=== PATIENT | female | born 1955 | race Caucasian/White ===

== ENCOUNTER 2017-11-28 17:20 | Inpatient (IN) | payer OTHER ==
[2017-11-28] MEDS: morphine 4 MG/ML VIAL IV (18:00)
[2017-11-28] MEDS: ONDANSETRON 4 MG INJ IV (18:01)
[2017-11-28 18:15] LABS: ADD MAN DIFF? NO
[2017-11-28 18:18] LABS: BASOPHILS % 0.3 % (0.0-2.0); EOSINOPHILS % 0.2 % (0.0-7.0); HEMATOCRIT 42.1 % (37.0-47.0); HEMOGLOBIN 13.5 g/dl (12.0-16.0); LYMPHOCYTES # 1.8 10^3/ul (0.8-2.9); LYMPHOCYTES % 14.5 % (15.0-51.0); MEAN CORPUSCULAR HEMOGLOBIN 30.2 pg (29.0-33.0); MEAN CORPUSCULAR HGB CONC 32.1 g/dl (32.0-37.0); MEAN CORPUSCULAR VOLUME 94.2 fl (82.0-101.0); MEAN PLATELET VOLUME 8.3 fl (7.4-10.4); MONOCYTE # 0.3 10^3/ul (0.3-0.9); MONOCYTES % 2.5 % (0.0-11.0); NEUTROPHIL # 10.3 10^3/ul (1.6-7.5); NEUTROPHILS % 82.2 % (39.0-77.0); PLATELET COUNT 644 10^3/UL (140-415); RED BLOOD COUNT 4.47 10^6/ul (4.20-5.40); RED CELL DISTRIBUTION WIDTH 15.9 % (11.5-14.5)
[2017-11-28 18:18] LABS: WHITE BLOOD COUNT 12.5 10^3/ul (4.8-10.8)
[2017-11-28 18:47] LABS: ALANINE AMINOTRANSFERASE 66 IU/L (13-69); ALBUMIN 3.4 g/dl (3.3-4.9); ALBUMIN/GLOBULIN RATIO 0.97; ALKALINE PHOSPHATASE 79 IU/L (42-121); ANION GAP 14 (8-16); ASPARTATE AMINO TRANSFERASE 53 IU/L (15-46); BILIRUBIN,INDIRECT 0.6 mg/dl (0-1.1); BILIRUBIN,TOTAL 0.6 mg/dl (0.2-1.3); BLOOD UREA NITROGEN 11 mg/dl (7-20); CALCIUM 9.1 mg/dl (8.4-10.2); CARBON DIOXIDE 23 mmol/L (21-31); CHLORIDE 105 mmol/L (97-110); CREATININE 0.56 mg/dl (0.44-1.00); GLUCOSE 171 mg/dl (70-220); LIPASE 218 U/L (23-300); POTASSIUM 3.9 mmol/L (3.5-5.1); SODIUM 138 mmol/L (135-144); TOTAL PROTEIN 6.9 g/dl (6.1-8.1)
[2017-11-28] MEDS: LACTATED RINGER'S 1,000 ML IV (19:35)
[2017-11-28] MEDS: HYDROmorphONE 0.5 MG/0.5 ML SYG IV ×2 (19:35→22:01)
[2017-11-28 20:26] LABS: LACTIC ACID 3.5 mmol/L (0.5-2.0)
[2017-11-28 21:35] LABS: ADD UMIC NO; UR ASCORBIC ACID NEGATIVE (NEGATIVE); UR BILIRUBIN (Dip) NEGATIVE (NEGATIVE); UR BLOOD (Dip) NEGATIVE (NEGATIVE); UR CLARITY CLEAR (CLEAR); UR COLOR YELLOW (YELLOW); UR GLUCOSE (Dip) NEGATIVE (NEGATIVE); UR KETONES (Dip) NEGATIVE (NEGATIVE); UR LEUKOCYTE ESTERASE (Dip) NEGATIVE Leu/ul (NEGATIVE); UR NITRITE (Dip) NEGATIVE (NEGATIVE); UR TOTAL PROTEIN (Dip) NEGATIVE (NEGATIVE); UR UROBILINOGEN (Dip) NEGATIVE (NEGATIVE)
[2017-11-28] MEDS: METOCLOPRAMIDE 10 MG INJ IV ×2 (22:01→22:02)
[2017-11-28] MEDS ORDERED: NACL 0.9% 3 ML SYG IV (22:30)
[2017-11-28 23:44] LABS: LACTIC ACID 1.3 mmol/L (0.5-2.0)
[2017-11-29] MEDS: METOPROLOL 5 MG INJ IV
[2017-11-29] MEDS: METHYLPREDNISOLONE 40 MG INJ IV ×2 (00:23→09:33)
[2017-11-29] MEDS: SOD CHLORIDE 0.9% 1,000 ML IV ×4 (01:26→22:46)
[2017-11-29] MEDS: morphine 2 MG INJ IV ×5 (02:50→22:46)
[2017-11-29] MEDS: METOCLOPRAMIDE 10 MG INJ IV ×5 (04:31→23:17)
[2017-11-29 06:14] LABS: WHITE BLOOD COUNT 13.2 10^3/ul (4.8-10.8)
[2017-11-29 06:14] LABS: HEMOGLOBIN 11.3 g/dl (12.0-16.0); MEAN CORPUSCULAR HEMOGLOBIN 29.2 pg (29.0-33.0); MEAN CORPUSCULAR HGB CONC 31.4 g/dl (32.0-37.0); MEAN PLATELET VOLUME 8.7 fl (7.4-10.4); PLATELET COUNT 458 10^3/UL (140-415); RED BLOOD COUNT 3.87 10^6/ul (4.20-5.40); RED CELL DISTRIBUTION WIDTH 16.1 % (11.5-14.5)
[2017-11-29] MEDS: LEVOTHYROXINE 100 MCG VIAL IV (06:15)
[2017-11-29] MEDS: PANTOPRAZOLE 40 MG INJ IV (06:15)
[2017-11-29 06:21] LABS: ADD MAN DIFF? YES; POSITIVE DIFF @See below
[2017-11-29 06:25] LABS: HEMOGLOBIN A1C 5.4 % (0-5.9)
[2017-11-29 07:12] LABS: ALANINE AMINOTRANSFERASE 49 IU/L (13-69); ALBUMIN 2.7 g/dl (3.3-4.9); ALBUMIN/GLOBULIN RATIO 0.87; ALKALINE PHOSPHATASE 61 IU/L (42-121); ANION GAP 14 (8-16); ASPARTATE AMINO TRANSFERASE 27 IU/L (15-46); BILIRUBIN,INDIRECT 0.6 mg/dl (0-1.1); BILIRUBIN,TOTAL 0.6 mg/dl (0.2-1.3); BLOOD UREA NITROGEN 12 mg/dl (7-20); CALCIUM 8.8 mg/dl (8.4-10.2); CARBON DIOXIDE 28 mmol/L (21-31); CHLORIDE 103 mmol/L (97-110); CHOL/HDL RATIO 2.5 RATIO; CHOLESTEROL 87 mg/dl (100-200); CREATININE 0.56 mg/dl (0.44-1.00); GLUCOSE 176 mg/dl (70-220); HDL CHOLESTEROL 34 mg/dl (35-98); LDL CHOLESTEROL,CALCULATED 37 mg/dl; MAGNESIUM 1.9 mg/dl (1.7-2.5); POTASSIUM 4.7 mmol/L (3.5-5.1); SODIUM 140 mmol/L (135-144); TOTAL PROTEIN 5.8 g/dl (6.1-8.1); TRIGLYCERIDES 82 mg/dl (0-149)
[2017-11-29 09:25] LABS: BAND NEUTROPHILS #M 2.7 10^3/ul (0.0-0.6); BAND NEUTROPHILS % (M) 21 % (0-4); LYMPHOCYTES #M 0.5 10^3/ul (0.8-2.9); LYMPHOCYTES % (M) 4 % (15-51); MONOCYTE #M 0.2 10^3/ul (0.3-0.9); MONOCYTES % (M) 2 % (0-11); PLATELET ESTIMATE INCREASED; SEGMENTED NEUTROPHILS (M) % 73 % (39-77); SMUDGE%M 3 % (0-0); TOXIC GRANULATION 1+ (0-0)
[2017-11-29] MEDS ORDERED: hydrALAzine 20 MG INJ IV (16:00)
[2017-11-30] MEDS: SOD CHLORIDE 0.9% 1,000 ML IV ×3 (02:42→15:23)
[2017-11-30] MEDS: LEVOTHYROXINE 100 MCG VIAL IV (05:34)
[2017-11-30] MEDS: PANTOPRAZOLE 40 MG INJ IV (05:34)
[2017-11-30] MEDS: METOCLOPRAMIDE 10 MG INJ IV ×4 (05:34→23:59)
[2017-11-30 06:48] LABS: ADD MAN DIFF? NO
[2017-11-30 07:05] LABS: BASOPHILS % 0.1 % (0.0-2.0); EOSINOPHILS % 0.4 % (0.0-7.0); HEMATOCRIT 31.1 % (37.0-47.0); HEMOGLOBIN 9.7 g/dl (12.0-16.0); LYMPHOCYTES # 1.1 10^3/ul (0.8-2.9); LYMPHOCYTES % 9.5 % (15.0-51.0); MEAN CORPUSCULAR HEMOGLOBIN 29.2 pg (29.0-33.0); MEAN CORPUSCULAR HGB CONC 31.2 g/dl (32.0-37.0); MEAN CORPUSCULAR VOLUME 93.7 fl (82.0-101.0); MEAN PLATELET VOLUME 8.8 fl (7.4-10.4); MONOCYTE # 0.4 10^3/ul (0.3-0.9); MONOCYTES % 3.9 % (0.0-11.0); NEUTROPHIL # 9.5 10^3/ul (1.6-7.5); NEUTROPHILS % 85.5 % (39.0-77.0); PLATELET COUNT 375 10^3/UL (140-415); RED BLOOD COUNT 3.32 10^6/ul (4.20-5.40)
[2017-11-30 07:05] LABS: WHITE BLOOD COUNT 11.1 10^3/ul (4.8-10.8)
[2017-11-30 07:23] LABS: PHOSPHORUS 2.7 mg/dl (2.5-4.9)
[2017-11-30 07:23] LABS: ANION GAP 9 (8-16); BLOOD UREA NITROGEN 9 mg/dl (7-20); CALCIUM 8.5 mg/dl (8.4-10.2); CARBON DIOXIDE 28 mmol/L (21-31); CHLORIDE 103 mmol/L (97-110); CREATININE 0.52 mg/dl (0.44-1.00); GLUCOSE 92 mg/dl (70-220); SODIUM 136 mmol/L (135-144)
[2017-11-30 07:32] LABS: FREE T4 (FREE THYROXINE) 1.65 ng/dl (0.78-2.44)
[2017-11-30] MEDS: METHYLPREDNISOLONE 40 MG INJ IV (08:44)
[2017-11-30] MEDS: POLYETHYLENE GLYCOL 17 GM PACKET PO ×2 (11:32→21:40)
[2017-11-30] MEDS: BISACODYL (EC) 5 MG TAB PO (11:32)
[2017-11-30] MEDS: morphine 2 MG INJ IV ×2 (13:46→18:50)
[2017-11-30] MEDS ORDERED: morphine LIQ (10 MG/5 ML) CUP PO (16:30)
[2017-11-30] MEDS: NA PHOSPHATE/BIPHOS 133 ML ENEMA PR (17:18)
[2017-11-30] MEDS: HYDROmorphONE 1 MG/ML SYG IV (19:45)
[2017-11-30] MEDS: DOCUSATE SODIUM 100 MG CAP PO (21:40)
[2017-12-01] MEDS: SOD CHLORIDE 0.9% 1,000 ML IV ×2 (03:46→17:40)
[2017-12-01] MEDS: HYDROmorphONE 1 MG/ML SYG IV ×5 (04:25→20:25)
[2017-12-01] MEDS: METOCLOPRAMIDE 10 MG INJ IV ×4 (06:37→23:32)
[2017-12-01] MEDS: LEVOTHYROXINE 150 MCG TAB PO (06:37)
[2017-12-01] MEDS: PANTOPRAZOLE 40 MG INJ IV (06:37)
[2017-12-01 07:42] LABS: HEMATOCRIT 37.2 % (37.0-47.0); HEMOGLOBIN 11.4 g/dl (12.0-16.0); MEAN CORPUSCULAR HEMOGLOBIN 29.2 pg (29.0-33.0); MEAN CORPUSCULAR HGB CONC 30.6 g/dl (32.0-37.0); MEAN CORPUSCULAR VOLUME 95.1 fl (82.0-101.0); MEAN PLATELET VOLUME 8.7 fl (7.4-10.4); PLATELET COUNT 452 10^3/UL (140-415); RED BLOOD COUNT 3.91 10^6/ul (4.20-5.40); RED CELL DISTRIBUTION WIDTH 15.8 % (11.5-14.5)
[2017-12-01 07:42] LABS: WHITE BLOOD COUNT 5.6 10^3/ul (4.8-10.8)
[2017-12-01 07:57] LABS: ADD MAN DIFF? YES; POSITIVE DIFF @See below
[2017-12-01 08:08] LABS: ANION GAP 13 (8-16); BLOOD UREA NITROGEN 10 mg/dl (7-20); CARBON DIOXIDE 28 mmol/L (21-31); CHLORIDE 105 mmol/L (97-110); CREATININE 0.55 mg/dl (0.44-1.00); GLUCOSE 139 mg/dl (70-220); POTASSIUM 4.8 mmol/L (3.5-5.1); SODIUM 141 mmol/L (135-144)
[2017-12-01 08:11] LABS: MAGNESIUM 2.1 mg/dl (1.7-2.5)
[2017-12-01 08:11] LABS: PHOSPHORUS 3.7 mg/dl (2.5-4.9)
[2017-12-01] MEDS: DOCUSATE SODIUM 100 MG CAP PO ×2 (09:20→20:26)
[2017-12-01] MEDS: predniSONE 2.5 MG TAB PO (09:20)
[2017-12-01] MEDS: POLYETHYLENE GLYCOL 17 GM PACKET PO ×2 (09:21→20:26)
[2017-12-01 09:26] LABS: ANISOCYTOSIS 1+ (0-0); BAND NEUTROPHILS #M 1.3 10^3/ul (0.0-0.6); BAND NEUTROPHILS % (M) 24 % (0-4); BASOPHILS % (M) 1 % (0-2); BURR CELLS 1+ (0-0); HYPOCHROMASIA 1+ (0-0); LYMPHOCYTES #M 0.7 10^3/ul (0.8-2.9); LYMPHOCYTES % (M) 13 % (15-51); MONOCYTES % (M) 1 % (0-11); PLATELET ESTIMATE NORMAL; POLYCHROMASIA 1+ (0-0); SEG NEUT #M 3.5 10^3/ul (1.6-7.5); SEGMENTED NEUTROPHILS (M) % 61 % (39-77); SMUDGE%M 2 % (0-0)
[2017-12-02] MEDS: HYDROmorphONE 1 MG/ML SYG IV ×4 (00:37→20:42)
[2017-12-02] MEDS: METOCLOPRAMIDE 10 MG INJ IV ×4 (05:22→23:50)
[2017-12-02] MEDS: PANTOPRAZOLE 40 MG INJ IV (05:22)
[2017-12-02] MEDS: LEVOTHYROXINE 150 MCG TAB PO (06:13)
[2017-12-02 06:20] LABS: WHITE BLOOD COUNT 8.7 10^3/ul (4.8-10.8)
[2017-12-02 06:20] LABS: HEMATOCRIT 32.3 % (37.0-47.0); HEMOGLOBIN 10.1 g/dl (12.0-16.0); MEAN CORPUSCULAR HEMOGLOBIN 28.8 pg (29.0-33.0); MEAN CORPUSCULAR HGB CONC 31.3 g/dl (32.0-37.0); MEAN PLATELET VOLUME 8.7 fl (7.4-10.4); PLATELET COUNT 329 10^3/UL (140-415); RED BLOOD COUNT 3.51 10^6/ul (4.20-5.40); RED CELL DISTRIBUTION WIDTH 15.7 % (11.5-14.5)
[2017-12-02 06:44] LABS: MAGNESIUM 2.1 mg/dl (1.7-2.5)
[2017-12-02 06:44] LABS: PHOSPHORUS 2.7 mg/dl (2.5-4.9)
[2017-12-02 07:10] LABS: ADD MAN DIFF? YES; POSITIVE DIFF @See below
[2017-12-02 07:19] LABS: ANION GAP 11 (8-16); BLOOD UREA NITROGEN 13 mg/dl (7-20); CALCIUM 8.6 mg/dl (8.4-10.2); CARBON DIOXIDE 24 mmol/L (21-31); CHLORIDE 108 mmol/L (97-110); CREATININE 0.46 mg/dl (0.44-1.00); GLUCOSE 109 mg/dl (70-220); POTASSIUM 3.6 mmol/L (3.5-5.1); SODIUM 139 mmol/L (135-144)
[2017-12-02] MEDS: SOD CHLORIDE 0.9% 1,000 ML IV (07:51)
[2017-12-02 08:39] LABS: LYMPHOCYTES #M 0.4 10^3/ul (0.8-2.9); LYMPHOCYTES % (M) 5 % (15-51); MONOCYTE #M 0.6 10^3/ul (0.3-0.9); MONOCYTES % (M) 8 % (0-11); PLATELET ESTIMATE NORMAL; POLYCHROMASIA 2+ (0-0); SEGMENTED NEUTROPHILS (M) % 87 % (39-77); SMUDGE%M 2 % (0-0)
[2017-12-02] MEDS: COLLAGENASE 5 GM (UD JAR) TOP (09:00)
[2017-12-02] MEDS: POLYETHYLENE GLYCOL 17 GM PACKET PO (09:00)
[2017-12-02] MEDS: DOCUSATE SODIUM 100 MG CAP PO ×2 (09:00→20:41)
[2017-12-02] MEDS: predniSONE 2.5 MG TAB PO ×2 (09:00→11:49)
[2017-12-02] MEDS: DIATR MEGLU/DIATRIZOATE SODIUM 120 ML BTL (09:20)
[2017-12-02] MEDS: LOPERAMIDE 2 MG CAP PO (16:34)
[2017-12-02] MEDS: ENOXAPARIN 80 MG/0.8 ML SYG SC (21:20)
[2017-12-03] MEDS: HYDROmorphONE 1 MG/ML SYG IV ×5 (01:33→20:35)
[2017-12-03] MEDS: SOD CHLORIDE 0.9% 1,000 ML IV ×2 (01:33→15:20)
[2017-12-03 06:16] LABS: ADD MAN DIFF? NO; BASOPHILS % 0.1 % (0.0-2.0); EOSINOPHILS % 0.2 % (0.0-7.0); HEMATOCRIT 30.8 % (37.0-47.0); HEMOGLOBIN 9.7 g/dl (12.0-16.0); LYMPHOCYTES # 0.8 10^3/ul (0.8-2.9); LYMPHOCYTES % 7.6 % (15.0-51.0); MEAN CORPUSCULAR HEMOGLOBIN 29.2 pg (29.0-33.0); MEAN CORPUSCULAR HGB CONC 31.5 g/dl (32.0-37.0); MEAN CORPUSCULAR VOLUME 92.8 fl (82.0-101.0); MEAN PLATELET VOLUME 8.9 fl (7.4-10.4); MONOCYTE # 0.6 10^3/ul (0.3-0.9); MONOCYTES % 6.1 % (0.0-11.0); NEUTROPHIL # 8.6 10^3/ul (1.6-7.5); NEUTROPHILS % 85.5 % (39.0-77.0); NUCLEATED RED BLOOD CELLS% 0.2 /100WBC (0.0-0.0); PLATELET COUNT 334 10^3/UL (140-415); RED BLOOD COUNT 3.32 10^6/ul (4.20-5.40); RED CELL DISTRIBUTION WIDTH 15.4 % (11.5-14.5)
[2017-12-03] MEDS: LEVOTHYROXINE 100 MCG TAB PO (06:17)
[2017-12-03] MEDS: METOCLOPRAMIDE 10 MG INJ IV ×3 (06:17→18:33)
[2017-12-03] MEDS: PANTOPRAZOLE 40 MG INJ IV (06:17)
[2017-12-03 06:53] LABS: ALANINE AMINOTRANSFERASE 29 IU/L (13-69); ALBUMIN 2.5 g/dl (3.3-4.9); ALBUMIN/GLOBULIN RATIO 0.83; ALKALINE PHOSPHATASE 76 IU/L (42-121); ANION GAP 10 (8-16); ASPARTATE AMINO TRANSFERASE 25 IU/L (15-46); BILIRUBIN,INDIRECT 0.8 mg/dl (0-1.1); BILIRUBIN,TOTAL 0.8 mg/dl (0.2-1.3); BLOOD UREA NITROGEN 17 mg/dl (7-20); CALCIUM 8.7 mg/dl (8.4-10.2); CARBON DIOXIDE 26 mmol/L (21-31); CHLORIDE 107 mmol/L (97-110); CREATININE 0.44 mg/dl (0.44-1.00); GLUCOSE 97 mg/dl (70-220); POTASSIUM 3.7 mmol/L (3.5-5.1); SODIUM 139 mmol/L (135-144); TOTAL PROTEIN 5.5 g/dl (6.1-8.1)
[2017-12-03 06:56] LABS: MAGNESIUM 2.1 mg/dl (1.7-2.5)
[2017-12-03 06:56] LABS: PHOSPHORUS 2.8 mg/dl (2.5-4.9)
[2017-12-03] MEDS: DOCUSATE SODIUM 100 MG CAP PO ×2 (09:34→20:50)
[2017-12-03] MEDS: COLLAGENASE 5 GM (UD JAR) TOP (09:34)
[2017-12-03] MEDS: predniSONE 2.5 MG TAB PO (09:35)
[2017-12-03] MEDS: ENOXAPARIN 80 MG/0.8 ML SYG SC ×2 (09:40→20:39)
[2017-12-03 15:01] LABS: C-REACTIVE PROTEIN 18.4 mg/dl (0.0-0.9)
[2017-12-03 15:36] LABS: RHEUMATOID FACTOR NEGATIVE (NEGATIVE)
[2017-12-03 15:47] LABS: ERYTHROCYTE SEDIMENTATION RATE 60 mm/Hr (0-30)
[2017-12-03] MEDS: CALCIUM CARBONATE 500 MG CHEW TAB PO (21:00)
[2017-12-03] MEDS: METOCLOPRAMIDE 10 MG TAB PO (23:23)
[2017-12-04] MEDS: SOD CHLORIDE 0.9% 1,000 ML IV ×3 (01:15→13:03)
[2017-12-04] MEDS: HYDROmorphONE 1 MG/ML SYG IV ×4 (02:53→20:09)
[2017-12-04 06:04] LABS: ADD MAN DIFF? NO
[2017-12-04 06:07] LABS: WHITE BLOOD COUNT 9.4 10^3/ul (4.8-10.8)
[2017-12-04 06:07] LABS: BASOPHILS % 0.1 % (0.0-2.0); EOSINOPHILS % 0.2 % (0.0-7.0); HEMATOCRIT 29.8 % (37.0-47.0); HEMOGLOBIN 9.3 g/dl (12.0-16.0); LYMPHOCYTES # 0.6 10^3/ul (0.8-2.9); LYMPHOCYTES % 6.8 % (15.0-51.0); MEAN CORPUSCULAR HEMOGLOBIN 29.5 pg (29.0-33.0); MEAN CORPUSCULAR HGB CONC 31.2 g/dl (32.0-37.0); MEAN CORPUSCULAR VOLUME 94.6 fl (82.0-101.0); MEAN PLATELET VOLUME 8.5 fl (7.4-10.4); MONOCYTE # 0.6 10^3/ul (0.3-0.9); MONOCYTES % 5.9 % (0.0-11.0); NEUTROPHIL # 8.1 10^3/ul (1.6-7.5); NEUTROPHILS % 86.1 % (39.0-77.0); PLATELET COUNT 282 10^3/UL (140-415); RED BLOOD COUNT 3.15 10^6/ul (4.20-5.40); RED CELL DISTRIBUTION WIDTH 15.9 % (11.5-14.5)
[2017-12-04] MEDS: METOCLOPRAMIDE 10 MG TAB PO ×3 (06:12→19:11)
[2017-12-04] MEDS: LEVOTHYROXINE 100 MCG TAB PO (06:12)
[2017-12-04] MEDS: PANTOPRAZOLE 40 MG INJ IV (06:13)
[2017-12-04 06:52] LABS: MAGNESIUM 1.9 mg/dl (1.7-2.5)
[2017-12-04 06:52] LABS: PHOSPHORUS 2.5 mg/dl (2.5-4.9)
[2017-12-04 06:54] LABS: ANION GAP 11 (8-16); BLOOD UREA NITROGEN 10 mg/dl (7-20); CALCIUM 8.4 mg/dl (8.4-10.2); CARBON DIOXIDE 25 mmol/L (21-31); CHLORIDE 109 mmol/L (97-110); CREATININE 0.45 mg/dl (0.44-1.00); GLUCOSE 77 mg/dl (70-220); POTASSIUM 3.7 mmol/L (3.5-5.1); SODIUM 141 mmol/L (135-144)
[2017-12-04] MEDS: DOCUSATE SODIUM 100 MG CAP PO ×2 (09:00→20:08)
[2017-12-04] MEDS: POLYETHYLENE GLYCOL 17 GM PACKET PO (09:00)
[2017-12-04] MEDS: predniSONE 2.5 MG TAB PO (09:41)
[2017-12-04] MEDS: ENOXAPARIN 80 MG/0.8 ML SYG SC ×2 (09:45→20:12)
[2017-12-04] MEDS: COLLAGENASE 5 GM (UD JAR) TOP (09:48)
[2017-12-04] MEDS: CALCIUM CARBONATE 500 MG CHEW TAB PO (13:08)
[2017-12-04] MEDS: CEPASTAT LOZENGE MT (15:02)
[2017-12-04] MEDS: ONDANSETRON 4 MG INJ IV (20:10)
[2017-12-05] MEDS: HYDROmorphONE 1 MG/ML SYG IV ×5 (00:11→19:35)
[2017-12-05] MEDS: METOCLOPRAMIDE 10 MG TAB PO ×4 (00:11→18:27)
[2017-12-05] MEDS: CALCIUM CARBONATE 500 MG CHEW TAB PO ×2 (00:15→06:35)
[2017-12-05] MEDS: SOD CHLORIDE 0.9% 1,000 ML IV ×2 (00:16→13:21)
[2017-12-05] MEDS: PANTOPRAZOLE 40 MG INJ IV (05:32)
[2017-12-05] MEDS: ONDANSETRON 4 MG INJ IV ×2 (05:32→13:21)
[2017-12-05] MEDS: LEVOTHYROXINE 100 MCG TAB PO (06:35)
[2017-12-05 08:02] LABS: INR 0.91; PROTIME 12.3 Sec (11.9-14.9)
[2017-12-05 08:03] LABS: PARTIAL THROMBOPLASTIN TIME 34.5 Sec (25.0-35.0)
[2017-12-05 08:13] LABS: IRON 30 ug/dl (35-150)
[2017-12-05 08:22] LABS: % IRON SATURATION 12 % SAT (22-52); TOTAL IRON BINDING CAPACITY 256 ug/dl (241-421)
[2017-12-05] MEDS: COLLAGENASE 5 GM (UD JAR) TOP (09:00)
[2017-12-05] MEDS: DOCUSATE SODIUM 100 MG CAP PO ×2 (09:02→20:25)
[2017-12-05] MEDS: predniSONE 2.5 MG TAB PO (09:02)
[2017-12-05] MEDS: ENOXAPARIN 80 MG/0.8 ML SYG SC ×2 (09:04→20:27)
[2017-12-05] MEDS: CEPASTAT LOZENGE MT (09:04)
[2017-12-05] MEDS: FERROUS SULFATE (EC) 325 MG TAB PO ×2 (10:02→20:25)
[2017-12-05 11:09] LABS: FOLATE > 20.0 ng/ml (2.8-20.0)
[2017-12-05 18:31] LABS: ANA SCREEN POSITIVE (NEGATIVE); HOMOCYSTEINE - CARDIOVASCULAR 4.8 umol/L (<10.4)
[2017-12-05 21:34] LABS: ANA PATTERN NUCLEOLAR
[2017-12-06] MEDS: HYDROmorphONE 1 MG/ML SYG IV ×4 (00:17→14:53)
[2017-12-06] MEDS: METOCLOPRAMIDE 10 MG TAB PO ×4 (00:18→17:48)
[2017-12-06] MEDS: LEVOTHYROXINE 100 MCG TAB PO (05:17)
[2017-12-06] MEDS: SOD CHLORIDE 0.9% 1,000 ML IV ×2 (05:17→17:51)
[2017-12-06] MEDS: PANTOPRAZOLE 40 MG INJ IV (05:18)
[2017-12-06 07:04] LABS: ADD MAN DIFF? NO
[2017-12-06 07:17] LABS: BASOPHILS % 0.1 % (0.0-2.0); EOSINOPHILS % 0.1 % (0.0-7.0); HEMATOCRIT 31.8 % (37.0-47.0); HEMOGLOBIN 9.8 g/dl (12.0-16.0); LYMPHOCYTES # 1.1 10^3/ul (0.8-2.9); LYMPHOCYTES % 12.1 % (15.0-51.0); MEAN CORPUSCULAR HEMOGLOBIN 28.7 pg (29.0-33.0); MEAN CORPUSCULAR HGB CONC 30.8 g/dl (32.0-37.0); MEAN CORPUSCULAR VOLUME 93.3 fl (82.0-101.0); MEAN PLATELET VOLUME 9.1 fl (7.4-10.4); MONOCYTE # 0.8 10^3/ul (0.3-0.9); MONOCYTES % 8.8 % (0.0-11.0); NEUTROPHIL # 6.9 10^3/ul (1.6-7.5); NUCLEATED RED BLOOD CELLS% 0.5 /100WBC (0.0-0.0); PLATELET COUNT 409 10^3/UL (140-415); RED BLOOD COUNT 3.41 10^6/ul (4.20-5.40); RED CELL DISTRIBUTION WIDTH 15.9 % (11.5-14.5)
[2017-12-06 07:17] LABS: WHITE BLOOD COUNT 8.8 10^3/ul (4.8-10.8)
[2017-12-06 07:38] LABS: ANION GAP 10 (8-16); BLOOD UREA NITROGEN 18 mg/dl (7-20); CARBON DIOXIDE 26 mmol/L (21-31); CHLORIDE 107 mmol/L (97-110); CREATININE 0.51 mg/dl (0.44-1.00); GLUCOSE 169 mg/dl (70-220); POTASSIUM 4.3 mmol/L (3.5-5.1); SODIUM 139 mmol/L (135-144)
[2017-12-06 08:39] LABS: IMMUNOGLOBULIN A 397 mg/dl (70-400); IMMUNOGLOBULIN G 1041 mg/dl (700-1600); IMMUNOGLOBULIN M 162 mg/dl (40-230)
[2017-12-06] MEDS: COLLAGENASE 5 GM (UD JAR) TOP (09:00)
[2017-12-06] MEDS: predniSONE 2.5 MG TAB PO (09:15)
[2017-12-06] MEDS: DOCUSATE SODIUM 100 MG CAP PO ×2 (09:15→20:51)
[2017-12-06] MEDS: FERROUS SULFATE (EC) 325 MG TAB PO ×2 (09:15→20:51)
[2017-12-06] MEDS: ENOXAPARIN 80 MG/0.8 ML SYG SC ×2 (09:20→20:57)
[2017-12-06] MEDS: morphine LIQ (20 MG/ML PO SYG) PO (20:52)
[2017-12-07] MEDS: METOCLOPRAMIDE 10 MG TAB PO ×5 (00:47→23:48)
[2017-12-07 03:37] LABS: PROTEIN, TOTAL 5.4 g/dL (6.1-8.1)
[2017-12-07] MEDS: morphine LIQ (20 MG/ML PO SYG) PO ×4 (03:49→21:49)
[2017-12-07] MEDS: PANTOPRAZOLE 40 MG INJ IV (06:22)
[2017-12-07] MEDS: LEVOTHYROXINE 100 MCG TAB PO (06:22)
[2017-12-07] MEDS: SOD CHLORIDE 0.9% 1,000 ML IV ×2 (06:26→18:49)
[2017-12-07] MEDS: predniSONE 2.5 MG TAB PO (09:56)
[2017-12-07] MEDS: COLLAGENASE 5 GM (UD JAR) TOP (09:56)
[2017-12-07] MEDS: FERROUS SULFATE (EC) 325 MG TAB PO ×2 (09:56→21:43)
[2017-12-07] MEDS: DOCUSATE SODIUM 100 MG CAP PO ×2 (09:56→21:43)
[2017-12-07] MEDS: ENOXAPARIN 80 MG/0.8 ML SYG SC ×2 (10:05→21:48)
[2017-12-07] MEDS: CEPASTAT LOZENGE MT (14:48)
[2017-12-07] MEDS: ONDANSETRON 4 MG INJ IV (20:14)
[2017-12-07] MEDS: SUCRALFATE (100 MG/ML) 10ML CUP PO (21:43)
[2017-12-07 22:26] LABS: ALBUMIN 2.2 g/dL (3.8-4.8); ALPHA-1-GLOBULINS 0.5 g/dL (0.2-0.3); ALPHA-2-GLOBULINS 0.8 g/dL (0.5-0.9); BETA 2 GLOBULINS 0.4 g/dL (0.2-0.5); BETA GLOBULINS 0.4 g/dL (0.4-0.6); GAMMA GLOBULINS 1.1 g/dL (0.8-1.7)
[2017-12-08] MEDS: PANTOPRAZOLE 40 MG INJ IV ×2 (05:38→18:05)
[2017-12-08] MEDS: SOD CHLORIDE 0.9% 1,000 ML IV ×2 (05:38→18:05)
[2017-12-08] MEDS: morphine LIQ (20 MG/ML PO SYG) PO ×4 (05:39→21:04)
[2017-12-08] MEDS: METOCLOPRAMIDE 10 MG TAB PO ×3 (05:39→18:05)
[2017-12-08] MEDS: LEVOTHYROXINE 100 MCG TAB PO (05:39)
[2017-12-08] MEDS: FERROUS SULFATE (EC) 325 MG TAB PO ×2 (08:57→20:57)
[2017-12-08] MEDS: SUCRALFATE (100 MG/ML) 10ML CUP PO ×4 (08:57→20:58)
[2017-12-08] MEDS: DOCUSATE SODIUM 100 MG CAP PO ×2 (08:57→20:57)
[2017-12-08] MEDS: COLLAGENASE 5 GM (UD JAR) TOP (08:58)
[2017-12-08] MEDS: predniSONE 2.5 MG TAB PO (08:58)
[2017-12-08] MEDS: ENOXAPARIN 80 MG/0.8 ML SYG SC ×2 (09:03→22:12)
[2017-12-08] MEDS: ONDANSETRON 4 MG INJ IV ×2 (12:37→18:05)
[2017-12-08] MEDS: LIDOCAINE/MYLANTA 40 ML BTL PO (15:48)
[2017-12-09] MEDS: METOCLOPRAMIDE 10 MG TAB PO ×4 (00:11→17:52)
[2017-12-09] MEDS: morphine LIQ (20 MG/ML PO SYG) PO (01:41)
[2017-12-09] MEDS: ONDANSETRON 4 MG INJ IV ×2 (02:22→13:21)
[2017-12-09] MEDS: HYDROmorphONE 1 MG/ML SYG IV ×3 (03:03→16:01)
[2017-12-09] MEDS: PANTOPRAZOLE 40 MG INJ IV ×3 (06:02→17:53)
[2017-12-09] MEDS: SOD CHLORIDE 0.9% 1,000 ML IV ×2 (06:03→20:49)
[2017-12-09] MEDS: LEVOTHYROXINE 100 MCG TAB PO (06:03)
[2017-12-09 06:32] LABS: LIPASE 17 U/L (23-300)
[2017-12-09] MEDS: SUCRALFATE (100 MG/ML) 10ML CUP PO ×4 (09:00→20:52)
[2017-12-09] MEDS: predniSONE 2.5 MG TAB PO (10:03)
[2017-12-09] MEDS: FERROUS SULFATE (EC) 325 MG TAB PO ×2 (10:04→20:51)
[2017-12-09] MEDS: COLLAGENASE 5 GM (UD JAR) TOP (10:04)
[2017-12-09] MEDS: DOCUSATE SODIUM 100 MG CAP PO ×2 (10:04→20:52)
[2017-12-09] MEDS: ENOXAPARIN 80 MG/0.8 ML SYG SC ×2 (10:07→20:56)
[2017-12-09] MEDS: BISACODYL (EC) 5 MG TAB PO (10:11)
[2017-12-09] MEDS: LUBIPROSTONE 8 MCG CAPSULE PO (20:51)
[2017-12-10] MEDS: METOCLOPRAMIDE 10 MG TAB PO ×4 (00:17→18:10)
[2017-12-10] MEDS: HYDROmorphONE 1 MG/ML SYG IV ×5 (00:18→20:53)
[2017-12-10] MEDS: LEVOTHYROXINE 100 MCG TAB PO (06:34)
[2017-12-10] MEDS: predniSONE 2.5 MG TAB PO (08:34)
[2017-12-10] MEDS: FERROUS SULFATE (EC) 325 MG TAB PO ×2 (08:35→20:45)
[2017-12-10] MEDS: LUBIPROSTONE 8 MCG CAPSULE PO ×2 (08:35→20:45)
[2017-12-10] MEDS: DOCUSATE SODIUM 100 MG CAP PO ×2 (08:35→20:45)
[2017-12-10] MEDS: ENOXAPARIN 80 MG/0.8 ML SYG SC ×2 (08:43→20:49)
[2017-12-10] MEDS: COLLAGENASE 5 GM (UD JAR) TOP (08:44)
[2017-12-10] MEDS: PANTOPRAZOLE 40 MG INJ IV ×2 (08:46→18:09)
[2017-12-10] MEDS: ONDANSETRON 4 MG INJ IV (08:49)
[2017-12-10] MEDS: SUCRALFATE (100 MG/ML) 10ML CUP PO ×4 (09:00→20:45)
[2017-12-10] MEDS: SOD CHLORIDE 0.9% 1,000 ML IV ×2 (09:05→20:45)
[2017-12-11] MEDS: METOCLOPRAMIDE 10 MG TAB PO ×4 (00:57→18:05)
[2017-12-11] MEDS: HYDROmorphONE 1 MG/ML SYG IV ×5 (00:58→20:09)
[2017-12-11] MEDS: LEVOTHYROXINE 100 MCG TAB PO ×2 (06:12→07:58)
[2017-12-11] MEDS: PANTOPRAZOLE 40 MG INJ IV ×2 (06:12→17:30)
[2017-12-11] MEDS ORDERED: PROPOFOL 200 MG INJ (07:00)
[2017-12-11] MEDS ORDERED: LIDOCAINE 2% (SDV) 5 ML INJ (07:00)
[2017-12-11] MEDS: FERROUS SULFATE (EC) 325 MG TAB PO ×2 (07:57→20:10)
[2017-12-11] MEDS: predniSONE 2.5 MG TAB PO (07:57)
[2017-12-11] MEDS: DOCUSATE SODIUM 100 MG CAP PO ×2 (07:58→20:10)
[2017-12-11] MEDS: SUCRALFATE (100 MG/ML) 10ML CUP PO ×4 (07:58→20:09)
[2017-12-11] MEDS: COLLAGENASE 5 GM (UD JAR) TOP (07:59)
[2017-12-11] MEDS: LUBIPROSTONE 8 MCG CAPSULE PO ×2 (09:00→20:10)
[2017-12-11] MEDS: SOD CHLORIDE 0.9% 1,000 ML IV (09:43)
[2017-12-11] MEDS: CEPASTAT LOZENGE MT ×2 (20:10→22:26)
[2017-12-11] MEDS: morphine LIQ (20 MG/ML PO SYG) PO (22:26)
[2017-12-12] MEDS: ONDANSETRON 4 MG INJ IV ×2 (00:03→12:18)
[2017-12-12] MEDS: HYDROmorphONE 1 MG/ML SYG IV ×5 (00:03→20:33)
[2017-12-12] MEDS: METOCLOPRAMIDE 10 MG TAB PO ×5 (00:03→23:40)
[2017-12-12] MEDS: ENOXAPARIN 80 MG/0.8 ML SYG SC ×3 (00:03→20:35)
[2017-12-12] MEDS: SOD CHLORIDE 0.9% 1,000 ML IV ×3 (00:04→23:42)
[2017-12-12] MEDS: morphine LIQ (20 MG/ML PO SYG) PO ×3 (06:27→23:40)
[2017-12-12] MEDS: PANTOPRAZOLE 40 MG INJ IV ×2 (06:27→18:17)
[2017-12-12] MEDS: LEVOTHYROXINE 100 MCG TAB PO (06:27)
[2017-12-12 08:20] LABS: ADD MAN DIFF? NO
[2017-12-12 08:33] LABS: BASOPHILS % 0.1 % (0.0-2.0); EOSINOPHILS % 0.1 % (0.0-7.0); HEMATOCRIT 34.9 % (37.0-47.0); HEMOGLOBIN 10.6 g/dl (12.0-16.0); LYMPHOCYTES # 1.1 10^3/ul (0.8-2.9); LYMPHOCYTES % 13.9 % (15.0-51.0); MEAN CORPUSCULAR HEMOGLOBIN 28.3 pg (29.0-33.0); MEAN CORPUSCULAR HGB CONC 30.4 g/dl (32.0-37.0); MEAN CORPUSCULAR VOLUME 93.3 fl (82.0-101.0); MEAN PLATELET VOLUME 9.2 fl (7.4-10.4); MONOCYTE # 0.5 10^3/ul (0.3-0.9); MONOCYTES % 6.6 % (0.0-11.0); NEUTROPHIL # 6.2 10^3/ul (1.6-7.5); NEUTROPHILS % 78.7 % (39.0-77.0); PLATELET COUNT 549 10^3/UL (140-415); RED BLOOD COUNT 3.74 10^6/ul (4.20-5.40); RED CELL DISTRIBUTION WIDTH 16.6 % (11.5-14.5)
[2017-12-12 08:33] LABS: WHITE BLOOD COUNT 7.9 10^3/ul (4.8-10.8)
[2017-12-12 08:55] LABS: MAGNESIUM 1.7 mg/dl (1.7-2.5)
[2017-12-12 08:55] LABS: PHOSPHORUS 2.3 mg/dl (2.5-4.9)
[2017-12-12] MEDS: LUBIPROSTONE 8 MCG CAPSULE PO ×2 (09:00→20:32)
[2017-12-12] MEDS: DOCUSATE SODIUM 100 MG CAP PO ×2 (09:00→20:32)
[2017-12-12 09:06] LABS: ALANINE AMINOTRANSFERASE 38 IU/L (13-69); ALBUMIN 2.2 g/dl (3.3-4.9); ALKALINE PHOSPHATASE 72 IU/L (42-121); ANION GAP 10 (8-16); ASPARTATE AMINO TRANSFERASE 28 IU/L (15-46); BILIRUBIN,INDIRECT 0.4 mg/dl (0-1.1); BILIRUBIN,TOTAL 0.4 mg/dl (0.2-1.3); BLOOD UREA NITROGEN 6 mg/dl (7-20); CALCIUM 7.8 mg/dl (8.4-10.2); CARBON DIOXIDE 24 mmol/L (21-31); CHLORIDE 104 mmol/L (97-110); CREATININE 0.29 mg/dl (0.44-1.00); GLUCOSE 67 mg/dl (70-220); SODIUM 135 mmol/L (135-144); TOTAL PROTEIN 5.3 g/dl (6.1-8.1)
[2017-12-12] MEDS: SUCRALFATE (100 MG/ML) 10ML CUP PO ×4 (09:07→20:32)
[2017-12-12] MEDS: FERROUS SULFATE (EC) 325 MG TAB PO ×2 (09:07→20:32)
[2017-12-12] MEDS: predniSONE 2.5 MG TAB PO (09:07)
[2017-12-12] MEDS: COLLAGENASE 5 GM (UD JAR) TOP (09:08)
[2017-12-12] MEDS: MULTIVITAMINS 10 ML, THIAMINE 100 MG, FOLIC ACID 1 MG in SOD CHLORIDE 0.9% 1,000 ML IVPB (13:52)
[2017-12-12] MEDS: POTASSIUM PHOSPHATE 30 MM in SOD CHLORIDE 0.9% 250 ML IVPB (13:52)
[2017-12-13] MEDS: HYDROmorphONE 1 MG/ML SYG IV ×5 (01:35→23:45)
[2017-12-13] MEDS: PANTOPRAZOLE 40 MG INJ IV ×2 (05:56→17:38)
[2017-12-13] MEDS: LEVOTHYROXINE 100 MCG TAB PO (05:57)
[2017-12-13] MEDS: LIDOCAINE 2% VISC 15 ML CUP PO (05:57)
[2017-12-13] MEDS: METOCLOPRAMIDE 10 MG TAB PO ×3 (05:57→17:37)
[2017-12-13 07:05] LABS: ADD MAN DIFF? NO
[2017-12-13 07:13] LABS: EOSINOPHILS % 0.2 % (0.0-7.0); LYMPHOCYTES # 1.7 10^3/ul (0.8-2.9); LYMPHOCYTES % 18.7 % (15.0-51.0); MEAN CORPUSCULAR HEMOGLOBIN 27.9 pg (29.0-33.0); MEAN CORPUSCULAR HGB CONC 30.6 g/dl (32.0-37.0); MEAN CORPUSCULAR VOLUME 91.4 fl (82.0-101.0); MEAN PLATELET VOLUME 8.9 fl (7.4-10.4); MONOCYTE # 0.7 10^3/ul (0.3-0.9); NEUTROPHIL # 6.5 10^3/ul (1.6-7.5); NEUTROPHILS % 72.9 % (39.0-77.0); PLATELET COUNT 667 10^3/UL (140-415); RED BLOOD COUNT 3.94 10^6/ul (4.20-5.40); RED CELL DISTRIBUTION WIDTH 16.7 % (11.5-14.5)
[2017-12-13 07:13] LABS: WHITE BLOOD COUNT 8.9 10^3/ul (4.8-10.8)
[2017-12-13 07:53] LABS: ALANINE AMINOTRANSFERASE 27 IU/L (13-69); ALBUMIN 2.2 g/dl (3.3-4.9); ALKALINE PHOSPHATASE 66 IU/L (42-121); ASPARTATE AMINO TRANSFERASE 24 IU/L (15-46); BILIRUBIN,INDIRECT 0.3 mg/dl (0-1.1); BILIRUBIN,TOTAL 0.3 mg/dl (0.2-1.3); BLOOD UREA NITROGEN 7 mg/dl (7-20); CALCIUM 7.8 mg/dl (8.4-10.2); CARBON DIOXIDE 28 mmol/L (21-31); CHLORIDE 104 mmol/L (97-110); CREATININE 0.31 mg/dl (0.44-1.00); GLUCOSE 68 mg/dl (70-220); POTASSIUM 4.2 mmol/L (3.5-5.1)
[2017-12-13 07:55] LABS: ALBUMIN/GLOBULIN RATIO 0.84; TOTAL PROTEIN 4.8 g/dl (6.1-8.1)
[2017-12-13 07:57] LABS: ANION GAP 7 (8-16); MAGNESIUM 1.7 mg/dl (1.7-2.5); SODIUM 135 mmol/L (135-144)
[2017-12-13 07:57] LABS: PHOSPHORUS 2.8 mg/dl (2.5-4.9)
[2017-12-13] MEDS: SUCRALFATE (100 MG/ML) 10ML CUP PO ×4 (08:40→21:58)
[2017-12-13] MEDS: predniSONE 2.5 MG TAB PO (08:41)
[2017-12-13] MEDS: DOCUSATE SODIUM 100 MG CAP PO ×2 (08:41→21:58)
[2017-12-13] MEDS: LUBIPROSTONE 8 MCG CAPSULE PO ×2 (08:41→21:00)
[2017-12-13] MEDS: FERROUS SULFATE (EC) 325 MG TAB PO ×2 (08:41→21:58)
[2017-12-13] MEDS: morphine LIQ (20 MG/ML PO SYG) PO ×2 (08:41→16:12)
[2017-12-13] MEDS: ENOXAPARIN 80 MG/0.8 ML SYG SC ×2 (08:43→23:47)
[2017-12-13] MEDS: COLLAGENASE 5 GM (UD JAR) TOP (08:48)
[2017-12-13] MEDS: MULTIVITAMINS 10 ML, THIAMINE 100 MG, FOLIC ACID 1 MG in SOD CHLORIDE 0.9% 1,000 ML IVPB (09:23)
[2017-12-13] MEDS: SOD CHLORIDE 0.9% 1,000 ML IV ×2 (12:28→18:06)
[2017-12-13] MEDS: ONDANSETRON 4 MG INJ IV ×2 (16:08→22:13)
[2017-12-14] MEDS: METOCLOPRAMIDE 10 MG TAB PO ×5 (06:00→23:42)
[2017-12-14] MEDS: PANTOPRAZOLE 40 MG INJ IV ×2 (06:02→18:17)
[2017-12-14] MEDS: HYDROmorphONE 1 MG/ML SYG IV ×5 (06:03→23:42)
[2017-12-14] MEDS: SOD CHLORIDE 0.9% 1,000 ML IV ×2 (06:33→13:09)
[2017-12-14 07:13] LABS: ADD MAN DIFF? NO
[2017-12-14 07:17] LABS: EOSINOPHILS % 0.1 % (0.0-7.0); HEMATOCRIT 33.9 % (37.0-47.0); HEMOGLOBIN 10.4 g/dl (12.0-16.0); LYMPHOCYTES % 11.7 % (15.0-51.0); MEAN CORPUSCULAR HEMOGLOBIN 28.3 pg (29.0-33.0); MEAN CORPUSCULAR HGB CONC 30.7 g/dl (32.0-37.0); MEAN CORPUSCULAR VOLUME 92.1 fl (82.0-101.0); MEAN PLATELET VOLUME 8.7 fl (7.4-10.4); MONOCYTE # 0.7 10^3/ul (0.3-0.9); MONOCYTES % 8.7 % (0.0-11.0); NEUTROPHIL # 6.5 10^3/ul (1.6-7.5); PLATELET COUNT 547 10^3/UL (140-415); RED BLOOD COUNT 3.68 10^6/ul (4.20-5.40); RED CELL DISTRIBUTION WIDTH 16.6 % (11.5-14.5)
[2017-12-14 07:17] LABS: WHITE BLOOD COUNT 8.3 10^3/ul (4.8-10.8)
[2017-12-14 07:42] LABS: MAGNESIUM 1.6 mg/dl (1.7-2.5)
[2017-12-14 07:42] LABS: PHOSPHORUS 2.9 mg/dl (2.5-4.9)
[2017-12-14 08:11] LABS: ANION GAP 11 (8-16); BLOOD UREA NITROGEN 8 mg/dl (7-20); CALCIUM 7.7 mg/dl (8.4-10.2); CARBON DIOXIDE 22 mmol/L (21-31); CHLORIDE 105 mmol/L (97-110); CREATININE 0.28 mg/dl (0.44-1.00); GLUCOSE 81 mg/dl (70-220); POTASSIUM 4.3 mmol/L (3.5-5.1); SODIUM 134 mmol/L (135-144)
[2017-12-14] MEDS: SUCRALFATE (100 MG/ML) 10ML CUP PO ×4 (09:38→21:54)
[2017-12-14] MEDS: LEVOTHYROXINE 100 MCG TAB PO (09:39)
[2017-12-14] MEDS: predniSONE 2.5 MG TAB PO (09:39)
[2017-12-14] MEDS: FERROUS SULFATE (EC) 325 MG TAB PO ×2 (09:39→21:00)
[2017-12-14] MEDS: LUBIPROSTONE 8 MCG CAPSULE PO ×2 (09:39→21:00)
[2017-12-14] MEDS: DOCUSATE SODIUM 100 MG CAP PO ×2 (09:39→21:00)
[2017-12-14] MEDS: COLLAGENASE 5 GM (UD JAR) TOP (09:47)
[2017-12-14] MEDS: ENOXAPARIN 80 MG/0.8 ML SYG SC ×2 (09:47→23:47)
[2017-12-14] MEDS: MULTIVITAMINS 10 ML, THIAMINE 100 MG, FOLIC ACID 1 MG in SOD CHLORIDE 0.9% 1,000 ML IVPB (10:29)
[2017-12-14] MEDS: MAGNESIUM SULFATE 2 GM/50 ML 50 ML IVPB (12:47)
[2017-12-14] MEDS: morphine LIQ (20 MG/ML PO SYG) PO ×2 (18:19→21:54)
[2017-12-14] MEDS: ONDANSETRON 4 MG INJ IV (23:42)
[2017-12-15] MEDS: SOD CHLORIDE 0.9% 1,000 ML IV ×4 (01:58→20:19)
[2017-12-15] MEDS: METOCLOPRAMIDE 10 MG TAB PO ×2 (06:00→11:40)
[2017-12-15] MEDS: HYDROmorphONE 1 MG/ML SYG IV ×5 (06:12→23:39)
[2017-12-15] MEDS: ONDANSETRON 4 MG INJ IV (06:12)
[2017-12-15] MEDS: PANTOPRAZOLE 40 MG INJ IV ×2 (06:12→17:42)
[2017-12-15] MEDS: LEVOTHYROXINE 100 MCG TAB PO (07:00)
[2017-12-15 07:34] LABS: ADD MAN DIFF? NO
[2017-12-15 07:35] LABS: WHITE BLOOD COUNT 5.7 10^3/ul (4.8-10.8)
[2017-12-15 07:35] LABS: EOSINOPHILS % 0.5 % (0.0-7.0); HEMATOCRIT 33.9 % (37.0-47.0); HEMOGLOBIN 10.5 g/dl (12.0-16.0); LYMPHOCYTES % 17.5 % (15.0-51.0); MEAN CORPUSCULAR HEMOGLOBIN 28.8 pg (29.0-33.0); MEAN CORPUSCULAR VOLUME 92.9 fl (82.0-101.0); MEAN PLATELET VOLUME 8.3 fl (7.4-10.4); MONOCYTE # 0.6 10^3/ul (0.3-0.9); MONOCYTES % 10.4 % (0.0-11.0); NEUTROPHILS % 71.2 % (39.0-77.0); PLATELET COUNT 502 10^3/UL (140-415); RED BLOOD COUNT 3.65 10^6/ul (4.20-5.40); RED CELL DISTRIBUTION WIDTH 16.8 % (11.5-14.5)
[2017-12-15 08:06] LABS: PHOSPHORUS 2.7 mg/dl (2.5-4.9)
[2017-12-15 08:06] LABS: MAGNESIUM 1.9 mg/dl (1.7-2.5)
[2017-12-15 08:10] LABS: ANION GAP 9 (8-16); BLOOD UREA NITROGEN 8 mg/dl (7-20); CALCIUM 7.7 mg/dl (8.4-10.2); CARBON DIOXIDE 24 mmol/L (21-31); CHLORIDE 106 mmol/L (97-110); CREATININE 0.32 mg/dl (0.44-1.00); GLUCOSE 71 mg/dl (70-220); POTASSIUM 3.8 mmol/L (3.5-5.1); SODIUM 135 mmol/L (135-144)
[2017-12-15] MEDS: LIDOCAINE 2% VISC 15 ML CUP PO (08:29)
[2017-12-15] MEDS: ENOXAPARIN 80 MG/0.8 ML SYG SC ×2 (08:32→20:18)
[2017-12-15] MEDS: COLLAGENASE 5 GM (UD JAR) TOP (08:33)
[2017-12-15] MEDS: SUCRALFATE (100 MG/ML) 10ML CUP PO ×4 (08:39→20:29)
[2017-12-15] MEDS: DOCUSATE SODIUM 100 MG CAP PO ×2 (08:39→20:20)
[2017-12-15] MEDS: LUBIPROSTONE 8 MCG CAPSULE PO ×2 (08:39→20:20)
[2017-12-15] MEDS: FERROUS SULFATE (EC) 325 MG TAB PO ×2 (08:39→20:20)
[2017-12-15] MEDS: MULTIVITAMINS 10 ML, THIAMINE 100 MG, FOLIC ACID 1 MG in SOD CHLORIDE 0.9% 1,000 ML IVPB (11:39)
[2017-12-15] MEDS: DEXAMETHASONE 4 MG/ML 1 ML INJ IV (11:39)
[2017-12-15] MEDS: METOCLOPRAMIDE 10 MG INJ IV ×2 (17:42→23:42)
[2017-12-15] MEDS: IOHEXOL 300MG/ML 150 ML BTL (21:56)
[2017-12-15] MEDS: SOD CHLORIDE 0.9% 100 ML (21:56)
[2017-12-16] MEDS: HYDROmorphONE 1 MG/ML SYG IV ×5 (04:21→22:42)
[2017-12-16] MEDS: PANTOPRAZOLE 40 MG INJ IV ×2 (05:50→17:06)
[2017-12-16] MEDS: METOCLOPRAMIDE 10 MG INJ IV ×4 (05:50→22:56)
[2017-12-16] MEDS: SOD CHLORIDE 0.9% 1,000 ML IV ×2 (05:56→22:35)
[2017-12-16 06:03] LABS: ADD MAN DIFF? NO
[2017-12-16 06:09] LABS: WHITE BLOOD COUNT 5.4 10^3/ul (4.8-10.8)
[2017-12-16 06:09] LABS: EOSINOPHILS % 0.4 % (0.0-7.0); HEMATOCRIT 34.2 % (37.0-47.0); HEMOGLOBIN 10.5 g/dl (12.0-16.0); LYMPHOCYTES # 1.1 10^3/ul (0.8-2.9); LYMPHOCYTES % 20.7 % (15.0-51.0); MEAN CORPUSCULAR HEMOGLOBIN 28.5 pg (29.0-33.0); MEAN CORPUSCULAR HGB CONC 30.7 g/dl (32.0-37.0); MEAN CORPUSCULAR VOLUME 92.7 fl (82.0-101.0); MEAN PLATELET VOLUME 8.6 fl (7.4-10.4); MONOCYTE # 0.7 10^3/ul (0.3-0.9); NEUTROPHIL # 3.6 10^3/ul (1.6-7.5); NEUTROPHILS % 66.5 % (39.0-77.0); PLATELET COUNT 508 10^3/UL (140-415); RED BLOOD COUNT 3.69 10^6/ul (4.20-5.40); RED CELL DISTRIBUTION WIDTH 16.9 % (11.5-14.5)
[2017-12-16 06:38] LABS: PHOSPHORUS 2.8 mg/dl (2.5-4.9)
[2017-12-16 06:38] LABS: MAGNESIUM 1.7 mg/dl (1.7-2.5)
[2017-12-16] MEDS: morphine LIQ (20 MG/ML PO SYG) PO ×3 (06:43→10:06)
[2017-12-16] MEDS: LEVOTHYROXINE 100 MCG TAB PO (06:44)
[2017-12-16 06:45] LABS: ANION GAP 8 (8-16); BLOOD UREA NITROGEN 7 mg/dl (7-20); CALCIUM 7.6 mg/dl (8.4-10.2); CARBON DIOXIDE 27 mmol/L (21-31); CHLORIDE 104 mmol/L (97-110); CREATININE 0.32 mg/dl (0.44-1.00); GLUCOSE 60 mg/dl (70-220); POTASSIUM 3.5 mmol/L (3.5-5.1); SODIUM 135 mmol/L (135-144)
[2017-12-16] MEDS: ADENOSINE 6 MG INJ IV (08:53)
[2017-12-16] MEDS: DEXTROSE 50% 50 ML SYRINGE IV (08:56)
[2017-12-16] MEDS: LUBIPROSTONE 8 MCG CAPSULE PO ×2 (09:00→21:00)
[2017-12-16] MEDS: SUCRALFATE (100 MG/ML) 10ML CUP PO ×4 (09:00→22:37)
[2017-12-16] MEDS: COLLAGENASE 5 GM (UD JAR) TOP (09:00)
[2017-12-16] MEDS: FERROUS SULFATE (EC) 325 MG TAB PO ×2 (09:00→21:00)
[2017-12-16] MEDS: DOCUSATE SODIUM 100 MG CAP PO ×2 (09:00→21:00)
[2017-12-16] MEDS: ENOXAPARIN 80 MG/0.8 ML SYG SC ×2 (09:51→23:03)
[2017-12-16] MEDS: DEXAMETHASONE 4 MG/ML 1 ML INJ IV (09:52)
[2017-12-16] MEDS: METOPROLOL 25 MG TAB PO ×2 (10:00→21:00)
[2017-12-16 10:36] LABS: ALANINE AMINOTRANSFERASE 31 IU/L (13-69); ALBUMIN 1.8 g/dl (3.3-4.9); ALBUMIN/GLOBULIN RATIO 0.69; ALKALINE PHOSPHATASE 57 IU/L (42-121); ANION GAP 9 (8-16); ASPARTATE AMINO TRANSFERASE 23 IU/L (15-46); BILIRUBIN,INDIRECT 0.4 mg/dl (0-1.1); BILIRUBIN,TOTAL 0.4 mg/dl (0.2-1.3); BLOOD UREA NITROGEN 7 mg/dl (7-20); CALCIUM 7.5 mg/dl (8.4-10.2); CARBON DIOXIDE 27 mmol/L (21-31); CHLORIDE 102 mmol/L (97-110); CREATININE 0.35 mg/dl (0.44-1.00); GLUCOSE 135 mg/dl (70-220); MAGNESIUM 1.5 mg/dl (1.7-2.5); POTASSIUM 3.9 mmol/L (3.5-5.1); SODIUM 134 mmol/L (135-144); TOTAL PROTEIN 4.4 g/dl (6.1-8.1)
[2017-12-16 10:51] LABS: TROPONIN-I < 0.012 ng/ml (0.000-0.120)
[2017-12-16] MEDS: MULTIVITAMINS 10 ML, THIAMINE 100 MG, FOLIC ACID 1 MG in SOD CHLORIDE 0.9% 1,000 ML IVPB (11:40)
[2017-12-16] MEDS: MAGNESIUM SULFATE 3 GM in DEXTROSE 5% 100 ML IVPB (12:10)
[2017-12-16] MEDS: ONDANSETRON 4 MG INJ IV (22:49)
[2017-12-17] MEDS: HYDROmorphONE 1 MG/ML SYG IV ×4 (03:30→19:01)
[2017-12-17 05:35] LABS: ADD MAN DIFF? NO
[2017-12-17 05:36] LABS: WHITE BLOOD COUNT 6.5 10^3/ul (4.8-10.8)
[2017-12-17 05:36] LABS: BASOPHILS % 0.2 % (0.0-2.0); EOSINOPHILS % 0.3 % (0.0-7.0); HEMATOCRIT 34.5 % (37.0-47.0); HEMOGLOBIN 10.5 g/dl (12.0-16.0); LYMPHOCYTES # 1.2 10^3/ul (0.8-2.9); LYMPHOCYTES % 18.3 % (15.0-51.0); MEAN CORPUSCULAR HEMOGLOBIN 27.9 pg (29.0-33.0); MEAN CORPUSCULAR HGB CONC 30.4 g/dl (32.0-37.0); MEAN CORPUSCULAR VOLUME 91.5 fl (82.0-101.0); MEAN PLATELET VOLUME 8.5 fl (7.4-10.4); MONOCYTE # 0.6 10^3/ul (0.3-0.9); MONOCYTES % 9.7 % (0.0-11.0); NEUTROPHIL # 4.6 10^3/ul (1.6-7.5); PLATELET COUNT 475 10^3/UL (140-415); RED BLOOD COUNT 3.77 10^6/ul (4.20-5.40); RED CELL DISTRIBUTION WIDTH 16.7 % (11.5-14.5)
[2017-12-17] MEDS: METOCLOPRAMIDE 10 MG INJ IV ×3 (05:52→17:40)
[2017-12-17] MEDS: LEVOTHYROXINE 100 MCG TAB PO (05:52)
[2017-12-17] MEDS: PANTOPRAZOLE 40 MG INJ IV ×2 (05:52→17:40)
[2017-12-17 06:00] LABS: ANION GAP 6 (8-16); BLOOD UREA NITROGEN 7 mg/dl (7-20); CALCIUM 7.6 mg/dl (8.4-10.2); CARBON DIOXIDE 29 mmol/L (21-31); CHLORIDE 103 mmol/L (97-110); GLUCOSE 74 mg/dl (70-220); SODIUM 134 mmol/L (135-144)
[2017-12-17 06:35] LABS: MAGNESIUM 1.9 mg/dl (1.7-2.5)
[2017-12-17 06:35] LABS: PHOSPHORUS 3.1 mg/dl (2.5-4.9)
[2017-12-17] MEDS ORDERED: CA CHLORIDE 10% 10 ML SYRINGE (07:00)
[2017-12-17] MEDS ORDERED: DEXTROSE 50% 50 ML SYRINGE (07:00)
[2017-12-17] MEDS: DOCUSATE SODIUM 100 MG CAP PO ×2 (08:06→21:00)
[2017-12-17] MEDS: FERROUS SULFATE (EC) 325 MG TAB PO ×2 (08:06→21:02)
[2017-12-17] MEDS: LUBIPROSTONE 8 MCG CAPSULE PO ×2 (08:06→21:00)
[2017-12-17] MEDS: METOPROLOL 25 MG TAB PO ×3 (08:08→20:57)
[2017-12-17] MEDS: COLLAGENASE 5 GM (UD JAR) TOP (08:16)
[2017-12-17] MEDS: HYDROmorphONE 1 MG/ML SYG IM (08:34)
[2017-12-17] MEDS: MULTIVITAMINS 10 ML, THIAMINE 100 MG, FOLIC ACID 1 MG in SOD CHLORIDE 0.9% 1,000 ML IVPB (10:53)
[2017-12-17] MEDS: SUCRALFATE (100 MG/ML) 10ML CUP PO ×4 (10:55→20:56)
[2017-12-17] MEDS: DEXAMETHASONE 4 MG/ML 1 ML INJ IV (10:56)
[2017-12-17] MEDS: ENOXAPARIN 80 MG/0.8 ML SYG SC ×2 (11:05→21:09)
[2017-12-17] MEDS: LIDOCAINE 1% (MPF) 5 ML VIAL SC (11:30)
[2017-12-17] MEDS: SOD CHLORIDE 0.9% 1,000 ML IV (14:53)
[2017-12-18] MEDS: HYDROmorphONE 1 MG/ML SYG IV (00:22)
[2017-12-18] MEDS: METOCLOPRAMIDE 10 MG INJ IV ×4 (00:22→17:29)
[2017-12-18] MEDS: RACEPINEPHRINE 2.25%(NEB) 0.5 ML AMP HHN (02:36)
[2017-12-18] MEDS: DEXAMETHASONE 10 MG/ML 1 ML INJ IV (02:47)
[2017-12-18 05:57] LABS: WHITE BLOOD COUNT 6.6 10^3/ul (4.8-10.8)
[2017-12-18 05:57] LABS: ABNORMAL IP MESSAGE 1; HEMATOCRIT 33.8 % (37.0-47.0); HEMOGLOBIN 10.9 g/dl (12.0-16.0); MEAN CORPUSCULAR HGB CONC 32.2 g/dl (32.0-37.0); MEAN CORPUSCULAR VOLUME 89.9 fl (82.0-101.0); MEAN PLATELET VOLUME 8.3 fl (7.4-10.4); PLATELET COUNT 438 10^3/UL (140-415); RED BLOOD COUNT 3.76 10^6/ul (4.20-5.40); RED CELL DISTRIBUTION WIDTH 16.6 % (11.5-14.5)
[2017-12-18 06:06] LABS: POSITIVE DIFF @See below
[2017-12-18 06:07] LABS: ADD MAN DIFF? YES
[2017-12-18] MEDS: SOD CHLORIDE 0.9% 1,000 ML IV ×2 (06:11→17:13)
[2017-12-18] MEDS: LEVOTHYROXINE 100 MCG TAB PO (06:19)
[2017-12-18] MEDS: PANTOPRAZOLE 40 MG INJ IV ×2 (06:19→17:29)
[2017-12-18 06:33] LABS: ANION GAP 8 (8-16); BLOOD UREA NITROGEN 7 mg/dl (7-20); CALCIUM 7.6 mg/dl (8.4-10.2); CARBON DIOXIDE 26 mmol/L (21-31); CHLORIDE 102 mmol/L (97-110); CREATININE 0.22 mg/dl (0.44-1.00); GLUCOSE 96 mg/dl (70-220); POTASSIUM 3.4 mmol/L (3.5-5.1); SODIUM 133 mmol/L (135-144)
[2017-12-18 06:49] LABS: MAGNESIUM 1.8 mg/dl (1.7-2.5)
[2017-12-18 06:49] LABS: PHOSPHORUS 3.3 mg/dl (2.5-4.9)
[2017-12-18] MEDS: DEXAMETHASONE 4 MG/ML 1 ML INJ IV (07:28)
[2017-12-18 08:45] LABS: ANISOCYTOSIS 1+ (0-0); BAND NEUTROPHILS #M 1.1 10^3/ul (0.0-0.6); BAND NEUTROPHILS % (M) 18 % (0-4); EOSINOPHILS % (M) 1 % (0-7); LYMPHOCYTES #M 0.1 10^3/ul (0.8-2.9); LYMPHOCYTES % (M) 3 % (15-51); MONOCYTE #M 0.1 10^3/ul (0.3-0.9); MONOCYTES % (M) 2 % (0-11); PLATELET ESTIMATE NORMAL; POLYCHROMASIA 1+ (0-0); SEG NEUT #M 5.1 10^3/ul (1.6-7.5); SEGMENTED NEUTROPHILS (M) % 76 % (39-77); SMUDGE%M 4 % (0-0)
[2017-12-18] MEDS: LUBIPROSTONE 8 MCG CAPSULE PO ×2 (09:00→20:35)
[2017-12-18] MEDS: DOCUSATE SODIUM 100 MG CAP PO ×2 (09:00→20:36)
[2017-12-18] MEDS: FERROUS SULFATE (EC) 325 MG TAB PO ×2 (09:00→20:36)
[2017-12-18] MEDS: SUCRALFATE (100 MG/ML) 10ML CUP PO ×4 (09:18→20:36)
[2017-12-18] MEDS: METOPROLOL 25 MG TAB PO ×2 (09:21→21:10)
[2017-12-18] MEDS: MULTIVITAMINS 10 ML, THIAMINE 100 MG, FOLIC ACID 1 MG in SOD CHLORIDE 0.9% 1,000 ML IVPB (09:23)
[2017-12-18] MEDS: ENOXAPARIN 80 MG/0.8 ML SYG SC ×2 (09:23→21:05)
[2017-12-18] MEDS: COLLAGENASE 5 GM (UD JAR) TOP (09:43)
[2017-12-18] MEDS: morphine 2 MG INJ IV ×2 (11:12→20:03)
[2017-12-19] MEDS: METOCLOPRAMIDE 10 MG INJ IV ×4 (00:13→17:02)
[2017-12-19] MEDS ORDERED: AMIODARONE 150MG/D5W BOLUS 100 ML IV (01:00)
[2017-12-19] MEDS ORDERED: AMIODARONE 900 MG in DEXTROSE 5% 482 ML IV (01:00)
[2017-12-19] MEDS: SOD CHLORIDE 0.9% 1,000 ML IV ×2 (05:39→17:03)
[2017-12-19] MEDS: LEVOTHYROXINE 100 MCG TAB PO (06:04)
[2017-12-19] MEDS: PANTOPRAZOLE 40 MG INJ IV ×2 (06:08→17:03)
[2017-12-19] MEDS: SUCRALFATE (100 MG/ML) 10ML CUP PO ×4 (08:22→20:40)
[2017-12-19] MEDS: METOPROLOL 25 MG TAB PO ×2 (08:22→20:39)
[2017-12-19] MEDS: ENOXAPARIN 80 MG/0.8 ML SYG SC ×2 (08:22→21:02)
[2017-12-19] MEDS: DEXAMETHASONE 4 MG/ML 1 ML INJ IV (08:22)
[2017-12-19] MEDS: MULTIVITAMINS 10 ML, THIAMINE 100 MG, FOLIC ACID 1 MG in SOD CHLORIDE 0.9% 1,000 ML IVPB (08:23)
[2017-12-19] MEDS: FERROUS SULFATE (EC) 325 MG TAB PO ×2 (08:26→20:55)
[2017-12-19] MEDS: DOCUSATE SODIUM 100 MG CAP PO ×2 (08:26→20:54)
[2017-12-19] MEDS: LUBIPROSTONE 8 MCG CAPSULE PO (08:26)
[2017-12-19] MEDS: COLLAGENASE 5 GM (UD JAR) TOP (08:27)
[2017-12-19] MEDS: FLECAINIDE 50 MG TAB PO ×2 (10:32→20:39)
[2017-12-19] MEDS: ONDANSETRON 4 MG INJ IV (22:33)
[2017-12-19] MEDS: HYDROmorphONE 1 MG/ML SYG IV (23:03)
[2017-12-20] MEDS: METOCLOPRAMIDE 10 MG INJ IV ×4 (00:50→17:23)
[2017-12-20] MEDS: LEVOTHYROXINE 100 MCG TAB PO (06:17)
[2017-12-20] MEDS: PANTOPRAZOLE 40 MG INJ IV ×2 (06:17→17:22)
[2017-12-20 06:18] LABS: ADD MAN DIFF? NO
[2017-12-20 06:23] LABS: EOSINOPHILS % 0.2 % (0.0-7.0); HEMATOCRIT 32.3 % (37.0-47.0); HEMOGLOBIN 10.2 g/dl (12.0-16.0); LYMPHOCYTES % 15.7 % (15.0-51.0); MEAN CORPUSCULAR HEMOGLOBIN 27.9 pg (29.0-33.0); MEAN CORPUSCULAR HGB CONC 31.6 g/dl (32.0-37.0); MEAN CORPUSCULAR VOLUME 88.5 fl (82.0-101.0); MEAN PLATELET VOLUME 8.4 fl (7.4-10.4); MONOCYTE # 0.4 10^3/ul (0.3-0.9); NEUTROPHIL # 5.1 10^3/ul (1.6-7.5); NEUTROPHILS % 77.6 % (39.0-77.0); PLATELET COUNT 371 10^3/UL (140-415); RED BLOOD COUNT 3.65 10^6/ul (4.20-5.40); RED CELL DISTRIBUTION WIDTH 16.6 % (11.5-14.5)
[2017-12-20 06:23] LABS: WHITE BLOOD COUNT 6.5 10^3/ul (4.8-10.8)
[2017-12-20] MEDS: SOD CHLORIDE 0.9% 1,000 ML IV ×2 (06:58→18:29)
[2017-12-20] MEDS: DOCUSATE SODIUM 100 MG CAP PO (08:08)
[2017-12-20] MEDS: SUCRALFATE (100 MG/ML) 10ML CUP PO ×4 (08:08→20:40)
[2017-12-20] MEDS: METOPROLOL 25 MG TAB PO ×2 (08:08→20:41)
[2017-12-20] MEDS: COLLAGENASE 5 GM (UD JAR) TOP (08:08)
[2017-12-20] MEDS: FERROUS SULFATE (EC) 325 MG TAB PO ×2 (08:08→20:56)
[2017-12-20] MEDS: FLECAINIDE 50 MG TAB PO ×2 (08:09→20:41)
[2017-12-20] MEDS: MULTIVITAMINS 10 ML, THIAMINE 100 MG, FOLIC ACID 1 MG in SOD CHLORIDE 0.9% 1,000 ML IVPB (08:12)
[2017-12-20] MEDS: DEXAMETHASONE 4 MG/ML 1 ML INJ IV (08:12)
[2017-12-20] MEDS: ENOXAPARIN 80 MG/0.8 ML SYG SC ×2 (08:40→21:07)
[2017-12-20 09:04] LABS: ANION GAP 9 (8-16); BLOOD UREA NITROGEN 6 mg/dl (7-20); CALCIUM 7.2 mg/dl (8.4-10.2); CARBON DIOXIDE 28 mmol/L (21-31); CHLORIDE 103 mmol/L (97-110); CREATININE 0.22 mg/dl (0.44-1.00); GLUCOSE 67 mg/dl (70-220); SODIUM 137 mmol/L (135-144)
[2017-12-20 09:07] LABS: POTASSIUM 2.5 mmol/L (3.5-5.1)
[2017-12-20] MEDS: POTASSIUM CHLORIDE 100 ML IVPB ×3 (10:19→17:24)
[2017-12-20] MEDS ORDERED: DOCUSATE SODIUM 100 MG CAP PO (10:30)
[2017-12-20] MEDS: HYDROmorphONE 1 MG/ML SYG IV ×3 (10:45→22:03)
[2017-12-20] MEDS: ONDANSETRON 4 MG INJ IV (10:45)
[2017-12-20] MEDS: ALBUTEROL/IPRATROPIUM (NEB) 3 ML AMP HHN (16:49)
[2017-12-21] MEDS: METOCLOPRAMIDE 10 MG INJ IV ×5 (00:17→23:47)
[2017-12-21] MEDS: HYDROmorphONE 1 MG/ML SYG IV ×5 (03:44→22:29)
[2017-12-21 05:43] LABS: ADD MAN DIFF? NO
[2017-12-21 05:52] LABS: WHITE BLOOD COUNT 6.7 10^3/ul (4.8-10.8)
[2017-12-21 05:52] LABS: BASOPHILS % 0.2 % (0.0-2.0); EOSINOPHILS % 0.3 % (0.0-7.0); HEMATOCRIT 35.7 % (37.0-47.0); HEMOGLOBIN 10.9 g/dl (12.0-16.0); LYMPHOCYTES # 1.1 10^3/ul (0.8-2.9); LYMPHOCYTES % 17.1 % (15.0-51.0); MEAN CORPUSCULAR HGB CONC 30.5 g/dl (32.0-37.0); MEAN CORPUSCULAR VOLUME 91.8 fl (82.0-101.0); MEAN PLATELET VOLUME 8.3 fl (7.4-10.4); MONOCYTE # 0.4 10^3/ul (0.3-0.9); MONOCYTES % 6.3 % (0.0-11.0); NEUTROPHILS % 75.6 % (39.0-77.0); PLATELET COUNT 323 10^3/UL (140-415); RED BLOOD COUNT 3.89 10^6/ul (4.20-5.40); RED CELL DISTRIBUTION WIDTH 16.5 % (11.5-14.5)
[2017-12-21] MEDS: PANTOPRAZOLE 40 MG INJ IV ×2 (06:09→17:17)
[2017-12-21] MEDS: LEVOTHYROXINE 100 MCG TAB PO (06:10)
[2017-12-21 06:11] LABS: ANION GAP 6 (8-16); BLOOD UREA NITROGEN 7 mg/dl (7-20); CALCIUM 7.6 mg/dl (8.4-10.2); CARBON DIOXIDE 32 mmol/L (21-31); CHLORIDE 103 mmol/L (97-110); CREATININE 0.33 mg/dl (0.44-1.00); GLUCOSE 107 mg/dl (70-220); POTASSIUM 3.5 mmol/L (3.5-5.1); SODIUM 137 mmol/L (135-144)
[2017-12-21] MEDS: FLECAINIDE 50 MG TAB PO (08:05)
[2017-12-21] MEDS: FERROUS SULFATE (EC) 325 MG TAB PO ×2 (08:05→21:50)
[2017-12-21] MEDS: COLLAGENASE 5 GM (UD JAR) TOP (08:05)
[2017-12-21] MEDS: MULTIVITAMINS 10 ML, THIAMINE 100 MG, FOLIC ACID 1 MG in SOD CHLORIDE 0.9% 1,000 ML IVPB (08:07)
[2017-12-21] MEDS: DEXAMETHASONE 4 MG/ML 1 ML INJ IV (08:07)
[2017-12-21] MEDS: SUCRALFATE (100 MG/ML) 10ML CUP PO ×4 (08:07→21:50)
[2017-12-21] MEDS: SOD CHLORIDE 0.9% 1,000 ML IV (08:07)
[2017-12-21] MEDS: METOPROLOL 25 MG TAB PO ×2 (08:08→21:30)
[2017-12-21] MEDS: ALBUTEROL/IPRATROPIUM (NEB) 3 ML AMP HHN ×2 (08:48→21:19)
[2017-12-21] MEDS: ENOXAPARIN 80 MG/0.8 ML SYG SC ×2 (10:26→22:45)
[2017-12-21] MEDS: FUROSEMIDE 40 MG INJ IV (11:44)
[2017-12-21] MEDS: POTASSIUM CHLORIDE 50 ML IVPB (12:14)
[2017-12-21] MEDS: ADENOSINE 6 MG INJ IV (13:54)
[2017-12-21] MEDS: AMIODARONE 150MG/D5W BOLUS 100 ML IV (14:51)
[2017-12-21] MEDS: AMIODARONE 900 MG in DEXTROSE 5% 482 ML IV (15:08)
[2017-12-21 15:43] LABS: MAGNESIUM 1.4 mg/dl (1.7-2.5)
[2017-12-21] MEDS: ONDANSETRON 4 MG INJ IV (21:30)
[2017-12-21] MEDS: MAGNESIUM SULFATE 3 GM in DEXTROSE 5% 100 ML IVPB (22:32)
[2017-12-21] MEDS: RACEPINEPHRINE 2.25%(NEB) 0.5 ML AMP HHN (23:28)
[2017-12-22] MEDS: AMIODARONE 900 MG in DEXTROSE 5% 482 ML IV (00:37)
[2017-12-22] MEDS: HYDROmorphONE 1 MG/ML SYG IV ×4 (03:30→15:34)
[2017-12-22 05:42] LABS: ADD MAN DIFF? NO
[2017-12-22] MEDS: METOCLOPRAMIDE 10 MG INJ IV ×3 (05:43→17:04)
[2017-12-22 05:48] LABS: WHITE BLOOD COUNT 9.6 10^3/ul (4.8-10.8)
[2017-12-22 05:48] LABS: BASOPHILS % 0.1 % (0.0-2.0); EOSINOPHILS % 0.1 % (0.0-7.0); HEMATOCRIT 38.5 % (37.0-47.0); HEMOGLOBIN 11.6 g/dl (12.0-16.0); LYMPHOCYTES # 1.1 10^3/ul (0.8-2.9); MEAN CORPUSCULAR HEMOGLOBIN 27.8 pg (29.0-33.0); MEAN CORPUSCULAR HGB CONC 30.1 g/dl (32.0-37.0); MEAN CORPUSCULAR VOLUME 92.3 fl (82.0-101.0); MEAN PLATELET VOLUME 8.4 fl (7.4-10.4); MONOCYTE # 0.6 10^3/ul (0.3-0.9); MONOCYTES % 6.2 % (0.0-11.0); NEUTROPHIL # 7.9 10^3/ul (1.6-7.5); NEUTROPHILS % 82.2 % (39.0-77.0); PLATELET COUNT 362 10^3/UL (140-415); RED BLOOD COUNT 4.17 10^6/ul (4.20-5.40); RED CELL DISTRIBUTION WIDTH 16.3 % (11.5-14.5)
[2017-12-22 06:20] LABS: ANION GAP 8 (8-16); BLOOD UREA NITROGEN 6 mg/dl (7-20); CALCIUM 7.8 mg/dl (8.4-10.2); CARBON DIOXIDE 33 mmol/L (21-31); CHLORIDE 98 mmol/L (97-110); CREATININE 0.25 mg/dl (0.44-1.00); GLUCOSE 152 mg/dl (70-220); POTASSIUM 3.8 mmol/L (3.5-5.1); SODIUM 135 mmol/L (135-144)
[2017-12-22] MEDS: LEVOTHYROXINE 100 MCG TAB PO (07:00)
[2017-12-22] MEDS: PANTOPRAZOLE 40 MG INJ IV ×2 (07:33→17:04)
[2017-12-22] MEDS: SOD CHLORIDE 0.9% 1,000 ML IV ×3 (07:34→21:30)
[2017-12-22] MEDS: METOPROLOL 25 MG TAB PO ×2 (08:01→20:53)
[2017-12-22] MEDS: SUCRALFATE (100 MG/ML) 10ML CUP PO ×4 (08:01→20:53)
[2017-12-22] MEDS: FERROUS SULFATE (EC) 325 MG TAB PO ×2 (08:01→20:53)
[2017-12-22] MEDS: DEXAMETHASONE 4 MG/ML 1 ML INJ IV (08:54)
[2017-12-22] MEDS: COLLAGENASE 5 GM (UD JAR) TOP (08:54)
[2017-12-22] MEDS: MULTIVITAMINS 10 ML, THIAMINE 100 MG, FOLIC ACID 1 MG in SOD CHLORIDE 0.9% 1,000 ML IVPB (08:54)
[2017-12-22] MEDS: FUROSEMIDE 40 MG INJ IV (08:54)
[2017-12-22] MEDS: ENOXAPARIN 80 MG/0.8 ML SYG SC ×2 (09:00→21:30)
[2017-12-22] MEDS: RACEPINEPHRINE 2.25%(NEB) 0.5 ML AMP HHN ×3 (14:17→20:27)
[2017-12-22] MEDS: LORAZEPAM 2 MG INJ IV (22:13)
[2017-12-22] MEDS: METHYLPREDNISOLONE 125 MG INJ IV (22:13)
[2017-12-23] MEDS: SOD CHLORIDE 0.9% 500 ML IV ×2 (01:00→05:12)
[2017-12-23] MEDS: MIDAZOLAM (DRIP) 50 mg/50 mL 50 ML IV ×3 (01:00→21:36)
[2017-12-23] MEDS: DEXTROSE 5%-0.45% NACL 1,000 ML IV ×3 (01:35→21:20)
[2017-12-23] MEDS: METOCLOPRAMIDE 10 MG INJ IV ×4 (01:57→17:11)
[2017-12-23 01:58] LABS: Allen Test ACCEPTAB; Arterial Base Excess 7.5 mmol/L (-3.0-3); Arterial Blood Gas Oxygen Sat 98.2 mmHG (95.0-98.0); Arterial COHb 0.6 % (0.0-3.0); Arterial Fraction of Oxyhgb 97.5 % (93.0-99.0); Arterial HCO3 29.3 mmol/L (22.0-26.0); Arterial MetHb 0.1 % (0.0-1.5); Arterial Total Hemglobin 10.4 g/dl (12.0-18.0); Arterial pCO2 31.4 mmhg (35-45); Blood Gas Low PEEP Setting 0 cmH2O; MODE VENT - AC; Site Left Radial
[2017-12-23 04:54] LABS: AADO2 Arterial 123.1 mmHg (7.0-24.0); Allen Test ACCEPTAB; Arterial Blood Gas Oxygen Sat 96.3 mmHG (95.0-98.0); Arterial COHb 1.2 % (0.0-3.0); Arterial HCO3 33.6 mmol/L (22.0-26.0); Arterial MetHb 0.1 % (0.0-1.5); Arterial Total Hemglobin 11.3 g/dl (12.0-18.0); MODE MASK - SIMPLE; Site Left Radial
[2017-12-23 05:20] LABS: WHITE BLOOD COUNT 11.8 10^3/ul (4.8-10.8)
[2017-12-23 05:20] LABS: HEMATOCRIT 35.9 % (37.0-47.0); MEAN CORPUSCULAR HEMOGLOBIN 27.7 pg (29.0-33.0); MEAN CORPUSCULAR HGB CONC 30.6 g/dl (32.0-37.0); MEAN CORPUSCULAR VOLUME 90.4 fl (82.0-101.0); MEAN PLATELET VOLUME 9.1 fl (7.4-10.4); PLATELET COUNT 363 10^3/UL (140-415); RED BLOOD COUNT 3.97 10^6/ul (4.20-5.40)
[2017-12-23 05:49] LABS: ANION GAP 10 (8-16); BLOOD UREA NITROGEN 8 mg/dl (7-20); CALCIUM 7.3 mg/dl (8.4-10.2); CARBON DIOXIDE 33 mmol/L (21-31); CHLORIDE 96 mmol/L (97-110); CREATININE 0.31 mg/dl (0.44-1.00); GLUCOSE 171 mg/dl (70-220); POTASSIUM 4.2 mmol/L (3.5-5.1); SODIUM 135 mmol/L (135-144)
[2017-12-23 05:52] LABS: POSITIVE DIFF @See below
[2017-12-23 05:53] LABS: ADD MAN DIFF? YES
[2017-12-23] MEDS: LEVOTHYROXINE 100 MCG TAB PO (06:38)
[2017-12-23] MEDS: PANTOPRAZOLE 40 MG INJ IV ×2 (06:45→17:11)
[2017-12-23] MEDS ORDERED: ROCURONIUM 50 MG INJ (07:00)
[2017-12-23] MEDS ORDERED: SUCCINYLCHOLINE CHLORIDE 100 MG/5 ML SYG IV (07:00)
[2017-12-23] MEDS ORDERED: ETOMIDATE 20 MG INJ (07:00)
[2017-12-23 07:12] LABS: ANISOCYTOSIS 1+ (0-0); BAND NEUTROPHILS #M 0.4 10^3/ul (0.0-0.6); BAND NEUTROPHILS % (M) 4 % (0-4); BURR CELLS 2+ (0-0); LYMPHOCYTES #M 0.1 10^3/ul (0.8-2.9); LYMPHOCYTES % (M) 1 % (15-51); MONOCYTE #M 0.2 10^3/ul (0.3-0.9); MONOCYTES % (M) 2 % (0-11); PLATELET ESTIMATE NORMAL; POIKILOCYTOSIS 2+ (0-0); SEGMENTED NEUTROPHILS (M) % 93 % (39-77); SMUDGE%M 7 % (0-0)
[2017-12-23] MEDS: COLLAGENASE 5 GM (UD JAR) TOP (08:23)
[2017-12-23] MEDS: DEXAMETHASONE 4 MG/ML 1 ML INJ IV (08:23)
[2017-12-23] MEDS: SUCRALFATE (100 MG/ML) 10ML CUP PO ×4 (08:24→21:00)
[2017-12-23] MEDS: FERROUS SULFATE (EC) 325 MG TAB PO ×2 (08:24→21:00)
[2017-12-23] MEDS: METOPROLOL 25 MG TAB PO ×2 (08:24→21:00)
[2017-12-23] MEDS: MULTIVITAMINS 10 ML, THIAMINE 100 MG, FOLIC ACID 1 MG in SOD CHLORIDE 0.9% 1,000 ML IVPB (08:24)
[2017-12-23] MEDS: ENOXAPARIN 80 MG/0.8 ML SYG SC ×2 (08:29→21:20)
[2017-12-23] MEDS: FUROSEMIDE 40 MG INJ IV (08:29)
[2017-12-23 08:56] LABS: Allen Test ACCEPTAB; Arterial Blood Gas Oxygen Sat 97.1 mmHG (95.0-98.0); Arterial COHb 1.1 % (0.0-3.0); Arterial Fraction of Oxyhgb 95.9 % (93.0-99.0); Arterial MetHb 0.1 % (0.0-1.5); Arterial Total Hemglobin 11.4 g/dl (12.0-18.0); Arterial pCO2 37.1 mmhg (35-45); MODE VENT - AC; Site Right Radial
[2017-12-23] MEDS: SOD CHLORIDE 0.9% 1,000 ML IV ×2 (09:58→22:28)
[2017-12-23] MEDS: LACTATED RINGER'S 1,000 ML IV ×2 (11:17→11:48)
[2017-12-23] MEDS ORDERED: LACTATED RINGER'S 1,000 ML IV (11:30)
[2017-12-23 12:46] LABS: LACTIC ACID 1.4 mmol/L (0.5-2.0)
[2017-12-23 13:18] LABS: MAGNESIUM 1.5 mg/dl (1.7-2.5)
[2017-12-23] MEDS: PIPER-TAZO 3.375 GM IV (PMX) 100 ML IVPB ×2 (13:25→21:16)
[2017-12-23] MEDS: FENTAnyl (DRIP) 1000 mcg/100mL 100 ML IV (14:20)
[2017-12-23] MEDS: LORAZEPAM 2 MG INJ IV (21:23)
[2017-12-23] MEDS: LIDOCAINE 1% (MPF) 5 ML VIAL SC (21:23)
[2017-12-23 21:43] LABS: MAGNESIUM 1.5 mg/dl (1.7-2.5)
[2017-12-23 21:56] LABS: POTASSIUM 2.9 mmol/L (3.5-5.1)
[2017-12-23] MEDS ORDERED: POTASSIUM CHLORIDE 50 ML (22:05)
[2017-12-23] MEDS: POTASSIUM CHLORIDE 50 ML IVPB (22:15)
[2017-12-23] MEDS: MAGNESIUM SULFATE 2 GM/50 ML 50 ML IVPB (22:22)
[2017-12-24] MEDS: D5W-0.45 NACL + KCL 20 MEQ 1,000 ML IV ×3 (00:34→14:17)
[2017-12-24] MEDS: METOCLOPRAMIDE 10 MG INJ IV ×4 (00:35→18:57)
[2017-12-24] MEDS: POTASSIUM CHLORIDE 50 ML IVPB (00:35)
[2017-12-24] MEDS: FENTAnyl (DRIP) 1000 mcg/100mL 100 ML IV ×2 (02:51→13:42)
[2017-12-24 04:40] LABS: ADD MAN DIFF? NO
[2017-12-24 04:42] LABS: WHITE BLOOD COUNT 11.7 10^3/ul (4.8-10.8)
[2017-12-24 04:42] LABS: BASOPHILS % 0.1 % (0.0-2.0); HEMATOCRIT 33.2 % (37.0-47.0); HEMOGLOBIN 10.4 g/dl (12.0-16.0); LYMPHOCYTES # 1.5 10^3/ul (0.8-2.9); LYMPHOCYTES % 12.6 % (15.0-51.0); MEAN CORPUSCULAR HEMOGLOBIN 27.3 pg (29.0-33.0); MEAN CORPUSCULAR HGB CONC 31.3 g/dl (32.0-37.0); MEAN CORPUSCULAR VOLUME 87.1 fl (82.0-101.0); MONOCYTE # 0.5 10^3/ul (0.3-0.9); MONOCYTES % 4.6 % (0.0-11.0); NEUTROPHIL # 9.7 10^3/ul (1.6-7.5); NEUTROPHILS % 82.4 % (39.0-77.0); PLATELET COUNT 323 10^3/UL (140-415); RED BLOOD COUNT 3.81 10^6/ul (4.20-5.40); RED CELL DISTRIBUTION WIDTH 16.2 % (11.5-14.5)
[2017-12-24 05:01] LABS: LACTIC ACID 1.6 mmol/L (0.5-2.0)
[2017-12-24 05:07] LABS: ANION GAP 8 (8-16); BLOOD UREA NITROGEN 7 mg/dl (7-20); CARBON DIOXIDE 32 mmol/L (21-31); CHLORIDE 96 mmol/L (97-110); CREATININE 0.23 mg/dl (0.44-1.00); GLUCOSE 239 mg/dl (70-220); SODIUM 132 mmol/L (135-144)
[2017-12-24 05:10] LABS: Allen Test ACCEPTAB; Arterial Base Excess 9.2 mmol/L (-3.0-3); Arterial Blood Gas Oxygen Sat 97.1 mmHG (95.0-98.0); Arterial COHb 1.2 % (0.0-3.0); Arterial Fraction of Oxyhgb 95.8 % (93.0-99.0); Arterial HCO3 32.3 mmol/L (22.0-26.0); Arterial MetHb 0.1 % (0.0-1.5); Arterial Total Hemglobin 10.9 g/dl (12.0-18.0); Arterial pCO2 38.5 mmhg (35-45); MODE VENT - AC; Site Right Radial
[2017-12-24] MEDS: PIPER-TAZO 3.375 GM IV (PMX) 100 ML IVPB ×3 (05:30→21:33)
[2017-12-24] MEDS: LEVOTHYROXINE 100 MCG TAB PO (06:24)
[2017-12-24] MEDS: PANTOPRAZOLE 40 MG INJ IV ×2 (06:27→17:05)
[2017-12-24] MEDS: METOPROLOL 25 MG TAB PO ×2 (09:00→21:00)
[2017-12-24] MEDS: SUCRALFATE (100 MG/ML) 10ML CUP PO ×4 (09:00→21:00)
[2017-12-24] MEDS: MULTIVITAMINS 10 ML, THIAMINE 100 MG, FOLIC ACID 1 MG in SOD CHLORIDE 0.9% 1,000 ML IVPB (09:00)
[2017-12-24] MEDS: FERROUS SULFATE (EC) 325 MG TAB PO ×2 (09:00→21:00)
[2017-12-24] MEDS ORDERED: TPN 1,000 ML IV (10:07)
[2017-12-24] MEDS: COLLAGENASE 5 GM (UD JAR) TOP (10:08)
[2017-12-24] MEDS: FUROSEMIDE 40 MG INJ IV (10:08)
[2017-12-24] MEDS: DEXAMETHASONE 4 MG/ML 1 ML INJ IV (10:13)
[2017-12-24] MEDS: ENOXAPARIN 80 MG/0.8 ML SYG SC ×2 (10:13→21:44)
[2017-12-24] MEDS: SOD CHLORIDE 0.9% 1,000 ML IV (10:58)
[2017-12-24 11:22] LABS: ALANINE AMINOTRANSFERASE 271 IU/L (13-69); ALBUMIN 1.9 g/dl (3.3-4.9); ALBUMIN/GLOBULIN RATIO 0.63; ALKALINE PHOSPHATASE 147 IU/L (42-121); ANION GAP 9 (8-16); ASPARTATE AMINO TRANSFERASE 147 IU/L (15-46); BILIRUBIN,INDIRECT 0.8 mg/dl (0-1.1); BILIRUBIN,TOTAL 0.8 mg/dl (0.2-1.3); BLOOD UREA NITROGEN 6 mg/dl (7-20); CALCIUM 7.3 mg/dl (8.4-10.2); CARBON DIOXIDE 34 mmol/L (21-31); CHLORIDE 93 mmol/L (97-110); CREATININE 0.27 mg/dl (0.44-1.00); GLUCOSE 287 mg/dl (70-220); MAGNESIUM 1.6 mg/dl (1.7-2.5); PHOSPHORUS 1.2 mg/dl (2.5-4.9); POTASSIUM 3.5 mmol/L (3.5-5.1); SODIUM 132 mmol/L (135-144); TOTAL PROTEIN 4.9 g/dl (6.1-8.1); TRIGLYCERIDES 89 mg/dl (0-149)
[2017-12-24 11:32] LABS: PREALBUMIN < 3.0 mg/dl (17.6-36.0)
[2017-12-24] MEDS ORDERED: VANCOMYCIN IV PER PHARMACY XX (13:00)
[2017-12-24] MEDS: SOD CHLORIDE 0.9% 500 ML IV (13:38)
[2017-12-24] MEDS: ACCU-CHEK XX ×3 (14:00→21:29)
[2017-12-24] MEDS: VANCOMYCIN 1.25 GM in SOD CHLORIDE 0.9% 250 ML IVPB (14:39)
[2017-12-24] MEDS: TPN 1,000 ML IV (19:53)
[2017-12-24] MEDS: VANCOMYCIN 500MG/NS (PMX) 100 ML IVPB (21:33)
[2017-12-24] MEDS: MIDAZOLAM (DRIP) 50 mg/50 mL 50 ML IV (22:28)
[2017-12-25] MEDS: METOCLOPRAMIDE 10 MG INJ IV ×4 (00:45→18:53)
[2017-12-25] MEDS: ACCU-CHEK XX ×17 (01:31→23:21)
[2017-12-25] MEDS: FENTAnyl (DRIP) 1000 mcg/100mL 100 ML IV ×2 (02:00→18:52)
[2017-12-25 04:47] LABS: AADO2 Arterial 67.1 mmHg (7.0-24.0); Allen Test ACCEPTAB; Arterial Base Excess 10.7 mmol/L (-3.0-3); Arterial Blood Gas Oxygen Sat 97.1 mmHG (95.0-98.0); Arterial COHb 1.1 % (0.0-3.0); Arterial Fraction of Oxyhgb 95.9 % (93.0-99.0); Arterial HCO3 35.1 mmol/L (22.0-26.0); Arterial MetHb 0.1 % (0.0-1.5); Arterial Total Hemglobin 10.5 g/dl (12.0-18.0); Arterial pCO2 46.1 mmhg (35-45); MODE VENT - AC; Site Right Radial
[2017-12-25 05:16] LABS: ADD MAN DIFF? NO
[2017-12-25 05:24] LABS: WHITE BLOOD COUNT 10.4 10^3/ul (4.8-10.8)
[2017-12-25 05:24] LABS: BASOPHILS % 0.1 % (0.0-2.0); EOSINOPHILS % 0.1 % (0.0-7.0); HEMATOCRIT 30.8 % (37.0-47.0); HEMOGLOBIN 9.7 g/dl (12.0-16.0); LYMPHOCYTES # 1.3 10^3/ul (0.8-2.9); LYMPHOCYTES % 12.9 % (15.0-51.0); MEAN CORPUSCULAR HEMOGLOBIN 27.5 pg (29.0-33.0); MEAN CORPUSCULAR HGB CONC 31.5 g/dl (32.0-37.0); MEAN CORPUSCULAR VOLUME 87.3 fl (82.0-101.0); MONOCYTE # 0.4 10^3/ul (0.3-0.9); MONOCYTES % 3.5 % (0.0-11.0); NEUTROPHIL # 8.6 10^3/ul (1.6-7.5); NEUTROPHILS % 82.8 % (39.0-77.0); PLATELET COUNT 276 10^3/UL (140-415); RED BLOOD COUNT 3.53 10^6/ul (4.20-5.40); RED CELL DISTRIBUTION WIDTH 16.6 % (11.5-14.5)
[2017-12-25 05:49] LABS: LACTIC ACID 1.7 mmol/L (0.5-2.0)
[2017-12-25 05:54] LABS: MAGNESIUM 1.5 mg/dl (1.7-2.5)
[2017-12-25 05:58] LABS: ANION GAP 5 (8-16); BLOOD UREA NITROGEN 5 mg/dl (7-20); CALCIUM 7.1 mg/dl (8.4-10.2); CARBON DIOXIDE 37 mmol/L (21-31); CHLORIDE 92 mmol/L (97-110); CREATININE 0.28 mg/dl (0.44-1.00); GLUCOSE 322 mg/dl (70-220); POTASSIUM 3.4 mmol/L (3.5-5.1); SODIUM 131 mmol/L (135-144)
[2017-12-25] MEDS: PIPER-TAZO 3.375 GM IV (PMX) 100 ML IVPB ×3 (06:06→21:50)
[2017-12-25] MEDS: VANCOMYCIN 500MG/NS (PMX) 100 ML IVPB ×3 (06:06→22:33)
[2017-12-25] MEDS: PANTOPRAZOLE 40 MG INJ IV ×2 (06:12→18:58)
[2017-12-25] MEDS: TPN 1,000 ML IV ×2 (06:30→19:00)
[2017-12-25 06:34] LABS: PHOSPHORUS 1.4 mg/dl (2.5-4.9)
[2017-12-25] MEDS: LEVOTHYROXINE 100 MCG TAB PO (07:00)
[2017-12-25] MEDS: SUCRALFATE (100 MG/ML) 10ML CUP PO ×4 (09:00→20:12)
[2017-12-25] MEDS: METOPROLOL 25 MG TAB PO ×2 (09:00→20:12)
[2017-12-25] MEDS: FERROUS SULFATE (EC) 325 MG TAB PO ×2 (09:00→20:12)
[2017-12-25] MEDS: DEXAMETHASONE 4 MG/ML 1 ML INJ IV (09:15)
[2017-12-25] MEDS: COLLAGENASE 5 GM (UD JAR) TOP (09:15)
[2017-12-25] MEDS: HYDROmorphONE 1 MG/ML SYG IV ×2 (09:16→19:47)
[2017-12-25] MEDS: FUROSEMIDE 40 MG INJ IV (09:16)
[2017-12-25] MEDS: ENOXAPARIN 80 MG/0.8 ML SYG SC ×2 (09:19→20:12)
[2017-12-25] MEDS ORDERED: DEXTROSE 50% 50 ML SYRINGE IV ×2 (13:00)
[2017-12-25] MEDS ORDERED: SODIUM PHOSPHATE 30 MMOL in SOD CHLORIDE 0.9% 250 ML IV (13:00)
[2017-12-25] MEDS: SODIUM PHOSPHATE 30 MMOL in SOD CHLORIDE 0.9% 250 ML IV (13:56)
[2017-12-25] MEDS: INSULIN HUMAN REGULAR 100 UNIT in SOD CHLORIDE 0.9% 99 ML IV (13:59)
[2017-12-25 14:28] LABS: VANCOMYCIN,TROUGH 10.7 ug/ml (10.0-20.0)
[2017-12-25] MEDS: MAGNESIUM SULFATE 1 GM/D5W 100 ML IVPB (14:28)
[2017-12-25] MEDS: POTASSIUM CHLORIDE 100 ML IVPB (14:30)
[2017-12-25] MEDS: INSULIN GLARGINE [LANTus] (100 UNITS/ML) SYG SC (20:15)
[2017-12-26] MEDS: ACCU-CHEK XX ×16 (00:01→17:00)
[2017-12-26] MEDS: METOCLOPRAMIDE 10 MG INJ IV ×5 (00:01→23:56)
[2017-12-26] MEDS: MIDAZOLAM (DRIP) 50 mg/50 mL 50 ML IV ×2 (01:07→22:05)
[2017-12-26] MEDS: TPN 1,000 ML IV ×2 (01:13→14:35)
[2017-12-26 04:52] LABS: ADD MAN DIFF? NO
[2017-12-26 04:57] LABS: BASOPHILS % 0.1 % (0.0-2.0); EOSINOPHILS % 0.3 % (0.0-7.0); HEMATOCRIT 32.8 % (37.0-47.0); HEMOGLOBIN 10.3 g/dl (12.0-16.0); LYMPHOCYTES # 1.4 10^3/ul (0.8-2.9); MEAN CORPUSCULAR HEMOGLOBIN 27.4 pg (29.0-33.0); MEAN CORPUSCULAR HGB CONC 31.4 g/dl (32.0-37.0); MEAN CORPUSCULAR VOLUME 87.2 fl (82.0-101.0); MEAN PLATELET VOLUME 9.2 fl (7.4-10.4); MONOCYTE # 0.4 10^3/ul (0.3-0.9); MONOCYTES % 4.3 % (0.0-11.0); NEUTROPHIL # 7.8 10^3/ul (1.6-7.5); NEUTROPHILS % 80.9 % (39.0-77.0); PLATELET COUNT 238 10^3/UL (140-415); RED BLOOD COUNT 3.76 10^6/ul (4.20-5.40); RED CELL DISTRIBUTION WIDTH 16.5 % (11.5-14.5)
[2017-12-26 04:57] LABS: WHITE BLOOD COUNT 9.7 10^3/ul (4.8-10.8)
[2017-12-26] MEDS: LEVOTHYROXINE 100 MCG TAB PO (05:06)
[2017-12-26] MEDS: PIPER-TAZO 3.375 GM IV (PMX) 100 ML IVPB ×3 (05:11→22:04)
[2017-12-26] MEDS: PANTOPRAZOLE 40 MG INJ IV ×2 (05:12→17:30)
[2017-12-26 05:26] LABS: ANION GAP 6 (8-16); BLOOD UREA NITROGEN 7 mg/dl (7-20); CALCIUM 7.3 mg/dl (8.4-10.2); CARBON DIOXIDE 40 mmol/L (21-31); CHLORIDE 90 mmol/L (97-110); CREATININE 0.28 mg/dl (0.44-1.00); GLUCOSE 60 mg/dl (70-220); MAGNESIUM 1.6 mg/dl (1.7-2.5); PHOSPHORUS 1.8 mg/dl (2.5-4.9); POTASSIUM 3.2 mmol/L (3.5-5.1); SODIUM 133 mmol/L (135-144)
[2017-12-26] MEDS: VANCOMYCIN 500MG/NS (PMX) 100 ML IVPB ×3 (05:50→22:04)
[2017-12-26] MEDS: FENTAnyl (DRIP) 1000 mcg/100mL 100 ML IV (06:33)
[2017-12-26] MEDS: MAGNESIUM SULFATE 2 GM/50 ML 50 ML IVPB (06:59)
[2017-12-26] MEDS: ENOXAPARIN 80 MG/0.8 ML SYG SC ×2 (07:18→17:00)
[2017-12-26] MEDS: METOPROLOL 25 MG TAB PO ×2 (07:18→20:36)
[2017-12-26] MEDS: DEXAMETHASONE 4 MG/ML 1 ML INJ IV (08:32)
[2017-12-26] MEDS: FERROUS SULFATE (EC) 325 MG TAB PO ×2 (08:32→09:00)
[2017-12-26] MEDS: SUCRALFATE (100 MG/ML) 10ML CUP PO ×4 (08:32→20:36)
[2017-12-26] MEDS: COLLAGENASE 5 GM (UD JAR) TOP (08:32)
[2017-12-26] MEDS: FUROSEMIDE 40 MG INJ IV (08:33)
[2017-12-26] MEDS: INSULIN HUMAN REGULAR 100 UNIT in SOD CHLORIDE 0.9% 99 ML IV (08:50)
[2017-12-26] MEDS: POTASSIUM CHLORIDE 50 ML IVPB ×3 (09:28→12:50)
[2017-12-26] MEDS: SODIUM PHOSPHATE 30 MMOL in SOD CHLORIDE 0.9% 250 ML IV (12:37)
[2017-12-26 15:05] LABS: INR 1.06; PROTIME 13.9 Sec (11.9-14.9); PT RATIO 1.1
[2017-12-26] MEDS ORDERED: EPHEDrine SULFATE 50 MG/5 ML SYG (16:15)
[2017-12-26] MEDS ORDERED: ROCURONIUM 50 MG INJ (16:15)
[2017-12-26] MEDS ORDERED: ETOMIDATE 20 MG INJ (16:15)
[2017-12-26 18:15] LABS: ANION GAP 6 (8-16); BLOOD UREA NITROGEN 9 mg/dl (7-20); CALCIUM 7.4 mg/dl (8.4-10.2); CARBON DIOXIDE 38 mmol/L (21-31); CHLORIDE 92 mmol/L (97-110); GLUCOSE 216 mg/dl (70-220); SODIUM 131 mmol/L (135-144)
[2017-12-26] MEDS ORDERED: Insulin NOVOLOG SS MILD Algorithm (NPO/TPN/ENTERAL FEEDS) SC (19:00)
[2017-12-26] MEDS ORDERED: INSULIN ASPART [NOVOLOG] 3 ML PEN SC (19:00)
[2017-12-26] MEDS ORDERED: GLUCOSE GEL 15 GRAM TUBE PO ×2 (19:30)
[2017-12-26] MEDS ORDERED: GLUCAGON 1 MG INJ IM (19:30)
[2017-12-26] MEDS ORDERED: GLUCOSE GEL 15 GRAM TUBE BUCCAL (19:30)
[2017-12-26] MEDS: INSULIN ASPART [NOVOLOG] 3 ML PEN SC (20:25)
[2017-12-26] MEDS: INSULIN GLARGINE [LANTus] (100 UNITS/ML) SYG SC (20:25)
[2017-12-27] MEDS: INSULIN ASPART [NOVOLOG] 3 ML PEN SC ×7 (01:39→22:23)
[2017-12-27] MEDS: FENTAnyl (DRIP) 1000 mcg/100mL 100 ML IV ×2 (01:39→20:13)
[2017-12-27] MEDS: TPN 1,000 ML IV ×2 (03:22→15:36)
[2017-12-27 05:01] LABS: ADD MAN DIFF? NO
[2017-12-27 05:09] LABS: WHITE BLOOD COUNT 11.3 10^3/ul (4.8-10.8)
[2017-12-27 05:09] LABS: BASOPHILS % 0.2 % (0.0-2.0); EOSINOPHILS % 0.1 % (0.0-7.0); HEMATOCRIT 32.1 % (37.0-47.0); HEMOGLOBIN 10.1 g/dl (12.0-16.0); LYMPHOCYTES # 1.3 10^3/ul (0.8-2.9); LYMPHOCYTES % 11.7 % (15.0-51.0); MEAN CORPUSCULAR HEMOGLOBIN 27.7 pg (29.0-33.0); MEAN CORPUSCULAR HGB CONC 31.5 g/dl (32.0-37.0); MEAN CORPUSCULAR VOLUME 88.2 fl (82.0-101.0); MEAN PLATELET VOLUME 9.7 fl (7.4-10.4); MONOCYTE # 0.6 10^3/ul (0.3-0.9); MONOCYTES % 4.9 % (0.0-11.0); NEUTROPHIL # 9.4 10^3/ul (1.6-7.5); NEUTROPHILS % 82.6 % (39.0-77.0); PLATELET COUNT 244 10^3/UL (140-415); RED BLOOD COUNT 3.64 10^6/ul (4.20-5.40); RED CELL DISTRIBUTION WIDTH 16.6 % (11.5-14.5)
[2017-12-27 05:29] LABS: MAGNESIUM 1.9 mg/dl (1.7-2.5)
[2017-12-27 05:29] LABS: PHOSPHORUS 2.5 mg/dl (2.5-4.9)
[2017-12-27 05:30] LABS: ANION GAP 5 (8-16); BLOOD UREA NITROGEN 11 mg/dl (7-20); CALCIUM 7.5 mg/dl (8.4-10.2); CARBON DIOXIDE 36 mmol/L (21-31); CHLORIDE 95 mmol/L (97-110); CREATININE 0.26 mg/dl (0.44-1.00); GLUCOSE 255 mg/dl (70-220); POTASSIUM 4.9 mmol/L (3.5-5.1); SODIUM 131 mmol/L (135-144)
[2017-12-27] MEDS: VANCOMYCIN 500MG/NS (PMX) 100 ML IVPB ×2 (06:11→13:13)
[2017-12-27] MEDS: PANTOPRAZOLE 40 MG INJ IV ×2 (06:11→17:11)
[2017-12-27] MEDS: PIPER-TAZO 3.375 GM IV (PMX) 100 ML IVPB ×3 (06:11→22:21)
[2017-12-27] MEDS: METOCLOPRAMIDE 10 MG INJ IV ×4 (06:11→23:34)
[2017-12-27] MEDS: LEVOTHYROXINE 100 MCG TAB PO (07:00)
[2017-12-27] MEDS: DEXAMETHASONE 4 MG/ML 1 ML INJ IV (08:44)
[2017-12-27] MEDS: METOPROLOL 25 MG TAB PO ×2 (08:45→20:52)
[2017-12-27] MEDS: FERROUS SULFATE (EC) 325 MG TAB PO ×2 (08:45→20:50)
[2017-12-27] MEDS: FUROSEMIDE 40 MG INJ IV (08:45)
[2017-12-27] MEDS: SUCRALFATE (100 MG/ML) 10ML CUP PO ×4 (08:45→20:50)
[2017-12-27] MEDS: COLLAGENASE 5 GM (UD JAR) TOP (08:46)
[2017-12-27] MEDS: ENOXAPARIN 80 MG/0.8 ML SYG SC ×2 (08:49→20:51)
[2017-12-27] MEDS: HYDROmorphONE 1 MG/ML SYG IV ×2 (12:38→23:59)
[2017-12-27 12:59] LABS: Allen Test ACCEPTAB; Arterial Base Excess 11.3 mmol/L (-3.0-3); Arterial Blood Gas Oxygen Sat 98.3 mmHG (95.0-98.0); Arterial COHb 1.1 % (0.0-3.0); Arterial Fraction of Oxyhgb 97.1 % (93.0-99.0); Arterial MetHb 0.1 % (0.0-1.5); Arterial pCO2 42.6 mmhg (35-45); Blood Gas PS 10; MODE VENT - CPAP; Site Right Radial
[2017-12-27] MEDS: MAGNESIUM SULFATE 2 GM/50 ML 50 ML IVPB (15:21)
[2017-12-27] MEDS: INSULIN GLARGINE [LANTus] (100 UNITS/ML) SYG SC (20:50)
[2017-12-28] MEDS: MIDAZOLAM (DRIP) 50 mg/50 mL 50 ML IV ×2 (00:32→16:00)
[2017-12-28] MEDS: INSULIN ASPART [NOVOLOG] 3 ML PEN SC ×6 (02:28→22:00)
[2017-12-28] MEDS: TPN 1,000 ML IV ×2 (04:21→16:49)
[2017-12-28 05:09] LABS: ADD MAN DIFF? NO
[2017-12-28 05:12] LABS: WHITE BLOOD COUNT 9.8 10^3/ul (4.8-10.8)
[2017-12-28 05:12] LABS: BASOPHILS % 0.1 % (0.0-2.0); EOSINOPHILS % 0.3 % (0.0-7.0); HEMATOCRIT 33.7 % (37.0-47.0); HEMOGLOBIN 10.4 g/dl (12.0-16.0); LYMPHOCYTES % 20.1 % (15.0-51.0); MEAN CORPUSCULAR HEMOGLOBIN 27.5 pg (29.0-33.0); MEAN CORPUSCULAR HGB CONC 30.9 g/dl (32.0-37.0); MEAN CORPUSCULAR VOLUME 89.2 fl (82.0-101.0); MEAN PLATELET VOLUME 9.5 fl (7.4-10.4); MONOCYTE # 0.7 10^3/ul (0.3-0.9); MONOCYTES % 7.4 % (0.0-11.0); NEUTROPHILS % 71.2 % (39.0-77.0); NUCLEATED RED BLOOD CELLS% 0.2 /100WBC (0.0-0.0); PLATELET COUNT 277 10^3/UL (140-415); RED BLOOD COUNT 3.78 10^6/ul (4.20-5.40); RED CELL DISTRIBUTION WIDTH 16.6 % (11.5-14.5)
[2017-12-28 05:37] LABS: ANION GAP 8 (8-16); BLOOD UREA NITROGEN 16 mg/dl (7-20); CALCIUM 7.8 mg/dl (8.4-10.2); CARBON DIOXIDE 36 mmol/L (21-31); CHLORIDE 94 mmol/L (97-110); CREATININE 0.28 mg/dl (0.44-1.00); GLUCOSE 99 mg/dl (70-220); POTASSIUM 5.1 mmol/L (3.5-5.1); SODIUM 133 mmol/L (135-144)
[2017-12-28] MEDS: METOCLOPRAMIDE 10 MG INJ IV ×3 (05:44→17:23)
[2017-12-28] MEDS: PIPER-TAZO 3.375 GM IV (PMX) 100 ML IVPB ×3 (05:45→22:27)
[2017-12-28 05:49] LABS: PHOSPHORUS 2.5 mg/dl (2.5-4.9)
[2017-12-28 05:49] LABS: MAGNESIUM 2.1 mg/dl (1.7-2.5)
[2017-12-28] MEDS: PANTOPRAZOLE 40 MG INJ IV ×2 (06:34→17:23)
[2017-12-28] MEDS: LEVOTHYROXINE 100 MCG TAB PO (06:35)
[2017-12-28] MEDS: COLLAGENASE 5 GM (UD JAR) TOP (08:31)
[2017-12-28] MEDS: FERROUS SULFATE (EC) 325 MG TAB PO ×2 (08:31→20:33)
[2017-12-28] MEDS: METOPROLOL 25 MG TAB PO (08:31)
[2017-12-28] MEDS: DEXAMETHASONE 4 MG/ML 1 ML INJ IV (08:31)
[2017-12-28] MEDS: SUCRALFATE (100 MG/ML) 10ML CUP PO ×4 (08:31→20:31)
[2017-12-28] MEDS: FUROSEMIDE 40 MG INJ IV (08:31)
[2017-12-28] MEDS: ENOXAPARIN 80 MG/0.8 ML SYG SC ×2 (08:32→20:32)
[2017-12-28 08:42] LABS: AADO2 Arterial 45.8 mmHg (7.0-24.0); Allen Test ACCEPTAB; Arterial Base Excess 7.4 mmol/L (-3.0-3); Arterial Blood Gas Oxygen Sat 97.3 mmHG (95.0-98.0); Arterial COHb 1.5 % (0.0-3.0); Arterial Fraction of Oxyhgb 95.7 % (93.0-99.0); Arterial MetHb 0.1 % (0.0-1.5); Arterial Total Hemglobin 11.6 g/dl (12.0-18.0); Arterial pCO2 45.4 mmhg (35-45); MODE VENT - AC; Site Right Radial
[2017-12-28] MEDS: HYDROmorphONE 1 MG/ML SYG IV ×2 (09:36→17:38)
[2017-12-28] MEDS: FENTAnyl (DRIP) 1000 mcg/100mL 100 ML IV (11:41)
[2017-12-28] MEDS: IVERMECTIN 3 MG TAB PO (14:41)
[2017-12-28] MEDS: POLYETHYLENE GLYCOL 17 GM PACKET PO (17:38)
[2017-12-28] MEDS: INSULIN GLARGINE [LANTus] (100 UNITS/ML) SYG SC (20:34)
[2017-12-29] MEDS: METOCLOPRAMIDE 10 MG INJ IV ×4 (00:08→17:42)
[2017-12-29] MEDS: FENTAnyl (DRIP) 1000 mcg/100mL 100 ML IV ×3 (01:30→21:07)
[2017-12-29] MEDS: INSULIN ASPART [NOVOLOG] 3 ML PEN SC ×6 (01:42→21:03)
[2017-12-29] MEDS: HYDROmorphONE 1 MG/ML SYG IV (02:05)
[2017-12-29 05:03] LABS: ADD MAN DIFF? NO
[2017-12-29 05:05] LABS: WHITE BLOOD COUNT 8.9 10^3/ul (4.8-10.8)
[2017-12-29 05:05] LABS: BASOPHILS % 0.1 % (0.0-2.0); EOSINOPHILS % 0.2 % (0.0-7.0); HEMATOCRIT 31.8 % (37.0-47.0); LYMPHOCYTES # 2.2 10^3/ul (0.8-2.9); LYMPHOCYTES % 24.6 % (15.0-51.0); MEAN CORPUSCULAR HEMOGLOBIN 27.9 pg (29.0-33.0); MEAN CORPUSCULAR HGB CONC 31.4 g/dl (32.0-37.0); MEAN CORPUSCULAR VOLUME 88.6 fl (82.0-101.0); MEAN PLATELET VOLUME 9.6 fl (7.4-10.4); MONOCYTE # 0.8 10^3/ul (0.3-0.9); MONOCYTES % 8.8 % (0.0-11.0); NEUTROPHIL # 5.7 10^3/ul (1.6-7.5); NEUTROPHILS % 64.8 % (39.0-77.0); NUCLEATED RED BLOOD CELLS% 0.5 /100WBC (0.0-0.0); PLATELET COUNT 301 10^3/UL (140-415); RED BLOOD COUNT 3.59 10^6/ul (4.20-5.40)
[2017-12-29] MEDS: TPN 1,000 ML IV ×2 (05:10→17:46)
[2017-12-29] MEDS: PIPER-TAZO 3.375 GM IV (PMX) 100 ML IVPB ×3 (05:21→21:03)
[2017-12-29 05:49] LABS: ALANINE AMINOTRANSFERASE 288 IU/L (13-69); ALBUMIN 1.8 g/dl (3.3-4.9); ALBUMIN/GLOBULIN RATIO 0.62; ALKALINE PHOSPHATASE 136 IU/L (42-121); ANION GAP 9 (8-16); ASPARTATE AMINO TRANSFERASE 288 IU/L (15-46); BILIRUBIN,INDIRECT 0.6 mg/dl (0-1.1); BILIRUBIN,TOTAL 0.6 mg/dl (0.2-1.3); BLOOD UREA NITROGEN 18 mg/dl (7-20); CALCIUM 7.8 mg/dl (8.4-10.2); CARBON DIOXIDE 35 mmol/L (21-31); CHLORIDE 94 mmol/L (97-110); CREATININE 0.37 mg/dl (0.44-1.00); GLUCOSE 142 mg/dl (70-220); MAGNESIUM 1.7 mg/dl (1.7-2.5); POTASSIUM 4.4 mmol/L (3.5-5.1); SODIUM 134 mmol/L (135-144); TOTAL PROTEIN 4.7 g/dl (6.1-8.1)
[2017-12-29 05:49] LABS: PHOSPHORUS 2.8 mg/dl (2.5-4.9)
[2017-12-29] MEDS ORDERED: ETOMIDATE 20 MG INJ (07:00)
[2017-12-29] MEDS ORDERED: SUCCINYLCHOLINE CHLORIDE 100 MG/5 ML SYG IV (07:00)
[2017-12-29] MEDS: SUCRALFATE (100 MG/ML) 10ML CUP PO ×4 (08:32→20:29)
[2017-12-29] MEDS: LEVOTHYROXINE 100 MCG TAB PO (08:32)
[2017-12-29] MEDS: DEXAMETHASONE 4 MG/ML 1 ML INJ IV (08:32)
[2017-12-29] MEDS: COLLAGENASE 5 GM (UD JAR) TOP (08:32)
[2017-12-29] MEDS: FERROUS SULFATE (EC) 325 MG TAB PO ×2 (08:32→20:29)
[2017-12-29] MEDS: FUROSEMIDE 40 MG INJ IV (08:32)
[2017-12-29] MEDS: PANTOPRAZOLE 40 MG INJ IV ×2 (08:32→17:42)
[2017-12-29] MEDS: ENOXAPARIN 80 MG/0.8 ML SYG SC ×2 (08:33→20:32)
[2017-12-29] MEDS ORDERED: SODIUM PHOSPHATE 20 MEQ in SOD CHLORIDE 0.9% 250 ML IVPB (09:30)
[2017-12-29] MEDS: MAGNESIUM SULFATE 2 GM/50 ML 50 ML IVPB (10:02)
[2017-12-29 11:41] LABS: AADO2 Arterial 71.5 mmHg (7.0-24.0); Allen Test ACCEPTAB; Arterial Base Excess 8.1 mmol/L (-3.0-3); Arterial Blood Gas Oxygen Sat 97.3 mmHG (95.0-98.0); Arterial COHb 1.5 % (0.0-3.0); Arterial Fraction of Oxyhgb 95.7 % (93.0-99.0); Arterial HCO3 30.3 mmol/L (22.0-26.0); Arterial MetHb 0.1 % (0.0-1.5); Arterial Total Hemglobin 11.7 g/dl (12.0-18.0); Arterial pCO2 33.8 mmhg (35-45); Blood Gas PS 10; MODE VENT - CPAP; Site Right Radial
[2017-12-29] MEDS: RACEPINEPHRINE 2.25%(NEB) 0.5 ML AMP HHN (12:15)
[2017-12-29] MEDS: LORAZEPAM 2 MG INJ IV (12:25)
[2017-12-29] MEDS: MIDAZOLAM (DRIP) 50 mg/50 mL 50 ML IV ×2 (13:17→20:29)
[2017-12-29] MEDS: INSULIN GLARGINE [LANTus] (100 UNITS/ML) SYG SC (20:31)
[2017-12-29 20:51] LABS: AADO2 Arterial 93.1 mmHg (7.0-24.0); Allen Test ACCEPTAB; Arterial Base Excess 5.3 mmol/L (-3.0-3); Arterial Blood Gas Oxygen Sat 97.7 mmHG (95.0-98.0); Arterial COHb 1.2 % (0.0-3.0); Arterial Fraction of Oxyhgb 96.4 % (93.0-99.0); Arterial HCO3 30.5 mmol/L (22.0-26.0); Arterial MetHb 0.1 % (0.0-1.5); Arterial Total Hemglobin 11.3 g/dl (12.0-18.0); Arterial pCO2 47.7 mmhg (35-45); MODE VENT - AC; Site Right Radial
[2017-12-30] MEDS: METOCLOPRAMIDE 10 MG INJ IV ×4 (00:12→17:43)
[2017-12-30] MEDS: INSULIN ASPART [NOVOLOG] 3 ML PEN SC ×6 (02:00→22:00)
[2017-12-30] MEDS: MIDAZOLAM (DRIP) 50 mg/50 mL 50 ML IV (02:29)
[2017-12-30] MEDS: PIPER-TAZO 3.375 GM IV (PMX) 100 ML IVPB ×2 (05:18→13:41)
[2017-12-30 05:29] LABS: ADD MAN DIFF? NO
[2017-12-30] MEDS ORDERED: NA BICARBONATE 8.4% 50 ML SYG (05:30)
[2017-12-30 05:33] LABS: BASOPHILS % 0.2 % (0.0-2.0); HEMATOCRIT 32.6 % (37.0-47.0); HEMOGLOBIN 10.2 g/dl (12.0-16.0); MEAN CORPUSCULAR HEMOGLOBIN 27.9 pg (29.0-33.0); MEAN CORPUSCULAR HGB CONC 31.3 g/dl (32.0-37.0); MEAN CORPUSCULAR VOLUME 89.1 fl (82.0-101.0); MEAN PLATELET VOLUME 9.4 fl (7.4-10.4); MONOCYTES % 11.3 % (0.0-11.0); NEUTROPHIL # 5.7 10^3/ul (1.6-7.5); NEUTROPHILS % 64.4 % (39.0-77.0); NUCLEATED RED BLOOD CELLS # 0.1 10^3/ul (0.0-0.0); NUCLEATED RED BLOOD CELLS% 0.9 /100WBC (0.0-0.0); PLATELET COUNT 338 10^3/UL (140-415); RED BLOOD COUNT 3.66 10^6/ul (4.20-5.40)
[2017-12-30 05:33] LABS: WHITE BLOOD COUNT 8.8 10^3/ul (4.8-10.8)
[2017-12-30 05:50] LABS: ALANINE AMINOTRANSFERASE 251 IU/L (13-69); ALBUMIN 2.3 g/dl (3.3-4.9); ALBUMIN/GLOBULIN RATIO 0.71; ALKALINE PHOSPHATASE 125 IU/L (42-121); AMYLASE 116 U/L (11-123); ANION GAP 7 (8-16); ASPARTATE AMINO TRANSFERASE 250 IU/L (15-46); BILIRUBIN,INDIRECT 0.5 mg/dl (0-1.1); BILIRUBIN,TOTAL 0.5 mg/dl (0.2-1.3); BLOOD UREA NITROGEN 20 mg/dl (7-20); CALCIUM 7.5 mg/dl (8.4-10.2); CARBON DIOXIDE 35 mmol/L (21-31); CHLORIDE 99 mmol/L (97-110); GLUCOSE 198 mg/dl (70-220); LIPASE 201 U/L (23-300); POTASSIUM 3.7 mmol/L (3.5-5.1); SODIUM 137 mmol/L (135-144); TOTAL PROTEIN 5.5 g/dl (6.1-8.1)
[2017-12-30 05:51] LABS: MAGNESIUM 1.9 mg/dl (1.7-2.5)
[2017-12-30] MEDS: PANTOPRAZOLE 40 MG INJ IV ×2 (06:03→17:43)
[2017-12-30] MEDS: LEVOTHYROXINE 100 MCG TAB PO (06:03)
[2017-12-30] MEDS: FENTAnyl (DRIP) 1000 mcg/100mL 100 ML IV ×2 (06:04→15:45)
[2017-12-30] MEDS: TPN 1,000 ML IV ×2 (06:16→23:04)
[2017-12-30] MEDS: FERROUS SULFATE (EC) 325 MG TAB PO ×2 (08:43→20:43)
[2017-12-30] MEDS: SUCRALFATE (100 MG/ML) 10ML CUP PO ×4 (08:43→20:42)
[2017-12-30] MEDS: DEXAMETHASONE 4 MG/ML 1 ML INJ IV (08:43)
[2017-12-30] MEDS: COLLAGENASE 5 GM (UD JAR) TOP (08:44)
[2017-12-30] MEDS: FUROSEMIDE 40 MG INJ IV (08:44)
[2017-12-30] MEDS: ENOXAPARIN 80 MG/0.8 ML SYG SC ×2 (09:12→20:45)
[2017-12-30] MEDS: ACETAMINOPHEN 650MG/20.3ML CUP NGT (13:41)
[2017-12-30] MEDS ORDERED: VANCOMYCIN IV PER PHARMACY XX (14:30)
[2017-12-30] MEDS: MEROPENEM 1 GM/50ML(PMX) 50 ML IVPB (15:50)
[2017-12-30] MEDS: CASPOFUNGIN 70 MG in SOD CHLORIDE 0.9% 250 ML IVPB (15:50)
[2017-12-30] MEDS: VANCOMYCIN 1.25 GM in SOD CHLORIDE 0.9% 250 ML IVPB (17:35)
[2017-12-30] MEDS: INSULIN GLARGINE [LANTus] (100 UNITS/ML) SYG SC (20:43)
[2017-12-31] MEDS: METOCLOPRAMIDE 10 MG INJ IV ×4 (00:01→16:26)
[2017-12-31] MEDS: MEROPENEM 1 GM/50ML(PMX) 50 ML IVPB ×3 (00:01→20:49)
[2017-12-31] MEDS: VANCOMYCIN 500MG/NS (PMX) 100 ML IVPB ×3 (00:38→16:19)
[2017-12-31] MEDS: INSULIN ASPART [NOVOLOG] 3 ML PEN SC ×6 (01:09→20:48)
[2017-12-31] MEDS: MIDAZOLAM (DRIP) 50 mg/50 mL 50 ML IV ×4 (02:09→23:53)
[2017-12-31 04:50] LABS: HEMOGLOBIN 9.4 g/dl (12.0-16.0); MEAN CORPUSCULAR HEMOGLOBIN 28.4 pg (29.0-33.0); MEAN CORPUSCULAR HGB CONC 31.3 g/dl (32.0-37.0); MEAN CORPUSCULAR VOLUME 90.6 fl (82.0-101.0); MEAN PLATELET VOLUME 9.2 fl (7.4-10.4); NUCLEATED RED BLOOD CELLS% 0.6 /100WBC (0.0-0.0); PLATELET COUNT 305 10^3/UL (140-415); RED BLOOD COUNT 3.31 10^6/ul (4.20-5.40); RED CELL DISTRIBUTION WIDTH 18.3 % (11.5-14.5)
[2017-12-31 04:50] LABS: WHITE BLOOD COUNT 9.1 10^3/ul (4.8-10.8)
[2017-12-31 05:09] LABS: MAGNESIUM 1.9 mg/dl (1.7-2.5)
[2017-12-31 05:09] LABS: PHOSPHORUS 2.3 mg/dl (2.5-4.9)
[2017-12-31 05:11] LABS: ADD MAN DIFF? YES; POSITIVE DIFF @See below
[2017-12-31] MEDS: FENTAnyl (DRIP) 1000 mcg/100mL 100 ML IV (05:12)
[2017-12-31 05:15] LABS: PREALBUMIN 6.7 mg/dl (17.6-36.0)
[2017-12-31 05:43] LABS: ALANINE AMINOTRANSFERASE 198 IU/L (13-69); ALBUMIN 1.8 g/dl (3.3-4.9); ALKALINE PHOSPHATASE 101 IU/L (42-121); ANION GAP 8 (8-16); ASPARTATE AMINO TRANSFERASE 137 IU/L (15-46); BILIRUBIN,INDIRECT 0.5 mg/dl (0-1.1); BILIRUBIN,TOTAL 0.5 mg/dl (0.2-1.3); BLOOD UREA NITROGEN 19 mg/dl (7-20); CALCIUM 7.8 mg/dl (8.4-10.2); CARBON DIOXIDE 34 mmol/L (21-31); CHLORIDE 100 mmol/L (97-110); CREATININE 0.33 mg/dl (0.44-1.00); GLUCOSE 224 mg/dl (70-220); POTASSIUM 3.2 mmol/L (3.5-5.1); SODIUM 139 mmol/L (135-144); TOTAL PROTEIN 4.8 g/dl (6.1-8.1)
[2017-12-31] MEDS: LEVOTHYROXINE 100 MCG TAB PO (06:10)
[2017-12-31] MEDS: PANTOPRAZOLE 40 MG INJ IV ×2 (06:10→16:26)
[2017-12-31] MEDS: FUROSEMIDE 40 MG INJ IV (07:45)
[2017-12-31 07:53] LABS: ANISOCYTOSIS 1+ (0-0); ERYTHROBLAST% (NRBC) (M) 5 % (0-0); LYMPHOCYTES #M 0.8 10^3/ul (0.8-2.9); LYMPHOCYTES % (M) 9 % (15-51); MONOCYTES % (M) 1 % (0-11); PLATELET ESTIMATE NORMAL; POLYCHROMASIA 1+ (0-0); SEGMENTED NEUTROPHILS (M) % 90 % (39-77); SMUDGE%M 17 % (0-0)
[2017-12-31] MEDS: POTASSIUM PHOSPHATE 40 MEQ in SOD CHLORIDE 0.9% 250 ML IVPB (07:59)
[2017-12-31] MEDS: FERROUS SULFATE (EC) 325 MG TAB PO ×2 (08:15→20:49)
[2017-12-31] MEDS: SUCRALFATE (100 MG/ML) 10ML CUP PO ×4 (08:15→20:49)
[2017-12-31] MEDS: DEXAMETHASONE 4 MG/ML 1 ML INJ IV (08:15)
[2017-12-31] MEDS: ENOXAPARIN 80 MG/0.8 ML SYG SC ×2 (08:41→20:49)
[2017-12-31 08:45] LABS: AADO2 Arterial 52.1 mmHg (7.0-24.0); Allen Test ACCEPTAB; Arterial Base Excess 4.3 mmol/L (-3.0-3); Arterial Blood Gas Oxygen Sat 96.6 mmHG (95.0-98.0); Arterial COHb 1.6 % (0.0-3.0); Arterial Fraction of Oxyhgb 94.9 % (93.0-99.0); Arterial HCO3 29.9 mmol/L (22.0-26.0); Arterial MetHb 0.2 % (0.0-1.5); Arterial Total Hemglobin 9.7 g/dl (12.0-18.0); Arterial pCO2 50.6 mmhg (35-45); MODE VENT - AC; Site Right Radial
[2017-12-31] MEDS ORDERED: POTASSIUM PHOSPHATE 15 MM in SOD CHLORIDE 0.9% 250 ML IVPB (09:00)
[2017-12-31] MEDS: COLLAGENASE 5 GM (UD JAR) TOP (09:11)
[2017-12-31] MEDS: TPN 1,000 ML IV ×2 (11:31→23:19)
[2017-12-31] MEDS: ERYTHROMYCIN ETHYL SUCC (80 MG/ML PO SYG) NGT ×3 (14:29→22:23)
[2017-12-31] MEDS: CASPOFUNGIN 35 MG in SOD CHLORIDE 0.9% 250 ML IVPB (16:19)
[2017-12-31 17:25] LABS: VANCOMYCIN,TROUGH 8.8 ug/ml (10.0-20.0)
[2017-12-31] MEDS: INSULIN GLARGINE [LANTus] (100 UNITS/ML) SYG SC (20:47)
[2017-12-31 21:42] LABS: ANION GAP 4 (8-16); BLOOD UREA NITROGEN 19 mg/dl (7-20); CALCIUM 8.1 mg/dl (8.4-10.2); CARBON DIOXIDE 35 mmol/L (21-31); CHLORIDE 103 mmol/L (97-110); CREATININE 0.32 mg/dl (0.44-1.00); GLUCOSE 266 mg/dl (70-220); MAGNESIUM 1.9 mg/dl (1.7-2.5); PHOSPHORUS 2.6 mg/dl (2.5-4.9); POTASSIUM 3.3 mmol/L (3.5-5.1); SODIUM 139 mmol/L (135-144)
[2017-12-31] MEDS: MAGNESIUM SULFATE 1 GM/D5W 100 ML IVPB (23:53)
[2018-01-01] MEDS: METOCLOPRAMIDE 10 MG INJ IV ×5 (00:23→23:38)
[2018-01-01] MEDS: POTASSIUM CHLORIDE 50 ML IVPB ×3 (00:23→04:15)
[2018-01-01] MEDS: VANCOMYCIN 750 MG in SOD CHLORIDE 0.9% 150 ML IVPB ×4 (00:23→23:38)
[2018-01-01] MEDS: INSULIN ASPART [NOVOLOG] 3 ML PEN SC ×6 (01:26→20:26)
[2018-01-01 04:55] LABS: ADD MAN DIFF? NO
[2018-01-01 05:06] LABS: BASOPHILS % 0.1 % (0.0-2.0); HEMATOCRIT 28.2 % (37.0-47.0); HEMOGLOBIN 8.8 g/dl (12.0-16.0); LYMPHOCYTES # 1.3 10^3/ul (0.8-2.9); LYMPHOCYTES % 10.6 % (15.0-51.0); MEAN CORPUSCULAR HEMOGLOBIN 28.6 pg (29.0-33.0); MEAN CORPUSCULAR HGB CONC 31.2 g/dl (32.0-37.0); MEAN CORPUSCULAR VOLUME 91.6 fl (82.0-101.0); MEAN PLATELET VOLUME 9.5 fl (7.4-10.4); MONOCYTE # 1.2 10^3/ul (0.3-0.9); MONOCYTES % 9.5 % (0.0-11.0); NEUTROPHIL # 9.8 10^3/ul (1.6-7.5); NEUTROPHILS % 79.1 % (39.0-77.0); NUCLEATED RED BLOOD CELLS # 0.1 10^3/ul (0.0-0.0); PLATELET COUNT 396 10^3/UL (140-415); RED BLOOD COUNT 3.08 10^6/ul (4.20-5.40); RED CELL DISTRIBUTION WIDTH 18.6 % (11.5-14.5)
[2018-01-01 05:06] LABS: WHITE BLOOD COUNT 12.3 10^3/ul (4.8-10.8)
[2018-01-01 05:35] LABS: PHOSPHORUS 2.3 mg/dl (2.5-4.9)
[2018-01-01 05:35] LABS: MAGNESIUM 2.2 mg/dl (1.7-2.5)
[2018-01-01 05:40] LABS: ANION GAP 5 (8-16); BLOOD UREA NITROGEN 18 mg/dl (7-20); CALCIUM 8.1 mg/dl (8.4-10.2); CARBON DIOXIDE 35 mmol/L (21-31); CHLORIDE 105 mmol/L (97-110); CREATININE 0.34 mg/dl (0.44-1.00); GLUCOSE 167 mg/dl (70-220); POTASSIUM 3.9 mmol/L (3.5-5.1); SODIUM 141 mmol/L (135-144)
[2018-01-01] MEDS: MIDAZOLAM (DRIP) 50 mg/50 mL 50 ML IV ×2 (06:04→18:07)
[2018-01-01] MEDS: LEVOTHYROXINE 100 MCG TAB PO (06:04)
[2018-01-01] MEDS: ERYTHROMYCIN ETHYL SUCC (80 MG/ML PO SYG) NGT ×3 (06:04→21:51)
[2018-01-01] MEDS: PANTOPRAZOLE 40 MG INJ IV ×2 (06:07→17:29)
[2018-01-01] MEDS: FENTAnyl (DRIP) 1000 mcg/100mL 100 ML IV (06:42)
[2018-01-01] MEDS: MEROPENEM 1 GM/50ML(PMX) 50 ML IVPB ×2 (08:50→20:52)
[2018-01-01] MEDS: DEXAMETHASONE 4 MG/ML 1 ML INJ IV (08:51)
[2018-01-01] MEDS: FERROUS SULFATE (EC) 325 MG TAB PO ×2 (08:56→20:20)
[2018-01-01] MEDS: SUCRALFATE (100 MG/ML) 10ML CUP PO ×4 (08:56→20:20)
[2018-01-01] MEDS: FUROSEMIDE 40 MG INJ IV (09:00)
[2018-01-01] MEDS: ENOXAPARIN 80 MG/0.8 ML SYG SC ×2 (09:00→20:21)
[2018-01-01] MEDS: COLLAGENASE 5 GM (UD JAR) TOP (09:01)
[2018-01-01] MEDS: POTASSIUM PHOSPHATE 15 MM in SOD CHLORIDE 0.9% 250 ML IV (14:08)
[2018-01-01] MEDS: CASPOFUNGIN 35 MG in SOD CHLORIDE 0.9% 250 ML IVPB (16:05)
[2018-01-01] MEDS ORDERED: ADENOSINE 3 MG/ML SYRINGE IV (18:00)
[2018-01-01] MEDS: ADENOSINE 6 MG INJ IV (18:07)
[2018-01-01] MEDS: INSULIN GLARGINE [LANTus] (100 UNITS/ML) SYG SC (19:31)
[2018-01-01] MEDS: TPN 1,000 ML IV (23:23)
[2018-01-02] MEDS: INSULIN ASPART [NOVOLOG] 3 ML PEN SC ×6 (01:00→20:37)
[2018-01-02] MEDS: MIDAZOLAM (DRIP) 50 mg/50 mL 50 ML IV (04:06)
[2018-01-02] MEDS: FENTAnyl (DRIP) 1000 mcg/100mL 100 ML IV (04:08)
[2018-01-02 04:55] LABS: ADD MAN DIFF? NO
[2018-01-02 05:01] LABS: WHITE BLOOD COUNT 11.2 10^3/ul (4.8-10.8)
[2018-01-02 05:01] LABS: BASOPHILS % 0.2 % (0.0-2.0); EOSINOPHILS % 0.2 % (0.0-7.0); HEMOGLOBIN 8.9 g/dl (12.0-16.0); LYMPHOCYTES # 1.4 10^3/ul (0.8-2.9); LYMPHOCYTES % 12.5 % (15.0-51.0); MEAN CORPUSCULAR HEMOGLOBIN 28.1 pg (29.0-33.0); MEAN CORPUSCULAR HGB CONC 30.7 g/dl (32.0-37.0); MEAN CORPUSCULAR VOLUME 91.5 fl (82.0-101.0); MEAN PLATELET VOLUME 9.6 fl (7.4-10.4); MONOCYTE # 0.7 10^3/ul (0.3-0.9); MONOCYTES % 6.6 % (0.0-11.0); NEUTROPHIL # 8.9 10^3/ul (1.6-7.5); NEUTROPHILS % 79.9 % (39.0-77.0); NUCLEATED RED BLOOD CELLS # 0.1 10^3/ul (0.0-0.0); PLATELET COUNT 406 10^3/UL (140-415); RED BLOOD COUNT 3.17 10^6/ul (4.20-5.40)
[2018-01-02 05:23] LABS: ALANINE AMINOTRANSFERASE 149 IU/L (13-69); ALBUMIN 2.2 g/dl (3.3-4.9); ALBUMIN/GLOBULIN RATIO 0.75; ALKALINE PHOSPHATASE 89 IU/L (42-121); ANION GAP 4 (8-16); ASPARTATE AMINO TRANSFERASE 115 IU/L (15-46); BILIRUBIN,INDIRECT 0.5 mg/dl (0-1.1); BILIRUBIN,TOTAL 0.5 mg/dl (0.2-1.3); BLOOD UREA NITROGEN 18 mg/dl (7-20); CALCIUM 8.2 mg/dl (8.4-10.2); CARBON DIOXIDE 34 mmol/L (21-31); CHLORIDE 106 mmol/L (97-110); CREATININE 0.31 mg/dl (0.44-1.00); GLUCOSE 128 mg/dl (70-220); POTASSIUM 4.2 mmol/L (3.5-5.1); SODIUM 140 mmol/L (135-144); TOTAL PROTEIN 5.1 g/dl (6.1-8.1)
[2018-01-02 05:25] LABS: MAGNESIUM 1.9 mg/dl (1.7-2.5)
[2018-01-02 05:45] LABS: VANCOMYCIN,TROUGH 20.3 ug/ml (10.0-20.0)
[2018-01-02] MEDS: LEVOTHYROXINE 100 MCG TAB PO (06:17)
[2018-01-02] MEDS: PANTOPRAZOLE 40 MG INJ IV ×2 (06:17→17:24)
[2018-01-02] MEDS: METOCLOPRAMIDE 10 MG INJ IV ×4 (06:17→23:55)
[2018-01-02] MEDS: ERYTHROMYCIN ETHYL SUCC (80 MG/ML PO SYG) NGT ×3 (06:17→22:20)
[2018-01-02 07:35] LABS: VANCOMYCIN,TROUGH 17.4 ug/ml (10.0-20.0)
[2018-01-02] MEDS: DEXAMETHASONE 4 MG/ML 1 ML INJ IV (08:52)
[2018-01-02] MEDS: FUROSEMIDE 40 MG INJ IV (08:52)
[2018-01-02] MEDS: MEROPENEM 1 GM/50ML(PMX) 50 ML IVPB ×2 (08:52→20:38)
[2018-01-02] MEDS: FERROUS SULFATE (EC) 325 MG TAB PO ×2 (08:53→20:38)
[2018-01-02] MEDS: COLLAGENASE 5 GM (UD JAR) TOP (08:53)
[2018-01-02] MEDS: SUCRALFATE (100 MG/ML) 10ML CUP PO ×4 (08:53→20:38)
[2018-01-02] MEDS: ENOXAPARIN 80 MG/0.8 ML SYG SC ×2 (08:55→20:38)
[2018-01-02] MEDS: VANCOMYCIN 500MG/NS (PMX) 100 ML IVPB ×2 (09:57→17:30)
[2018-01-02] MEDS ORDERED: ADENOSINE 3 MG/ML SYRINGE IV (10:49)
[2018-01-02] MEDS ORDERED: MAGNESIUM SULFATE 2 GM/50 ML 50 ML (11:21)
[2018-01-02] MEDS: MAGNESIUM SULFATE 2 GM/50 ML 50 ML IVPB (11:36)
[2018-01-02] MEDS: ADENOSINE 6 MG INJ IV (11:37)
[2018-01-02] MEDS ORDERED: AMIODARONE 150MG/D5W BOLUS 100 ML (14:22)
[2018-01-02] MEDS: AMIODARONE 150MG/D5W BOLUS 100 ML IV (14:26)
[2018-01-02] MEDS: CASPOFUNGIN 35 MG in SOD CHLORIDE 0.9% 250 ML IVPB (16:16)
[2018-01-02] MEDS: AMIODARONE 900 MG in DEXTROSE 5% 482 ML IV ×2 (16:16→17:37)
[2018-01-02] MEDS ORDERED: AMIODARONE 900 MG in DEXTROSE 5% 482 ML IV (17:11)
[2018-01-02] MEDS: PROPOFOL 100 ML IV (17:30)
[2018-01-02] MEDS: INSULIN GLARGINE [LANTus] (100 UNITS/ML) SYG SC (20:37)
[2018-01-03] MEDS: INSULIN ASPART [NOVOLOG] 3 ML PEN SC ×6 (01:00→21:00)
[2018-01-03] MEDS: TPN 1,000 ML IV (01:13)
[2018-01-03] MEDS: VANCOMYCIN 500MG/NS (PMX) 100 ML IVPB ×3 (01:13→18:46)
[2018-01-03] MEDS: FENTAnyl (DRIP) 1000 mcg/100mL 100 ML IV ×2 (03:29→21:00)
[2018-01-03 04:53] LABS: ADD MAN DIFF? NO
[2018-01-03 05:17] LABS: WHITE BLOOD COUNT 8.7 10^3/ul (4.8-10.8)
[2018-01-03 05:17] LABS: BASOPHILS % 0.2 % (0.0-2.0); EOSINOPHILS # 0.1 10^3/ul (0.0-0.5); EOSINOPHILS % 0.6 % (0.0-7.0); HEMATOCRIT 28.3 % (37.0-47.0); HEMOGLOBIN 8.8 g/dl (12.0-16.0); LYMPHOCYTES # 1.5 10^3/ul (0.8-2.9); MEAN CORPUSCULAR HEMOGLOBIN 28.5 pg (29.0-33.0); MEAN CORPUSCULAR HGB CONC 31.1 g/dl (32.0-37.0); MEAN CORPUSCULAR VOLUME 91.6 fl (82.0-101.0); MEAN PLATELET VOLUME 9.6 fl (7.4-10.4); MONOCYTE # 0.4 10^3/ul (0.3-0.9); MONOCYTES % 4.6 % (0.0-11.0); NEUTROPHIL # 6.7 10^3/ul (1.6-7.5); NEUTROPHILS % 76.3 % (39.0-77.0); NUCLEATED RED BLOOD CELLS% 0.5 /100WBC (0.0-0.0); PLATELET COUNT 362 10^3/UL (140-415); RED BLOOD COUNT 3.09 10^6/ul (4.20-5.40); RED CELL DISTRIBUTION WIDTH 19.9 % (11.5-14.5)
[2018-01-03] MEDS: PROPOFOL 100 ML IV ×3 (05:30→20:38)
[2018-01-03] MEDS: ERYTHROMYCIN ETHYL SUCC (80 MG/ML PO SYG) NGT ×3 (05:38→21:41)
[2018-01-03] MEDS: METOCLOPRAMIDE 10 MG INJ IV ×3 (05:45→17:10)
[2018-01-03 05:51] LABS: ANION GAP 4 (8-16); BLOOD UREA NITROGEN 16 mg/dl (7-20); CALCIUM 7.8 mg/dl (8.4-10.2); CARBON DIOXIDE 33 mmol/L (21-31); CHLORIDE 103 mmol/L (97-110); CREATININE 0.25 mg/dl (0.44-1.00); GLUCOSE 140 mg/dl (70-220); MAGNESIUM 1.9 mg/dl (1.7-2.5); POTASSIUM 3.8 mmol/L (3.5-5.1); SODIUM 136 mmol/L (135-144)
[2018-01-03 05:55] LABS: FREE T4 (FREE THYROXINE) 0.87 ng/dl (0.78-2.44)
[2018-01-03] MEDS: LEVOTHYROXINE 100 MCG TAB PO (06:20)
[2018-01-03] MEDS: POTASSIUM CHLORIDE 50 ML IVPB (06:33)
[2018-01-03] MEDS: PANTOPRAZOLE 40 MG INJ IV ×2 (06:33→17:10)
[2018-01-03] MEDS: MAGNESIUM SULFATE 2 GM/50 ML 50 ML IVPB (07:59)
[2018-01-03] MEDS: FUROSEMIDE 40 MG INJ IV (08:37)
[2018-01-03] MEDS: SUCRALFATE (100 MG/ML) 10ML CUP PO ×4 (08:37→21:00)
[2018-01-03] MEDS: DEXAMETHASONE 4 MG/ML 1 ML INJ IV (08:38)
[2018-01-03] MEDS: FERROUS SULFATE (EC) 325 MG TAB PO ×2 (08:38→21:00)
[2018-01-03] MEDS: ENOXAPARIN 80 MG/0.8 ML SYG SC ×3 (08:40→21:25)
[2018-01-03] MEDS: COLLAGENASE 5 GM (UD JAR) TOP (08:43)
[2018-01-03] MEDS: MEROPENEM 1 GM/50ML(PMX) 50 ML IVPB ×2 (08:44→21:25)
[2018-01-03] MEDS: BALSAM PERU/CASTOR OIL 60 GM TUBE TOP ×2 (08:44→21:24)
[2018-01-03 09:42] LABS: CREATININE 0.27 mg/dl (0.44-1.00)
[2018-01-03 09:42] LABS: BLOOD UREA NITROGEN 15 mg/dl (7-20)
[2018-01-03 09:46] LABS: VANCOMYCIN,TROUGH 12.9 ug/ml (10.0-20.0)
[2018-01-03] MEDS ORDERED: METOCLOPRAMIDE 10 MG INJ IV (15:05)
[2018-01-03] MEDS: CASPOFUNGIN 35 MG in SOD CHLORIDE 0.9% 250 ML IVPB (17:24)
[2018-01-03] MEDS ORDERED: FENTAnyl 50 MCG/ML VIAL (17:34)
[2018-01-03] MEDS ORDERED: MIDAZOLAM 1 MG/ML 2 ML INJ (17:34)
[2018-01-03] MEDS ORDERED: ROCURONIUM 50 MG INJ (19:06)
[2018-01-03] MEDS ORDERED: DIPHENHYDRAMINE 50 MG INJ IV (20:00)
[2018-01-03] MEDS ORDERED: ALBUMIN HUMAN 5% 250 ML IV (20:00)
[2018-01-03] MEDS ORDERED: FENTAnyl 50 MCG/ML VIAL IV ×2 (20:00)
[2018-01-03] MEDS ORDERED: HYDROmorphONE 0.5 MG/0.5 ML SYG IV ×2 (20:00)
[2018-01-03] MEDS ORDERED: MEPERIDINE 25 MG INJ IV (20:00)
[2018-01-03] MEDS ORDERED: IPRATROPIUM (NEB) 0.5 MG/2.5 ML AMP HHN (20:00)
[2018-01-03] MEDS ORDERED: ONDANSETRON 4 MG INJ IV (20:00)
[2018-01-03] MEDS ORDERED: EPHEDrine SULFATE 50 MG/5 ML SYG IV (20:00)
[2018-01-03] MEDS ORDERED: LEVALBUTEROL (NEB) 1.25 MG/0.5 ML AMP HHN (20:00)
[2018-01-03] MEDS ORDERED: SUGAMMADEX SODIUM 200 MG/2 ML VIAL IV (20:09)
[2018-01-03] MEDS: LIDOCAINE 1% (MDV) 20 ML INJ (20:41)
[2018-01-03] MEDS: DOCUSATE SODIUM 10 MG/ML (10ML CUP) NGT (21:00)
[2018-01-03] MEDS: INSULIN GLARGINE [LANTus] (100 UNITS/ML) SYG SC (21:26)
[2018-01-04] MEDS: METOCLOPRAMIDE 10 MG INJ IV ×5 (00:31→23:10)
[2018-01-04] MEDS: INSULIN ASPART [NOVOLOG] 3 ML PEN SC ×6 (00:33→21:51)
[2018-01-04] MEDS: TPN 1,000 ML IV (01:28)
[2018-01-04] MEDS: VANCOMYCIN 500MG/NS (PMX) 100 ML IVPB ×3 (01:28→18:30)
[2018-01-04] MEDS: AMIODARONE 900 MG in DEXTROSE 5% 482 ML IV (01:29)
[2018-01-04 05:09] LABS: ADD MAN DIFF? NO
[2018-01-04 05:15] LABS: WHITE BLOOD COUNT 11.4 10^3/ul (4.8-10.8)
[2018-01-04 05:15] LABS: BASOPHILS % 0.1 % (0.0-2.0); EOSINOPHILS % 0.4 % (0.0-7.0); HEMATOCRIT 30.1 % (37.0-47.0); HEMOGLOBIN 9.4 g/dl (12.0-16.0); LYMPHOCYTES # 1.6 10^3/ul (0.8-2.9); LYMPHOCYTES % 14.2 % (15.0-51.0); MEAN CORPUSCULAR HEMOGLOBIN 28.7 pg (29.0-33.0); MEAN CORPUSCULAR HGB CONC 31.2 g/dl (32.0-37.0); MEAN CORPUSCULAR VOLUME 91.8 fl (82.0-101.0); MEAN PLATELET VOLUME 9.7 fl (7.4-10.4); MONOCYTE # 0.5 10^3/ul (0.3-0.9); MONOCYTES % 4.7 % (0.0-11.0); NUCLEATED RED BLOOD CELLS% 0.3 /100WBC (0.0-0.0); PLATELET COUNT 460 10^3/UL (140-415); RED BLOOD COUNT 3.28 10^6/ul (4.20-5.40); RED CELL DISTRIBUTION WIDTH 20.6 % (11.5-14.5)
[2018-01-04 05:40] LABS: ANION GAP 4 (8-16); BLOOD UREA NITROGEN 15 mg/dl (7-20); CALCIUM 7.9 mg/dl (8.4-10.2); CARBON DIOXIDE 33 mmol/L (21-31); CHLORIDE 103 mmol/L (97-110); CREATININE 0.25 mg/dl (0.44-1.00); GLUCOSE 144 mg/dl (70-220); MAGNESIUM 1.9 mg/dl (1.7-2.5); PHOSPHORUS 3.5 mg/dl (2.5-4.9); POTASSIUM 3.9 mmol/L (3.5-5.1); SODIUM 136 mmol/L (135-144)
[2018-01-04] MEDS: ERYTHROMYCIN ETHYL SUCC (80 MG/ML PO SYG) NGT ×3 (06:00→23:10)
[2018-01-04] MEDS: LEVOTHYROXINE 100 MCG TAB PO (06:30)
[2018-01-04] MEDS: PANTOPRAZOLE 40 MG INJ IV ×2 (06:32→18:28)
[2018-01-04] MEDS: FENTAnyl (DRIP) 1000 mcg/100mL 100 ML IV ×2 (06:45→18:16)
[2018-01-04 07:29] LABS: ALANINE AMINOTRANSFERASE 168 IU/L (13-69); ALKALINE PHOSPHATASE 93 IU/L (42-121); ASPARTATE AMINO TRANSFERASE 125 IU/L (15-46); BILIRUBIN,INDIRECT 0.4 mg/dl (0-1.1); BILIRUBIN,TOTAL 0.4 mg/dl (0.2-1.3); TOTAL PROTEIN 4.8 g/dl (6.1-8.1)
[2018-01-04] MEDS: ENOXAPARIN 80 MG/0.8 ML SYG SC ×2 (08:49→20:39)
[2018-01-04] MEDS: PROPOFOL 100 ML IV (08:50)
[2018-01-04] MEDS: SUCRALFATE (100 MG/ML) 10ML CUP PO ×4 (08:51→20:38)
[2018-01-04] MEDS: DEXAMETHASONE 4 MG/ML 1 ML INJ IV (08:51)
[2018-01-04] MEDS: COLLAGENASE 5 GM (UD JAR) TOP (08:51)
[2018-01-04] MEDS: DOCUSATE SODIUM 10 MG/ML (10ML CUP) NGT ×2 (08:51→20:38)
[2018-01-04] MEDS: BALSAM PERU/CASTOR OIL 60 GM TUBE TOP ×2 (08:51→21:44)
[2018-01-04] MEDS: MAGNESIUM SULFATE 1 GM/D5W 100 ML IVPB (08:52)
[2018-01-04] MEDS: FERROUS SULFATE (EC) 325 MG TAB PO ×2 (08:52→20:37)
[2018-01-04] MEDS: FUROSEMIDE 40 MG INJ IV (08:52)
[2018-01-04] MEDS: MEROPENEM 1 GM/50ML(PMX) 50 ML IVPB ×2 (08:52→20:40)
[2018-01-04] MEDS: CASPOFUNGIN 35 MG in SOD CHLORIDE 0.9% 250 ML IVPB (15:27)
[2018-01-04] MEDS: AMIODARONE 200 MG TAB NGT ×2 (15:27→20:37)
[2018-01-04] MEDS: INSULIN GLARGINE [LANTus] (100 UNITS/ML) SYG SC (20:39)
[2018-01-04] MEDS: LORAZEPAM 2 MG INJ IV (21:45)
[2018-01-05] MEDS: PROPOFOL 100 ML IV ×2 (01:14→19:44)
[2018-01-05] MEDS: TPN 1,000 ML IV (01:24)
[2018-01-05] MEDS: VANCOMYCIN 500MG/NS (PMX) 100 ML IVPB (01:28)
[2018-01-05] MEDS: INSULIN ASPART [NOVOLOG] 3 ML PEN SC ×6 (01:31→21:08)
[2018-01-05] MEDS: FENTAnyl (DRIP) 1000 mcg/100mL 100 ML IV (01:49)
[2018-01-05] MEDS: METOCLOPRAMIDE 10 MG INJ IV ×4 (05:01→23:02)
[2018-01-05] MEDS: ERYTHROMYCIN ETHYL SUCC (80 MG/ML PO SYG) NGT ×3 (05:01→21:10)
[2018-01-05 05:56] LABS: ANION GAP 5 (8-16); BLOOD UREA NITROGEN 12 mg/dl (7-20); CARBON DIOXIDE 32 mmol/L (21-31); CHLORIDE 101 mmol/L (97-110); CREATININE 0.23 mg/dl (0.44-1.00); GLUCOSE 143 mg/dl (70-220); MAGNESIUM 1.8 mg/dl (1.7-2.5); PHOSPHORUS 2.9 mg/dl (2.5-4.9); POTASSIUM 3.4 mmol/L (3.5-5.1); SODIUM 135 mmol/L (135-144)
[2018-01-05] MEDS: ENOXAPARIN 80 MG/0.8 ML SYG SC ×2 (08:45→21:09)
[2018-01-05] MEDS: COLLAGENASE 5 GM (UD JAR) TOP (08:51)
[2018-01-05] MEDS: LEVOTHYROXINE 100 MCG TAB PO (08:51)
[2018-01-05] MEDS: FUROSEMIDE 40 MG INJ IV (08:51)
[2018-01-05] MEDS: DEXAMETHASONE 4 MG/ML 1 ML INJ IV (08:51)
[2018-01-05] MEDS: BALSAM PERU/CASTOR OIL 60 GM TUBE TOP ×2 (08:51→21:11)
[2018-01-05] MEDS: SUCRALFATE (100 MG/ML) 10ML CUP PO ×4 (08:51→21:09)
[2018-01-05] MEDS: DOCUSATE SODIUM 10 MG/ML (10ML CUP) NGT ×2 (08:51→21:09)
[2018-01-05] MEDS: FERROUS SULFATE (EC) 325 MG TAB PO ×2 (08:52→21:10)
[2018-01-05] MEDS: AMIODARONE 200 MG TAB NGT ×2 (08:52→21:10)
[2018-01-05] MEDS: PANTOPRAZOLE 40 MG INJ IV ×2 (08:52→16:46)
[2018-01-05] MEDS: MEROPENEM 1 GM/50ML(PMX) 50 ML IVPB (09:06)
[2018-01-05] MEDS: POTASSIUM CHLORIDE 20 MEQ POWDER FOR ORAL SOLN NGT (09:40)
[2018-01-05] MEDS: SOD CHLORIDE 0.9% 1,000 ML IV (09:40)
[2018-01-05 10:15] LABS: VANCOMYCIN,TROUGH 12.6 ug/ml (10.0-20.0)
[2018-01-05] MEDS: CASPOFUNGIN 35 MG in SOD CHLORIDE 0.9% 250 ML IVPB (15:43)
[2018-01-05] MEDS: METHOCARBAMOL 750 MG TAB PO ×2 (15:43→21:10)
[2018-01-05] MEDS: HYDROmorphONE 0.5 MG/0.5 ML SYG IV ×2 (19:39→23:03)
[2018-01-05] MEDS: INSULIN GLARGINE [LANTus] (100 UNITS/ML) SYG SC (19:46)
[2018-01-06] MEDS: INSULIN ASPART [NOVOLOG] 3 ML PEN SC ×6 (00:32→21:50)
[2018-01-06] MEDS: LORAZEPAM 2 MG INJ IV ×2 (00:34→08:10)
[2018-01-06] MEDS: TPN 1,000 ML IV (01:34)
[2018-01-06] MEDS: HYDROmorphONE 0.5 MG/0.5 ML SYG IV ×5 (03:12→21:45)
[2018-01-06] MEDS: ERYTHROMYCIN ETHYL SUCC (80 MG/ML PO SYG) NGT ×3 (05:09→21:45)
[2018-01-06] MEDS: METHOCARBAMOL 750 MG TAB PO ×3 (05:09→21:44)
[2018-01-06] MEDS: METOCLOPRAMIDE 10 MG INJ IV ×3 (05:09→17:10)
[2018-01-06] MEDS: PROPOFOL 100 ML IV ×2 (05:30→17:07)
[2018-01-06 05:52] LABS: MAGNESIUM 1.7 mg/dl (1.7-2.5)
[2018-01-06 05:59] LABS: PHOSPHORUS 2.5 mg/dl (2.5-4.9)
[2018-01-06] MEDS: PANTOPRAZOLE 40 MG INJ IV ×2 (08:07→17:10)
[2018-01-06] MEDS: DOCUSATE SODIUM 10 MG/ML (10ML CUP) NGT ×2 (08:07→21:44)
[2018-01-06] MEDS: SUCRALFATE (100 MG/ML) 10ML CUP PO ×4 (08:07→21:44)
[2018-01-06] MEDS: AMIODARONE 200 MG TAB NGT ×2 (08:07→21:44)
[2018-01-06] MEDS: FERROUS SULFATE (EC) 325 MG TAB PO ×2 (08:07→21:44)
[2018-01-06] MEDS: LEVOTHYROXINE 100 MCG TAB PO (08:07)
[2018-01-06] MEDS: COLLAGENASE 5 GM (UD JAR) TOP (08:09)
[2018-01-06] MEDS: BALSAM PERU/CASTOR OIL 60 GM TUBE TOP ×2 (08:09→21:45)
[2018-01-06] MEDS: DEXAMETHASONE 4 MG/ML 1 ML INJ IV (08:09)
[2018-01-06] MEDS: ENOXAPARIN 80 MG/0.8 ML SYG SC ×2 (08:13→21:47)
[2018-01-06 11:31] LABS: ADD MAN DIFF? NO
[2018-01-06 11:35] LABS: WHITE BLOOD COUNT 11.3 10^3/ul (4.8-10.8)
[2018-01-06 11:35] LABS: BASOPHILS % 0.1 % (0.0-2.0); EOSINOPHILS % 0.2 % (0.0-7.0); HEMATOCRIT 30.6 % (37.0-47.0); HEMOGLOBIN 9.4 g/dl (12.0-16.0); LYMPHOCYTES # 1.1 10^3/ul (0.8-2.9); LYMPHOCYTES % 9.4 % (15.0-51.0); MEAN CORPUSCULAR HEMOGLOBIN 28.2 pg (29.0-33.0); MEAN CORPUSCULAR HGB CONC 30.7 g/dl (32.0-37.0); MEAN CORPUSCULAR VOLUME 91.9 fl (82.0-101.0); MEAN PLATELET VOLUME 9.1 fl (7.4-10.4); MONOCYTE # 0.4 10^3/ul (0.3-0.9); MONOCYTES % 3.3 % (0.0-11.0); NEUTROPHIL # 9.7 10^3/ul (1.6-7.5); NEUTROPHILS % 85.9 % (39.0-77.0); PLATELET COUNT 556 10^3/UL (140-415); RED BLOOD COUNT 3.33 10^6/ul (4.20-5.40); RED CELL DISTRIBUTION WIDTH 21.2 % (11.5-14.5)
[2018-01-06 12:05] LABS: ANION GAP 7 (8-16); BLOOD UREA NITROGEN 14 mg/dl (7-20); CARBON DIOXIDE 30 mmol/L (21-31); CHLORIDE 101 mmol/L (97-110); CREATININE 0.27 mg/dl (0.44-1.00); GLUCOSE 181 mg/dl (70-220); POTASSIUM 4.2 mmol/L (3.5-5.1); SODIUM 134 mmol/L (135-144)
[2018-01-06 12:06] LABS: ALANINE AMINOTRANSFERASE 123 IU/L (13-69); ALBUMIN 2.1 g/dl (3.3-4.9); ALKALINE PHOSPHATASE 97 IU/L (42-121); ASPARTATE AMINO TRANSFERASE 82 IU/L (15-46); BILIRUBIN,INDIRECT 0.5 mg/dl (0-1.1); BILIRUBIN,TOTAL 0.5 mg/dl (0.2-1.3); CALCIUM 8.6 mg/dl (8.4-10.2); TOTAL PROTEIN 5.1 g/dl (6.1-8.1)
[2018-01-06] MEDS: CASPOFUNGIN 35 MG in SOD CHLORIDE 0.9% 250 ML IVPB (16:28)
[2018-01-06] MEDS: INSULIN GLARGINE [LANTus] (100 UNITS/ML) SYG SC (20:11)
[2018-01-06] MEDS: LACTULOSE 30ML CUP NGT (21:00)
[2018-01-07] MEDS: METOCLOPRAMIDE 10 MG INJ IV ×4 (00:26→16:36)
[2018-01-07] MEDS: LACTULOSE 30ML CUP NGT ×2 (00:26→09:12)
[2018-01-07] MEDS: INSULIN ASPART [NOVOLOG] 3 ML PEN SC ×6 (00:28→21:49)
[2018-01-07] MEDS: HYDROmorphONE 0.5 MG/0.5 ML SYG IV ×2 (01:25→04:58)
[2018-01-07] MEDS: TPN 1,000 ML IV (02:53)
[2018-01-07] MEDS: PROPOFOL 100 ML IV ×2 (04:54→17:30)
[2018-01-07 05:19] LABS: WHITE BLOOD COUNT 9.5 10^3/ul (4.8-10.8)
[2018-01-07 05:19] LABS: HEMATOCRIT 29.5 % (37.0-47.0); HEMOGLOBIN 9.1 g/dl (12.0-16.0); MEAN CORPUSCULAR HEMOGLOBIN 28.5 pg (29.0-33.0); MEAN CORPUSCULAR HGB CONC 30.8 g/dl (32.0-37.0); MEAN CORPUSCULAR VOLUME 92.5 fl (82.0-101.0); MEAN PLATELET VOLUME 9.1 fl (7.4-10.4); PLATELET COUNT 572 10^3/UL (140-415); RED BLOOD COUNT 3.19 10^6/ul (4.20-5.40); RED CELL DISTRIBUTION WIDTH 21.2 % (11.5-14.5)
[2018-01-07 05:30] LABS: AADO2 Arterial 57.6 mmHg (7.0-24.0); Allen Test ACCEPTAB; Arterial Base Excess 3.3 mmol/L (-3.0-3); Arterial Blood Gas Oxygen Sat 97.7 mmHG (95.0-98.0); Arterial COHb 1.8 % (0.0-3.0); Arterial Fraction of Oxyhgb 95.6 % (93.0-99.0); Arterial HCO3 26.2 mmol/L (22.0-26.0); Arterial MetHb 0.3 % (0.0-1.5); MODE TRACH COLLAR; Site Left Radial
[2018-01-07 05:37] LABS: POSITIVE DIFF @See below
[2018-01-07 05:38] LABS: ADD MAN DIFF? YES
[2018-01-07] MEDS: METHOCARBAMOL 750 MG TAB PO ×3 (05:40→21:38)
[2018-01-07] MEDS: ERYTHROMYCIN ETHYL SUCC (80 MG/ML PO SYG) NGT ×3 (05:40→21:45)
[2018-01-07 06:00] LABS: ALANINE AMINOTRANSFERASE 104 IU/L (13-69); ALBUMIN/GLOBULIN RATIO 0.71; ALKALINE PHOSPHATASE 78 IU/L (42-121); ANION GAP 5 (8-16); ASPARTATE AMINO TRANSFERASE 81 IU/L (15-46); BILIRUBIN,INDIRECT 0.4 mg/dl (0-1.1); BILIRUBIN,TOTAL 0.4 mg/dl (0.2-1.3); BLOOD UREA NITROGEN 15 mg/dl (7-20); CALCIUM 8.4 mg/dl (8.4-10.2); CARBON DIOXIDE 30 mmol/L (21-31); CHLORIDE 104 mmol/L (97-110); CREATININE 0.24 mg/dl (0.44-1.00); GLUCOSE 149 mg/dl (70-220); POTASSIUM 3.8 mmol/L (3.5-5.1); SODIUM 135 mmol/L (135-144); TOTAL PROTEIN 4.8 g/dl (6.1-8.1)
[2018-01-07 06:02] LABS: LACTIC ACID 1.2 mmol/L (0.5-2.0)
[2018-01-07 06:04] LABS: PHOSPHORUS 2.6 mg/dl (2.5-4.9)
[2018-01-07 06:04] LABS: MAGNESIUM 1.6 mg/dl (1.7-2.5)
[2018-01-07] MEDS: PANTOPRAZOLE 40 MG INJ IV ×2 (06:25→16:31)
[2018-01-07] MEDS: LEVOTHYROXINE 100 MCG TAB PO (06:25)
[2018-01-07 08:47] LABS: ANISOCYTOSIS 1+ (0-0); BAND NEUTROPHILS #M 0.7 10^3/ul (0.0-0.6); BAND NEUTROPHILS % (M) 8 % (0-4); BURR CELLS 1+ (0-0); GIANT THROMBO% (M) 1 % (0-0); LYMPHOCYTES #M 1.6 10^3/ul (0.8-2.9); LYMPHOCYTES % (M) 17 % (15-51); MONOCYTE #M 0.3 10^3/ul (0.3-0.9); MONOCYTES % (M) 4 % (0-11); PLATELET ESTIMATE INCREASED; POLYCHROMASIA 1+ (0-0); REACTIVE LYMPHOCYTES% (M) 1 % (0-0); SEG NEUT #M 6.7 10^3/ul (1.6-7.5); SEGMENTED NEUTROPHILS (M) % 70 % (39-77); SMUDGE%M 6 % (0-0)
[2018-01-07] MEDS: DOCUSATE SODIUM 10 MG/ML (10ML CUP) NGT ×2 (09:00→21:00)
[2018-01-07] MEDS: POTASSIUM CHLORIDE 50 ML IVPB (09:05)
[2018-01-07] MEDS: DEXAMETHASONE 4 MG/ML 1 ML INJ IV (09:07)
[2018-01-07] MEDS: LORAZEPAM 2 MG INJ IV ×2 (09:11→21:59)
[2018-01-07] MEDS: SUCRALFATE (100 MG/ML) 10ML CUP PO ×4 (09:12→21:45)
[2018-01-07] MEDS: FERROUS SULFATE (EC) 325 MG TAB PO ×2 (09:13→21:45)
[2018-01-07] MEDS: AMIODARONE 200 MG TAB NGT ×2 (09:13→21:45)
[2018-01-07] MEDS: ENOXAPARIN 80 MG/0.8 ML SYG SC ×2 (09:22→21:48)
[2018-01-07] MEDS: COLLAGENASE 5 GM (UD JAR) TOP (09:30)
[2018-01-07] MEDS: BALSAM PERU/CASTOR OIL 60 GM TUBE TOP ×2 (09:30→21:45)
[2018-01-07] MEDS: MAGNESIUM SULFATE 1 GM/D5W 100 ML IVPB (10:17)
[2018-01-07] MEDS: CASPOFUNGIN 35 MG in SOD CHLORIDE 0.9% 250 ML IVPB (15:34)
[2018-01-07] MEDS: INSULIN GLARGINE [LANTus] (100 UNITS/ML) SYG SC (21:47)
[2018-01-08] MEDS: METOCLOPRAMIDE 10 MG INJ IV ×4 (01:05→17:29)
[2018-01-08] MEDS: INSULIN ASPART [NOVOLOG] 3 ML PEN SC ×6 (01:10→20:52)
[2018-01-08] MEDS: LORAZEPAM 2 MG INJ IV ×2 (02:08→21:11)
[2018-01-08] MEDS: TPN 1,000 ML IV (02:33)
[2018-01-08] MEDS: PROPOFOL 100 ML IV (05:30)
[2018-01-08] MEDS: METHOCARBAMOL 750 MG TAB PO ×3 (05:38→22:07)
[2018-01-08 05:52] LABS: HEMOGLOBIN 8.9 g/dl (12.0-16.0); MEAN CORPUSCULAR HGB CONC 31.8 g/dl (32.0-37.0); MEAN CORPUSCULAR VOLUME 91.2 fl (82.0-101.0); MEAN PLATELET VOLUME 9.1 fl (7.4-10.4); PLATELET COUNT 591 10^3/UL (140-415); RED BLOOD COUNT 3.07 10^6/ul (4.20-5.40); RED CELL DISTRIBUTION WIDTH 21.3 % (11.5-14.5)
[2018-01-08] MEDS: ERYTHROMYCIN ETHYL SUCC (80 MG/ML PO SYG) NGT ×3 (06:00→22:07)
[2018-01-08] MEDS: LEVOTHYROXINE 100 MCG TAB PO (06:04)
[2018-01-08] MEDS: PANTOPRAZOLE 40 MG INJ IV (06:04)
[2018-01-08 06:08] LABS: ADD MAN DIFF? YES; POSITIVE DIFF @See below
[2018-01-08 06:18] LABS: MAGNESIUM 1.6 mg/dl (1.7-2.5)
[2018-01-08 06:18] LABS: PHOSPHORUS 2.4 mg/dl (2.5-4.9)
[2018-01-08 06:31] LABS: PREALBUMIN 12.8 mg/dl (17.6-36.0)
[2018-01-08 06:59] LABS: ANION GAP 6 (8-16); BLOOD UREA NITROGEN 12 mg/dl (7-20); CALCIUM 8.8 mg/dl (8.4-10.2); CARBON DIOXIDE 29 mmol/L (21-31); CHLORIDE 105 mmol/L (97-110); CREATININE 0.27 mg/dl (0.44-1.00); GLUCOSE 172 mg/dl (70-220); POTASSIUM 3.9 mmol/L (3.5-5.1); SODIUM 136 mmol/L (135-144)
[2018-01-08 07:42] LABS: ANISOCYTOSIS 1+ (0-0); BAND NEUTROPHILS #M 0.8 10^3/ul (0.0-0.6); BAND NEUTROPHILS % (M) 11 % (0-4); BASOPHILS % (M) 1 % (0-2); GIANT THROMBO% (M) 2 % (0-0); HYPOCHROMASIA 1+ (0-0); LYMPHOCYTES #M 2.3 10^3/ul (0.8-2.9); LYMPHOCYTES % (M) 29 % (15-51); MICROCYTOSIS 1+ (0-0); MONOCYTE #M 0.6 10^3/ul (0.3-0.9); MONOCYTES % (M) 8 % (0-11); PLATELET ESTIMATE NORMAL; POLYCHROMASIA 2+ (0-0); SEG NEUT #M 4.1 10^3/ul (1.6-7.5); SEGMENTED NEUTROPHILS (M) % 51 % (39-77); SMUDGE%M 12 % (0-0); TARGET CELLS 1+ (0-0)
[2018-01-08] MEDS: SUCRALFATE (100 MG/ML) 10ML CUP PO ×3 (07:56→17:29)
[2018-01-08] MEDS: BALSAM PERU/CASTOR OIL 60 GM TUBE TOP ×2 (09:07→20:55)
[2018-01-08] MEDS: COLLAGENASE 5 GM (UD JAR) TOP (09:07)
[2018-01-08] MEDS: DOCUSATE SODIUM 10 MG/ML (10ML CUP) NGT ×2 (09:08→20:55)
[2018-01-08] MEDS: ENOXAPARIN 80 MG/0.8 ML SYG SC ×2 (09:08→20:53)
[2018-01-08] MEDS: AMIODARONE 200 MG TAB NGT ×2 (09:09→20:56)
[2018-01-08] MEDS: DEXAMETHASONE 4 MG/ML 1 ML INJ IV (09:09)
[2018-01-08] MEDS ORDERED: MAGNESIUM SULFATE 2 GM/50 ML 50 ML (09:22)
[2018-01-08] MEDS: FERROUS SULFATE 60 MG/ML 5ML CUP NGT ×2 (09:48→20:55)
[2018-01-08] MEDS: MAGNESIUM SULFATE 2 GM/50 ML 50 ML IVPB (10:50)
[2018-01-08] MEDS: HYDROCODONE/HOMATROPINE 5ML CUP NGT ×4 (11:05→22:55)
[2018-01-08] MEDS: DOCOSANOL 2 GM CREAM TOP ×3 (15:00→21:11)
[2018-01-08] MEDS: SOD CHLORIDE 0.9% 100 ML (15:08)
[2018-01-08] MEDS: IOHEXOL 300MG/ML 150 ML BTL (15:27)
[2018-01-08] MEDS: LANSOPRAZOLE 30 MG CAP NGT (17:29)
[2018-01-08] MEDS: ACETAMINOPHEN 650MG/20.3ML CUP NGT ×2 (19:05→22:55)
[2018-01-08] MEDS: INSULIN GLARGINE [LANTus] (100 UNITS/ML) SYG SC (20:54)
[2018-01-08] MEDS ORDERED: MIDODRINE 5 MG TAB GTB (22:00)
[2018-01-08] MEDS: MIDODRINE 2.5 MG TAB GTB (22:29)
[2018-01-09] MEDS: METOCLOPRAMIDE 10 MG INJ IV ×4 (00:07→17:29)
[2018-01-09] MEDS: INSULIN ASPART [NOVOLOG] 3 ML PEN SC ×6 (01:02→20:31)
[2018-01-09] MEDS: ACETAMINOPHEN 650MG/20.3ML CUP NGT ×3 (03:12→20:30)
[2018-01-09] MEDS: HYDROCODONE/HOMATROPINE 5ML CUP NGT ×5 (03:12→20:30)
[2018-01-09] MEDS: METHOCARBAMOL 750 MG TAB PO ×3 (05:10→21:29)
[2018-01-09] MEDS: ERYTHROMYCIN ETHYL SUCC (80 MG/ML PO SYG) NGT ×3 (05:10→21:29)
[2018-01-09] MEDS: MIDODRINE 2.5 MG TAB GTB ×3 (05:10→21:29)
[2018-01-09] MEDS: LANSOPRAZOLE 30 MG CAP NGT ×2 (05:10→17:29)
[2018-01-09 05:15] LABS: ADD MAN DIFF? NO
[2018-01-09] MEDS: LORAZEPAM 2 MG INJ IV ×3 (05:17→23:11)
[2018-01-09 05:19] LABS: WHITE BLOOD COUNT 7.2 10^3/ul (4.8-10.8)
[2018-01-09 05:19] LABS: BASOPHILS % 0.1 % (0.0-2.0); EOSINOPHILS % 0.3 % (0.0-7.0); HEMATOCRIT 28.3 % (37.0-47.0); HEMOGLOBIN 8.7 g/dl (12.0-16.0); LYMPHOCYTES # 1.8 10^3/ul (0.8-2.9); LYMPHOCYTES % 25.2 % (15.0-51.0); MEAN CORPUSCULAR HEMOGLOBIN 28.6 pg (29.0-33.0); MEAN CORPUSCULAR HGB CONC 30.7 g/dl (32.0-37.0); MEAN CORPUSCULAR VOLUME 93.1 fl (82.0-101.0); MEAN PLATELET VOLUME 9.2 fl (7.4-10.4); MONOCYTE # 0.6 10^3/ul (0.3-0.9); MONOCYTES % 8.9 % (0.0-11.0); NEUTROPHIL # 4.7 10^3/ul (1.6-7.5); NEUTROPHILS % 64.7 % (39.0-77.0); PLATELET COUNT 670 10^3/UL (140-415); RED BLOOD COUNT 3.04 10^6/ul (4.20-5.40); RED CELL DISTRIBUTION WIDTH 20.7 % (11.5-14.5)
[2018-01-09 05:59] LABS: ALANINE AMINOTRANSFERASE 102 IU/L (13-69); ALBUMIN/GLOBULIN RATIO 0.68; ALKALINE PHOSPHATASE 76 IU/L (42-121); ANION GAP 5 (8-16); ASPARTATE AMINO TRANSFERASE 61 IU/L (15-46); BILIRUBIN,INDIRECT 0.3 mg/dl (0-1.1); BILIRUBIN,TOTAL 0.3 mg/dl (0.2-1.3); BLOOD UREA NITROGEN 13 mg/dl (7-20); CALCIUM 8.9 mg/dl (8.4-10.2); CARBON DIOXIDE 28 mmol/L (21-31); CHLORIDE 103 mmol/L (97-110); GLUCOSE 182 mg/dl (70-220); POTASSIUM 3.9 mmol/L (3.5-5.1); SODIUM 132 mmol/L (135-144); TOTAL PROTEIN 4.9 g/dl (6.1-8.1)
[2018-01-09] MEDS: LEVOTHYROXINE 100 MCG TAB PO (06:03)
[2018-01-09 06:34] LABS: MAGNESIUM 1.6 mg/dl (1.7-2.5)
[2018-01-09 07:38] LABS: PHOSPHORUS 2.4 mg/dl (2.5-4.9)
[2018-01-09] MEDS: COLLAGENASE 5 GM (UD JAR) TOP (09:00)
[2018-01-09] MEDS: BALSAM PERU/CASTOR OIL 60 GM TUBE TOP ×2 (09:01→20:34)
[2018-01-09] MEDS: DOCOSANOL 2 GM CREAM TOP ×5 (09:08→20:34)
[2018-01-09] MEDS: ENOXAPARIN 80 MG/0.8 ML SYG SC ×2 (09:11→20:32)
[2018-01-09] MEDS: MAGNESIUM SULFATE 2 GM/50 ML 50 ML IVPB (09:12)
[2018-01-09] MEDS: FERROUS SULFATE 60 MG/ML 5ML CUP NGT ×2 (09:12→20:30)
[2018-01-09] MEDS: DEXAMETHASONE 4 MG/ML 1 ML INJ IV (09:12)
[2018-01-09] MEDS: DOCUSATE SODIUM 10 MG/ML (10ML CUP) NGT ×2 (09:12→20:30)
[2018-01-09] MEDS: AMIODARONE 200 MG TAB NGT (09:13)
[2018-01-09] MEDS ORDERED: MIDODRINE 5 MG TAB GTB (14:00)
[2018-01-09] MEDS: INSULIN GLARGINE [LANTus] (100 UNITS/ML) SYG SC (20:30)
[2018-01-10] MEDS: METOCLOPRAMIDE 10 MG INJ IV ×4 (00:33→17:16)
[2018-01-10] MEDS: DEXTROSE 50% 50 ML SYRINGE IV ×2 (00:38→04:38)
[2018-01-10] MEDS: INSULIN ASPART [NOVOLOG] 3 ML PEN SC ×6 (00:56→21:00)
[2018-01-10] MEDS: ACETAMINOPHEN 650MG/20.3ML CUP NGT ×2 (02:37→06:34)
[2018-01-10] MEDS: HYDROCODONE/HOMATROPINE 5ML CUP NGT ×3 (02:37→17:56)
[2018-01-10] MEDS: LORAZEPAM 2 MG INJ IV ×3 (03:07→21:37)
[2018-01-10 05:34] LABS: HEMATOCRIT 28.8 % (37.0-47.0); MEAN CORPUSCULAR HEMOGLOBIN 28.9 pg (29.0-33.0); MEAN CORPUSCULAR HGB CONC 31.3 g/dl (32.0-37.0); MEAN CORPUSCULAR VOLUME 92.6 fl (82.0-101.0); MEAN PLATELET VOLUME 9.1 fl (7.4-10.4); PLATELET COUNT 567 10^3/UL (140-415); RED BLOOD COUNT 3.11 10^6/ul (4.20-5.40); RED CELL DISTRIBUTION WIDTH 20.4 % (11.5-14.5)
[2018-01-10 05:34] LABS: WHITE BLOOD COUNT 7.4 10^3/ul (4.8-10.8)
[2018-01-10] MEDS: ERYTHROMYCIN ETHYL SUCC (80 MG/ML PO SYG) NGT ×2 (05:48→14:19)
[2018-01-10] MEDS: METHOCARBAMOL 750 MG TAB PO ×3 (05:48→21:29)
[2018-01-10] MEDS: DEXTROSE 5%-0.45% NACL 1,000 ML IV ×2 (05:48→21:28)
[2018-01-10] MEDS: LANSOPRAZOLE 30 MG CAP NGT ×2 (05:48→17:16)
[2018-01-10] MEDS: MIDODRINE 2.5 MG TAB GTB ×3 (05:48→21:29)
[2018-01-10 06:04] LABS: ADD MAN DIFF? YES; POSITIVE DIFF @See below
[2018-01-10 06:15] LABS: ALBUMIN 2.2 g/dl (3.3-4.9); ALBUMIN/GLOBULIN RATIO 0.84; ALKALINE PHOSPHATASE 72 IU/L (42-121); ANION GAP 6 (8-16); ASPARTATE AMINO TRANSFERASE 56 IU/L (15-46); BILIRUBIN,INDIRECT 0.3 mg/dl (0-1.1); BILIRUBIN,TOTAL 0.3 mg/dl (0.2-1.3); BLOOD UREA NITROGEN 14 mg/dl (7-20); CALCIUM 8.6 mg/dl (8.4-10.2); CARBON DIOXIDE 27 mmol/L (21-31); CHLORIDE 104 mmol/L (97-110); CREATININE 0.26 mg/dl (0.44-1.00); GLUCOSE 143 mg/dl (70-220); POTASSIUM 4.2 mmol/L (3.5-5.1); SODIUM 133 mmol/L (135-144); TOTAL PROTEIN 4.8 g/dl (6.1-8.1)
[2018-01-10] MEDS: LEVOTHYROXINE 100 MCG TAB PO (06:34)
[2018-01-10 06:52] LABS: PHOSPHORUS 2.9 mg/dl (2.5-4.9)
[2018-01-10 06:52] LABS: MAGNESIUM 1.5 mg/dl (1.7-2.5)
[2018-01-10 07:08] LABS: ALANINE AMINOTRANSFERASE 95 IU/L (13-69)
[2018-01-10 07:32] LABS: ANISOCYTOSIS 1+ (0-0); BAND NEUTROPHILS #M 1.5 10^3/ul (0.0-0.6); BAND NEUTROPHILS % (M) 21 % (0-4); BASOPHILS % (M) 1 % (0-2); GIANT THROMBO% (M) 1 % (0-0); HYPOCHROMASIA 1+ (0-0); LYMPHOCYTES #M 1.8 10^3/ul (0.8-2.9); LYMPHOCYTES % (M) 25 % (15-51); MONOCYTE #M 0.3 10^3/ul (0.3-0.9); MONOCYTES % (M) 5 % (0-11); PLATELET ESTIMATE INCREASED; POLYCHROMASIA 1+ (0-0); REACTIVE LYMPHOCYTES% (M) 1 % (0-0); SEG NEUT #M 3.6 10^3/ul (1.6-7.5); SEGMENTED NEUTROPHILS (M) % 47 % (39-77); SMUDGE%M 11 % (0-0)
[2018-01-10] MEDS: AMIODARONE 200 MG TAB NGT (08:58)
[2018-01-10] MEDS: COLLAGENASE 5 GM (UD JAR) TOP (08:58)
[2018-01-10] MEDS: FERROUS SULFATE 60 MG/ML 5ML CUP NGT ×2 (08:58→21:28)
[2018-01-10] MEDS: DEXAMETHASONE 4 MG/ML 1 ML INJ IV (08:58)
[2018-01-10] MEDS: DOCUSATE SODIUM 10 MG/ML (10ML CUP) NGT ×2 (08:58→21:28)
[2018-01-10] MEDS: DOCOSANOL 2 GM CREAM TOP ×5 (08:59→21:37)
[2018-01-10] MEDS: BALSAM PERU/CASTOR OIL 60 GM TUBE TOP ×3 (09:00→21:37)
[2018-01-10] MEDS: ENOXAPARIN 80 MG/0.8 ML SYG SC ×2 (09:01→21:24)
[2018-01-10] MEDS: MAGNESIUM SULFATE 3 GM in DEXTROSE 5% 100 ML IVPB (09:43)
[2018-01-10] MEDS: INSULIN GLARGINE [LANTus] (100 UNITS/ML) SYG SC (21:20)
[2018-01-11] MEDS: INSULIN ASPART [NOVOLOG] 3 ML PEN SC ×6 (01:00→20:57)
[2018-01-11] MEDS: LORAZEPAM 2 MG INJ IV ×3 (01:36→23:17)
[2018-01-11] MEDS: ERYTHROMYCIN ETHYL SUCC (80 MG/ML PO SYG) NGT ×4 (02:28→21:14)
[2018-01-11] MEDS: METOCLOPRAMIDE 10 MG INJ IV ×5 (02:29→23:16)
[2018-01-11] MEDS: MIDODRINE 2.5 MG TAB GTB ×3 (05:09→21:02)
[2018-01-11] MEDS: LANSOPRAZOLE 30 MG CAP NGT ×2 (05:09→17:49)
[2018-01-11] MEDS: METHOCARBAMOL 750 MG TAB PO ×3 (05:10→21:02)
[2018-01-11 05:25] LABS: WHITE BLOOD COUNT 8.7 10^3/ul (4.8-10.8)
[2018-01-11 05:25] LABS: HEMATOCRIT 25.7 % (37.0-47.0); MEAN CORPUSCULAR HEMOGLOBIN 28.6 pg (29.0-33.0); MEAN CORPUSCULAR HGB CONC 31.1 g/dl (32.0-37.0); MEAN CORPUSCULAR VOLUME 91.8 fl (82.0-101.0); MEAN PLATELET VOLUME 9.1 fl (7.4-10.4); PLATELET COUNT 574 10^3/UL (140-415); RED CELL DISTRIBUTION WIDTH 20.1 % (11.5-14.5)
[2018-01-11 05:44] LABS: MAGNESIUM 1.5 mg/dl (1.7-2.5)
[2018-01-11 05:44] LABS: PHOSPHORUS 3.4 mg/dl (2.5-4.9)
[2018-01-11 06:02] LABS: POSITIVE DIFF @See below
[2018-01-11 06:03] LABS: ADD MAN DIFF? YES
[2018-01-11] MEDS: LEVOTHYROXINE 100 MCG TAB PO (06:25)
[2018-01-11 06:56] LABS: ALANINE AMINOTRANSFERASE 86 IU/L (13-69); ALBUMIN 2.3 g/dl (3.3-4.9); ALBUMIN/GLOBULIN RATIO 0.82; ALKALINE PHOSPHATASE 70 IU/L (42-121); ASPARTATE AMINO TRANSFERASE 50 IU/L (15-46); BILIRUBIN,INDIRECT 0.3 mg/dl (0-1.1); BILIRUBIN,TOTAL 0.3 mg/dl (0.2-1.3); BLOOD UREA NITROGEN 11 mg/dl (7-20); CALCIUM 8.2 mg/dl (8.4-10.2); CARBON DIOXIDE 24 mmol/L (21-31); CHLORIDE 101 mmol/L (97-110); CREATININE 0.28 mg/dl (0.44-1.00); GLUCOSE 158 mg/dl (70-220); POTASSIUM 3.9 mmol/L (3.5-5.1); SODIUM 132 mmol/L (135-144); TOTAL PROTEIN 5.1 g/dl (6.1-8.1)
[2018-01-11 08:56] LABS: ANISOCYTOSIS 1+ (0-0); BAND NEUTROPHILS #M 0.6 10^3/ul (0.0-0.6); BAND NEUTROPHILS % (M) 8 % (0-4); GIANT THROMBO% (M) 2 % (0-0); LYMPHOCYTES #M 0.8 10^3/ul (0.8-2.9); LYMPHOCYTES % (M) 10 % (15-51); MONOCYTE #M 0.6 10^3/ul (0.3-0.9); MONOCYTES % (M) 8 % (0-11); PLATELET ESTIMATE INCREASED; POLYCHROMASIA 1+ (0-0); SEG NEUT #M 6.5 10^3/ul (1.6-7.5); SEGMENTED NEUTROPHILS (M) % 74 % (39-77); SMUDGE%M 6 % (0-0)
[2018-01-11] MEDS: DOCUSATE SODIUM 10 MG/ML (10ML CUP) NGT ×2 (09:00→21:00)
[2018-01-11] MEDS: BALSAM PERU/CASTOR OIL 60 GM TUBE TOP ×2 (09:00→21:03)
[2018-01-11 09:01] LABS: ANION GAP 7 (5-13)
[2018-01-11] MEDS: COLLAGENASE 5 GM (UD JAR) TOP (09:02)
[2018-01-11] MEDS: DEXAMETHASONE 4 MG/ML 1 ML INJ IV (09:03)
[2018-01-11] MEDS: FERROUS SULFATE 60 MG/ML 5ML CUP NGT ×2 (09:03→21:01)
[2018-01-11] MEDS: DOCOSANOL 2 GM CREAM TOP ×5 (09:03→21:03)
[2018-01-11] MEDS: ENOXAPARIN 80 MG/0.8 ML SYG SC ×2 (09:04→20:56)
[2018-01-11] MEDS: AMIODARONE 200 MG TAB NGT (09:07)
[2018-01-11] MEDS: MAGNESIUM SULFATE 3 GM in DEXTROSE 5% 100 ML IVPB (10:53)
[2018-01-11] MEDS: DEXTROSE 5%-0.45% NACL 1,000 ML IV (11:06)
[2018-01-11] MEDS: HYDROCODONE/HOMATROPINE 5ML CUP NGT (14:13)
[2018-01-11 14:36] LABS: IMMEDIATE SPIN CROSSMATCH 1 1
[2018-01-11] MEDS: INSULIN GLARGINE [LANTus] (100 UNITS/ML) SYG SC (20:57)
[2018-01-11] MEDS: BUSPIRONE 5 MG TAB NGT (21:01)
[2018-01-12] MEDS: DEXTROSE 5%-0.45% NACL 1,000 ML IV ×2 (01:43→14:36)
[2018-01-12] MEDS: INSULIN ASPART [NOVOLOG] 3 ML PEN SC ×6 (01:45→20:53)
[2018-01-12] MEDS: HYDROCODONE/HOMATROPINE 5ML CUP NGT ×3 (01:46→22:10)
[2018-01-12] MEDS: METOCLOPRAMIDE 10 MG INJ IV ×3 (05:32→17:24)
[2018-01-12 05:33] LABS: WHITE BLOOD COUNT 8.8 10^3/ul (4.8-10.8)
[2018-01-12 05:33] LABS: HEMATOCRIT 31.4 % (37.0-47.0); HEMOGLOBIN 10.2 g/dl (12.0-16.0); MEAN CORPUSCULAR HEMOGLOBIN 29.1 pg (29.0-33.0); MEAN CORPUSCULAR HGB CONC 32.5 g/dl (32.0-37.0); MEAN CORPUSCULAR VOLUME 89.5 fl (82.0-101.0); MEAN PLATELET VOLUME 9.2 fl (7.4-10.4); PLATELET COUNT 561 10^3/UL (140-415); RED BLOOD COUNT 3.51 10^6/ul (4.20-5.40); RED CELL DISTRIBUTION WIDTH 19.5 % (11.5-14.5)
[2018-01-12] MEDS: LEVOTHYROXINE 100 MCG TAB PO (05:33)
[2018-01-12] MEDS: MIDODRINE 2.5 MG TAB GTB ×3 (05:33→20:54)
[2018-01-12] MEDS: ACETAMINOPHEN 650MG/20.3ML CUP NGT (05:33)
[2018-01-12] MEDS: ERYTHROMYCIN ETHYL SUCC (80 MG/ML PO SYG) NGT ×3 (05:33→20:54)
[2018-01-12] MEDS: METHOCARBAMOL 750 MG TAB PO ×3 (05:33→20:54)
[2018-01-12] MEDS: LANSOPRAZOLE 30 MG CAP NGT ×2 (05:37→17:24)
[2018-01-12 05:56] LABS: ADD MAN DIFF? YES; POSITIVE DIFF @See below
[2018-01-12 06:06] LABS: PHOSPHORUS 3.4 mg/dl (2.5-4.9)
[2018-01-12 06:06] LABS: MAGNESIUM 1.6 mg/dl (1.7-2.5)
[2018-01-12 06:09] LABS: ALANINE AMINOTRANSFERASE 84 IU/L (13-69); ALBUMIN 2.1 g/dl (3.3-4.9); ALBUMIN/GLOBULIN RATIO 0.72; ALKALINE PHOSPHATASE 76 IU/L (42-121); ANION GAP 5 (5-13); ASPARTATE AMINO TRANSFERASE 52 IU/L (15-46); BILIRUBIN,INDIRECT 0.5 mg/dl (0-1.1); BILIRUBIN,TOTAL 0.5 mg/dl (0.2-1.3); BLOOD UREA NITROGEN 10 mg/dl (7-20); CALCIUM 8.5 mg/dl (8.4-10.2); CARBON DIOXIDE 27 mmol/L (21-31); CHLORIDE 103 mmol/L (97-110); GLUCOSE 141 mg/dl (70-220); POTASSIUM 3.8 mmol/L (3.5-5.1); SODIUM 135 mmol/L (135-144)
[2018-01-12 06:17] LABS: LACTIC ACID 1.5 mmol/L (0.5-2.0)
[2018-01-12 07:21] LABS: ANISOCYTOSIS 1+ (0-0); BAND NEUTROPHILS #M 1.8 10^3/ul (0.0-0.6); BAND NEUTROPHILS % (M) 21 % (0-4); LYMPHOCYTES #M 1.1 10^3/ul (0.8-2.9); LYMPHOCYTES % (M) 13 % (15-51); PLATELET ESTIMATE INCREASED; POLYCHROMASIA 1+ (0-0); REACTIVE LYMPHOCYTES #M 0.1 10^3/ul (0.0-0.0); REACTIVE LYMPHOCYTES% (M) 2 % (0-0); SEG NEUT #M 5.8 10^3/ul (1.6-7.5); SEGMENTED NEUTROPHILS (M) % 64 % (39-77); SMUDGE%M 9 % (0-0); SPHEROCYTES 1+ (0-0)
[2018-01-12] MEDS: COLLAGENASE 5 GM (UD JAR) TOP (08:31)
[2018-01-12] MEDS: FERROUS SULFATE 60 MG/ML 5ML CUP NGT ×2 (08:31→20:50)
[2018-01-12] MEDS: AMIODARONE 200 MG TAB NGT (08:31)
[2018-01-12] MEDS: DEXAMETHASONE 4 MG/ML 1 ML INJ IV (08:31)
[2018-01-12] MEDS: DOCUSATE SODIUM 10 MG/ML (10ML CUP) NGT ×2 (08:31→20:50)
[2018-01-12] MEDS: ENOXAPARIN 80 MG/0.8 ML SYG SC ×2 (08:33→20:53)
[2018-01-12] MEDS: DOCOSANOL 2 GM CREAM TOP ×5 (08:34→20:50)
[2018-01-12] MEDS: BALSAM PERU/CASTOR OIL 60 GM TUBE TOP ×2 (08:34→20:50)
[2018-01-12] MEDS: MAGNESIUM SULFATE 2 GM/50 ML 50 ML IVPB (08:53)
[2018-01-12] MEDS: BUSPIRONE 10 MG TAB NGT ×3 (08:53→20:50)
[2018-01-12] MEDS: INSULIN GLARGINE [LANTus] (100 UNITS/ML) SYG SC (20:52)
[2018-01-13] MEDS: LORAZEPAM 2 MG INJ IV ×3 (00:55→23:58)
[2018-01-13] MEDS: METOCLOPRAMIDE 10 MG INJ IV ×5 (00:55→23:58)
[2018-01-13] MEDS: INSULIN ASPART [NOVOLOG] 3 ML PEN SC ×6 (01:03→20:56)
[2018-01-13] MEDS: DEXTROSE 5%-0.45% NACL 1,000 ML IV ×2 (02:45→20:55)
[2018-01-13] MEDS: HYDROCODONE/HOMATROPINE 5ML CUP NGT ×3 (02:45→22:40)
[2018-01-13 04:45] LABS: ADD MAN DIFF? NO
[2018-01-13 04:47] LABS: BASOPHILS % 0.3 % (0.0-2.0); EOSINOPHILS % 0.1 % (0.0-7.0); HEMATOCRIT 31.8 % (37.0-47.0); HEMOGLOBIN 10.2 g/dl (12.0-16.0); LYMPHOCYTES # 0.9 10^3/ul (0.8-2.9); LYMPHOCYTES % 11.5 % (15.0-51.0); MEAN CORPUSCULAR HEMOGLOBIN 29.1 pg (29.0-33.0); MEAN CORPUSCULAR HGB CONC 32.1 g/dl (32.0-37.0); MEAN CORPUSCULAR VOLUME 90.6 fl (82.0-101.0); MONOCYTE # 0.4 10^3/ul (0.3-0.9); MONOCYTES % 4.8 % (0.0-11.0); NEUTROPHIL # 6.6 10^3/ul (1.6-7.5); NEUTROPHILS % 82.2 % (39.0-77.0); PLATELET COUNT 488 10^3/UL (140-415); RED BLOOD COUNT 3.51 10^6/ul (4.20-5.40); RED CELL DISTRIBUTION WIDTH 19.6 % (11.5-14.5)
[2018-01-13 05:06] LABS: PHOSPHORUS 3.2 mg/dl (2.5-4.9)
[2018-01-13 05:06] LABS: MAGNESIUM 1.6 mg/dl (1.7-2.5)
[2018-01-13 05:09] LABS: ALANINE AMINOTRANSFERASE 80 IU/L (13-69); ALBUMIN 2.4 g/dl (3.3-4.9); ALBUMIN/GLOBULIN RATIO 0.85; ALKALINE PHOSPHATASE 72 IU/L (42-121); ANION GAP 8 (5-13); ASPARTATE AMINO TRANSFERASE 42 IU/L (15-46); BILIRUBIN,INDIRECT 0.3 mg/dl (0-1.1); BILIRUBIN,TOTAL 0.3 mg/dl (0.2-1.3); BLOOD UREA NITROGEN 9 mg/dl (7-20); CALCIUM 8.4 mg/dl (8.4-10.2); CARBON DIOXIDE 25 mmol/L (21-31); CHLORIDE 104 mmol/L (97-110); CREATININE 0.26 mg/dl (0.44-1.00); GLUCOSE 125 mg/dl (70-220); POTASSIUM 3.7 mmol/L (3.5-5.1); SODIUM 137 mmol/L (135-144); TOTAL PROTEIN 5.2 g/dl (6.1-8.1)
[2018-01-13] MEDS: POTASSIUM CHLORIDE 50 ML IVPB (05:29)
[2018-01-13] MEDS: LANSOPRAZOLE 30 MG CAP NGT ×2 (05:29→17:38)
[2018-01-13] MEDS: ERYTHROMYCIN ETHYL SUCC (80 MG/ML PO SYG) NGT ×3 (05:29→22:40)
[2018-01-13] MEDS: MIDODRINE 2.5 MG TAB GTB ×3 (05:30→20:54)
[2018-01-13] MEDS: METHOCARBAMOL 750 MG TAB PO ×3 (05:30→20:54)
[2018-01-13] MEDS: LEVOTHYROXINE 100 MCG TAB PO (06:45)
[2018-01-13] MEDS: DOCUSATE SODIUM 10 MG/ML (10ML CUP) NGT ×2 (09:00→20:53)
[2018-01-13] MEDS: BUSPIRONE 10 MG TAB NGT ×3 (09:42→20:54)
[2018-01-13] MEDS: COLLAGENASE 5 GM (UD JAR) TOP (09:42)
[2018-01-13] MEDS: FERROUS SULFATE 60 MG/ML 5ML CUP NGT ×2 (09:42→20:53)
[2018-01-13] MEDS: DEXAMETHASONE 4 MG/ML 1 ML INJ IV (09:42)
[2018-01-13] MEDS: BALSAM PERU/CASTOR OIL 60 GM TUBE TOP ×2 (09:43→20:55)
[2018-01-13] MEDS: ENOXAPARIN 80 MG/0.8 ML SYG SC ×2 (09:46→20:57)
[2018-01-13] MEDS: DOCOSANOL 2 GM CREAM TOP ×5 (09:55→20:55)
[2018-01-13] MEDS: MAGNESIUM SULFATE 3 GM in DEXTROSE 5% 100 ML IVPB (11:18)
[2018-01-13] MEDS: INSULIN GLARGINE [LANTus] (100 UNITS/ML) SYG SC (20:57)
[2018-01-14] MEDS: INSULIN ASPART [NOVOLOG] 3 ML PEN SC ×6 (01:00→21:00)
[2018-01-14] MEDS: LORAZEPAM 2 MG INJ IV ×3 (04:54→23:00)
[2018-01-14 05:11] LABS: HEMATOCRIT 32.1 % (37.0-47.0); HEMOGLOBIN 10.2 g/dl (12.0-16.0); MEAN CORPUSCULAR HEMOGLOBIN 28.9 pg (29.0-33.0); MEAN CORPUSCULAR HGB CONC 31.8 g/dl (32.0-37.0); MEAN CORPUSCULAR VOLUME 90.9 fl (82.0-101.0); MEAN PLATELET VOLUME 8.6 fl (7.4-10.4); PLATELET COUNT 440 10^3/UL (140-415); RED BLOOD COUNT 3.53 10^6/ul (4.20-5.40); RED CELL DISTRIBUTION WIDTH 18.9 % (11.5-14.5)
[2018-01-14 05:14] LABS: POSITIVE DIFF @See below
[2018-01-14 05:15] LABS: ADD MAN DIFF? YES
[2018-01-14] MEDS: METOCLOPRAMIDE 10 MG INJ IV ×3 (06:04→18:14)
[2018-01-14] MEDS: LEVOTHYROXINE 100 MCG TAB PO (06:04)
[2018-01-14] MEDS: ERYTHROMYCIN ETHYL SUCC (80 MG/ML PO SYG) NGT ×3 (06:04→21:35)
[2018-01-14] MEDS: LANSOPRAZOLE 30 MG CAP NGT ×2 (06:05→18:15)
[2018-01-14] MEDS: METHOCARBAMOL 750 MG TAB PO ×3 (06:05→21:35)
[2018-01-14] MEDS: MIDODRINE 2.5 MG TAB GTB (06:05)
[2018-01-14 06:34] LABS: ALANINE AMINOTRANSFERASE 80 IU/L (13-69); ALBUMIN 2.2 g/dl (3.3-4.9); ALBUMIN/GLOBULIN RATIO 0.75; ALKALINE PHOSPHATASE 72 IU/L (42-121); ANION GAP 8 (5-13); ASPARTATE AMINO TRANSFERASE 45 IU/L (15-46); BILIRUBIN,INDIRECT 0.4 mg/dl (0-1.1); BILIRUBIN,TOTAL 0.4 mg/dl (0.2-1.3); BLOOD UREA NITROGEN 9 mg/dl (7-20); CALCIUM 8.5 mg/dl (8.4-10.2); CARBON DIOXIDE 24 mmol/L (21-31); CHLORIDE 100 mmol/L (97-110); CREATININE 0.26 mg/dl (0.44-1.00); GLUCOSE 142 mg/dl (70-220); POTASSIUM 4.1 mmol/L (3.5-5.1); SODIUM 132 mmol/L (135-144); TOTAL PROTEIN 5.1 g/dl (6.1-8.1)
[2018-01-14 07:28] LABS: ANISOCYTOSIS 1+ (0-0); BAND NEUTROPHILS #M 0.8 10^3/ul (0.0-0.6); BAND NEUTROPHILS % (M) 10 % (0-4); LYMPHOCYTES #M 0.5 10^3/ul (0.8-2.9); LYMPHOCYTES % (M) 7 % (15-51); MONOCYTE #M 0.3 10^3/ul (0.3-0.9); MONOCYTES % (M) 4 % (0-11); PLATELET ESTIMATE INCREASED; POLYCHROMASIA 2+ (0-0); REACTIVE LYMPHOCYTES% (M) 1 % (0-0); SEG NEUT #M 6.3 10^3/ul (1.6-7.5); SEGMENTED NEUTROPHILS (M) % 78 % (39-77); SMUDGE%M 14 % (0-0)
[2018-01-14 07:51] LABS: MAGNESIUM 1.7 mg/dl (1.7-2.5)
[2018-01-14 07:51] LABS: PHOSPHORUS 3.4 mg/dl (2.5-4.9)
[2018-01-14] MEDS: DOCOSANOL 2 GM CREAM TOP ×5 (09:13→21:14)
[2018-01-14] MEDS: DEXAMETHASONE 4 MG/ML 1 ML INJ IV (09:13)
[2018-01-14] MEDS: COLLAGENASE 5 GM (UD JAR) TOP (09:13)
[2018-01-14] MEDS: BALSAM PERU/CASTOR OIL 60 GM TUBE TOP ×2 (09:13→21:15)
[2018-01-14] MEDS: FERROUS SULFATE 60 MG/ML 5ML CUP NGT ×2 (09:14→21:14)
[2018-01-14] MEDS: DOCUSATE SODIUM 10 MG/ML (10ML CUP) NGT ×2 (09:14→21:14)
[2018-01-14] MEDS: BUSPIRONE 10 MG TAB NGT ×3 (09:14→21:14)
[2018-01-14] MEDS: ENOXAPARIN 80 MG/0.8 ML SYG SC ×2 (09:19→21:13)
[2018-01-14] MEDS: DEXTROSE 5%-0.45% NACL 1,000 ML IV (11:21)
[2018-01-14] MEDS: MIDODRINE 5 MG TAB GTB ×2 (14:41→21:36)
[2018-01-14] MEDS: INSULIN GLARGINE [LANTus] (100 UNITS/ML) SYG SC (21:14)
[2018-01-14] MEDS ORDERED: LORAZEPAM 2 MG INJ IM (22:45)
[2018-01-14] MEDS: METOPROLOL 5 MG INJ IV (23:00)
[2018-01-14] MEDS ORDERED: ACETAMINOPHEN 1000MG/100ML IV 100 ML (23:05)
[2018-01-14 23:18] LABS: AADO2 Arterial 102.9 mmHg (7.0-24.0); Allen Test ACCEPTAB; Arterial Base Excess -3.8 mmol/L (-3.0-3); Arterial Blood Gas Oxygen Sat 94.3 mmHG (95.0-98.0); Arterial COHb 1.2 % (0.0-3.0); Arterial Fraction of Oxyhgb 92.9 % (93.0-99.0); Arterial HCO3 17.4 mmol/L (22.0-26.0); Arterial MetHb 0.3 % (0.0-1.5); Arterial Total Hemglobin 11.7 g/dl (12.0-18.0); Arterial pCO2 22.1 mmhg (35-45); MODE TRACH COLLAR; Site Left Radial
[2018-01-14] MEDS: SOD CHLORIDE 0.9% 500 ML IV (23:27)
[2018-01-14] MEDS ORDERED: VANCOMYCIN IV PER PHARMACY XX (23:30)
[2018-01-14] MEDS: ACETAMINOPHEN 1000MG/100ML IV 100 ML IVPB (23:30)
[2018-01-14 23:35] LABS: WHITE BLOOD COUNT 2.8 10^3/ul (4.8-10.8)
[2018-01-14 23:35] LABS: ABNORMAL IP MESSAGE 1; HEMATOCRIT 32.1 % (37.0-47.0); HEMOGLOBIN 10.1 g/dl (12.0-16.0); MEAN CORPUSCULAR HEMOGLOBIN 28.9 pg (29.0-33.0); MEAN CORPUSCULAR HGB CONC 31.5 g/dl (32.0-37.0); MEAN CORPUSCULAR VOLUME 91.7 fl (82.0-101.0); MEAN PLATELET VOLUME 8.7 fl (7.4-10.4); PLATELET COUNT 297 10^3/UL (140-415); RED CELL DISTRIBUTION WIDTH 18.3 % (11.5-14.5)
[2018-01-14 23:40] LABS: POSITIVE DIFF @See below
[2018-01-14 23:44] LABS: ADD MAN DIFF? YES
[2018-01-14 23:49] LABS: ADD UMIC YES; UR ASCORBIC ACID NEGATIVE (NEGATIVE); UR BACTERIA MANY /HPF (NONE SEEN); UR BILIRUBIN (Dip) NEGATIVE (NEGATIVE); UR BLOOD (Dip) NEGATIVE (NEGATIVE); UR CLARITY CLEAR (CLEAR); UR COLOR YELLOW (YELLOW); UR GLUCOSE (Dip) NEGATIVE (NEGATIVE); UR KETONES (Dip) NEGATIVE (NEGATIVE); UR LEUKOCYTE ESTERASE (Dip) TRACE Leu/ul (NEGATIVE); UR NITRITE (Dip) POSITIVE (NEGATIVE); UR RBC 3 /HPF (0-5); UR TOTAL PROTEIN (Dip) NEGATIVE (NEGATIVE); UR UROBILINOGEN (Dip) 2+ mg/dL (NEGATIVE); UR WBC 20 /HPF (0-5)
[2018-01-14] MEDS: PIPER-TAZO 3.375 GM IV (PMX) 100 ML IVPB (23:51)
[2018-01-14 23:52] LABS: ANION GAP 10 (5-13); BLOOD UREA NITROGEN 9 mg/dl (7-20); CALCIUM 8.1 mg/dl (8.4-10.2); CARBON DIOXIDE 19 mmol/L (21-31); CHLORIDE 98 mmol/L (97-110); CREATININE 0.24 mg/dl (0.44-1.00); GLUCOSE 135 mg/dl (70-220); POTASSIUM 3.7 mmol/L (3.5-5.1); SODIUM 127 mmol/L (135-144)
[2018-01-15 00:05] LABS: LACTIC ACID 3.1 mmol/L (0.5-2.0)
[2018-01-15] MEDS: SOD CHLORIDE 0.9% 500 ML IV (00:23)
[2018-01-15] MEDS: METOCLOPRAMIDE 10 MG INJ IV ×4 (00:32→17:36)
[2018-01-15 00:33] LABS: ANISOCYTOSIS 1+ (0-0); BAND NEUTROPHILS #M 0.7 10^3/ul (0.0-0.6); BAND NEUTROPHILS % (M) 28 % (0-4); ERYTHROBLAST% (NRBC) (M) 1 % (0-0); GIANT THROMBO% (M) 3 % (0-0); LYMPHOCYTES #M 0.1 10^3/ul (0.8-2.9); LYMPHOCYTES % (M) 6 % (15-51); MICROCYTOSIS 1+ (0-0); MYELOCYTES % (M) 1 % (0-0); PLATELET ESTIMATE NORMAL; POLYCHROMASIA 2+ (0-0); SEG NEUT #M 1.8 10^3/ul (1.6-7.5); SEGMENTED NEUTROPHILS (M) % 65 % (39-77); SMUDGE%M 5 % (0-0)
[2018-01-15] MEDS: DIAZEPAM 5 MG/ML SYG IV (00:36)
[2018-01-15] MEDS: INSULIN ASPART [NOVOLOG] 3 ML PEN SC ×6 (01:00→21:00)
[2018-01-15] MEDS: VANCOMYCIN 1.25 GM in SOD CHLORIDE 0.9% 250 ML IVPB (01:27)
[2018-01-15] MEDS: DEXTROSE 5%-0.45% NACL 1,000 ML IV ×2 (02:30→16:37)
[2018-01-15 03:37] LABS: WHITE BLOOD COUNT 13.3 10^3/ul (4.8-10.8)
[2018-01-15 03:37] LABS: ABNORMAL IP MESSAGE 1; HEMATOCRIT 30.4 % (37.0-47.0); HEMOGLOBIN 9.6 g/dl (12.0-16.0); MEAN CORPUSCULAR HEMOGLOBIN 28.7 pg (29.0-33.0); MEAN CORPUSCULAR HGB CONC 31.6 g/dl (32.0-37.0); MEAN CORPUSCULAR VOLUME 90.7 fl (82.0-101.0); MEAN PLATELET VOLUME 8.8 fl (7.4-10.4); PLATELET COUNT 308 10^3/UL (140-415); RED BLOOD COUNT 3.35 10^6/ul (4.20-5.40); RED CELL DISTRIBUTION WIDTH 18.3 % (11.5-14.5)
[2018-01-15 03:53] LABS: LACTIC ACID 1.8 mmol/L (0.5-2.0)
[2018-01-15 03:54] LABS: ALANINE AMINOTRANSFERASE 71 IU/L (13-69); ALBUMIN 2.3 g/dl (3.3-4.9); ALBUMIN/GLOBULIN RATIO 0.82; ALKALINE PHOSPHATASE 135 IU/L (42-121); ANION GAP 7 (5-13); ASPARTATE AMINO TRANSFERASE 52 IU/L (15-46); BILIRUBIN,INDIRECT 0.5 mg/dl (0-1.1); BILIRUBIN,TOTAL 0.5 mg/dl (0.2-1.3); BLOOD UREA NITROGEN 10 mg/dl (7-20); CALCIUM 7.7 mg/dl (8.4-10.2); CARBON DIOXIDE 22 mmol/L (21-31); CHLORIDE 108 mmol/L (97-110); CREATININE 0.26 mg/dl (0.44-1.00); GLUCOSE 116 mg/dl (70-220); POTASSIUM 3.3 mmol/L (3.5-5.1); SODIUM 137 mmol/L (135-144); TOTAL PROTEIN 5.1 g/dl (6.1-8.1)
[2018-01-15 03:56] LABS: POSITIVE DIFF @See below
[2018-01-15 04:01] LABS: ADD MAN DIFF? YES
[2018-01-15 04:05] LABS: MAGNESIUM 1.5 mg/dl (1.7-2.5)
[2018-01-15 04:41] LABS: ANISOCYTOSIS 1+ (0-0); BAND NEUTROPHILS #M 3.5 10^3/ul (0.0-0.6); BAND NEUTROPHILS % (M) 27 % (0-4); BASOPHIL #M 0.1 10^3/ul (0.0-0.0); BASOPHILS % (M) 1 % (0-2); GIANT THROMBO% (M) 1 % (0-0); LYMPHOCYTES #M 0.5 10^3/ul (0.8-2.9); LYMPHOCYTES % (M) 4 % (15-51); MICROCYTOSIS 1+ (0-0); PLATELET ESTIMATE NORMAL; POLYCHROMASIA 1+ (0-0); SEG NEUT #M 9.5 10^3/ul (1.6-7.5); SEGMENTED NEUTROPHILS (M) % 68 % (39-77)
[2018-01-15] MEDS: METHOCARBAMOL 750 MG TAB PO ×3 (06:00→21:21)
[2018-01-15] MEDS: MIDODRINE 5 MG TAB GTB ×3 (06:00→21:21)
[2018-01-15] MEDS: LANSOPRAZOLE 30 MG CAP NGT ×2 (06:00→17:47)
[2018-01-15] MEDS: ERYTHROMYCIN ETHYL SUCC (80 MG/ML PO SYG) NGT ×3 (06:00→21:21)
[2018-01-15] MEDS: PIPER-TAZO 3.375 GM IV (PMX) 100 ML IVPB ×3 (06:48→17:47)
[2018-01-15] MEDS: LEVOTHYROXINE 100 MCG TAB PO (07:00)
[2018-01-15] MEDS: POTASSIUM CHLORIDE 50 ML IVPB ×3 (07:01→11:15)
[2018-01-15] MEDS: MAGNESIUM SULFATE 3 GM in DEXTROSE 5% 100 ML IVPB (08:04)
[2018-01-15] MEDS: DEXAMETHASONE 4 MG/ML 1 ML INJ IV (08:28)
[2018-01-15] MEDS: VANCOMYCIN 500MG/NS (PMX) 100 ML IVPB ×2 (08:31→17:35)
[2018-01-15] MEDS: DOCUSATE SODIUM 10 MG/ML (10ML CUP) NGT ×2 (09:00→21:00)
[2018-01-15] MEDS: FERROUS SULFATE 60 MG/ML 5ML CUP NGT ×2 (09:00→21:00)
[2018-01-15] MEDS: BUSPIRONE 10 MG TAB NGT ×3 (09:00→21:00)
[2018-01-15] MEDS: COLLAGENASE 5 GM (UD JAR) TOP (09:13)
[2018-01-15] MEDS: BALSAM PERU/CASTOR OIL 60 GM TUBE TOP ×2 (09:13→21:20)
[2018-01-15] MEDS: DOCOSANOL 2 GM CREAM TOP ×5 (09:13→21:20)
[2018-01-15] MEDS: ENOXAPARIN 80 MG/0.8 ML SYG SC ×2 (09:30→21:28)
[2018-01-15] MEDS ORDERED: FLUCONAZOLE 100 MG TAB PO (11:30)
[2018-01-15] MEDS ORDERED: FLUCONAZOLE 200 MG (PMX) 100 ML IVPB ×2 (13:00→15:30)
[2018-01-15] MEDS: LIDOCAINE 1% (MPF) 5 ML VIAL SC (14:20)
[2018-01-15] MEDS: FLUCONAZOLE 200 MG (PMX) 100 ML IVPB (16:15)
[2018-01-15] MEDS: INSULIN GLARGINE [LANTus] (100 UNITS/ML) SYG SC (22:14)
[2018-01-16] MEDS: LORAZEPAM 2 MG INJ IV ×2 (00:02→23:01)
[2018-01-16] MEDS: METOCLOPRAMIDE 10 MG INJ IV ×5 (00:02→23:01)
[2018-01-16] MEDS: VANCOMYCIN 500MG/NS (PMX) 100 ML IVPB ×2 (00:03→09:12)
[2018-01-16] MEDS: PIPER-TAZO 3.375 GM IV (PMX) 100 ML IVPB ×5 (00:03→23:01)
[2018-01-16] MEDS: INSULIN ASPART [NOVOLOG] 3 ML PEN SC ×6 (00:27→20:49)
[2018-01-16] MEDS: MIDODRINE 5 MG TAB GTB ×3 (04:43→22:00)
[2018-01-16] MEDS: DEXTROSE 5%-0.45% NACL 1,000 ML IV (04:43)
[2018-01-16] MEDS: METHOCARBAMOL 750 MG TAB PO ×3 (04:44→22:00)
[2018-01-16] MEDS: ERYTHROMYCIN ETHYL SUCC (80 MG/ML PO SYG) NGT ×3 (04:44→22:00)
[2018-01-16] MEDS: LANSOPRAZOLE 30 MG CAP NGT ×2 (04:44→17:08)
[2018-01-16 05:00] LABS: ADD MAN DIFF? NO
[2018-01-16 05:15] LABS: HEMATOCRIT 29.8 % (37.0-47.0); HEMOGLOBIN 9.1 g/dl (12.0-16.0); MEAN CORPUSCULAR HGB CONC 30.5 g/dl (32.0-37.0); MEAN CORPUSCULAR VOLUME 91.7 fl (82.0-101.0); MEAN PLATELET VOLUME 9.2 fl (7.4-10.4); PLATELET COUNT 297 10^3/UL (140-415); RED BLOOD COUNT 3.25 10^6/ul (4.20-5.40); RED CELL DISTRIBUTION WIDTH 18.6 % (11.5-14.5)
[2018-01-16 05:15] LABS: WHITE BLOOD COUNT 10.1 10^3/ul (4.8-10.8)
[2018-01-16 05:30] LABS: POSITIVE DIFF @See below
[2018-01-16 05:32] LABS: ANION GAP 5 (5-13); BLOOD UREA NITROGEN 6 mg/dl (7-20); CARBON DIOXIDE 22 mmol/L (21-31); CHLORIDE 109 mmol/L (97-110); CREATININE 0.26 mg/dl (0.44-1.00); GLUCOSE 75 mg/dl (70-220); MAGNESIUM 1.9 mg/dl (1.7-2.5); PHOSPHORUS 2.5 mg/dl (2.5-4.9); POTASSIUM 3.7 mmol/L (3.5-5.1); SODIUM 136 mmol/L (135-144)
[2018-01-16] MEDS: POTASSIUM CHLORIDE 50 ML IVPB (05:46)
[2018-01-16] MEDS: LEVOTHYROXINE 100 MCG TAB PO (07:00)
[2018-01-16 08:48] LABS: ANISOCYTOSIS 1+ (0-0); BAND NEUTROPHILS #M 0.7 10^3/ul (0.0-0.6); BAND NEUTROPHILS % (M) 7 % (0-4); BASOPHIL #M 0.2 10^3/ul (0.0-0.0); BASOPHILS % (M) 2 % (0-2); BURR CELLS 1+ (0-0); LYMPHOCYTES % (M) 20 % (15-51); MICROCYTOSIS 1+ (0-0); MONOCYTE #M 0.3 10^3/ul (0.3-0.9); MONOCYTES % (M) 3 % (0-11); PLATELET ESTIMATE NORMAL; POIKILOCYTOSIS 1+ (0-0); POLYCHROMASIA 2+ (0-0); REACTIVE LYMPHOCYTES #M 0.4 10^3/ul (0.0-0.0); REACTIVE LYMPHOCYTES% (M) 4 % (0-0); SEG NEUT #M 6.5 10^3/ul (1.6-7.5); SEGMENTED NEUTROPHILS (M) % 64 % (39-77); SMUDGE%M 8 % (0-0)
[2018-01-16] MEDS: DOCUSATE SODIUM 10 MG/ML (10ML CUP) NGT ×2 (09:00→20:20)
[2018-01-16] MEDS: BUSPIRONE 10 MG TAB NGT ×3 (09:00→20:20)
[2018-01-16] MEDS: FERROUS SULFATE 60 MG/ML 5ML CUP NGT ×2 (09:00→20:20)
[2018-01-16] MEDS: DEXAMETHASONE 4 MG/ML 1 ML INJ IV (09:12)
[2018-01-16 09:15] LABS: VANCOMYCIN,TROUGH 7.5 ug/ml (10.0-20.0)
[2018-01-16] MEDS: DEXTROSE 50% 50 ML SYRINGE IV (09:15)
[2018-01-16] MEDS: DOCOSANOL 2 GM CREAM TOP ×5 (09:16→20:49)
[2018-01-16] MEDS: ENOXAPARIN 80 MG/0.8 ML SYG SC ×2 (09:38→20:47)
[2018-01-16] MEDS: BALSAM PERU/CASTOR OIL 60 GM TUBE TOP ×2 (09:46→20:50)
[2018-01-16] MEDS: DEXTROSE 5%-0.9% NACL 1,000 ML IV (11:18)
[2018-01-16] MEDS ORDERED: MAGNESIUM SULFATE 2 GM/50 ML 50 ML (13:49)
[2018-01-16] MEDS: MAGNESIUM SULFATE 2 GM/50 ML 50 ML IVPB (13:53)
[2018-01-16] MEDS: FLUCONAZOLE 200 MG (PMX) 100 ML IVPB (15:49)
[2018-01-16] MEDS: VANCOMYCIN 750 MG in SOD CHLORIDE 0.9% 150 ML IVPB (16:27)
[2018-01-16] MEDS: COLLAGENASE 5 GM (UD JAR) TOP (16:28)
[2018-01-16] MEDS: INSULIN GLARGINE [LANTus] (100 UNITS/ML) SYG SC (20:48)
[2018-01-17] MEDS: INSULIN ASPART [NOVOLOG] 3 ML PEN SC ×6 (01:00→20:01)
[2018-01-17] MEDS: VANCOMYCIN 750 MG in SOD CHLORIDE 0.9% 150 ML IVPB ×2 (01:56→08:17)
[2018-01-17] MEDS: DEXTROSE 5%-0.9% NACL 1,000 ML IV ×3 (03:25→20:31)
[2018-01-17] MEDS: DEXTROSE 50% 50 ML SYRINGE IV ×3 (04:39→11:57)
[2018-01-17] MEDS: METOCLOPRAMIDE 10 MG INJ IV ×4 (05:29→23:27)
[2018-01-17] MEDS: PIPER-TAZO 3.375 GM IV (PMX) 100 ML IVPB ×2 (05:29→11:44)
[2018-01-17] MEDS: LANSOPRAZOLE 30 MG CAP NGT ×2 (05:35→17:37)
[2018-01-17] MEDS: MIDODRINE 5 MG TAB GTB ×3 (05:35→21:08)
[2018-01-17] MEDS: ERYTHROMYCIN ETHYL SUCC (80 MG/ML PO SYG) NGT ×3 (05:35→21:08)
[2018-01-17 05:36] LABS: ADD MAN DIFF? NO
[2018-01-17] MEDS: METHOCARBAMOL 750 MG TAB PO ×3 (05:36→21:08)
[2018-01-17 05:45] LABS: BASOPHILS % 0.1 % (0.0-2.0); EOSINOPHILS % 0.5 % (0.0-7.0); HEMATOCRIT 28.1 % (37.0-47.0); HEMOGLOBIN 8.7 g/dl (12.0-16.0); LYMPHOCYTES # 1.8 10^3/ul (0.8-2.9); LYMPHOCYTES % 22.9 % (15.0-51.0); MEAN CORPUSCULAR HEMOGLOBIN 28.5 pg (29.0-33.0); MEAN CORPUSCULAR VOLUME 92.1 fl (82.0-101.0); MEAN PLATELET VOLUME 9.5 fl (7.4-10.4); MONOCYTE # 0.5 10^3/ul (0.3-0.9); MONOCYTES % 5.9 % (0.0-11.0); NEUTROPHIL # 5.3 10^3/ul (1.6-7.5); NEUTROPHILS % 69.9 % (39.0-77.0); PLATELET COUNT 281 10^3/UL (140-415); RED BLOOD COUNT 3.05 10^6/ul (4.20-5.40); RED CELL DISTRIBUTION WIDTH 18.4 % (11.5-14.5)
[2018-01-17 05:45] LABS: WHITE BLOOD COUNT 7.6 10^3/ul (4.8-10.8)
[2018-01-17 06:26] LABS: ANION GAP 4 (5-13); BLOOD UREA NITROGEN 5 mg/dl (7-20); CALCIUM 7.6 mg/dl (8.4-10.2); CARBON DIOXIDE 21 mmol/L (21-31); CHLORIDE 112 mmol/L (97-110); CREATININE 0.24 mg/dl (0.44-1.00); Estimated GFR > 60 mL/min (>60); GLUCOSE 53 mg/dl (70-220); POTASSIUM 3.5 mmol/L (3.5-5.1); SODIUM 137 mmol/L (135-144)
[2018-01-17] MEDS: LEVOTHYROXINE 100 MCG TAB PO (06:55)
[2018-01-17] MEDS: FERROUS SULFATE 60 MG/ML 5ML CUP NGT ×2 (08:18→20:00)
[2018-01-17] MEDS: BUSPIRONE 10 MG TAB NGT ×3 (08:18→20:00)
[2018-01-17] MEDS: DOCUSATE SODIUM 10 MG/ML (10ML CUP) NGT ×2 (08:18→20:00)
[2018-01-17] MEDS: DEXAMETHASONE 4 MG/ML 1 ML INJ IV (08:18)
[2018-01-17] MEDS: DOCOSANOL 2 GM CREAM TOP ×5 (09:00→20:31)
[2018-01-17] MEDS: ENOXAPARIN 80 MG/0.8 ML SYG SC ×2 (09:00→20:01)
[2018-01-17] MEDS: POTASSIUM CHLORIDE 100 ML IVPB ×2 (10:53→11:44)
[2018-01-17] MEDS ORDERED: LORAZEPAM 2 MG INJ IV (11:30)
[2018-01-17] MEDS: COLLAGENASE 5 GM (UD JAR) TOP (11:44)
[2018-01-17] MEDS: morphine 2 MG INJ IV ×2 (11:45→13:24)
[2018-01-17] MEDS: BALSAM PERU/CASTOR OIL 60 GM TUBE TOP ×2 (11:50→20:31)
[2018-01-17] MEDS: CEFTRIAXONE 1 GM/50 ML (PMX) 50 ML IVPB (13:39)
[2018-01-17 16:19] LABS: POTASSIUM 4.3 mmol/L (3.5-5.1)
[2018-01-17] MEDS: INSULIN GLARGINE [LANTus] (100 UNITS/ML) SYG SC (19:58)
[2018-01-17] MEDS: LORAZEPAM 2 MG INJ IV (23:27)
[2018-01-18] MEDS: INSULIN ASPART [NOVOLOG] 3 ML PEN SC ×6 (00:47→21:27)
[2018-01-18 05:03] LABS: WHITE BLOOD COUNT 7.9 10^3/ul (4.8-10.8)
[2018-01-18 05:03] LABS: ADD MAN DIFF? NO; BASOPHILS % 0.1 % (0.0-2.0); EOSINOPHILS % 0.5 % (0.0-7.0); HEMATOCRIT 30.4 % (37.0-47.0); HEMOGLOBIN 9.3 g/dl (12.0-16.0); LYMPHOCYTES # 2.2 10^3/ul (0.8-2.9); LYMPHOCYTES % 27.8 % (15.0-51.0); MEAN CORPUSCULAR HEMOGLOBIN 28.1 pg (29.0-33.0); MEAN CORPUSCULAR HGB CONC 30.6 g/dl (32.0-37.0); MEAN CORPUSCULAR VOLUME 91.8 fl (82.0-101.0); MEAN PLATELET VOLUME 9.2 fl (7.4-10.4); MONOCYTE # 0.5 10^3/ul (0.3-0.9); MONOCYTES % 6.4 % (0.0-11.0); NEUTROPHIL # 5.1 10^3/ul (1.6-7.5); NEUTROPHILS % 64.7 % (39.0-77.0); PLATELET COUNT 326 10^3/UL (140-415); RED BLOOD COUNT 3.31 10^6/ul (4.20-5.40); RED CELL DISTRIBUTION WIDTH 18.2 % (11.5-14.5)
[2018-01-18] MEDS: ERYTHROMYCIN ETHYL SUCC (80 MG/ML PO SYG) NGT ×3 (05:07→21:13)
[2018-01-18] MEDS: METHOCARBAMOL 750 MG TAB PO ×3 (05:07→21:14)
[2018-01-18] MEDS: MIDODRINE 5 MG TAB GTB ×3 (05:07→21:14)
[2018-01-18] MEDS: LANSOPRAZOLE 30 MG CAP NGT ×3 (05:07→18:00)
[2018-01-18 05:24] LABS: ANION GAP 4 (5-13); BLOOD UREA NITROGEN 3 mg/dl (7-20); CARBON DIOXIDE 21 mmol/L (21-31); CHLORIDE 112 mmol/L (97-110); CREATININE 0.22 mg/dl (0.44-1.00); Estimated GFR > 60 mL/min (>60); GLUCOSE 95 mg/dl (70-220); MAGNESIUM 1.7 mg/dl (1.7-2.5); POTASSIUM 3.8 mmol/L (3.5-5.1); SODIUM 137 mmol/L (135-144)
[2018-01-18 05:49] LABS: POSITIVE DIFF @See below
[2018-01-18] MEDS: METOCLOPRAMIDE 10 MG INJ IV ×3 (06:13→17:56)
[2018-01-18] MEDS: LEVOTHYROXINE 100 MCG TAB PO (06:34)
[2018-01-18] MEDS: COLLAGENASE 5 GM (UD JAR) TOP (08:57)
[2018-01-18] MEDS: DEXAMETHASONE 4 MG/ML 1 ML INJ IV (08:58)
[2018-01-18] MEDS: DOCOSANOL 2 GM CREAM TOP ×5 (08:58→21:14)
[2018-01-18] MEDS: BALSAM PERU/CASTOR OIL 60 GM TUBE TOP ×2 (08:58→21:14)
[2018-01-18] MEDS: POTASSIUM CHLORIDE 50 ML IVPB (08:59)
[2018-01-18] MEDS: DEXTROSE 5%-0.9% NACL 1,000 ML IV (08:59)
[2018-01-18] MEDS: ENOXAPARIN 80 MG/0.8 ML SYG SC ×2 (09:01→21:26)
[2018-01-18] MEDS: BUSPIRONE 10 MG TAB NGT ×3 (11:36→21:14)
[2018-01-18] MEDS: FERROUS SULFATE 60 MG/ML 5ML CUP NGT ×2 (11:36→21:13)
[2018-01-18] MEDS: DOCUSATE SODIUM 10 MG/ML (10ML CUP) NGT ×2 (11:36→21:13)
[2018-01-18] MEDS: ACETAMINOPHEN 650MG/20.3ML CUP NGT (13:06)
[2018-01-18] MEDS: CEFTRIAXONE 1 GM/50 ML (PMX) 50 ML IVPB (13:56)
[2018-01-18] MEDS: MAGNESIUM SULFATE 1 GM/D5W 100 ML IVPB (13:56)
[2018-01-18] MEDS: morphine 2 MG INJ IV (14:46)
[2018-01-18] MEDS: INSULIN GLARGINE [LANTus] (100 UNITS/ML) SYG SC (21:26)
[2018-01-19] MEDS: DEXTROSE 5%-0.9% NACL 1,000 ML IV (00:43)
[2018-01-19] MEDS: LORAZEPAM 2 MG INJ IV (00:43)
[2018-01-19] MEDS: METOCLOPRAMIDE 10 MG INJ IV ×4 (00:43→17:19)
[2018-01-19] MEDS: INSULIN ASPART [NOVOLOG] 3 ML PEN SC ×6 (00:53→20:16)
[2018-01-19 05:10] LABS: WHITE BLOOD COUNT 7.3 10^3/ul (4.8-10.8)
[2018-01-19 05:10] LABS: HEMATOCRIT 30.1 % (37.0-47.0); HEMOGLOBIN 9.3 g/dl (12.0-16.0); MEAN CORPUSCULAR HEMOGLOBIN 28.2 pg (29.0-33.0); MEAN CORPUSCULAR HGB CONC 30.9 g/dl (32.0-37.0); MEAN CORPUSCULAR VOLUME 91.2 fl (82.0-101.0); MEAN PLATELET VOLUME 9.3 fl (7.4-10.4); PLATELET COUNT 327 10^3/UL (140-415); RED CELL DISTRIBUTION WIDTH 17.6 % (11.5-14.5)
[2018-01-19 05:12] LABS: POSITIVE DIFF @See below
[2018-01-19 05:13] LABS: ADD MAN DIFF? YES
[2018-01-19 05:38] LABS: ANION GAP 6 (5-13); BLOOD UREA NITROGEN 2 mg/dl (7-20); CALCIUM 8.2 mg/dl (8.4-10.2); CARBON DIOXIDE 22 mmol/L (21-31); CHLORIDE 109 mmol/L (97-110); CREATININE 0.22 mg/dl (0.44-1.00); Estimated GFR > 60 mL/min (>60); GLUCOSE 126 mg/dl (70-220); POTASSIUM 3.5 mmol/L (3.5-5.1); SODIUM 137 mmol/L (135-144)
[2018-01-19] MEDS: METHOCARBAMOL 750 MG TAB PO ×3 (06:30→21:30)
[2018-01-19] MEDS: ERYTHROMYCIN ETHYL SUCC (80 MG/ML PO SYG) NGT ×3 (06:30→21:30)
[2018-01-19] MEDS: LANSOPRAZOLE 30 MG CAP NGT ×2 (06:30→17:19)
[2018-01-19] MEDS: MIDODRINE 5 MG TAB GTB ×3 (06:30→21:30)
[2018-01-19] MEDS: LEVOTHYROXINE 100 MCG TAB PO (06:31)
[2018-01-19 07:39] LABS: ANISOCYTOSIS 1+ (0-0); BAND NEUTROPHILS #M 0.5 10^3/ul (0.0-0.6); BAND NEUTROPHILS % (M) 7 % (0-4); BASOPHIL #M 0.1 10^3/ul (0.0-0.0); BASOPHILS % (M) 2 % (0-2); LYMPHOCYTES #M 1.9 10^3/ul (0.8-2.9); LYMPHOCYTES % (M) 27 % (15-51); MONOCYTE #M 0.2 10^3/ul (0.3-0.9); MONOCYTES % (M) 4 % (0-11); PLATELET ESTIMATE NORMAL; POLYCHROMASIA 1+ (0-0); REACTIVE LYMPHOCYTES% (M) 1 % (0-0); SEG NEUT #M 4.3 10^3/ul (1.6-7.5); SEGMENTED NEUTROPHILS (M) % 59 % (39-77); SMUDGE%M 25 % (0-0)
[2018-01-19] MEDS: BUSPIRONE 10 MG TAB NGT ×3 (09:11→20:10)
[2018-01-19] MEDS: DOCUSATE SODIUM 10 MG/ML (10ML CUP) NGT ×2 (09:11→20:10)
[2018-01-19] MEDS: COLLAGENASE 5 GM (UD JAR) TOP (09:11)
[2018-01-19] MEDS: FERROUS SULFATE 60 MG/ML 5ML CUP NGT ×2 (09:11→20:10)
[2018-01-19] MEDS: DOCOSANOL 2 GM CREAM TOP ×5 (09:11→20:17)
[2018-01-19] MEDS: DEXAMETHASONE 4 MG/ML 1 ML INJ IV (09:11)
[2018-01-19] MEDS: BALSAM PERU/CASTOR OIL 60 GM TUBE TOP ×2 (09:11→20:17)
[2018-01-19] MEDS: ENOXAPARIN 80 MG/0.8 ML SYG SC ×2 (09:14→20:14)
[2018-01-19] MEDS: POTASSIUM CHLORIDE 50 ML IVPB ×2 (10:57→13:25)
[2018-01-19] MEDS: CEFTRIAXONE 1 GM/50 ML (PMX) 50 ML IVPB (13:23)
[2018-01-19] MEDS: SODIUM CHLORIDE 1 GM TAB PO ×2 (15:06→20:10)
[2018-01-19] MEDS ORDERED: TOBRAMYCIN 500 MG in DEXTROSE 5% 100 ML IVPB (16:30)
[2018-01-19] MEDS: INSULIN GLARGINE [LANTus] (100 UNITS/ML) SYG SC (20:12)
[2018-01-19] MEDS: morphine 2 MG INJ IV (21:29)
[2018-01-20] MEDS: LORAZEPAM 2 MG INJ IV ×4 (00:43→23:36)
[2018-01-20] MEDS: METOCLOPRAMIDE 10 MG INJ IV ×5 (00:43→23:05)
[2018-01-20] MEDS: INSULIN ASPART [NOVOLOG] 3 ML PEN SC ×6 (00:49→20:17)
[2018-01-20] MEDS: ERYTHROMYCIN ETHYL SUCC (80 MG/ML PO SYG) NGT ×3 (05:07→23:05)
[2018-01-20] MEDS: METHOCARBAMOL 750 MG TAB PO ×3 (05:07→23:05)
[2018-01-20] MEDS: MIDODRINE 5 MG TAB GTB ×3 (05:08→23:18)
[2018-01-20] MEDS: DEXTROSE 5%-0.9% NACL 1,000 ML IV ×2 (05:12→19:17)
[2018-01-20] MEDS: LANSOPRAZOLE 30 MG CAP NGT ×2 (05:12→17:50)
[2018-01-20 07:02] LABS: ADD MAN DIFF? NO
[2018-01-20 07:03] LABS: WHITE BLOOD COUNT 7.5 10^3/ul (4.8-10.8)
[2018-01-20 07:03] LABS: BASOPHILS % 0.3 % (0.0-2.0); EOSINOPHILS % 0.5 % (0.0-7.0); HEMATOCRIT 30.7 % (37.0-47.0); HEMOGLOBIN 9.4 g/dl (12.0-16.0); LYMPHOCYTES # 2.5 10^3/ul (0.8-2.9); LYMPHOCYTES % 32.8 % (15.0-51.0); MEAN CORPUSCULAR HEMOGLOBIN 28.1 pg (29.0-33.0); MEAN CORPUSCULAR HGB CONC 30.6 g/dl (32.0-37.0); MEAN CORPUSCULAR VOLUME 91.9 fl (82.0-101.0); MEAN PLATELET VOLUME 9.5 fl (7.4-10.4); MONOCYTE # 0.5 10^3/ul (0.3-0.9); MONOCYTES % 6.9 % (0.0-11.0); NEUTROPHIL # 4.4 10^3/ul (1.6-7.5); PLATELET COUNT 363 10^3/UL (140-415); RED BLOOD COUNT 3.34 10^6/ul (4.20-5.40); RED CELL DISTRIBUTION WIDTH 18.1 % (11.5-14.5)
[2018-01-20 07:25] LABS: ANION GAP 4 (5-13); BLOOD UREA NITROGEN 4 mg/dl (7-20); CALCIUM 8.5 mg/dl (8.4-10.2); CARBON DIOXIDE 24 mmol/L (21-31); CHLORIDE 108 mmol/L (97-110); CREATININE 0.28 mg/dl (0.44-1.00); Estimated GFR > 60 mL/min (>60); GLUCOSE 116 mg/dl (70-220); POTASSIUM 3.6 mmol/L (3.5-5.1); SODIUM 136 mmol/L (135-144)
[2018-01-20 07:25] LABS: MAGNESIUM 1.6 mg/dl (1.7-2.5)
[2018-01-20] MEDS: FERROUS SULFATE 60 MG/ML 5ML CUP NGT ×2 (08:33→20:15)
[2018-01-20] MEDS: DOCUSATE SODIUM 10 MG/ML (10ML CUP) NGT ×2 (08:33→20:15)
[2018-01-20] MEDS: COLLAGENASE 5 GM (UD JAR) TOP (08:33)
[2018-01-20] MEDS: SODIUM CHLORIDE 1 GM TAB PO ×3 (08:33→20:14)
[2018-01-20] MEDS: BUSPIRONE 10 MG TAB NGT ×3 (08:34→20:15)
[2018-01-20] MEDS: DEXAMETHASONE 4 MG/ML 1 ML INJ IV (08:34)
[2018-01-20] MEDS: LEVOTHYROXINE 100 MCG TAB PO (08:34)
[2018-01-20] MEDS: POTASSIUM CHLORIDE 20 MEQ POWDER FOR ORAL SOLN NGT (08:43)
[2018-01-20] MEDS: ENOXAPARIN 80 MG/0.8 ML SYG SC ×2 (08:43→20:21)
[2018-01-20] MEDS: MAGNESIUM SULFATE 2 GM/50 ML 50 ML IVPB (08:43)
[2018-01-20] MEDS: DOCOSANOL 2 GM CREAM TOP ×5 (08:46→20:22)
[2018-01-20] MEDS: BALSAM PERU/CASTOR OIL 60 GM TUBE TOP ×2 (08:46→20:15)
[2018-01-20] MEDS: CEFTRIAXONE 1 GM/50 ML (PMX) 50 ML IVPB (11:55)
[2018-01-20] MEDS: LIOTHYRONINE 5 MCG TAB PO ×2 (11:58→20:15)
[2018-01-20] MEDS: HYDROCORTISONE 5 MG TAB PO ×2 (12:04→20:14)
[2018-01-20] MEDS: morphine 2 MG INJ IV (19:17)
[2018-01-20] MEDS: INSULIN GLARGINE [LANTus] (100 UNITS/ML) SYG SC (20:18)
[2018-01-21] MEDS: INSULIN ASPART [NOVOLOG] 3 ML PEN SC ×6 (00:26→20:25)
[2018-01-21] MEDS: LANSOPRAZOLE 30 MG CAP NGT ×2 (05:01→17:56)
[2018-01-21] MEDS: METHOCARBAMOL 750 MG TAB PO ×3 (05:01→22:38)
[2018-01-21] MEDS: ERYTHROMYCIN ETHYL SUCC (80 MG/ML PO SYG) NGT ×3 (05:02→22:38)
[2018-01-21] MEDS: MIDODRINE 5 MG TAB GTB ×3 (05:02→22:38)
[2018-01-21] MEDS: LORAZEPAM 2 MG INJ IV ×2 (05:02→20:29)
[2018-01-21] MEDS: METOCLOPRAMIDE 10 MG INJ IV ×3 (05:02→17:55)
[2018-01-21 05:50] LABS: ANION GAP 6 (5-13); BLOOD UREA NITROGEN 6 mg/dl (7-20); CALCIUM 8.7 mg/dl (8.4-10.2); CARBON DIOXIDE 24 mmol/L (21-31); CHLORIDE 108 mmol/L (97-110); CREATININE 0.26 mg/dl (0.44-1.00); Estimated GFR > 60 mL/min (>60); GLUCOSE 108 mg/dl (70-220); POTASSIUM 3.9 mmol/L (3.5-5.1); SODIUM 138 mmol/L (135-144)
[2018-01-21 05:58] LABS: MAGNESIUM 1.8 mg/dl (1.7-2.5)
[2018-01-21] MEDS: LEVOTHYROXINE 100 MCG TAB PO (06:22)
[2018-01-21] MEDS: ONDANSETRON 4 MG INJ IV (07:50)
[2018-01-21] MEDS ORDERED: POTASSIUM CHLORIDE (SR) 20 MEQ TAB PO (08:17)
[2018-01-21] MEDS: morphine 2 MG INJ IV (08:20)
[2018-01-21] MEDS: DEXTROSE 5%-0.9% NACL 1,000 ML IV ×3 (08:26→23:03)
[2018-01-21 09:14] LABS: IRON 49 ug/dl (35-150)
[2018-01-21 09:23] LABS: % IRON SATURATION 17 % SAT (22-52); TOTAL IRON BINDING CAPACITY 289 ug/dl (241-421)
[2018-01-21] MEDS: DOCOSANOL 2 GM CREAM TOP ×5 (09:24→20:54)
[2018-01-21] MEDS: BALSAM PERU/CASTOR OIL 60 GM TUBE TOP ×2 (09:24→20:26)
[2018-01-21] MEDS: LIOTHYRONINE 5 MCG TAB PO ×2 (09:25→20:22)
[2018-01-21] MEDS: POTASSIUM CHLORIDE 20 MEQ POWDER FOR ORAL SOLN GTB (09:25)
[2018-01-21] MEDS: DOCUSATE SODIUM 10 MG/ML (10ML CUP) NGT ×2 (09:25→20:22)
[2018-01-21] MEDS: SODIUM CHLORIDE 1 GM TAB PO ×3 (09:25→20:22)
[2018-01-21] MEDS: HYDROCORTISONE 5 MG TAB PO ×3 (09:25→20:22)
[2018-01-21] MEDS: ENOXAPARIN 80 MG/0.8 ML SYG SC ×2 (09:29→20:24)
[2018-01-21] MEDS: COLLAGENASE 5 GM (UD JAR) TOP (09:32)
[2018-01-21] MEDS: LEVOTHYROXINE 200 MCG VIAL IV (09:47)
[2018-01-21] MEDS: CEFTRIAXONE 1 GM/50 ML (PMX) 50 ML IVPB (12:07)
[2018-01-21] MEDS: ALBUTEROL/IPRATROPIUM (NEB) 3 ML AMP HHN (13:02)
[2018-01-21] MEDS: LACTULOSE 30ML CUP NGT (13:13)
[2018-01-21] MEDS: INSULIN GLARGINE [LANTus] (100 UNITS/ML) SYG SC (20:25)
[2018-01-22] MEDS: METOCLOPRAMIDE 10 MG INJ IV ×4 (00:32→17:15)
[2018-01-22] MEDS: LORAZEPAM 2 MG INJ IV ×4 (00:32→18:24)
[2018-01-22] MEDS: INSULIN ASPART [NOVOLOG] 3 ML PEN SC ×6 (00:52→20:12)
[2018-01-22] MEDS: LANSOPRAZOLE 30 MG CAP NGT ×2 (05:33→17:15)
[2018-01-22] MEDS: ERYTHROMYCIN ETHYL SUCC (80 MG/ML PO SYG) NGT ×3 (05:33→22:40)
[2018-01-22] MEDS: MIDODRINE 5 MG TAB GTB ×3 (05:33→22:41)
[2018-01-22] MEDS: METHOCARBAMOL 750 MG TAB PO ×3 (05:33→22:41)
[2018-01-22] MEDS: LEVOTHYROXINE 200 MCG VIAL IV (05:33)
[2018-01-22 05:55] LABS: ANION GAP 5 (5-13); BLOOD UREA NITROGEN 7 mg/dl (7-20); CALCIUM 8.6 mg/dl (8.4-10.2); CARBON DIOXIDE 25 mmol/L (21-31); CHLORIDE 105 mmol/L (97-110); CREATININE 0.26 mg/dl (0.44-1.00); Estimated GFR > 60 mL/min (>60); GLUCOSE 71 mg/dl (70-220); POTASSIUM 4.2 mmol/L (3.5-5.1); SODIUM 135 mmol/L (135-144)
[2018-01-22 09:07] LABS: ADD MAN DIFF? NO
[2018-01-22 09:09] LABS: WHITE BLOOD COUNT 7.2 10^3/ul (4.8-10.8)
[2018-01-22 09:09] LABS: BASOPHILS % 0.1 % (0.0-2.0); EOSINOPHILS # 0.1 10^3/ul (0.0-0.5); EOSINOPHILS % 1.4 % (0.0-7.0); HEMOGLOBIN 9.7 g/dl (12.0-16.0); LYMPHOCYTES % 28.4 % (15.0-51.0); MEAN CORPUSCULAR HEMOGLOBIN 28.2 pg (29.0-33.0); MEAN CORPUSCULAR HGB CONC 30.3 g/dl (32.0-37.0); MEAN PLATELET VOLUME 9.7 fl (7.4-10.4); MONOCYTE # 0.5 10^3/ul (0.3-0.9); MONOCYTES % 6.6 % (0.0-11.0); NEUTROPHIL # 4.5 10^3/ul (1.6-7.5); NEUTROPHILS % 62.9 % (39.0-77.0); PLATELET COUNT 382 10^3/UL (140-415); RED BLOOD COUNT 3.44 10^6/ul (4.20-5.40); RED CELL DISTRIBUTION WIDTH 18.2 % (11.5-14.5)
[2018-01-22] MEDS: DOCUSATE SODIUM 10 MG/ML (10ML CUP) NGT ×2 (09:10→20:11)
[2018-01-22] MEDS: HYDROCORTISONE 5 MG TAB PO ×3 (09:11→20:11)
[2018-01-22] MEDS: LIOTHYRONINE 5 MCG TAB PO ×2 (09:11→20:11)
[2018-01-22] MEDS: ENOXAPARIN 80 MG/0.8 ML SYG SC ×2 (09:12→20:14)
[2018-01-22] MEDS: LACTULOSE 30ML CUP NGT ×2 (09:14→20:11)
[2018-01-22] MEDS: DOCOSANOL 2 GM CREAM TOP (09:14)
[2018-01-22] MEDS: BALSAM PERU/CASTOR OIL 60 GM TUBE TOP ×2 (09:14→20:17)
[2018-01-22] MEDS: COLLAGENASE 5 GM (UD JAR) TOP (09:14)
[2018-01-22 09:17] LABS: PHOSPHORUS 3.4 mg/dl (2.5-4.9)
[2018-01-22 09:17] LABS: MAGNESIUM 1.7 mg/dl (1.7-2.5)
[2018-01-22] MEDS: SODIUM CHLORIDE 1 GM TAB PO (09:36)
[2018-01-22] MEDS: CEFTRIAXONE 1 GM/50 ML (PMX) 50 ML IVPB (12:26)
[2018-01-22] MEDS: morphine 2 MG INJ IV ×2 (15:30→20:11)
[2018-01-22] MEDS: MAGNESIUM SULFATE 3 GM in DEXTROSE 5% 100 ML IVPB (16:35)
[2018-01-22] MEDS: DEXTROSE 50% 50 ML SYRINGE IV (17:23)
[2018-01-22] MEDS: INSULIN GLARGINE [LANTus] (100 UNITS/ML) SYG SC (20:17)
[2018-01-23] MEDS: METOCLOPRAMIDE 10 MG INJ IV ×4 (00:16→17:11)
[2018-01-23] MEDS: morphine 2 MG INJ IV ×6 (00:17→23:43)
[2018-01-23] MEDS: INSULIN ASPART [NOVOLOG] 3 ML PEN SC ×6 (01:00→21:00)
[2018-01-23 05:05] LABS: ADD MAN DIFF? NO
[2018-01-23 05:06] LABS: WHITE BLOOD COUNT 5.9 10^3/ul (4.8-10.8)
[2018-01-23 05:06] LABS: BASOPHILS % 0.2 % (0.0-2.0); EOSINOPHILS # 0.1 10^3/ul (0.0-0.5); EOSINOPHILS % 1.7 % (0.0-7.0); HEMATOCRIT 27.5 % (37.0-47.0); HEMOGLOBIN 8.5 g/dl (12.0-16.0); LYMPHOCYTES # 2.2 10^3/ul (0.8-2.9); LYMPHOCYTES % 36.6 % (15.0-51.0); MEAN CORPUSCULAR HEMOGLOBIN 28.2 pg (29.0-33.0); MEAN CORPUSCULAR HGB CONC 30.9 g/dl (32.0-37.0); MEAN CORPUSCULAR VOLUME 91.4 fl (82.0-101.0); MEAN PLATELET VOLUME 8.7 fl (7.4-10.4); MONOCYTE # 0.5 10^3/ul (0.3-0.9); MONOCYTES % 8.5 % (0.0-11.0); NEUTROPHIL # 3.1 10^3/ul (1.6-7.5); NEUTROPHILS % 52.5 % (39.0-77.0); PLATELET COUNT 332 10^3/UL (140-415); RED BLOOD COUNT 3.01 10^6/ul (4.20-5.40)
[2018-01-23] MEDS: METHOCARBAMOL 750 MG TAB PO ×3 (05:39→21:09)
[2018-01-23] MEDS: MIDODRINE 5 MG TAB GTB ×3 (05:39→21:09)
[2018-01-23] MEDS: LEVOTHYROXINE 200 MCG VIAL IV (05:39)
[2018-01-23] MEDS: LANSOPRAZOLE 30 MG CAP NGT ×2 (05:44→17:11)
[2018-01-23] MEDS: ERYTHROMYCIN ETHYL SUCC (80 MG/ML PO SYG) NGT ×3 (05:47→21:09)
[2018-01-23 07:38] LABS: ANION GAP 8 (5-13); BLOOD UREA NITROGEN 9 mg/dl (7-20); CALCIUM 8.5 mg/dl (8.4-10.2); CARBON DIOXIDE 27 mmol/L (21-31); CHLORIDE 100 mmol/L (97-110); CREATININE 0.31 mg/dl (0.44-1.00); Estimated GFR > 60 mL/min (>60); GLUCOSE 75 mg/dl (70-220); POTASSIUM 4.2 mmol/L (3.5-5.1); SODIUM 135 mmol/L (135-144)
[2018-01-23 07:49] LABS: MAGNESIUM 1.9 mg/dl (1.7-2.5)
[2018-01-23] MEDS: BALSAM PERU/CASTOR OIL 60 GM TUBE TOP ×2 (09:00→21:09)
[2018-01-23] MEDS: COLLAGENASE 5 GM (UD JAR) TOP (09:00)
[2018-01-23] MEDS: POLYETHYLENE GLYCOL 17 GM PACKET PO (09:00)
[2018-01-23] MEDS: LIOTHYRONINE 5 MCG TAB PO ×2 (09:00→22:51)
[2018-01-23] MEDS: HYDROCORTISONE 5 MG TAB PO ×3 (09:01→21:10)
[2018-01-23] MEDS: DOCUSATE SODIUM 10 MG/ML (10ML CUP) NGT ×2 (09:01→21:08)
[2018-01-23] MEDS: ENOXAPARIN 80 MG/0.8 ML SYG SC ×2 (09:15→21:17)
[2018-01-23] MEDS: ALBUMIN HUMAN 25% 100 ML IV (11:13)
[2018-01-23] MEDS: CEFTRIAXONE 1 GM/50 ML (PMX) 50 ML IVPB (13:33)
[2018-01-23] MEDS: LORAZEPAM 2 MG INJ IV ×3 (13:59→22:17)
[2018-01-23] MEDS: MAGNESIUM SULFATE 2 GM/50 ML 50 ML IVPB (15:14)
[2018-01-23] MEDS: DEXTROSE 50% 50 ML SYRINGE IV (17:11)
[2018-01-23] MEDS: LACTULOSE 30ML CUP NGT (21:08)
[2018-01-23] MEDS: INSULIN GLARGINE [LANTus] (100 UNITS/ML) SYG SC (21:18)
[2018-01-24] MEDS: INSULIN ASPART [NOVOLOG] 3 ML PEN SC ×6 (01:00→21:00)
[2018-01-24] MEDS: METOCLOPRAMIDE 10 MG INJ IV ×5 (01:11→23:22)
[2018-01-24] MEDS: DEXTROSE 50% 50 ML SYRINGE IV (01:16)
[2018-01-24] MEDS: morphine 2 MG INJ IV ×5 (03:38→21:48)
[2018-01-24 04:03] LABS: ADD MAN DIFF? NO
[2018-01-24 04:26] LABS: ANION GAP 9 (5-13); BLOOD UREA NITROGEN 10 mg/dl (7-20); CALCIUM 8.7 mg/dl (8.4-10.2); CARBON DIOXIDE 26 mmol/L (21-31); CHLORIDE 102 mmol/L (97-110); CREATININE 0.27 mg/dl (0.44-1.00); Estimated GFR > 60 mL/min (>60); GLUCOSE 66 mg/dl (70-220); MAGNESIUM 1.9 mg/dl (1.7-2.5); PHOSPHORUS 4.4 mg/dl (2.5-4.9); SODIUM 137 mmol/L (135-144)
[2018-01-24 04:42] LABS: WHITE BLOOD COUNT 7.1 10^3/ul (4.8-10.8)
[2018-01-24 04:42] LABS: BASOPHILS % 0.3 % (0.0-2.0); EOSINOPHILS # 0.1 10^3/ul (0.0-0.5); EOSINOPHILS % 1.4 % (0.0-7.0); HEMOGLOBIN 9.1 g/dl (12.0-16.0); LYMPHOCYTES # 1.8 10^3/ul (0.8-2.9); LYMPHOCYTES % 25.4 % (15.0-51.0); MEAN CORPUSCULAR HGB CONC 30.3 g/dl (32.0-37.0); MEAN CORPUSCULAR VOLUME 92.3 fl (82.0-101.0); MEAN PLATELET VOLUME 9.6 fl (7.4-10.4); MONOCYTE # 0.5 10^3/ul (0.3-0.9); MONOCYTES % 7.6 % (0.0-11.0); NEUTROPHIL # 4.6 10^3/ul (1.6-7.5); NEUTROPHILS % 64.7 % (39.0-77.0); PLATELET COUNT 387 10^3/UL (140-415); RED BLOOD COUNT 3.25 10^6/ul (4.20-5.40); RED CELL DISTRIBUTION WIDTH 17.9 % (11.5-14.5)
[2018-01-24] MEDS: LEVOTHYROXINE 200 MCG VIAL IV (05:45)
[2018-01-24] MEDS: METHOCARBAMOL 750 MG TAB PO ×3 (05:45→21:47)
[2018-01-24] MEDS: MIDODRINE 5 MG TAB GTB ×3 (05:45→21:47)
[2018-01-24] MEDS: LORAZEPAM 2 MG INJ IV ×4 (05:46→23:22)
[2018-01-24] MEDS: ERYTHROMYCIN ETHYL SUCC (80 MG/ML PO SYG) NGT ×3 (05:46→21:51)
[2018-01-24] MEDS: LANSOPRAZOLE 30 MG CAP NGT ×2 (05:53→17:59)
[2018-01-24] MEDS: DOCUSATE SODIUM 10 MG/ML (10ML CUP) NGT ×2 (08:18→21:00)
[2018-01-24] MEDS: HYDROCORTISONE 5 MG TAB PO ×3 (08:18→21:47)
[2018-01-24] MEDS: LIOTHYRONINE 5 MCG TAB PO ×2 (08:19→21:47)
[2018-01-24] MEDS: COLLAGENASE 5 GM (UD JAR) TOP (08:19)
[2018-01-24] MEDS: BALSAM PERU/CASTOR OIL 60 GM TUBE TOP (08:19)
[2018-01-24] MEDS: POLYETHYLENE GLYCOL 17 GM PACKET PO (08:19)
[2018-01-24] MEDS: ENOXAPARIN 80 MG/0.8 ML SYG SC ×2 (08:22→21:49)
[2018-01-24] MEDS: BISACODYL 10 MG SUPP PR (11:30)
[2018-01-24] MEDS: CEFTRIAXONE 1 GM/50 ML (PMX) 50 ML IVPB (12:07)
[2018-01-24] MEDS: MAGNESIUM SULFATE 2 GM/50 ML 50 ML IVPB (16:28)
[2018-01-24] MEDS ORDERED: INSULIN GLARGINE [LANTus] (100 UNITS/ML) SYG SC (20:00)
[2018-01-24] MEDS: ACETAMINOPHEN 650MG/20.3ML CUP NGT (23:22)
[2018-01-25] MEDS: INSULIN ASPART [NOVOLOG] 3 ML PEN SC ×6 (01:00→20:12)
[2018-01-25] MEDS: morphine 2 MG INJ IV ×5 (02:03→23:01)
[2018-01-25] MEDS: LORAZEPAM 2 MG INJ IV ×3 (04:28→21:16)
[2018-01-25 05:15] LABS: ADD MAN DIFF? NO
[2018-01-25 05:26] LABS: WHITE BLOOD COUNT 7.6 10^3/ul (4.8-10.8)
[2018-01-25 05:26] LABS: BASOPHILS % 0.3 % (0.0-2.0); EOSINOPHILS # 0.1 10^3/ul (0.0-0.5); HEMATOCRIT 27.5 % (37.0-47.0); HEMOGLOBIN 8.7 g/dl (12.0-16.0); LYMPHOCYTES # 1.6 10^3/ul (0.8-2.9); LYMPHOCYTES % 20.7 % (15.0-51.0); MEAN CORPUSCULAR HEMOGLOBIN 28.8 pg (29.0-33.0); MEAN CORPUSCULAR HGB CONC 31.6 g/dl (32.0-37.0); MEAN CORPUSCULAR VOLUME 91.1 fl (82.0-101.0); MEAN PLATELET VOLUME 9.1 fl (7.4-10.4); MONOCYTE # 0.6 10^3/ul (0.3-0.9); MONOCYTES % 8.4 % (0.0-11.0); NEUTROPHIL # 5.3 10^3/ul (1.6-7.5); NEUTROPHILS % 69.2 % (39.0-77.0); PLATELET COUNT 405 10^3/UL (140-415); RED BLOOD COUNT 3.02 10^6/ul (4.20-5.40); RED CELL DISTRIBUTION WIDTH 17.6 % (11.5-14.5)
[2018-01-25 05:58] LABS: ANION GAP 9 (5-13); BLOOD UREA NITROGEN 14 mg/dl (7-20); CALCIUM 8.8 mg/dl (8.4-10.2); CARBON DIOXIDE 27 mmol/L (21-31); CHLORIDE 98 mmol/L (97-110); CREATININE 0.33 mg/dl (0.44-1.00); Estimated GFR > 60 mL/min (>60); GLUCOSE 146 mg/dl (70-220); MAGNESIUM 1.8 mg/dl (1.7-2.5); PHOSPHORUS 3.6 mg/dl (2.5-4.9); POTASSIUM 4.3 mmol/L (3.5-5.1); SODIUM 134 mmol/L (135-144)
[2018-01-25] MEDS: ERYTHROMYCIN ETHYL SUCC (80 MG/ML PO SYG) NGT ×3 (06:05→21:16)
[2018-01-25] MEDS: LANSOPRAZOLE 30 MG CAP NGT ×2 (06:06→17:27)
[2018-01-25] MEDS: METOCLOPRAMIDE 10 MG INJ IV ×4 (06:06→23:01)
[2018-01-25] MEDS: MIDODRINE 5 MG TAB GTB ×3 (06:06→21:15)
[2018-01-25] MEDS: LEVOTHYROXINE 200 MCG VIAL IV (06:06)
[2018-01-25] MEDS: METHOCARBAMOL 750 MG TAB PO ×3 (06:06→21:16)
[2018-01-25] MEDS: HYDROCORTISONE 5 MG TAB PO ×3 (09:16→20:13)
[2018-01-25] MEDS: LIOTHYRONINE 5 MCG TAB PO ×2 (09:16→20:13)
[2018-01-25] MEDS: POLYETHYLENE GLYCOL 17 GM PACKET PO (09:16)
[2018-01-25] MEDS: DOCUSATE SODIUM 10 MG/ML (10ML CUP) NGT ×2 (09:16→20:13)
[2018-01-25] MEDS: ENOXAPARIN 80 MG/0.8 ML SYG SC ×2 (09:18→20:14)
[2018-01-25] MEDS: COLLAGENASE 5 GM (UD JAR) TOP (09:18)
[2018-01-25] MEDS: CEFTRIAXONE 1 GM/50 ML (PMX) 50 ML IVPB (11:59)
[2018-01-25] MEDS: MAGNESIUM SULFATE 2 GM/50 ML 50 ML IVPB (15:49)
[2018-01-25] MEDS: ACETAMINOPHEN 650MG/20.3ML CUP NGT (20:17)
[2018-01-26] MEDS: INSULIN ASPART [NOVOLOG] 3 ML PEN SC ×6 (01:00→21:00)
[2018-01-26] MEDS: COLLAGENASE 5 GM (UD JAR) TOP (02:15)
[2018-01-26] MEDS: LORAZEPAM 2 MG INJ IV ×3 (02:15→23:56)
[2018-01-26] MEDS: morphine 2 MG INJ IV ×5 (04:15→21:19)
[2018-01-26 06:24] LABS: ADD MAN DIFF? NO
[2018-01-26 06:26] LABS: BASOPHILS % 0.2 % (0.0-2.0); EOSINOPHILS # 0.1 10^3/ul (0.0-0.5); EOSINOPHILS % 1.6 % (0.0-7.0); HEMATOCRIT 26.8 % (37.0-47.0); HEMOGLOBIN 8.3 g/dl (12.0-16.0); LYMPHOCYTES # 1.8 10^3/ul (0.8-2.9); LYMPHOCYTES % 29.2 % (15.0-51.0); MEAN CORPUSCULAR HEMOGLOBIN 28.5 pg (29.0-33.0); MEAN CORPUSCULAR VOLUME 92.1 fl (82.0-101.0); MEAN PLATELET VOLUME 9.3 fl (7.4-10.4); MONOCYTE # 0.6 10^3/ul (0.3-0.9); MONOCYTES % 9.7 % (0.0-11.0); NEUTROPHIL # 3.6 10^3/ul (1.6-7.5); PLATELET COUNT 405 10^3/UL (140-415); RED BLOOD COUNT 2.91 10^6/ul (4.20-5.40); RED CELL DISTRIBUTION WIDTH 17.6 % (11.5-14.5)
[2018-01-26 06:26] LABS: WHITE BLOOD COUNT 6.1 10^3/ul (4.8-10.8)
[2018-01-26] MEDS: METOCLOPRAMIDE 10 MG INJ IV ×4 (06:32→22:55)
[2018-01-26] MEDS: MIDODRINE 5 MG TAB GTB ×2 (06:33→13:05)
[2018-01-26] MEDS: LANSOPRAZOLE 30 MG CAP NGT ×2 (06:33→16:57)
[2018-01-26] MEDS: HYDROCODONE/HOMATROPINE 5ML CUP NGT (06:34)
[2018-01-26] MEDS: ERYTHROMYCIN ETHYL SUCC (80 MG/ML PO SYG) NGT ×2 (06:46→13:05)
[2018-01-26] MEDS: LEVOTHYROXINE 200 MCG VIAL IV (06:46)
[2018-01-26 06:47] LABS: ANION GAP 9 (5-13); BLOOD UREA NITROGEN 12 mg/dl (7-20); CALCIUM 8.8 mg/dl (8.4-10.2); CARBON DIOXIDE 27 mmol/L (21-31); CHLORIDE 99 mmol/L (97-110); CREATININE 0.26 mg/dl (0.44-1.00); Estimated GFR > 60 mL/min (>60); GLUCOSE 91 mg/dl (70-220); MAGNESIUM 1.7 mg/dl (1.7-2.5); PHOSPHORUS 3.7 mg/dl (2.5-4.9); POTASSIUM 4.2 mmol/L (3.5-5.1); SODIUM 135 mmol/L (135-144)
[2018-01-26] MEDS: METHOCARBAMOL 750 MG TAB PO ×2 (06:47→13:04)
[2018-01-26] MEDS: LIOTHYRONINE 5 MCG TAB PO (08:27)
[2018-01-26] MEDS: HYDROCORTISONE 5 MG TAB PO ×2 (08:27→13:04)
[2018-01-26] MEDS: DOCUSATE SODIUM 10 MG/ML (10ML CUP) NGT (08:27)
[2018-01-26] MEDS: POLYETHYLENE GLYCOL 17 GM PACKET PO (08:28)
[2018-01-26] MEDS: ENOXAPARIN 80 MG/0.8 ML SYG SC ×2 (09:06→21:33)
[2018-01-26] MEDS: CEFTRIAXONE 1 GM/50 ML (PMX) 50 ML IVPB (12:58)
[2018-01-26] MEDS: FUROSEMIDE 20 MG TAB PO (13:05)
[2018-01-26] MEDS: CALCIUM CARBONATE 500 MG CHEW TAB PO (19:50)
[2018-01-26] MEDS: ONDANSETRON 4 MG INJ IV (21:06)
[2018-01-26] MEDS: AL HYDROX/MG HYDROX/SIMETH 30 ML CUP PO (22:09)
[2018-01-27] MEDS: morphine 4 MG/ML VIAL IV ×3 (00:43→09:57)
[2018-01-27] MEDS: INSULIN ASPART [NOVOLOG] 3 ML PEN SC ×6 (01:00→20:23)
[2018-01-27] MEDS: SOD CHLORIDE 0.9% 1,000 ML IV ×2 (01:02→17:21)
[2018-01-27] MEDS: PANTOPRAZOLE 40 MG INJ IV ×3 (01:02→17:08)
[2018-01-27] MEDS: LIDOCAINE/MYLANTA 40 ML BTL NGT (01:03)
[2018-01-27] MEDS: DOCUSATE SODIUM 10 MG/ML (10ML CUP) NGT ×3 (01:37→20:15)
[2018-01-27] MEDS: HYDROCORTISONE 5 MG TAB PO ×4 (01:38→20:15)
[2018-01-27] MEDS: LIOTHYRONINE 5 MCG TAB PO ×3 (01:38→22:33)
[2018-01-27] MEDS: MIDODRINE 5 MG TAB GTB ×4 (01:38→22:37)
[2018-01-27] MEDS: ERYTHROMYCIN ETHYL SUCC (80 MG/ML PO SYG) NGT ×4 (01:41→22:33)
[2018-01-27] MEDS: METHOCARBAMOL 750 MG TAB PO ×4 (01:41→22:34)
[2018-01-27] MEDS: ACETAMINOPHEN 650MG/20.3ML CUP NGT (03:15)
[2018-01-27] MEDS: METOCLOPRAMIDE 10 MG INJ IV ×3 (05:55→17:09)
[2018-01-27] MEDS: LEVOTHYROXINE 200 MCG VIAL IV (05:56)
[2018-01-27] MEDS: POLYETHYLENE GLYCOL 17 GM PACKET PO (09:13)
[2018-01-27] MEDS: COLLAGENASE 5 GM (UD JAR) TOP (09:13)
[2018-01-27] MEDS: ENOXAPARIN 80 MG/0.8 ML SYG SC ×2 (09:22→20:28)
[2018-01-27 10:28] LABS: ADD MAN DIFF? NO
[2018-01-27 10:31] LABS: BASOPHILS % 0.5 % (0.0-2.0); EOSINOPHILS # 0.1 10^3/ul (0.0-0.5); EOSINOPHILS % 1.3 % (0.0-7.0); HEMATOCRIT 25.5 % (37.0-47.0); HEMOGLOBIN 7.8 g/dl (12.0-16.0); LYMPHOCYTES # 1.4 10^3/ul (0.8-2.9); LYMPHOCYTES % 22.6 % (15.0-51.0); MEAN CORPUSCULAR HGB CONC 30.6 g/dl (32.0-37.0); MEAN CORPUSCULAR VOLUME 91.4 fl (82.0-101.0); MEAN PLATELET VOLUME 9.1 fl (7.4-10.4); MONOCYTE # 0.6 10^3/ul (0.3-0.9); MONOCYTES % 9.6 % (0.0-11.0); NEUTROPHILS % 65.7 % (39.0-77.0); PLATELET COUNT 367 10^3/UL (140-415); RED BLOOD COUNT 2.79 10^6/ul (4.20-5.40); RED CELL DISTRIBUTION WIDTH 17.3 % (11.5-14.5)
[2018-01-27 10:50] LABS: ALANINE AMINOTRANSFERASE 29 IU/L (13-69); ALBUMIN 2.7 g/dl (3.3-4.9); ALBUMIN/GLOBULIN RATIO 0.93; ALKALINE PHOSPHATASE 61 IU/L (42-121); ANION GAP 5 (5-13); ASPARTATE AMINO TRANSFERASE 24 IU/L (15-46); BILIRUBIN,INDIRECT 0.4 mg/dl (0-1.1); BILIRUBIN,TOTAL 0.4 mg/dl (0.2-1.3); BLOOD UREA NITROGEN 12 mg/dl (7-20); CALCIUM 8.7 mg/dl (8.4-10.2); CARBON DIOXIDE 29 mmol/L (21-31); CHLORIDE 100 mmol/L (97-110); CREATININE 0.23 mg/dl (0.44-1.00); Estimated GFR > 60 mL/min (>60); GLUCOSE 95 mg/dl (70-220); SODIUM 134 mmol/L (135-144); TOTAL PROTEIN 5.6 g/dl (6.1-8.1)
[2018-01-27] MEDS ORDERED: GLUCAGON 1 MG INJ IM (20:00)
[2018-01-27] MEDS ORDERED: GLUCOSE GEL 15 GRAM TUBE PO ×2 (20:00)
[2018-01-27] MEDS ORDERED: GLUCOSE GEL 15 GRAM TUBE BUCCAL (20:00)
[2018-01-27] MEDS: DEXTROSE 5%-0.45% NACL 1,000 ML IV (20:12)
[2018-01-28] MEDS: METOCLOPRAMIDE 10 MG INJ IV ×5 (00:20→23:29)
[2018-01-28] MEDS: INSULIN ASPART [NOVOLOG] 3 ML PEN SC ×6 (00:24→21:00)
[2018-01-28] MEDS: morphine 4 MG/ML VIAL IV (00:44)
[2018-01-28] MEDS: MIDODRINE 5 MG TAB GTB ×3 (05:11→22:28)
[2018-01-28] MEDS: ERYTHROMYCIN ETHYL SUCC (80 MG/ML PO SYG) NGT ×3 (05:11→22:29)
[2018-01-28] MEDS: METHOCARBAMOL 750 MG TAB PO ×3 (05:11→22:28)
[2018-01-28] MEDS: PANTOPRAZOLE 40 MG INJ IV ×2 (05:12→17:01)
[2018-01-28 05:28] LABS: ADD MAN DIFF? NO
[2018-01-28 05:30] LABS: WHITE BLOOD COUNT 4.4 10^3/ul (4.8-10.8)
[2018-01-28 05:30] LABS: BASOPHILS % 0.5 % (0.0-2.0); EOSINOPHILS # 0.1 10^3/ul (0.0-0.5); EOSINOPHILS % 1.6 % (0.0-7.0); HEMATOCRIT 25.6 % (37.0-47.0); HEMOGLOBIN 7.9 g/dl (12.0-16.0); LYMPHOCYTES # 1.2 10^3/ul (0.8-2.9); LYMPHOCYTES % 27.8 % (15.0-51.0); MEAN CORPUSCULAR HEMOGLOBIN 28.2 pg (29.0-33.0); MEAN CORPUSCULAR HGB CONC 30.9 g/dl (32.0-37.0); MEAN CORPUSCULAR VOLUME 91.4 fl (82.0-101.0); MEAN PLATELET VOLUME 8.7 fl (7.4-10.4); MONOCYTE # 0.5 10^3/ul (0.3-0.9); MONOCYTES % 11.8 % (0.0-11.0); NEUTROPHIL # 2.6 10^3/ul (1.6-7.5); NEUTROPHILS % 58.1 % (39.0-77.0); PLATELET COUNT 364 10^3/UL (140-415)
[2018-01-28 06:05] LABS: MAGNESIUM 1.7 mg/dl (1.7-2.5)
[2018-01-28 06:05] LABS: PHOSPHORUS 3.5 mg/dl (2.5-4.9)
[2018-01-28 06:12] LABS: ANION GAP 8 (5-13); BLOOD UREA NITROGEN 7 mg/dl (7-20); CALCIUM 8.8 mg/dl (8.4-10.2); CARBON DIOXIDE 25 mmol/L (21-31); CHLORIDE 103 mmol/L (97-110); CREATININE 0.27 mg/dl (0.44-1.00); Estimated GFR > 60 mL/min (>60); GLUCOSE 71 mg/dl (70-220); POTASSIUM 3.6 mmol/L (3.5-5.1); SODIUM 136 mmol/L (135-144)
[2018-01-28] MEDS: LEVOTHYROXINE 100 MCG VIAL IV (06:21)
[2018-01-28] MEDS: LIOTHYRONINE 5 MCG TAB PO ×2 (08:45→21:00)
[2018-01-28] MEDS: COLLAGENASE 5 GM (UD JAR) TOP (08:45)
[2018-01-28] MEDS: DOCUSATE SODIUM 10 MG/ML (10ML CUP) NGT ×2 (08:45→22:28)
[2018-01-28] MEDS: HYDROCORTISONE 5 MG TAB PO ×3 (08:45→21:00)
[2018-01-28] MEDS: DEXTROSE 5%-0.45% NACL 1,000 ML IV ×2 (08:45→18:11)
[2018-01-28] MEDS: POLYETHYLENE GLYCOL 17 GM PACKET PO (08:46)
[2018-01-28] MEDS: ENOXAPARIN 80 MG/0.8 ML SYG SC ×2 (09:04→21:10)
[2018-01-28] MEDS: SOD CHLORIDE 0.9% 1,000 ML IV (09:20)
[2018-01-28] MEDS: DEXTROSE 50% 50 ML SYRINGE IV (20:10)
[2018-01-29] MEDS: SODIUM CHLORIDE 23.4% 77 MEQ in DEXTROSE 10% 1,000 ML IV ×2 (00:25→15:50)
[2018-01-29] MEDS: INSULIN ASPART [NOVOLOG] 3 ML PEN SC ×6 (00:29→20:48)
[2018-01-29] MEDS: morphine 4 MG/ML VIAL IV (02:19)
[2018-01-29] MEDS: LORAZEPAM 2 MG INJ IV ×3 (04:21→17:29)
[2018-01-29 05:08] LABS: ADD MAN DIFF? NO
[2018-01-29 05:16] LABS: BASOPHILS % 0.6 % (0.0-2.0); EOSINOPHILS # 0.1 10^3/ul (0.0-0.5); EOSINOPHILS % 1.2 % (0.0-7.0); HEMATOCRIT 27.4 % (37.0-47.0); HEMOGLOBIN 8.4 g/dl (12.0-16.0); LYMPHOCYTES # 1.5 10^3/ul (0.8-2.9); LYMPHOCYTES % 30.3 % (15.0-51.0); MEAN CORPUSCULAR HEMOGLOBIN 28.1 pg (29.0-33.0); MEAN CORPUSCULAR HGB CONC 30.7 g/dl (32.0-37.0); MEAN CORPUSCULAR VOLUME 91.6 fl (82.0-101.0); MEAN PLATELET VOLUME 8.7 fl (7.4-10.4); MONOCYTE # 0.6 10^3/ul (0.3-0.9); MONOCYTES % 12.4 % (0.0-11.0); NEUTROPHIL # 2.8 10^3/ul (1.6-7.5); NEUTROPHILS % 55.1 % (39.0-77.0); PLATELET COUNT 420 10^3/UL (140-415); RED BLOOD COUNT 2.99 10^6/ul (4.20-5.40)
[2018-01-29 05:36] LABS: MAGNESIUM 1.7 mg/dl (1.7-2.5)
[2018-01-29 05:36] LABS: PHOSPHORUS 3.4 mg/dl (2.5-4.9)
[2018-01-29 05:48] LABS: ALANINE AMINOTRANSFERASE 32 IU/L (13-69); ALBUMIN 2.6 g/dl (3.3-4.9); ALBUMIN/GLOBULIN RATIO 0.89; ALKALINE PHOSPHATASE 63 IU/L (42-121); ANION GAP 6 (5-13); ASPARTATE AMINO TRANSFERASE 23 IU/L (15-46); BILIRUBIN,INDIRECT 0.4 mg/dl (0-1.1); BILIRUBIN,TOTAL 0.4 mg/dl (0.2-1.3); BLOOD UREA NITROGEN 3 mg/dl (7-20); CALCIUM 8.6 mg/dl (8.4-10.2); CARBON DIOXIDE 25 mmol/L (21-31); CHLORIDE 106 mmol/L (97-110); CREATININE 0.22 mg/dl (0.44-1.00); Estimated GFR > 60 mL/min (>60); GLUCOSE 98 mg/dl (70-220); POTASSIUM 3.1 mmol/L (3.5-5.1); SODIUM 137 mmol/L (135-144); TOTAL PROTEIN 5.5 g/dl (6.1-8.1)
[2018-01-29] MEDS: METOCLOPRAMIDE 10 MG INJ IV ×4 (05:50→23:00)
[2018-01-29] MEDS: LEVOTHYROXINE 100 MCG VIAL IV (05:50)
[2018-01-29] MEDS: ERYTHROMYCIN ETHYL SUCC (80 MG/ML PO SYG) NGT ×3 (05:50→22:54)
[2018-01-29] MEDS: PANTOPRAZOLE 40 MG INJ IV ×2 (05:50→17:29)
[2018-01-29] MEDS: METHOCARBAMOL 750 MG TAB PO ×2 (05:51→13:10)
[2018-01-29] MEDS: MIDODRINE 5 MG TAB GTB ×3 (05:51→22:56)
[2018-01-29] MEDS ORDERED: POTASSIUM CHLORIDE (SR) 20 MEQ TAB PO (06:45)
[2018-01-29] MEDS: HYDROCORTISONE 5 MG TAB PO ×3 (09:00→20:47)
[2018-01-29] MEDS: DOCUSATE SODIUM 10 MG/ML (10ML CUP) NGT ×2 (09:00→20:47)
[2018-01-29] MEDS: POTASSIUM CHLORIDE 20 MEQ POWDER FOR ORAL SOLN GTB (09:00)
[2018-01-29] MEDS: LIOTHYRONINE 5 MCG TAB PO ×2 (09:00→20:47)
[2018-01-29] MEDS: COLLAGENASE 5 GM (UD JAR) TOP (09:01)
[2018-01-29] MEDS: POLYETHYLENE GLYCOL 17 GM PACKET PO (09:01)
[2018-01-29] MEDS: ENOXAPARIN 80 MG/0.8 ML SYG SC ×2 (09:14→21:00)
[2018-01-29] MEDS: MAGNESIUM SULFATE 4 GM/100 ML 100 ML IVPB (15:10)
[2018-01-30] MEDS: LORAZEPAM 2 MG INJ IV ×2 (00:19→08:55)
[2018-01-30] MEDS: METHOCARBAMOL 750 MG TAB PO ×4 (00:21→22:31)
[2018-01-30] MEDS: INSULIN ASPART [NOVOLOG] 3 ML PEN SC ×6 (00:22→21:00)
[2018-01-30] MEDS: SODIUM CHLORIDE 23.4% 77 MEQ in DEXTROSE 10% 1,000 ML IV ×3 (01:00→13:35)
[2018-01-30] MEDS: ERYTHROMYCIN ETHYL SUCC (80 MG/ML PO SYG) NGT ×3 (05:47→22:30)
[2018-01-30 05:48] LABS: ADD MAN DIFF? NO
[2018-01-30] MEDS: MIDODRINE 5 MG TAB GTB ×3 (05:48→22:30)
[2018-01-30 05:52] LABS: WHITE BLOOD COUNT 5.4 10^3/ul (4.8-10.8)
[2018-01-30 05:52] LABS: BASOPHILS % 0.6 % (0.0-2.0); EOSINOPHILS % 0.7 % (0.0-7.0); HEMATOCRIT 26.6 % (37.0-47.0); HEMOGLOBIN 8.2 g/dl (12.0-16.0); LYMPHOCYTES # 1.4 10^3/ul (0.8-2.9); LYMPHOCYTES % 25.9 % (15.0-51.0); MEAN CORPUSCULAR HEMOGLOBIN 28.3 pg (29.0-33.0); MEAN CORPUSCULAR HGB CONC 30.8 g/dl (32.0-37.0); MEAN CORPUSCULAR VOLUME 91.7 fl (82.0-101.0); MEAN PLATELET VOLUME 8.5 fl (7.4-10.4); MONOCYTE # 0.6 10^3/ul (0.3-0.9); MONOCYTES % 11.5 % (0.0-11.0); NEUTROPHIL # 3.3 10^3/ul (1.6-7.5); NEUTROPHILS % 60.9 % (39.0-77.0); PLATELET COUNT 416 10^3/UL (140-415)
[2018-01-30] MEDS: POLYETHYLENE GLYCOL 17 GM PACKET PO ×2 (06:01→09:09)
[2018-01-30] MEDS: PANTOPRAZOLE 40 MG INJ IV ×2 (06:01→17:03)
[2018-01-30] MEDS: METOCLOPRAMIDE 10 MG INJ IV ×3 (06:01→17:03)
[2018-01-30] MEDS: LEVOTHYROXINE 100 MCG VIAL IV (06:01)
[2018-01-30 06:09] LABS: INR 0.91; PROTIME 12.3 Sec (11.9-14.9)
[2018-01-30 06:24] LABS: ALANINE AMINOTRANSFERASE 32 IU/L (13-69); ALBUMIN 2.7 g/dl (3.3-4.9); ALBUMIN/GLOBULIN RATIO 1.17; ALKALINE PHOSPHATASE 58 IU/L (42-121); ANION GAP 7 (5-13); ASPARTATE AMINO TRANSFERASE 26 IU/L (15-46); BILIRUBIN,INDIRECT 0.3 mg/dl (0-1.1); BILIRUBIN,TOTAL 0.3 mg/dl (0.2-1.3); BLOOD UREA NITROGEN 3 mg/dl (7-20); CALCIUM 8.2 mg/dl (8.4-10.2); CARBON DIOXIDE 25 mmol/L (21-31); CHLORIDE 105 mmol/L (97-110); CREATININE 0.22 mg/dl (0.44-1.00); Estimated GFR > 60 mL/min (>60); GLUCOSE 103 mg/dl (70-220); MAGNESIUM 2.1 mg/dl (1.7-2.5); PHOSPHORUS 3.2 mg/dl (2.5-4.9); POTASSIUM 3.2 mmol/L (3.5-5.1); SODIUM 137 mmol/L (135-144)
[2018-01-30] MEDS: ENOXAPARIN 80 MG/0.8 ML SYG SC ×2 (09:02→21:20)
[2018-01-30] MEDS: HYDROCORTISONE 5 MG TAB PO ×3 (09:08→21:14)
[2018-01-30] MEDS: LIOTHYRONINE 5 MCG TAB PO ×2 (09:08→21:14)
[2018-01-30] MEDS: DOCUSATE SODIUM 10 MG/ML (10ML CUP) NGT ×2 (09:09→22:30)
[2018-01-30] MEDS: COLLAGENASE 5 GM (UD JAR) TOP (09:10)
[2018-01-30] MEDS: POTASSIUM CHLORIDE 100 ML IVPB (13:35)
[2018-01-30] MEDS: morphine 4 MG/ML VIAL IV ×2 (13:36→17:15)
[2018-01-30] MEDS: FUROSEMIDE 20 MG INJ IV (17:02)
[2018-01-30] MEDS: LACTULOSE 30ML CUP NGT (21:15)
[2018-01-31] MEDS: METOCLOPRAMIDE 10 MG INJ IV ×4 (00:43→17:26)
[2018-01-31] MEDS: INSULIN ASPART [NOVOLOG] 3 ML PEN SC ×6 (01:00→21:00)
[2018-01-31] MEDS: LORAZEPAM 2 MG INJ IV ×2 (03:26→11:19)
[2018-01-31] MEDS: METHOCARBAMOL 750 MG TAB PO ×3 (05:15→21:58)
[2018-01-31] MEDS: PANTOPRAZOLE 40 MG INJ IV ×2 (05:15→17:26)
[2018-01-31] MEDS: MIDODRINE 5 MG TAB GTB ×3 (05:15→21:58)
[2018-01-31] MEDS: LEVOTHYROXINE 100 MCG VIAL IV (05:16)
[2018-01-31] MEDS: ERYTHROMYCIN ETHYL SUCC (80 MG/ML PO SYG) NGT ×3 (05:17→21:58)
[2018-01-31] MEDS: LIOTHYRONINE 5 MCG TAB PO ×2 (08:37→21:57)
[2018-01-31] MEDS: DOCUSATE SODIUM 10 MG/ML (10ML CUP) NGT ×2 (08:37→21:00)
[2018-01-31] MEDS: COLLAGENASE 5 GM (UD JAR) TOP (08:37)
[2018-01-31] MEDS: LACTULOSE 30ML CUP NGT (08:37)
[2018-01-31] MEDS: HYDROCORTISONE 5 MG TAB PO ×3 (08:37→21:57)
[2018-01-31] MEDS: POLYETHYLENE GLYCOL 17 GM PACKET PO (08:37)
[2018-01-31] MEDS: ENOXAPARIN 80 MG/0.8 ML SYG SC ×2 (08:39→22:15)
[2018-01-31] MEDS: SODIUM CHLORIDE 23.4% 77 MEQ in DEXTROSE 10% 1,000 ML IV (10:01)
[2018-01-31] MEDS: BISACODYL 10 MG SUPP PR (14:45)
[2018-02-01] MEDS: METOCLOPRAMIDE 10 MG INJ IV ×4 (00:20→17:39)
[2018-02-01] MEDS: SODIUM CHLORIDE 23.4% 77 MEQ in DEXTROSE 10% 1,000 ML IV ×2 (00:20→15:53)
[2018-02-01] MEDS: INSULIN ASPART [NOVOLOG] 3 ML PEN SC ×6 (01:00→20:35)
[2018-02-01] MEDS: ACETAMINOPHEN 650MG/20.3ML CUP NGT (02:28)
[2018-02-01] MEDS: MIDODRINE 5 MG TAB GTB ×3 (05:42→22:04)
[2018-02-01] MEDS: METHOCARBAMOL 750 MG TAB PO ×3 (05:42→22:04)
[2018-02-01 05:43] LABS: ADD MAN DIFF? NO
[2018-02-01] MEDS: LEVOTHYROXINE 100 MCG VIAL IV (05:44)
[2018-02-01] MEDS: PANTOPRAZOLE 40 MG INJ IV ×2 (05:45→17:39)
[2018-02-01] MEDS: ERYTHROMYCIN ETHYL SUCC (80 MG/ML PO SYG) NGT ×3 (05:45→22:04)
[2018-02-01 05:49] LABS: BASOPHILS % 0.3 % (0.0-2.0); EOSINOPHILS # 0.1 10^3/ul (0.0-0.5); EOSINOPHILS % 0.9 % (0.0-7.0); HEMATOCRIT 28.7 % (37.0-47.0); HEMOGLOBIN 8.7 g/dl (12.0-16.0); LYMPHOCYTES # 1.6 10^3/ul (0.8-2.9); MEAN CORPUSCULAR HGB CONC 30.3 g/dl (32.0-37.0); MEAN CORPUSCULAR VOLUME 92.3 fl (82.0-101.0); MEAN PLATELET VOLUME 8.6 fl (7.4-10.4); MONOCYTE # 0.6 10^3/ul (0.3-0.9); NEUTROPHIL # 4.4 10^3/ul (1.6-7.5); NEUTROPHILS % 65.4 % (39.0-77.0); PLATELET COUNT 407 10^3/UL (140-415); RED BLOOD COUNT 3.11 10^6/ul (4.20-5.40)
[2018-02-01 05:49] LABS: WHITE BLOOD COUNT 6.8 10^3/ul (4.8-10.8)
[2018-02-01 06:24] LABS: ALANINE AMINOTRANSFERASE 25 IU/L (13-69); ALBUMIN 2.7 g/dl (3.3-4.9); ALBUMIN/GLOBULIN RATIO 1.08; ALKALINE PHOSPHATASE 60 IU/L (42-121); ANION GAP 8 (5-13); ASPARTATE AMINO TRANSFERASE 19 IU/L (15-46); BILIRUBIN,INDIRECT 0.1 mg/dl (0-1.1); BILIRUBIN,TOTAL 0.1 mg/dl (0.2-1.3); BLOOD UREA NITROGEN 5 mg/dl (7-20); CALCIUM 8.6 mg/dl (8.4-10.2); CARBON DIOXIDE 26 mmol/L (21-31); CHLORIDE 105 mmol/L (97-110); CREATININE 0.24 mg/dl (0.44-1.00); Estimated GFR > 60 mL/min (>60); GLUCOSE 112 mg/dl (70-220); MAGNESIUM 1.8 mg/dl (1.7-2.5); PHOSPHORUS 3.6 mg/dl (2.5-4.9); POTASSIUM 3.5 mmol/L (3.5-5.1); SODIUM 139 mmol/L (135-144); TOTAL PROTEIN 5.2 g/dl (6.1-8.1)
[2018-02-01] MEDS: DOCUSATE SODIUM 10 MG/ML (10ML CUP) NGT (08:59)
[2018-02-01] MEDS: POLYETHYLENE GLYCOL 17 GM PACKET PO (08:59)
[2018-02-01] MEDS: HYDROCORTISONE 5 MG TAB PO ×3 (09:00→20:40)
[2018-02-01] MEDS: LIOTHYRONINE 5 MCG TAB PO ×2 (09:00→20:19)
[2018-02-01] MEDS: COLLAGENASE 5 GM (UD JAR) TOP (09:04)
[2018-02-01] MEDS: ENOXAPARIN 80 MG/0.8 ML SYG SC ×2 (09:13→20:39)
[2018-02-01] MEDS: HYDROCODONE/HOMATROPINE 5ML CUP NGT (11:14)
[2018-02-01] MEDS: POTASSIUM CHLORIDE 20 MEQ POWDER FOR ORAL SOLN NGT (14:53)
[2018-02-01] MEDS: FUROSEMIDE 20 MG INJ IV (14:57)
[2018-02-01] MEDS: MAGNESIUM SULFATE 4 GM/100 ML 100 ML IVPB (15:45)
[2018-02-01] MEDS: LORAZEPAM 2 MG INJ IV ×2 (15:52→22:48)
[2018-02-01] MEDS: morphine 4 MG/ML VIAL IV (20:19)
[2018-02-02] MEDS: METOCLOPRAMIDE 10 MG INJ IV ×4 (00:55→17:22)
[2018-02-02] MEDS: INSULIN ASPART [NOVOLOG] 3 ML PEN SC ×6 (00:56→21:00)
[2018-02-02] MEDS: morphine 4 MG/ML VIAL IV ×5 (01:38→21:06)
[2018-02-02] MEDS: PANTOPRAZOLE 40 MG INJ IV ×2 (05:54→17:22)
[2018-02-02] MEDS: LEVOTHYROXINE 100 MCG VIAL IV (05:54)
[2018-02-02] MEDS: METHOCARBAMOL 750 MG TAB PO ×3 (05:54→21:06)
[2018-02-02] MEDS: SODIUM CHLORIDE 23.4% 77 MEQ in DEXTROSE 10% 1,000 ML IV ×2 (05:54→12:11)
[2018-02-02] MEDS: MIDODRINE 5 MG TAB GTB ×3 (05:54→21:05)
[2018-02-02] MEDS: ERYTHROMYCIN ETHYL SUCC (80 MG/ML PO SYG) NGT ×3 (06:26→21:06)
[2018-02-02] MEDS: FUROSEMIDE 20 MG TAB NGT (09:00)
[2018-02-02] MEDS: HYDROCORTISONE 5 MG TAB PO ×3 (09:29→21:05)
[2018-02-02] MEDS: LIOTHYRONINE 5 MCG TAB PO ×2 (09:29→21:05)
[2018-02-02] MEDS: POLYETHYLENE GLYCOL 17 GM PACKET PO (09:30)
[2018-02-02] MEDS: COLLAGENASE 5 GM (UD JAR) TOP (09:31)
[2018-02-02] MEDS: ENOXAPARIN 80 MG/0.8 ML SYG SC ×2 (09:32→21:13)
[2018-02-02] MEDS: LACTULOSE 30ML CUP NGT (17:36)
[2018-02-03] MEDS: LORAZEPAM 2 MG INJ IV ×3 (00:27→15:29)
[2018-02-03] MEDS: METOCLOPRAMIDE 10 MG INJ IV ×5 (00:27→23:47)
[2018-02-03] MEDS: INSULIN ASPART [NOVOLOG] 3 ML PEN SC ×6 (00:34→21:00)
[2018-02-03] MEDS: morphine 4 MG/ML VIAL IV ×4 (02:31→23:47)
[2018-02-03] MEDS: SODIUM CHLORIDE 23.4% 77 MEQ in DEXTROSE 10% 1,000 ML IV ×3 (04:30→20:56)
[2018-02-03] MEDS: PANTOPRAZOLE 40 MG INJ IV ×2 (05:53→17:04)
[2018-02-03] MEDS: METHOCARBAMOL 750 MG TAB PO ×3 (05:53→21:32)
[2018-02-03] MEDS: MIDODRINE 5 MG TAB GTB ×3 (05:53→21:33)
[2018-02-03] MEDS: LEVOTHYROXINE 100 MCG VIAL IV (05:53)
[2018-02-03 06:05] LABS: ADD MAN DIFF? NO
[2018-02-03] MEDS: ERYTHROMYCIN ETHYL SUCC (80 MG/ML PO SYG) NGT ×3 (06:05→21:32)
[2018-02-03 06:10] LABS: BASOPHILS % 0.5 % (0.0-2.0); EOSINOPHILS # 0.1 10^3/ul (0.0-0.5); EOSINOPHILS % 1.6 % (0.0-7.0); HEMATOCRIT 27.4 % (37.0-47.0); HEMOGLOBIN 8.3 g/dl (12.0-16.0); LYMPHOCYTES # 1.7 10^3/ul (0.8-2.9); LYMPHOCYTES % 29.2 % (15.0-51.0); MEAN CORPUSCULAR HEMOGLOBIN 27.7 pg (29.0-33.0); MEAN CORPUSCULAR HGB CONC 30.3 g/dl (32.0-37.0); MEAN CORPUSCULAR VOLUME 91.3 fl (82.0-101.0); MEAN PLATELET VOLUME 8.6 fl (7.4-10.4); MONOCYTE # 0.6 10^3/ul (0.3-0.9); MONOCYTES % 10.8 % (0.0-11.0); NEUTROPHIL # 3.3 10^3/ul (1.6-7.5); NEUTROPHILS % 57.5 % (39.0-77.0); PLATELET COUNT 352 10^3/UL (140-415); RED CELL DISTRIBUTION WIDTH 16.7 % (11.5-14.5)
[2018-02-03 06:10] LABS: WHITE BLOOD COUNT 5.7 10^3/ul (4.8-10.8)
[2018-02-03 07:01] LABS: ALANINE AMINOTRANSFERASE 27 IU/L (13-69); ALBUMIN 2.6 g/dl (3.3-4.9); ALBUMIN/GLOBULIN RATIO 0.92; ALKALINE PHOSPHATASE 55 IU/L (42-121); ANION GAP 6 (5-13); ASPARTATE AMINO TRANSFERASE 26 IU/L (15-46); BILIRUBIN,INDIRECT 0.2 mg/dl (0-1.1); BILIRUBIN,TOTAL 0.2 mg/dl (0.2-1.3); BLOOD UREA NITROGEN 7 mg/dl (7-20); CALCIUM 8.8 mg/dl (8.4-10.2); CARBON DIOXIDE 27 mmol/L (21-31); CHLORIDE 105 mmol/L (97-110); CREATININE 0.22 mg/dl (0.44-1.00); Estimated GFR > 60 mL/min (>60); GLUCOSE 114 mg/dl (70-220); MAGNESIUM 1.8 mg/dl (1.7-2.5); PHOSPHORUS 4.1 mg/dl (2.5-4.9); SODIUM 138 mmol/L (135-144); TOTAL PROTEIN 5.4 g/dl (6.1-8.1)
[2018-02-03] MEDS: DEXTROSE 50% 50 ML SYRINGE IV (08:24)
[2018-02-03] MEDS: ENOXAPARIN 80 MG/0.8 ML SYG SC ×2 (08:37→21:34)
[2018-02-03] MEDS: FUROSEMIDE 20 MG TAB NGT (09:00)
[2018-02-03] MEDS: HYDROCORTISONE 5 MG TAB PO ×3 (11:09→21:32)
[2018-02-03] MEDS: LIOTHYRONINE 5 MCG TAB PO ×2 (11:10→21:32)
[2018-02-03] MEDS: POLYETHYLENE GLYCOL 17 GM PACKET PO (11:10)
[2018-02-03] MEDS: COLLAGENASE 5 GM (UD JAR) TOP (12:26)
[2018-02-04] MEDS: LORAZEPAM 2 MG INJ IV ×2 (00:01→15:09)
[2018-02-04] MEDS: INSULIN ASPART [NOVOLOG] 3 ML PEN SC ×6 (01:00→21:00)
[2018-02-04] MEDS: SODIUM CHLORIDE 23.4% 77 MEQ in DEXTROSE 10% 1,000 ML IV ×2 (01:39→15:22)
[2018-02-04] MEDS: morphine 4 MG/ML VIAL IV ×5 (04:16→22:14)
[2018-02-04] MEDS: ERYTHROMYCIN ETHYL SUCC (80 MG/ML PO SYG) NGT ×3 (06:29→22:00)
[2018-02-04] MEDS: LEVOTHYROXINE 100 MCG VIAL IV (06:29)
[2018-02-04] MEDS: METOCLOPRAMIDE 10 MG INJ IV ×3 (06:30→17:36)
[2018-02-04] MEDS: METHOCARBAMOL 750 MG TAB PO ×3 (06:30→22:00)
[2018-02-04] MEDS: MIDODRINE 5 MG TAB GTB ×3 (06:30→22:07)
[2018-02-04] MEDS: PANTOPRAZOLE 40 MG INJ IV ×2 (06:45→17:36)
[2018-02-04] MEDS: HYDROCORTISONE 5 MG TAB PO ×3 (08:57→22:08)
[2018-02-04] MEDS: LIOTHYRONINE 5 MCG TAB PO ×2 (08:57→22:07)
[2018-02-04] MEDS: COLLAGENASE 5 GM (UD JAR) TOP (08:58)
[2018-02-04] MEDS: POLYETHYLENE GLYCOL 17 GM PACKET PO (08:58)
[2018-02-04] MEDS: FUROSEMIDE 20 MG TAB NGT (08:59)
[2018-02-04] MEDS: ENOXAPARIN 80 MG/0.8 ML SYG SC ×2 (09:02→22:11)
[2018-02-05] MEDS: LORAZEPAM 2 MG INJ IV ×2 (00:42→16:23)
[2018-02-05] MEDS: METOCLOPRAMIDE 10 MG INJ IV ×4 (00:53→17:42)
[2018-02-05] MEDS: INSULIN ASPART [NOVOLOG] 3 ML PEN SC ×6 (01:00→21:00)
[2018-02-05] MEDS: PANTOPRAZOLE 40 MG INJ IV ×2 (06:00→17:42)
[2018-02-05] MEDS: ERYTHROMYCIN ETHYL SUCC (80 MG/ML PO SYG) NGT ×3 (07:43→22:00)
[2018-02-05] MEDS: MIDODRINE 5 MG TAB GTB ×3 (07:44→22:00)
[2018-02-05] MEDS: LEVOTHYROXINE 100 MCG VIAL IV (07:44)
[2018-02-05] MEDS: SODIUM CHLORIDE 23.4% 77 MEQ in DEXTROSE 10% 1,000 ML IV ×2 (07:45→21:21)
[2018-02-05] MEDS: METHOCARBAMOL 750 MG TAB PO ×3 (07:45→22:23)
[2018-02-05] MEDS: LIOTHYRONINE 5 MCG TAB PO ×2 (09:00→21:00)
[2018-02-05] MEDS: POLYETHYLENE GLYCOL 17 GM PACKET PO (09:00)
[2018-02-05] MEDS: FUROSEMIDE 20 MG TAB NGT (09:00)
[2018-02-05] MEDS: HYDROCORTISONE 5 MG TAB PO ×3 (09:00→21:00)
[2018-02-05] MEDS: morphine 4 MG/ML VIAL IV ×4 (09:25→22:47)
[2018-02-05] MEDS: ENOXAPARIN 80 MG/0.8 ML SYG SC ×2 (09:26→22:26)
[2018-02-05] MEDS: COLLAGENASE 5 GM (UD JAR) TOP (09:31)
[2018-02-05] MEDS: MAGNESIUM SULFATE 1 GM/D5W 100 ML IVPB (17:43)
[2018-02-06] MEDS: INSULIN ASPART [NOVOLOG] 3 ML PEN SC ×6 (01:00→21:00)
[2018-02-06] MEDS: morphine 4 MG/ML VIAL IV ×5 (02:54→21:09)
[2018-02-06] MEDS: DEXTROSE 50% 50 ML SYRINGE IV ×3 (03:42→13:30)
[2018-02-06] MEDS: METHOCARBAMOL 750 MG TAB PO ×3 (06:00→21:05)
[2018-02-06] MEDS: MIDODRINE 5 MG TAB GTB ×3 (06:00→21:05)
[2018-02-06] MEDS: ERYTHROMYCIN ETHYL SUCC (80 MG/ML PO SYG) NGT ×3 (06:00→21:03)
[2018-02-06] MEDS: PANTOPRAZOLE 40 MG INJ IV ×2 (06:32→17:03)
[2018-02-06] MEDS: METOCLOPRAMIDE 10 MG INJ IV ×5 (06:32→23:13)
[2018-02-06] MEDS: LEVOTHYROXINE 100 MCG VIAL IV (06:32)
[2018-02-06] MEDS: FUROSEMIDE 20 MG TAB NGT (07:48)
[2018-02-06 07:49] LABS: ADD MAN DIFF? NO
[2018-02-06] MEDS: HYDROCORTISONE 5 MG TAB PO ×3 (07:49→21:05)
[2018-02-06] MEDS: POLYETHYLENE GLYCOL 17 GM PACKET PO (07:50)
[2018-02-06] MEDS: LIOTHYRONINE 5 MCG TAB PO ×2 (07:50→21:03)
[2018-02-06 07:56] LABS: BASOPHILS % 0.6 % (0.0-2.0); EOSINOPHILS # 0.1 10^3/ul (0.0-0.5); EOSINOPHILS % 2.4 % (0.0-7.0); HEMATOCRIT 27.5 % (37.0-47.0); HEMOGLOBIN 8.3 g/dl (12.0-16.0); LYMPHOCYTES # 1.4 10^3/ul (0.8-2.9); LYMPHOCYTES % 26.7 % (15.0-51.0); MEAN CORPUSCULAR HEMOGLOBIN 27.3 pg (29.0-33.0); MEAN CORPUSCULAR HGB CONC 30.2 g/dl (32.0-37.0); MEAN CORPUSCULAR VOLUME 90.5 fl (82.0-101.0); MEAN PLATELET VOLUME 8.8 fl (7.4-10.4); MONOCYTE # 0.7 10^3/ul (0.3-0.9); MONOCYTES % 12.3 % (0.0-11.0); NEUTROPHIL # 3.1 10^3/ul (1.6-7.5); NEUTROPHILS % 57.6 % (39.0-77.0); PLATELET COUNT 310 10^3/UL (140-415); RED BLOOD COUNT 3.04 10^6/ul (4.20-5.40); RED CELL DISTRIBUTION WIDTH 16.4 % (11.5-14.5)
[2018-02-06 07:56] LABS: WHITE BLOOD COUNT 5.4 10^3/ul (4.8-10.8)
[2018-02-06 08:16] LABS: MAGNESIUM 1.9 mg/dl (1.7-2.5)
[2018-02-06 08:16] LABS: PHOSPHORUS 3.6 mg/dl (2.5-4.9)
[2018-02-06 08:18] LABS: ALANINE AMINOTRANSFERASE 33 IU/L (13-69); ALBUMIN 2.6 g/dl (3.3-4.9); ALBUMIN/GLOBULIN RATIO 1.08; ALKALINE PHOSPHATASE 58 IU/L (42-121); ANION GAP 7 (5-13); ASPARTATE AMINO TRANSFERASE 27 IU/L (15-46); BILIRUBIN,INDIRECT 0.2 mg/dl (0-1.1); BILIRUBIN,TOTAL 0.2 mg/dl (0.2-1.3); BLOOD UREA NITROGEN 8 mg/dl (7-20); CALCIUM 8.3 mg/dl (8.4-10.2); CARBON DIOXIDE 26 mmol/L (21-31); CHLORIDE 101 mmol/L (97-110); CREATININE 0.16 mg/dl (0.44-1.00); Estimated GFR > 60 mL/min (>60); GLUCOSE 298 mg/dl (70-220); POTASSIUM 3.5 mmol/L (3.5-5.1); SODIUM 134 mmol/L (135-144)
[2018-02-06] MEDS: ENOXAPARIN 80 MG/0.8 ML SYG SC ×2 (09:51→21:15)
[2018-02-06] MEDS: COLLAGENASE 5 GM (UD JAR) TOP (10:15)
[2018-02-06] MEDS: SODIUM CHLORIDE 23.4% 77 MEQ in DEXTROSE 10% 1,000 ML IV (12:18)
[2018-02-06] MEDS: LACTULOSE 30ML CUP NGT (17:03)
[2018-02-06] MEDS: LORAZEPAM 2 MG INJ IV ×2 (18:44→23:11)
[2018-02-06] MEDS: ACETAMINOPHEN 650MG/20.3ML CUP NGT (21:23)
[2018-02-07] MEDS: INSULIN ASPART [NOVOLOG] 3 ML PEN SC ×6 (01:00→21:00)
[2018-02-07] MEDS: SODIUM CHLORIDE 23.4% 77 MEQ in DEXTROSE 10% 1,000 ML IV ×2 (01:36→17:49)
[2018-02-07] MEDS: morphine 4 MG/ML VIAL IV ×6 (01:36→22:52)
[2018-02-07] MEDS: MIDODRINE 5 MG TAB GTB ×3 (06:00→21:06)
[2018-02-07] MEDS: METOCLOPRAMIDE 10 MG INJ IV ×3 (06:04→17:50)
[2018-02-07] MEDS: METHOCARBAMOL 750 MG TAB PO ×3 (06:04→21:05)
[2018-02-07] MEDS: PANTOPRAZOLE 40 MG INJ IV ×2 (06:05→17:50)
[2018-02-07] MEDS: LEVOTHYROXINE 100 MCG VIAL IV (06:05)
[2018-02-07] MEDS: ERYTHROMYCIN ETHYL SUCC (80 MG/ML PO SYG) NGT ×3 (06:05→21:05)
[2018-02-07 06:07] LABS: WHITE BLOOD COUNT 6.5 10^3/ul (4.8-10.8)
[2018-02-07 06:07] LABS: ADD MAN DIFF? NO; BASOPHILS % 0.3 % (0.0-2.0); EOSINOPHILS # 0.1 10^3/ul (0.0-0.5); EOSINOPHILS % 1.1 % (0.0-7.0); HEMATOCRIT 28.5 % (37.0-47.0); HEMOGLOBIN 8.8 g/dl (12.0-16.0); LYMPHOCYTES # 1.7 10^3/ul (0.8-2.9); MEAN CORPUSCULAR HEMOGLOBIN 27.8 pg (29.0-33.0); MEAN CORPUSCULAR HGB CONC 30.9 g/dl (32.0-37.0); MEAN CORPUSCULAR VOLUME 89.9 fl (82.0-101.0); MEAN PLATELET VOLUME 8.8 fl (7.4-10.4); MONOCYTE # 0.7 10^3/ul (0.3-0.9); MONOCYTES % 11.1 % (0.0-11.0); PLATELET COUNT 335 10^3/UL (140-415); RED BLOOD COUNT 3.17 10^6/ul (4.20-5.40); RED CELL DISTRIBUTION WIDTH 15.9 % (11.5-14.5)
[2018-02-07] MEDS: DEXTROSE 50% 50 ML SYRINGE IV (06:25)
[2018-02-07 07:10] LABS: PHOSPHORUS 4.1 mg/dl (2.5-4.9)
[2018-02-07 07:10] LABS: MAGNESIUM 1.7 mg/dl (1.7-2.5)
[2018-02-07 07:14] LABS: ALANINE AMINOTRANSFERASE 31 IU/L (13-69); ALBUMIN 2.7 g/dl (3.3-4.9); ALBUMIN/GLOBULIN RATIO 0.87; ALKALINE PHOSPHATASE 69 IU/L (42-121); ANION GAP 4 (5-13); ASPARTATE AMINO TRANSFERASE 20 IU/L (15-46); BILIRUBIN,INDIRECT 0.3 mg/dl (0-1.1); BILIRUBIN,TOTAL 0.3 mg/dl (0.2-1.3); BLOOD UREA NITROGEN 7 mg/dl (7-20); CALCIUM 9.1 mg/dl (8.4-10.2); CARBON DIOXIDE 27 mmol/L (21-31); CHLORIDE 104 mmol/L (97-110); CREATININE 0.24 mg/dl (0.44-1.00); Estimated GFR > 60 mL/min (>60); GLUCOSE 95 mg/dl (70-220); POTASSIUM 3.5 mmol/L (3.5-5.1); SODIUM 135 mmol/L (135-144); TOTAL PROTEIN 5.8 g/dl (6.1-8.1)
[2018-02-07] MEDS: POLYETHYLENE GLYCOL 17 GM PACKET PO (09:00)
[2018-02-07] MEDS: LACTULOSE 30ML CUP NGT (09:16)
[2018-02-07] MEDS: COLLAGENASE 5 GM (UD JAR) TOP (09:17)
[2018-02-07] MEDS: LIOTHYRONINE 5 MCG TAB PO ×2 (09:18→21:06)
[2018-02-07] MEDS: HYDROCORTISONE 5 MG TAB PO ×3 (09:18→21:05)
[2018-02-07] MEDS: FUROSEMIDE 20 MG TAB NGT (09:18)
[2018-02-07] MEDS: ENOXAPARIN 80 MG/0.8 ML SYG SC ×2 (09:27→21:25)
[2018-02-07] MEDS: LORAZEPAM 2 MG INJ IV ×2 (12:24→21:01)
[2018-02-07] MEDS: MAGNESIUM SULFATE 2 GM/50 ML 50 ML IVPB (13:36)
[2018-02-07] MEDS: POTASSIUM CHLORIDE 20 MEQ POWDER FOR ORAL SOLN NGT (13:37)
[2018-02-07] MEDS: ONDANSETRON 4 MG INJ IV (21:01)
[2018-02-08] MEDS: METOCLOPRAMIDE 10 MG INJ IV ×5 (00:27→23:02)
[2018-02-08] MEDS: LORAZEPAM 2 MG INJ IV ×2 (02:48→18:01)
[2018-02-08] MEDS: INSULIN ASPART [NOVOLOG] 3 ML PEN SC ×6 (03:47→21:00)
[2018-02-08] MEDS: METHOCARBAMOL 750 MG TAB PO ×3 (05:40→23:02)
[2018-02-08] MEDS: PANTOPRAZOLE 40 MG INJ IV ×2 (05:40→18:01)
[2018-02-08] MEDS: morphine 4 MG/ML VIAL IV ×4 (05:40→20:58)
[2018-02-08] MEDS: ERYTHROMYCIN ETHYL SUCC (80 MG/ML PO SYG) NGT ×3 (05:40→23:01)
[2018-02-08] MEDS: MIDODRINE 5 MG TAB GTB ×2 (05:40→15:37)
[2018-02-08] MEDS: LEVOTHYROXINE 100 MCG VIAL IV (05:40)
[2018-02-08 06:20] LABS: HEMATOCRIT 34.3 % (37.0-47.0); HEMOGLOBIN 10.3 g/dl (12.0-16.0); MEAN PLATELET VOLUME 9.4 fl (7.4-10.4); PLATELET COUNT 415 10^3/UL (140-415); RED BLOOD COUNT 3.81 10^6/ul (4.20-5.40); RED CELL DISTRIBUTION WIDTH 15.9 % (11.5-14.5)
[2018-02-08 06:20] LABS: WHITE BLOOD COUNT 9.5 10^3/ul (4.8-10.8)
[2018-02-08 06:37] LABS: ADD MAN DIFF? YES; POSITIVE DIFF @See below
[2018-02-08 06:45] LABS: MAGNESIUM 1.7 mg/dl (1.7-2.5)
[2018-02-08 06:45] LABS: PHOSPHORUS 3.9 mg/dl (2.5-4.9)
[2018-02-08 07:09] LABS: ANION GAP 8 (5-13); BLOOD UREA NITROGEN 9 mg/dl (7-20); CALCIUM 8.9 mg/dl (8.4-10.2); CARBON DIOXIDE 24 mmol/L (21-31); CHLORIDE 101 mmol/L (97-110); CREATININE 0.22 mg/dl (0.44-1.00); Estimated GFR > 60 mL/min (>60); GLUCOSE 277 mg/dl (70-220); POTASSIUM 3.8 mmol/L (3.5-5.1); SODIUM 133 mmol/L (135-144)
[2018-02-08] MEDS: FUROSEMIDE 20 MG TAB NGT (09:00)
[2018-02-08 09:05] LABS: ANISOCYTOSIS 1+ (0-0); BAND NEUTROPHILS % (M) 11 % (0-4); BASOPHILS % (M) 1 % (0-2); LYMPHOCYTES #M 0.5 10^3/ul (0.8-2.9); LYMPHOCYTES % (M) 6 % (15-51); MICROCYTOSIS 1+ (0-0); MONOCYTE #M 0.6 10^3/ul (0.3-0.9); MONOCYTES % (M) 7 % (0-11); PLATELET ESTIMATE NORMAL; POLYCHROMASIA 2+ (0-0); SEG NEUT #M 7.2 10^3/ul (1.6-7.5); SEGMENTED NEUTROPHILS (M) % 75 % (39-77); SMUDGE%M 3 % (0-0)
[2018-02-08] MEDS: POLYETHYLENE GLYCOL 17 GM PACKET PO (09:27)
[2018-02-08] MEDS: SODIUM CHLORIDE 23.4% 77 MEQ in DEXTROSE 10% 1,000 ML IV ×2 (09:27→23:02)
[2018-02-08] MEDS: COLLAGENASE 5 GM (UD JAR) TOP (09:27)
[2018-02-08] MEDS: LACTULOSE 30ML CUP NGT (09:27)
[2018-02-08] MEDS: ONDANSETRON 4 MG INJ IV (09:28)
[2018-02-08] MEDS: LIOTHYRONINE 5 MCG TAB PO ×2 (09:28→20:59)
[2018-02-08] MEDS: HYDROCORTISONE 5 MG TAB PO ×3 (09:28→20:59)
[2018-02-08] MEDS: ENOXAPARIN 80 MG/0.8 ML SYG SC ×2 (09:30→21:26)
[2018-02-08] MEDS: CEFEPIME 1GM/50 ML (PMX) 50 ML IVPB ×2 (15:36→20:58)
[2018-02-08] MEDS: POTASSIUM CHLORIDE 20 MEQ POWDER FOR ORAL SOLN NGT (16:30)
[2018-02-08] MEDS: MAGNESIUM SULFATE 4 GM/100 ML 100 ML IVPB (18:01)
[2018-02-08] MEDS: ACETAMINOPHEN 650MG/20.3ML CUP NGT (20:58)
[2018-02-08] MEDS: AMIODARONE 200 MG TAB NGT (20:59)
[2018-02-09] MEDS: INSULIN ASPART [NOVOLOG] 3 ML PEN SC ×6 (01:00→20:26)
[2018-02-09] MEDS: morphine 4 MG/ML VIAL IV ×3 (01:11→20:35)
[2018-02-09] MEDS: LORAZEPAM 2 MG INJ IV ×2 (03:39→19:27)
[2018-02-09] MEDS: PANTOPRAZOLE 40 MG INJ IV ×2 (05:14→17:23)
[2018-02-09] MEDS: METOCLOPRAMIDE 10 MG INJ IV ×3 (05:14→17:24)
[2018-02-09] MEDS: MIDODRINE 5 MG TAB GTB ×3 (05:15→20:11)
[2018-02-09] MEDS: LEVOTHYROXINE 100 MCG VIAL IV (05:15)
[2018-02-09] MEDS: ERYTHROMYCIN ETHYL SUCC (80 MG/ML PO SYG) NGT ×3 (05:15→20:26)
[2018-02-09] MEDS: METHOCARBAMOL 750 MG TAB PO ×3 (05:15→20:26)
[2018-02-09] MEDS: DEXTROSE 50% 50 ML SYRINGE IV (05:47)
[2018-02-09 08:30] LABS: WHITE BLOOD COUNT 6.4 10^3/ul (4.8-10.8)
[2018-02-09 08:30] LABS: HEMATOCRIT 29.2 % (37.0-47.0); HEMOGLOBIN 8.7 g/dl (12.0-16.0); MEAN CORPUSCULAR HEMOGLOBIN 26.9 pg (29.0-33.0); MEAN CORPUSCULAR HGB CONC 29.8 g/dl (32.0-37.0); MEAN CORPUSCULAR VOLUME 90.1 fl (82.0-101.0); MEAN PLATELET VOLUME 9.5 fl (7.4-10.4); PLATELET COUNT 277 10^3/UL (140-415); RED BLOOD COUNT 3.24 10^6/ul (4.20-5.40)
[2018-02-09 08:46] LABS: ALANINE AMINOTRANSFERASE 24 IU/L (13-69); ALBUMIN 2.3 g/dl (3.3-4.9); ALBUMIN/GLOBULIN RATIO 0.88; ALKALINE PHOSPHATASE 66 IU/L (42-121); ANION GAP 6 (5-13); ASPARTATE AMINO TRANSFERASE 23 IU/L (15-46); BILIRUBIN,INDIRECT 0.4 mg/dl (0-1.1); BILIRUBIN,TOTAL 0.4 mg/dl (0.2-1.3); BLOOD UREA NITROGEN 10 mg/dl (7-20); CALCIUM 8.4 mg/dl (8.4-10.2); CARBON DIOXIDE 25 mmol/L (21-31); CHLORIDE 103 mmol/L (97-110); CREATININE 0.21 mg/dl (0.44-1.00); Estimated GFR > 60 mL/min (>60); GLUCOSE 114 mg/dl (70-220); POTASSIUM 4.3 mmol/L (3.5-5.1); SODIUM 134 mmol/L (135-144); TOTAL PROTEIN 4.9 g/dl (6.1-8.1)
[2018-02-09] MEDS: POLYETHYLENE GLYCOL 17 GM PACKET PO (08:52)
[2018-02-09] MEDS: FUROSEMIDE 20 MG TAB NGT (08:53)
[2018-02-09] MEDS: LIOTHYRONINE 5 MCG TAB PO ×2 (08:53→20:12)
[2018-02-09] MEDS: HYDROCORTISONE 5 MG TAB PO ×3 (08:53→20:11)
[2018-02-09] MEDS: COLLAGENASE 5 GM (UD JAR) TOP (08:53)
[2018-02-09] MEDS: AMIODARONE 200 MG TAB NGT ×2 (08:54→20:12)
[2018-02-09] MEDS: CEFEPIME 1GM/50 ML (PMX) 50 ML IVPB (08:54)
[2018-02-09 08:56] LABS: ADD MAN DIFF? YES; POSITIVE DIFF @See below
[2018-02-09] MEDS: ENOXAPARIN 80 MG/0.8 ML SYG SC ×2 (09:01→20:15)
[2018-02-09 09:19] LABS: MAGNESIUM 2.2 mg/dl (1.7-2.5)
[2018-02-09 09:19] LABS: PHOSPHORUS 3.5 mg/dl (2.5-4.9)
[2018-02-09 09:51] LABS: ANISOCYTOSIS 1+ (0-0); BAND NEUTROPHILS #M 0.5 10^3/ul (0.0-0.6); BAND NEUTROPHILS % (M) 9 % (0-4); BASOPHILS % (M) 1 % (0-2); GIANT THROMBO% (M) 1 % (0-0); LYMPHOCYTES #M 0.8 10^3/ul (0.8-2.9); LYMPHOCYTES % (M) 13 % (15-51); MICROCYTOSIS 1+ (0-0); MONOCYTE #M 0.3 10^3/ul (0.3-0.9); MONOCYTES % (M) 6 % (0-11); PLATELET ESTIMATE NORMAL; POLYCHROMASIA 2+ (0-0); REACTIVE LYMPHOCYTES #M 0.1 10^3/ul (0.0-0.0); REACTIVE LYMPHOCYTES% (M) 2 % (0-0); SEG NEUT #M 4.4 10^3/ul (1.6-7.5); SEGMENTED NEUTROPHILS (M) % 69 % (39-77); SMUDGE%M 2 % (0-0)
[2018-02-09] MEDS: SODIUM CHLORIDE 23.4% 77 MEQ in DEXTROSE 10% 1,000 ML IV ×2 (12:16→17:24)
[2018-02-09] MEDS: ERTAPENEM SODIUM 1 GM in SOD CHLORIDE 0.9% 100 ML IVPB (13:27)
[2018-02-10] MEDS: METOCLOPRAMIDE 10 MG INJ IV ×4 (00:26→17:34)
[2018-02-10] MEDS: morphine 4 MG/ML VIAL IV ×6 (00:26→20:01)
[2018-02-10] MEDS: INSULIN ASPART [NOVOLOG] 3 ML PEN SC ×6 (00:30→21:00)
[2018-02-10] MEDS: DEXTROSE 50% 50 ML SYRINGE IV ×2 (00:36→04:36)
[2018-02-10] MEDS: LORAZEPAM 2 MG INJ IV ×4 (00:39→21:46)
[2018-02-10] MEDS: SODIUM CHLORIDE 23.4% 77 MEQ in DEXTROSE 10% 1,000 ML IV ×2 (04:22→17:32)
[2018-02-10] MEDS: MIDODRINE 5 MG TAB GTB ×3 (05:41→21:51)
[2018-02-10] MEDS: LEVOTHYROXINE 100 MCG VIAL IV (05:43)
[2018-02-10] MEDS: METHOCARBAMOL 750 MG TAB PO ×3 (05:50→21:49)
[2018-02-10] MEDS: ERYTHROMYCIN ETHYL SUCC (80 MG/ML PO SYG) NGT ×3 (05:50→22:27)
[2018-02-10] MEDS: PANTOPRAZOLE 40 MG INJ IV ×2 (05:53→17:32)
[2018-02-10 06:22] LABS: HEMATOCRIT 26.2 % (37.0-47.0); MEAN CORPUSCULAR HGB CONC 30.5 g/dl (32.0-37.0); MEAN CORPUSCULAR VOLUME 88.5 fl (82.0-101.0); MEAN PLATELET VOLUME 9.3 fl (7.4-10.4); PLATELET COUNT 301 10^3/UL (140-415); RED BLOOD COUNT 2.96 10^6/ul (4.20-5.40); RED CELL DISTRIBUTION WIDTH 15.8 % (11.5-14.5)
[2018-02-10 06:22] LABS: WHITE BLOOD COUNT 5.5 10^3/ul (4.8-10.8)
[2018-02-10 06:28] LABS: ALANINE AMINOTRANSFERASE 25 IU/L (13-69); ALBUMIN 2.3 g/dl (3.3-4.9); ALBUMIN/GLOBULIN RATIO 0.79; ALKALINE PHOSPHATASE 63 IU/L (42-121); ANION GAP 10 (5-13); ASPARTATE AMINO TRANSFERASE 21 IU/L (15-46); BILIRUBIN,INDIRECT 0.4 mg/dl (0-1.1); BILIRUBIN,TOTAL 0.4 mg/dl (0.2-1.3); BLOOD UREA NITROGEN 7 mg/dl (7-20); CALCIUM 8.2 mg/dl (8.4-10.2); CARBON DIOXIDE 23 mmol/L (21-31); CHLORIDE 103 mmol/L (97-110); Estimated GFR > 60 mL/min (>60); GLUCOSE 168 mg/dl (70-220); POTASSIUM 3.4 mmol/L (3.5-5.1); SODIUM 136 mmol/L (135-144); TOTAL PROTEIN 5.2 g/dl (6.1-8.1)
[2018-02-10 06:32] LABS: ADD MAN DIFF? YES; POSITIVE DIFF @See below
[2018-02-10 06:40] LABS: PHOSPHORUS 3.8 mg/dl (2.5-4.9)
[2018-02-10 06:40] LABS: MAGNESIUM 1.6 mg/dl (1.7-2.5)
[2018-02-10 07:30] LABS: ANISOCYTOSIS 1+ (0-0); BAND NEUTROPHILS % (M) 1 % (0-4); EOSINOPHILS % (M) 2 % (0-7); LYMPHOCYTES #M 0.6 10^3/ul (0.8-2.9); LYMPHOCYTES % (M) 12 % (15-51); MICROCYTOSIS 1+ (0-0); MONOCYTE #M 0.1 10^3/ul (0.3-0.9); MONOCYTES % (M) 2 % (0-11); PLATELET ESTIMATE NORMAL; POLYCHROMASIA 1+ (0-0); SEG NEUT #M 4.6 10^3/ul (1.6-7.5); SEGMENTED NEUTROPHILS (M) % 83 % (39-77); SMUDGE%M 12 % (0-0)
[2018-02-10] MEDS: POLYETHYLENE GLYCOL 17 GM PACKET PO (08:35)
[2018-02-10] MEDS: COLLAGENASE 5 GM (UD JAR) TOP (08:35)
[2018-02-10] MEDS: HYDROCORTISONE 5 MG TAB PO ×3 (08:36→21:49)
[2018-02-10] MEDS: LIOTHYRONINE 5 MCG TAB PO ×2 (08:36→21:49)
[2018-02-10] MEDS: AMIODARONE 200 MG TAB NGT ×2 (08:36→21:51)
[2018-02-10] MEDS: FUROSEMIDE 20 MG TAB NGT (09:18)
[2018-02-10] MEDS: ENOXAPARIN 80 MG/0.8 ML SYG SC ×2 (09:21→22:00)
[2018-02-10] MEDS: ERTAPENEM SODIUM 1 GM in SOD CHLORIDE 0.9% 100 ML IVPB (12:04)
[2018-02-10] MEDS: MAGNESIUM SULFATE 2 GM/50 ML 50 ML IVPB (12:04)
[2018-02-10] MEDS: POTASSIUM CHLORIDE 100 ML IVPB (12:04)
[2018-02-11] MEDS: morphine 4 MG/ML VIAL IV ×6 (00:39→21:07)
[2018-02-11] MEDS: METOCLOPRAMIDE 10 MG INJ IV ×4 (00:39→17:14)
[2018-02-11] MEDS: INSULIN ASPART [NOVOLOG] 3 ML PEN SC ×6 (01:00→21:00)
[2018-02-11] MEDS: DEXTROSE 50% 50 ML SYRINGE IV (01:04)
[2018-02-11] MEDS: LORAZEPAM 2 MG INJ IV ×6 (01:54→21:52)
[2018-02-11] MEDS: SODIUM CHLORIDE 23.4% 77 MEQ in DEXTROSE 10% 1,000 ML IV ×2 (02:59→22:46)
[2018-02-11] MEDS: PANTOPRAZOLE 40 MG INJ IV ×2 (05:26→17:14)
[2018-02-11] MEDS: LEVOTHYROXINE 100 MCG VIAL IV (05:26)
[2018-02-11] MEDS: MIDODRINE 5 MG TAB GTB ×3 (05:27→21:08)
[2018-02-11] MEDS: METHOCARBAMOL 750 MG TAB PO ×3 (05:27→21:19)
[2018-02-11] MEDS: ERYTHROMYCIN ETHYL SUCC (80 MG/ML PO SYG) NGT ×3 (05:34→21:19)
[2018-02-11 05:40] LABS: HEMATOCRIT 28.3 % (37.0-47.0); HEMOGLOBIN 8.6 g/dl (12.0-16.0); MEAN CORPUSCULAR HEMOGLOBIN 26.6 pg (29.0-33.0); MEAN CORPUSCULAR HGB CONC 30.4 g/dl (32.0-37.0); MEAN CORPUSCULAR VOLUME 87.6 fl (82.0-101.0); MEAN PLATELET VOLUME 9.1 fl (7.4-10.4); PLATELET COUNT 330 10^3/UL (140-415); RED BLOOD COUNT 3.23 10^6/ul (4.20-5.40)
[2018-02-11 05:40] LABS: WHITE BLOOD COUNT 6.7 10^3/ul (4.8-10.8)
[2018-02-11 05:44] LABS: ADD MAN DIFF? YES; POSITIVE DIFF @See below
[2018-02-11 06:11] LABS: ANION GAP 8 (5-13); BLOOD UREA NITROGEN 6 mg/dl (7-20); CALCIUM 8.3 mg/dl (8.4-10.2); CARBON DIOXIDE 26 mmol/L (21-31); CHLORIDE 101 mmol/L (97-110); Estimated GFR > 60 mL/min (>60); GLUCOSE 123 mg/dl (70-220); POTASSIUM 3.5 mmol/L (3.5-5.1); SODIUM 135 mmol/L (135-144)
[2018-02-11 06:44] LABS: MAGNESIUM 1.8 mg/dl (1.7-2.5)
[2018-02-11 06:44] LABS: PHOSPHORUS 2.9 mg/dl (2.5-4.9)
[2018-02-11 07:50] LABS: ANISOCYTOSIS 1+ (0-0); LYMPHOCYTES #M 0.7 10^3/ul (0.8-2.9); LYMPHOCYTES % (M) 11 % (15-51); MONOCYTE #M 0.4 10^3/ul (0.3-0.9); MONOCYTES % (M) 7 % (0-11); PLATELET ESTIMATE NORMAL; PLATELET MORPHOLOGY COMMENT @See below; POLYCHROMASIA 2+ (0-0); SEGMENTED NEUTROPHILS (M) % 82 % (39-77); SMUDGE%M 2 % (0-0)
[2018-02-11] MEDS: COLLAGENASE 5 GM (UD JAR) TOP (09:32)
[2018-02-11] MEDS: DOCUSATE SODIUM 10 MG/ML (10ML CUP) NGT (09:33)
[2018-02-11] MEDS: ONDANSETRON 4 MG INJ IV ×2 (09:33→16:41)
[2018-02-11] MEDS: POLYETHYLENE GLYCOL 17 GM PACKET PO (09:34)
[2018-02-11] MEDS: AMIODARONE 200 MG TAB NGT ×3 (09:34→21:09)
[2018-02-11] MEDS: HYDROCORTISONE 5 MG TAB PO ×3 (09:34→21:08)
[2018-02-11] MEDS: LIOTHYRONINE 5 MCG TAB PO ×2 (09:34→21:07)
[2018-02-11] MEDS: FUROSEMIDE 20 MG TAB NGT (09:35)
[2018-02-11] MEDS: ENOXAPARIN 80 MG/0.8 ML SYG SC ×2 (09:44→21:56)
[2018-02-11] MEDS ORDERED: AMIODARONE 200 MG TAB NGT (10:52)
[2018-02-11] MEDS: ERTAPENEM SODIUM 1 GM in SOD CHLORIDE 0.9% 100 ML IVPB (12:38)
[2018-02-11] MEDS: POTASSIUM CHLORIDE 20 MEQ POWDER FOR ORAL SOLN NGT (12:40)
[2018-02-11] MEDS: METOPROLOL 25 MG TAB NGT ×2 (12:41→21:08)
[2018-02-11] MEDS: MAGNESIUM SULFATE 3 GM in DEXTROSE 5% 100 ML IVPB (13:41)
[2018-02-12] MEDS: INSULIN ASPART [NOVOLOG] 3 ML PEN SC ×6 (01:00→21:00)
[2018-02-12] MEDS: METOCLOPRAMIDE 10 MG INJ IV ×4 (01:01→17:00)
[2018-02-12] MEDS: morphine 4 MG/ML VIAL IV ×6 (01:02→21:15)
[2018-02-12] MEDS: LORAZEPAM 2 MG INJ IV ×6 (01:45→22:27)
[2018-02-12] MEDS: PANTOPRAZOLE 40 MG INJ IV ×2 (05:13→17:00)
[2018-02-12] MEDS: MIDODRINE 5 MG TAB GTB ×3 (05:15→22:26)
[2018-02-12] MEDS: LEVOTHYROXINE 100 MCG VIAL IV (05:21)
[2018-02-12 05:38] LABS: ADD MAN DIFF? NO
[2018-02-12 05:45] LABS: BASOPHILS % 0.2 % (0.0-2.0); EOSINOPHILS % 0.5 % (0.0-7.0); HEMATOCRIT 24.2 % (37.0-47.0); HEMOGLOBIN 7.4 g/dl (12.0-16.0); LYMPHOCYTES # 1.1 10^3/ul (0.8-2.9); LYMPHOCYTES % 17.2 % (15.0-51.0); MEAN CORPUSCULAR HGB CONC 30.6 g/dl (32.0-37.0); MEAN CORPUSCULAR VOLUME 88.3 fl (82.0-101.0); MEAN PLATELET VOLUME 9.9 fl (7.4-10.4); MONOCYTE # 0.7 10^3/ul (0.3-0.9); MONOCYTES % 11.1 % (0.0-11.0); NEUTROPHIL # 4.4 10^3/ul (1.6-7.5); NEUTROPHILS % 70.4 % (39.0-77.0); PLATELET COUNT 206 10^3/UL (140-415); RED BLOOD COUNT 2.74 10^6/ul (4.20-5.40); RED CELL DISTRIBUTION WIDTH 16.4 % (11.5-14.5)
[2018-02-12 05:45] LABS: WHITE BLOOD COUNT 6.3 10^3/ul (4.8-10.8)
[2018-02-12] MEDS: METHOCARBAMOL 750 MG TAB PO ×3 (05:47→21:22)
[2018-02-12] MEDS: ERYTHROMYCIN ETHYL SUCC (80 MG/ML PO SYG) NGT ×3 (05:47→21:14)
[2018-02-12 06:17] LABS: ANION GAP 4 (5-13); BLOOD UREA NITROGEN 6 mg/dl (7-20); CALCIUM 7.4 mg/dl (8.4-10.2); CARBON DIOXIDE 24 mmol/L (21-31); CHLORIDE 101 mmol/L (97-110); CREATININE 0.19 mg/dl (0.44-1.00); Estimated GFR > 60 mL/min (>60); POTASSIUM 3.7 mmol/L (3.5-5.1); SODIUM 129 mmol/L (135-144)
[2018-02-12 06:18] LABS: MAGNESIUM 1.8 mg/dl (1.7-2.5)
[2018-02-12 06:18] LABS: PHOSPHORUS 2.8 mg/dl (2.5-4.9)
[2018-02-12 06:35] LABS: GLUCOSE 775 mg/dl (70-220)
[2018-02-12 07:53] LABS: ALANINE AMINOTRANSFERASE 16 IU/L (13-69); ALBUMIN 2.5 g/dl (3.3-4.9); ALKALINE PHOSPHATASE 64 IU/L (42-121); ANION GAP 6 (5-13); ASPARTATE AMINO TRANSFERASE 13 IU/L (15-46); BILIRUBIN,INDIRECT 0.2 mg/dl (0-1.1); BILIRUBIN,TOTAL 0.2 mg/dl (0.2-1.3); BLOOD UREA NITROGEN 7 mg/dl (7-20); CALCIUM 8.4 mg/dl (8.4-10.2); CARBON DIOXIDE 27 mmol/L (21-31); CHLORIDE 101 mmol/L (97-110); Estimated GFR > 60 mL/min (>60); GLUCOSE 137 mg/dl (70-220); POTASSIUM 4.1 mmol/L (3.5-5.1); SODIUM 134 mmol/L (135-144)
[2018-02-12] MEDS: COLLAGENASE 5 GM (UD JAR) TOP (09:00)
[2018-02-12] MEDS: LACTULOSE 30ML CUP NGT (09:19)
[2018-02-12] MEDS: DOCUSATE SODIUM 10 MG/ML (10ML CUP) NGT (09:19)
[2018-02-12] MEDS: POLYETHYLENE GLYCOL 17 GM PACKET PO (09:19)
[2018-02-12] MEDS: HYDROCORTISONE 5 MG TAB PO ×3 (09:19→21:22)
[2018-02-12] MEDS: FUROSEMIDE 20 MG TAB NGT (09:20)
[2018-02-12] MEDS: AMIODARONE 200 MG TAB NGT ×2 (09:20→21:22)
[2018-02-12] MEDS: METOPROLOL 25 MG TAB NGT ×2 (09:20→21:00)
[2018-02-12] MEDS: LIOTHYRONINE 5 MCG TAB PO ×2 (09:21→21:22)
[2018-02-12] MEDS: ENOXAPARIN 80 MG/0.8 ML SYG SC ×2 (09:30→21:28)
[2018-02-12] MEDS: SODIUM CHLORIDE 23.4% 77 MEQ in DEXTROSE 10% 1,000 ML IV (12:37)
[2018-02-12] MEDS: ERTAPENEM SODIUM 1 GM in SOD CHLORIDE 0.9% 100 ML IVPB (13:04)
[2018-02-12 13:27] LABS: ADD MAN DIFF? NO
[2018-02-12 13:28] LABS: WHITE BLOOD COUNT 6.9 10^3/ul (4.8-10.8)
[2018-02-12 13:28] LABS: BASOPHILS % 0.1 % (0.0-2.0); EOSINOPHILS % 0.4 % (0.0-7.0); HEMATOCRIT 27.9 % (37.0-47.0); HEMOGLOBIN 8.4 g/dl (12.0-16.0); LYMPHOCYTES # 0.8 10^3/ul (0.8-2.9); LYMPHOCYTES % 11.2 % (15.0-51.0); MEAN CORPUSCULAR HEMOGLOBIN 26.6 pg (29.0-33.0); MEAN CORPUSCULAR HGB CONC 30.1 g/dl (32.0-37.0); MEAN CORPUSCULAR VOLUME 88.3 fl (82.0-101.0); MEAN PLATELET VOLUME 8.8 fl (7.4-10.4); MONOCYTE # 0.6 10^3/ul (0.3-0.9); NEUTROPHIL # 5.4 10^3/ul (1.6-7.5); NEUTROPHILS % 79.6 % (39.0-77.0); PLATELET COUNT 340 10^3/UL (140-415); RED BLOOD COUNT 3.16 10^6/ul (4.20-5.40)
[2018-02-12] MEDS: MAGNESIUM SULFATE 2 GM/50 ML 50 ML IVPB (17:00)
[2018-02-13] MEDS: morphine 4 MG/ML VIAL IV ×5 (00:45→23:08)
[2018-02-13] MEDS: METOCLOPRAMIDE 10 MG INJ IV ×2 (00:45→05:19)
[2018-02-13] MEDS: INSULIN ASPART [NOVOLOG] 3 ML PEN SC ×6 (00:55→21:00)
[2018-02-13] MEDS: LORAZEPAM 2 MG INJ IV ×3 (02:42→18:12)
[2018-02-13] MEDS: ALTEPLASE (CATHFLO) 2 MG INJ CATHETER (03:31)
[2018-02-13] MEDS: MIDODRINE 5 MG TAB GTB ×3 (05:17→21:30)
[2018-02-13] MEDS: METHOCARBAMOL 750 MG TAB PO ×3 (05:19→21:30)
[2018-02-13] MEDS: PANTOPRAZOLE 40 MG INJ IV ×2 (05:19→18:12)
[2018-02-13] MEDS: ERYTHROMYCIN ETHYL SUCC (80 MG/ML PO SYG) NGT ×3 (05:19→21:30)
[2018-02-13 05:39] LABS: ADD MAN DIFF? NO
[2018-02-13 05:43] LABS: BASOPHILS % 0.2 % (0.0-2.0); EOSINOPHILS % 0.6 % (0.0-7.0); HEMOGLOBIN 7.6 g/dl (12.0-16.0); LYMPHOCYTES # 1.1 10^3/ul (0.8-2.9); LYMPHOCYTES % 17.8 % (15.0-51.0); MEAN CORPUSCULAR HEMOGLOBIN 26.7 pg (29.0-33.0); MEAN CORPUSCULAR HGB CONC 30.4 g/dl (32.0-37.0); MEAN CORPUSCULAR VOLUME 87.7 fl (82.0-101.0); MEAN PLATELET VOLUME 9.3 fl (7.4-10.4); MONOCYTE # 0.8 10^3/ul (0.3-0.9); MONOCYTES % 12.1 % (0.0-11.0); NEUTROPHIL # 4.3 10^3/ul (1.6-7.5); NEUTROPHILS % 68.7 % (39.0-77.0); PLATELET COUNT 343 10^3/UL (140-415); RED BLOOD COUNT 2.85 10^6/ul (4.20-5.40); RED CELL DISTRIBUTION WIDTH 16.2 % (11.5-14.5)
[2018-02-13 05:43] LABS: WHITE BLOOD COUNT 6.3 10^3/ul (4.8-10.8)
[2018-02-13] MEDS: SODIUM CHLORIDE 23.4% 77 MEQ in DEXTROSE 10% 1,000 ML IV ×2 (05:54→21:16)
[2018-02-13 06:15] LABS: MAGNESIUM 1.9 mg/dl (1.7-2.5)
[2018-02-13 06:15] LABS: ANION GAP 7 (5-13); BLOOD UREA NITROGEN 7 mg/dl (7-20); CALCIUM 8.4 mg/dl (8.4-10.2); CARBON DIOXIDE 27 mmol/L (21-31); CHLORIDE 101 mmol/L (97-110); CREATININE 0.19 mg/dl (0.44-1.00); Estimated GFR > 60 mL/min (>60); GLUCOSE 136 mg/dl (70-220); POTASSIUM 3.8 mmol/L (3.5-5.1); SODIUM 135 mmol/L (135-144)
[2018-02-13] MEDS: LEVOTHYROXINE 100 MCG TAB PO (06:31)
[2018-02-13] MEDS: COLLAGENASE 5 GM (UD JAR) TOP (09:02)
[2018-02-13] MEDS: ENOXAPARIN 80 MG/0.8 ML SYG SC (09:04)
[2018-02-13] MEDS: POLYETHYLENE GLYCOL 17 GM PACKET PO ×2 (09:11→21:22)
[2018-02-13] MEDS: LIOTHYRONINE 5 MCG TAB PO ×2 (09:12→21:22)
[2018-02-13] MEDS: HYDROCORTISONE 5 MG TAB PO ×3 (09:12→21:22)
[2018-02-13] MEDS: AMIODARONE 200 MG TAB NGT ×2 (09:12→21:21)
[2018-02-13] MEDS: FUROSEMIDE 20 MG TAB NGT (09:13)
[2018-02-13] MEDS: METOPROLOL 25 MG TAB NGT ×2 (09:13→21:00)
[2018-02-13] MEDS: LACTULOSE 30ML CUP NGT (13:14)
[2018-02-13] MEDS: METOCLOPRAMIDE (1 MG/ML) 10 ML CUP PO ×3 (13:17→21:22)
[2018-02-13] MEDS: ERTAPENEM SODIUM 1 GM in SOD CHLORIDE 0.9% 100 ML IVPB (13:17)
[2018-02-13] MEDS: PREGABALIN 25 MG CAP PO ×2 (18:12→21:22)
[2018-02-14] MEDS: LORAZEPAM 2 MG INJ IV ×5 (00:32→23:11)
[2018-02-14] MEDS: INSULIN ASPART [NOVOLOG] 3 ML PEN SC ×6 (00:41→21:00)
[2018-02-14] MEDS: morphine 4 MG/ML VIAL IV ×5 (02:49→20:14)
[2018-02-14] MEDS: MIDODRINE 5 MG TAB GTB ×3 (05:11→22:00)
[2018-02-14] MEDS: ERYTHROMYCIN ETHYL SUCC (80 MG/ML PO SYG) NGT ×3 (05:12→23:06)
[2018-02-14] MEDS: METHOCARBAMOL 750 MG TAB PO ×3 (05:12→23:10)
[2018-02-14] MEDS: PANTOPRAZOLE 40 MG INJ IV ×2 (05:16→17:21)
[2018-02-14] MEDS: LEVOTHYROXINE 100 MCG TAB PO (07:20)
[2018-02-14] MEDS: FUROSEMIDE 20 MG TAB NGT (09:00)
[2018-02-14] MEDS: METOPROLOL 25 MG TAB NGT ×2 (09:00→20:17)
[2018-02-14] MEDS: HYDROCORTISONE 5 MG TAB PO ×2 (09:00→20:18)
[2018-02-14] MEDS: LIOTHYRONINE 5 MCG TAB PO ×2 (09:01→20:17)
[2018-02-14] MEDS: METOCLOPRAMIDE (1 MG/ML) 10 ML CUP PO ×4 (09:05→20:14)
[2018-02-14] MEDS: COLLAGENASE 5 GM (UD JAR) TOP (09:05)
[2018-02-14] MEDS: POLYETHYLENE GLYCOL 17 GM PACKET PO ×2 (09:06→20:18)
[2018-02-14] MEDS: AMIODARONE 200 MG TAB NGT ×2 (09:07→20:16)
[2018-02-14] MEDS: PREGABALIN 25 MG CAP PO ×3 (09:13→20:17)
[2018-02-14] MEDS: SODIUM CHLORIDE 23.4% 77 MEQ in DEXTROSE 10% 1,000 ML IV (10:06)
[2018-02-14] MEDS: ERTAPENEM SODIUM 1 GM in SOD CHLORIDE 0.9% 100 ML IVPB (12:04)
[2018-02-14] MEDS: HYDROCORTISONE 20 MG TAB PO (14:50)
[2018-02-14] MEDS: ENOXAPARIN 80 MG/0.8 ML SYG SC ×2 (15:17→20:57)
[2018-02-14] MEDS: MAGNESIUM SULFATE 2 GM/50 ML 50 ML IVPB (16:09)
[2018-02-15] MEDS: INSULIN ASPART [NOVOLOG] 3 ML PEN SC ×6 (01:00→21:00)
[2018-02-15] MEDS: morphine 4 MG/ML VIAL IV ×5 (01:06→21:36)
[2018-02-15] MEDS: SODIUM CHLORIDE 23.4% 77 MEQ in DEXTROSE 10% 1,000 ML IV ×2 (01:06→13:27)
[2018-02-15] MEDS: LORAZEPAM 2 MG INJ IV ×3 (03:20→23:24)
[2018-02-15] MEDS: ERYTHROMYCIN ETHYL SUCC (80 MG/ML PO SYG) NGT ×3 (05:54→21:32)
[2018-02-15] MEDS: METHOCARBAMOL 750 MG TAB PO ×3 (05:54→22:12)
[2018-02-15] MEDS: MIDODRINE 5 MG TAB GTB ×3 (05:56→21:31)
[2018-02-15] MEDS: PANTOPRAZOLE 40 MG INJ IV (05:56)
[2018-02-15] MEDS: LEVOTHYROXINE 100 MCG TAB PO (06:00)
[2018-02-15 08:25] LABS: ADD MAN DIFF? NO
[2018-02-15 08:28] LABS: BASOPHILS % 0.3 % (0.0-2.0); EOSINOPHILS # 0.1 10^3/ul (0.0-0.5); EOSINOPHILS % 1.6 % (0.0-7.0); HEMATOCRIT 26.4 % (37.0-47.0); HEMOGLOBIN 8.1 g/dl (12.0-16.0); LYMPHOCYTES # 1.3 10^3/ul (0.8-2.9); LYMPHOCYTES % 20.1 % (15.0-51.0); MEAN CORPUSCULAR HEMOGLOBIN 26.8 pg (29.0-33.0); MEAN CORPUSCULAR HGB CONC 30.7 g/dl (32.0-37.0); MEAN CORPUSCULAR VOLUME 87.4 fl (82.0-101.0); MEAN PLATELET VOLUME 9.1 fl (7.4-10.4); MONOCYTES % 15.3 % (0.0-11.0); NEUTROPHILS % 61.9 % (39.0-77.0); PLATELET COUNT 378 10^3/UL (140-415); RED BLOOD COUNT 3.02 10^6/ul (4.20-5.40); RED CELL DISTRIBUTION WIDTH 16.4 % (11.5-14.5)
[2018-02-15 08:28] LABS: WHITE BLOOD COUNT 6.4 10^3/ul (4.8-10.8)
[2018-02-15] MEDS: METOCLOPRAMIDE (1 MG/ML) 10 ML CUP PO ×4 (08:51→21:35)
[2018-02-15 08:52] LABS: ANION GAP 6 (5-13); BLOOD UREA NITROGEN 8 mg/dl (7-20); CALCIUM 8.6 mg/dl (8.4-10.2); CARBON DIOXIDE 27 mmol/L (21-31); CHLORIDE 102 mmol/L (97-110); CREATININE 0.21 mg/dl (0.44-1.00); Estimated GFR > 60 mL/min (>60); GLUCOSE 139 mg/dl (70-220); POTASSIUM 3.8 mmol/L (3.5-5.1); SODIUM 135 mmol/L (135-144)
[2018-02-15] MEDS: COLLAGENASE 5 GM (UD JAR) TOP (08:52)
[2018-02-15] MEDS: POLYETHYLENE GLYCOL 17 GM PACKET PO ×2 (08:52→21:00)
[2018-02-15] MEDS: PREGABALIN 25 MG CAP PO ×3 (08:53→22:12)
[2018-02-15] MEDS: FUROSEMIDE 20 MG TAB NGT (08:53)
[2018-02-15] MEDS: AMIODARONE 200 MG TAB NGT ×2 (08:53→21:35)
[2018-02-15] MEDS: HYDROCORTISONE 5 MG TAB PO ×2 (08:53→22:11)
[2018-02-15] MEDS: METOPROLOL 25 MG TAB NGT ×2 (08:53→21:34)
[2018-02-15] MEDS: LIOTHYRONINE 5 MCG TAB PO ×2 (08:53→21:33)
[2018-02-15] MEDS: ENOXAPARIN 80 MG/0.8 ML SYG SC ×2 (09:06→21:56)
[2018-02-15] MEDS: ERTAPENEM SODIUM 1 GM in SOD CHLORIDE 0.9% 100 ML IVPB (13:27)
[2018-02-15] MEDS: HYDROCORTISONE 20 MG TAB PO (13:27)
[2018-02-15] MEDS: LANSOPRAZOLE 30 MG CAP NGT (17:18)
[2018-02-15] MEDS: BISACODYL 10 MG SUPP PR (17:18)
[2018-02-16] MEDS: INSULIN ASPART [NOVOLOG] 3 ML PEN SC ×6 (01:00→21:00)
[2018-02-16] MEDS: morphine 4 MG/ML VIAL IV ×6 (02:50→23:09)
[2018-02-16] MEDS: ERYTHROMYCIN ETHYL SUCC (80 MG/ML PO SYG) NGT ×3 (04:34→21:39)
[2018-02-16] MEDS: MIDODRINE 5 MG TAB GTB ×3 (04:34→21:30)
[2018-02-16] MEDS: LANSOPRAZOLE 30 MG CAP NGT ×2 (04:34→17:24)
[2018-02-16] MEDS: METHOCARBAMOL 750 MG TAB PO ×3 (04:35→21:30)
[2018-02-16] MEDS: LEVOTHYROXINE 100 MCG TAB PO (04:35)
[2018-02-16] MEDS: LORAZEPAM 2 MG INJ IV ×5 (04:55→21:25)
[2018-02-16] MEDS: SODIUM CHLORIDE 23.4% 77 MEQ in DEXTROSE 10% 1,000 ML IV ×2 (04:55→18:47)
[2018-02-16] MEDS: COLLAGENASE 5 GM (UD JAR) TOP (09:18)
[2018-02-16] MEDS: ENOXAPARIN 80 MG/0.8 ML SYG SC ×2 (09:31→21:34)
[2018-02-16] MEDS: METOCLOPRAMIDE (1 MG/ML) 10 ML CUP PO ×4 (12:24→21:31)
[2018-02-16] MEDS: PREGABALIN 25 MG CAP PO ×3 (12:24→21:31)
[2018-02-16] MEDS: ERTAPENEM SODIUM 1 GM in SOD CHLORIDE 0.9% 100 ML IVPB (12:25)
[2018-02-16] MEDS: HYDROCORTISONE 5 MG TAB PO ×2 (12:25→21:30)
[2018-02-16] MEDS: POLYETHYLENE GLYCOL 17 GM PACKET PO ×2 (12:25→21:36)
[2018-02-16] MEDS: FUROSEMIDE 20 MG TAB NGT (12:26)
[2018-02-16] MEDS: LIOTHYRONINE 5 MCG TAB PO ×2 (12:26→21:31)
[2018-02-16] MEDS: AMIODARONE 200 MG TAB NGT ×2 (12:26→21:33)
[2018-02-16] MEDS: METOPROLOL 25 MG TAB NGT ×2 (12:27→21:32)
[2018-02-16] MEDS: HYDROCORTISONE 20 MG TAB PO (12:31)
[2018-02-17] MEDS: SODIUM CHLORIDE 23.4% 77 MEQ in DEXTROSE 10% 1,000 ML IV ×2 (00:02→15:34)
[2018-02-17] MEDS: INSULIN ASPART [NOVOLOG] 3 ML PEN SC ×5 (00:54→17:00)
[2018-02-17] MEDS: LORAZEPAM 2 MG INJ IV ×6 (01:34→22:03)
[2018-02-17] MEDS: morphine 4 MG/ML VIAL IV ×5 (03:16→19:32)
[2018-02-17] MEDS: METHOCARBAMOL 750 MG TAB PO ×3 (05:37→21:50)
[2018-02-17] MEDS: MIDODRINE 5 MG TAB GTB ×3 (05:37→21:50)
[2018-02-17] MEDS: ERYTHROMYCIN ETHYL SUCC (80 MG/ML PO SYG) NGT ×3 (05:38→21:51)
[2018-02-17] MEDS: LANSOPRAZOLE 30 MG CAP NGT ×2 (05:38→17:41)
[2018-02-17] MEDS: LEVOTHYROXINE 100 MCG TAB PO (06:15)
[2018-02-17] MEDS: COLLAGENASE 5 GM (UD JAR) TOP (08:30)
[2018-02-17] MEDS: POLYETHYLENE GLYCOL 17 GM PACKET PO ×2 (08:31→21:49)
[2018-02-17] MEDS: METOCLOPRAMIDE (1 MG/ML) 10 ML CUP PO ×4 (08:31→21:48)
[2018-02-17] MEDS: PREGABALIN 25 MG CAP PO ×3 (08:31→21:50)
[2018-02-17] MEDS: FUROSEMIDE 20 MG TAB NGT (08:32)
[2018-02-17] MEDS: METOPROLOL 25 MG TAB NGT ×2 (08:32→21:51)
[2018-02-17] MEDS: AMIODARONE 200 MG TAB NGT ×2 (08:32→21:51)
[2018-02-17] MEDS: LIOTHYRONINE 5 MCG TAB PO ×2 (08:33→21:50)
[2018-02-17] MEDS: HYDROCORTISONE 5 MG TAB PO ×2 (08:44→21:50)
[2018-02-17] MEDS: ENOXAPARIN 80 MG/0.8 ML SYG SC ×2 (08:52→22:30)
[2018-02-17] MEDS: HYDROCORTISONE 20 MG TAB PO (13:39)
[2018-02-17] MEDS: ERTAPENEM SODIUM 1 GM in SOD CHLORIDE 0.9% 100 ML IVPB (13:43)
[2018-02-18] MEDS: morphine 4 MG/ML VIAL IV ×6 (01:07→22:24)
[2018-02-18] MEDS: INSULIN ASPART [NOVOLOG] 3 ML PEN SC ×4 (01:26→17:23)
[2018-02-18] MEDS: LORAZEPAM 2 MG INJ IV ×4 (03:08→20:37)
[2018-02-18] MEDS: ERYTHROMYCIN ETHYL SUCC (80 MG/ML PO SYG) NGT ×3 (05:26→22:35)
[2018-02-18] MEDS: METHOCARBAMOL 750 MG TAB PO ×3 (05:26→22:24)
[2018-02-18] MEDS: LEVOTHYROXINE 100 MCG TAB PO (05:26)
[2018-02-18] MEDS: MIDODRINE 5 MG TAB GTB ×3 (05:27→22:00)
[2018-02-18] MEDS: LANSOPRAZOLE 30 MG CAP NGT ×2 (05:27→17:24)
[2018-02-18] MEDS: PREGABALIN 25 MG CAP PO ×3 (08:26→22:23)
[2018-02-18] MEDS: METOCLOPRAMIDE (1 MG/ML) 10 ML CUP PO ×4 (08:26→22:36)
[2018-02-18] MEDS: COLLAGENASE 5 GM (UD JAR) TOP (08:26)
[2018-02-18] MEDS: HYDROCORTISONE 5 MG TAB PO ×2 (08:27→22:23)
[2018-02-18] MEDS: METOPROLOL 25 MG TAB NGT ×2 (08:28→22:36)
[2018-02-18] MEDS: POLYETHYLENE GLYCOL 17 GM PACKET PO ×2 (08:29→22:25)
[2018-02-18] MEDS: LIOTHYRONINE 5 MCG TAB PO ×2 (08:29→22:22)
[2018-02-18] MEDS: AMIODARONE 200 MG TAB NGT (08:29)
[2018-02-18] MEDS: ENOXAPARIN 80 MG/0.8 ML SYG SC ×2 (08:35→22:31)
[2018-02-18] MEDS: ONDANSETRON 4 MG INJ IV ×2 (09:44→15:28)
[2018-02-18] MEDS: ERTAPENEM SODIUM 1 GM in SOD CHLORIDE 0.9% 100 ML IVPB (13:37)
[2018-02-18] MEDS: HYDROCORTISONE 20 MG TAB PO (13:38)
[2018-02-18] MEDS: LACTOBACILLUS RHAMNOSUS CAP NGT (22:23)
[2018-02-18] MEDS: DICLOFENAC SODIUM 1% GEL 100 GM TUBE TP (22:25)
[2018-02-19] MEDS: LORAZEPAM 2 MG INJ IV ×5 (00:49→19:43)
[2018-02-19] MEDS: morphine 4 MG/ML VIAL IV ×5 (03:35→23:18)
[2018-02-19] MEDS: MIDODRINE 5 MG TAB GTB ×3 (05:14→22:00)
[2018-02-19] MEDS: METHOCARBAMOL 750 MG TAB PO ×3 (05:14→22:00)
[2018-02-19] MEDS: LANSOPRAZOLE 30 MG CAP NGT ×2 (05:14→16:58)
[2018-02-19] MEDS: INSULIN ASPART [NOVOLOG] 3 ML PEN SC ×5 (05:15→23:17)
[2018-02-19] MEDS: ERYTHROMYCIN ETHYL SUCC (80 MG/ML PO SYG) NGT ×3 (05:20→22:17)
[2018-02-19 06:05] LABS: ADD MAN DIFF? NO
[2018-02-19 06:10] LABS: WHITE BLOOD COUNT 9.5 10^3/ul (4.8-10.8)
[2018-02-19 06:10] LABS: BASOPHILS % 0.2 % (0.0-2.0); EOSINOPHILS # 0.1 10^3/ul (0.0-0.5); EOSINOPHILS % 0.7 % (0.0-7.0); HEMATOCRIT 28.2 % (37.0-47.0); HEMOGLOBIN 8.7 g/dl (12.0-16.0); LYMPHOCYTES # 2.2 10^3/ul (0.8-2.9); LYMPHOCYTES % 23.2 % (15.0-51.0); MEAN CORPUSCULAR HGB CONC 30.9 g/dl (32.0-37.0); MEAN CORPUSCULAR VOLUME 84.2 fl (82.0-101.0); MEAN PLATELET VOLUME 8.9 fl (7.4-10.4); MONOCYTE # 0.8 10^3/ul (0.3-0.9); MONOCYTES % 8.6 % (0.0-11.0); NEUTROPHIL # 6.4 10^3/ul (1.6-7.5); NEUTROPHILS % 66.9 % (39.0-77.0); PLATELET COUNT 561 10^3/UL (140-415); RED BLOOD COUNT 3.35 10^6/ul (4.20-5.40); RED CELL DISTRIBUTION WIDTH 16.7 % (11.5-14.5)
[2018-02-19] MEDS: LEVOTHYROXINE 100 MCG TAB PO (06:24)
[2018-02-19 06:37] LABS: ALANINE AMINOTRANSFERASE 37 IU/L (13-69); ALBUMIN 2.7 g/dl (3.3-4.9); ALKALINE PHOSPHATASE 64 IU/L (42-121); ANION GAP 7 (5-13); ASPARTATE AMINO TRANSFERASE 34 IU/L (15-46); BILIRUBIN,INDIRECT 0.1 mg/dl (0-1.1); BILIRUBIN,TOTAL 0.1 mg/dl (0.2-1.3); BLOOD UREA NITROGEN 15 mg/dl (7-20); CALCIUM 8.9 mg/dl (8.4-10.2); CARBON DIOXIDE 31 mmol/L (21-31); CHLORIDE 97 mmol/L (97-110); CREATININE 0.25 mg/dl (0.44-1.00); Estimated GFR > 60 mL/min (>60); GLUCOSE 94 mg/dl (70-220); POTASSIUM 4.4 mmol/L (3.5-5.1); SODIUM 135 mmol/L (135-144); TOTAL PROTEIN 5.7 g/dl (6.1-8.1)
[2018-02-19 06:44] LABS: INR 0.93; PROTIME 12.6 Sec (11.9-14.9)
[2018-02-19 06:47] LABS: FREE T4 (FREE THYROXINE) 2.11 ng/dl (0.78-2.44)
[2018-02-19 07:00] LABS: PREALBUMIN 9.9 mg/dl (17.6-36.0)
[2018-02-19 07:02] LABS: TRIIODOTHYRONINE 0.71 ng/ml (0.97-1.69)
[2018-02-19] MEDS: LIOTHYRONINE 5 MCG TAB PO ×2 (08:54→22:00)
[2018-02-19] MEDS: AMIODARONE 200 MG TAB NGT (08:55)
[2018-02-19] MEDS: METOCLOPRAMIDE (1 MG/ML) 10 ML CUP PO ×4 (08:57→21:59)
[2018-02-19] MEDS: HYDROCORTISONE 5 MG TAB PO ×2 (08:57→22:01)
[2018-02-19] MEDS: LACTOBACILLUS RHAMNOSUS CAP NGT ×2 (08:57→22:01)
[2018-02-19] MEDS: POLYETHYLENE GLYCOL 17 GM PACKET PO ×2 (08:57→22:01)
[2018-02-19] MEDS: DICLOFENAC SODIUM 1% GEL 100 GM TUBE TP ×3 (09:00→21:00)
[2018-02-19] MEDS: COLLAGENASE 5 GM (UD JAR) TOP (09:00)
[2018-02-19] MEDS: PREGABALIN 25 MG CAP PO ×3 (09:04→22:00)
[2018-02-19] MEDS: METOPROLOL 25 MG TAB NGT ×2 (09:21→22:00)
[2018-02-19] MEDS: ENOXAPARIN 80 MG/0.8 ML SYG SC ×2 (09:21→22:21)
[2018-02-19] MEDS: HYDROCORTISONE 20 MG TAB PO (13:14)
[2018-02-19] MEDS: ERTAPENEM SODIUM 1 GM in SOD CHLORIDE 0.9% 100 ML IVPB (13:15)
[2018-02-20] MEDS: morphine 4 MG/ML VIAL IV ×5 (04:24→22:07)
[2018-02-20 05:15] LABS: WHITE BLOOD COUNT 12.1 10^3/ul (4.8-10.8)
[2018-02-20 05:15] LABS: ADD MAN DIFF? NO; BASOPHILS % 0.2 % (0.0-2.0); EOSINOPHILS # 0.1 10^3/ul (0.0-0.5); EOSINOPHILS % 0.7 % (0.0-7.0); HEMATOCRIT 25.7 % (37.0-47.0); LYMPHOCYTES # 1.9 10^3/ul (0.8-2.9); LYMPHOCYTES % 15.5 % (15.0-51.0); MEAN CORPUSCULAR HEMOGLOBIN 26.2 pg (29.0-33.0); MEAN CORPUSCULAR HGB CONC 31.1 g/dl (32.0-37.0); MEAN CORPUSCULAR VOLUME 84.3 fl (82.0-101.0); MEAN PLATELET VOLUME 8.9 fl (7.4-10.4); MONOCYTE # 0.8 10^3/ul (0.3-0.9); MONOCYTES % 6.5 % (0.0-11.0); NEUTROPHIL # 9.3 10^3/ul (1.6-7.5); NEUTROPHILS % 76.6 % (39.0-77.0); PLATELET COUNT 509 10^3/UL (140-415); RED BLOOD COUNT 3.05 10^6/ul (4.20-5.40); RED CELL DISTRIBUTION WIDTH 16.8 % (11.5-14.5)
[2018-02-20] MEDS: INSULIN ASPART [NOVOLOG] 3 ML PEN SC ×4 (06:00→23:57)
[2018-02-20] MEDS: ERYTHROMYCIN ETHYL SUCC (80 MG/ML PO SYG) NGT ×3 (06:07→22:09)
[2018-02-20] MEDS: LANSOPRAZOLE 30 MG CAP NGT ×2 (06:08→17:09)
[2018-02-20] MEDS: MIDODRINE 5 MG TAB GTB ×3 (06:08→22:11)
[2018-02-20] MEDS: METHOCARBAMOL 750 MG TAB PO ×3 (06:09→22:11)
[2018-02-20] MEDS: LEVOTHYROXINE 100 MCG TAB PO (06:09)
[2018-02-20] MEDS: ALTEPLASE (CATHFLO) 2 MG INJ CATHETER (06:12)
[2018-02-20 06:18] LABS: ANION GAP 6 (5-13); BLOOD UREA NITROGEN 14 mg/dl (7-20); CALCIUM 8.6 mg/dl (8.4-10.2); CARBON DIOXIDE 28 mmol/L (21-31); CHLORIDE 100 mmol/L (97-110); CREATININE 0.27 mg/dl (0.44-1.00); Estimated GFR > 60 mL/min (>60); GLUCOSE 92 mg/dl (70-220); POTASSIUM 4.3 mmol/L (3.5-5.1); SODIUM 134 mmol/L (135-144)
[2018-02-20 06:19] LABS: PHOSPHORUS 3.7 mg/dl (2.5-4.9)
[2018-02-20 06:19] LABS: MAGNESIUM 1.9 mg/dl (1.7-2.5)
[2018-02-20] MEDS: METOCLOPRAMIDE (1 MG/ML) 10 ML CUP PO ×4 (08:31→22:10)
[2018-02-20] MEDS: PREGABALIN 25 MG CAP PO ×3 (08:32→22:11)
[2018-02-20] MEDS: METOPROLOL 25 MG TAB NGT ×2 (08:32→22:12)
[2018-02-20] MEDS: LIOTHYRONINE 5 MCG TAB PO ×2 (08:32→22:11)
[2018-02-20] MEDS: HYDROCORTISONE 5 MG TAB PO ×2 (08:32→22:12)
[2018-02-20] MEDS: AMIODARONE 200 MG TAB NGT (08:33)
[2018-02-20] MEDS: LACTOBACILLUS RHAMNOSUS CAP NGT ×2 (08:33→22:11)
[2018-02-20] MEDS: POLYETHYLENE GLYCOL 17 GM PACKET PO ×2 (08:35→22:10)
[2018-02-20] MEDS: ENOXAPARIN 80 MG/0.8 ML SYG SC ×2 (08:47→22:24)
[2018-02-20] MEDS: COLLAGENASE 5 GM (UD JAR) TOP (09:00)
[2018-02-20] MEDS: DICLOFENAC SODIUM 1% GEL 100 GM TUBE TP ×3 (10:19→22:12)
[2018-02-20] MEDS: LORAZEPAM 2 MG INJ IV ×2 (10:20→14:46)
[2018-02-20] MEDS: HYDROCORTISONE 20 MG TAB PO (12:43)
[2018-02-20 15:57] LABS: CK-MB 0.81 ng/ml (0.0-2.4); TROPONIN-I < 0.012 ng/ml (0.000-0.120)
[2018-02-20 16:05] LABS: CREATINE KINASE < 20 IU/L (23-200)
[2018-02-21] MEDS: LORAZEPAM 2 MG INJ IV ×4 (00:52→21:39)
[2018-02-21] MEDS: morphine 4 MG/ML VIAL IV ×6 (01:51→23:30)
[2018-02-21] MEDS: ONDANSETRON 4 MG INJ IV (04:23)
[2018-02-21 05:43] LABS: ADD MAN DIFF? NO
[2018-02-21 05:49] LABS: WHITE BLOOD COUNT 8.6 10^3/ul (4.8-10.8)
[2018-02-21 05:49] LABS: BASOPHILS % 0.1 % (0.0-2.0); EOSINOPHILS # 0.1 10^3/ul (0.0-0.5); EOSINOPHILS % 1.3 % (0.0-7.0); HEMATOCRIT 28.8 % (37.0-47.0); HEMOGLOBIN 8.7 g/dl (12.0-16.0); LYMPHOCYTES # 1.8 10^3/ul (0.8-2.9); LYMPHOCYTES % 21.4 % (15.0-51.0); MEAN CORPUSCULAR HEMOGLOBIN 25.7 pg (29.0-33.0); MEAN CORPUSCULAR HGB CONC 30.2 g/dl (32.0-37.0); MEAN CORPUSCULAR VOLUME 85.2 fl (82.0-101.0); MONOCYTE # 0.8 10^3/ul (0.3-0.9); MONOCYTES % 9.1 % (0.0-11.0); NEUTROPHIL # 5.8 10^3/ul (1.6-7.5); NEUTROPHILS % 67.8 % (39.0-77.0); PLATELET COUNT 598 10^3/UL (140-415); RED BLOOD COUNT 3.38 10^6/ul (4.20-5.40); RED CELL DISTRIBUTION WIDTH 16.5 % (11.5-14.5)
[2018-02-21] MEDS: MIDODRINE 5 MG TAB GTB ×3 (05:53→22:06)
[2018-02-21] MEDS: INSULIN ASPART [NOVOLOG] 3 ML PEN SC ×3 (05:53→17:24)
[2018-02-21 06:15] LABS: ANION GAP 8 (5-13); BLOOD UREA NITROGEN 10 mg/dl (7-20); CALCIUM 8.9 mg/dl (8.4-10.2); CARBON DIOXIDE 30 mmol/L (21-31); CHLORIDE 101 mmol/L (97-110); CREATININE 0.31 mg/dl (0.44-1.00); Estimated GFR > 60 mL/min (>60); GLUCOSE 80 mg/dl (70-220); POTASSIUM 4.1 mmol/L (3.5-5.1); SODIUM 139 mmol/L (135-144)
[2018-02-21] MEDS: LEVOTHYROXINE 100 MCG TAB PO (06:18)
[2018-02-21] MEDS: METHOCARBAMOL 750 MG TAB PO ×3 (06:18→22:06)
[2018-02-21] MEDS: LANSOPRAZOLE 30 MG CAP NGT ×2 (06:18→17:50)
[2018-02-21] MEDS: ERYTHROMYCIN ETHYL SUCC (80 MG/ML PO SYG) NGT ×3 (06:18→22:06)
[2018-02-21] MEDS: COLLAGENASE 5 GM (UD JAR) TOP (08:47)
[2018-02-21] MEDS: METOCLOPRAMIDE (1 MG/ML) 10 ML CUP PO ×4 (08:48→21:22)
[2018-02-21] MEDS: AMIODARONE 200 MG TAB NGT (08:48)
[2018-02-21] MEDS: POLYETHYLENE GLYCOL 17 GM PACKET PO ×2 (08:48→21:21)
[2018-02-21] MEDS: LIOTHYRONINE 5 MCG TAB PO ×2 (08:48→21:23)
[2018-02-21] MEDS: LACTOBACILLUS RHAMNOSUS CAP NGT ×2 (08:48→21:23)
[2018-02-21] MEDS: ENOXAPARIN 80 MG/0.8 ML SYG SC ×2 (08:50→21:46)
[2018-02-21] MEDS: PREGABALIN 25 MG CAP PO ×3 (08:56→21:22)
[2018-02-21] MEDS: METOPROLOL 25 MG TAB NGT ×2 (08:56→21:22)
[2018-02-21] MEDS: DICLOFENAC SODIUM 1% GEL 100 GM TUBE TP ×3 (08:56→21:24)
[2018-02-21] MEDS: HYDROCORTISONE 5 MG TAB PO (12:13)
[2018-02-21] MEDS: HYDROCORTISONE 20 MG TAB PO (14:57)
[2018-02-22] MEDS: ONDANSETRON 4 MG INJ IV (01:48)
[2018-02-22] MEDS: LORAZEPAM 2 MG INJ IV (01:58)
[2018-02-22] MEDS: morphine 4 MG/ML VIAL IV ×5 (03:28→22:15)
[2018-02-22] MEDS: MIDODRINE 5 MG TAB GTB ×3 (05:45→22:00)
[2018-02-22] MEDS: ERYTHROMYCIN ETHYL SUCC (80 MG/ML PO SYG) NGT ×3 (05:45→21:28)
[2018-02-22] MEDS: LANSOPRAZOLE 30 MG CAP NGT ×2 (05:46→18:19)
[2018-02-22] MEDS: INSULIN ASPART [NOVOLOG] 3 ML PEN SC ×4 (05:53→21:00)
[2018-02-22] MEDS: METHOCARBAMOL 750 MG TAB PO ×3 (07:29→21:28)
[2018-02-22] MEDS: LEVOTHYROXINE 100 MCG TAB PO (07:29)
[2018-02-22] MEDS: PREGABALIN 25 MG CAP PO ×3 (08:30→21:28)
[2018-02-22] MEDS: METOCLOPRAMIDE (1 MG/ML) 10 ML CUP PO ×3 (08:31→18:11)
[2018-02-22] MEDS: LACTOBACILLUS RHAMNOSUS CAP NGT ×2 (08:31→21:34)
[2018-02-22] MEDS: LIOTHYRONINE 5 MCG TAB PO ×2 (08:31→21:28)
[2018-02-22] MEDS: AMIODARONE 200 MG TAB NGT (08:31)
[2018-02-22] MEDS: METOPROLOL 25 MG TAB NGT ×2 (08:31→22:22)
[2018-02-22] MEDS: COLLAGENASE 5 GM (UD JAR) TOP (08:32)
[2018-02-22] MEDS: DICLOFENAC SODIUM 1% GEL 100 GM TUBE TP ×3 (08:32→21:29)
[2018-02-22] MEDS: POLYETHYLENE GLYCOL 17 GM PACKET PO ×2 (08:32→21:00)
[2018-02-22] MEDS: ENOXAPARIN 80 MG/0.8 ML SYG SC ×2 (08:39→21:51)
[2018-02-22] MEDS: HYDROmorphONE 1 MG/ML SYG IV (12:07)
[2018-02-22] MEDS: HYDROCORTISONE 20 MG TAB PO (16:16)
[2018-02-22] MEDS: HYDROCORTISONE 5 MG TAB PO (21:28)
[2018-02-23] MEDS: LORAZEPAM 2 MG INJ IV ×4 (00:21→20:18)
[2018-02-23] MEDS: METOCLOPRAMIDE (1 MG/ML) 10 ML CUP PO ×5 (00:24→22:24)
[2018-02-23] MEDS: INSULIN ASPART [NOVOLOG] 3 ML PEN SC ×5 (01:15→23:41)
[2018-02-23] MEDS: morphine 4 MG/ML VIAL IV ×5 (02:35→21:05)
[2018-02-23] MEDS: HYDROmorphONE 1 MG/ML SYG IV (04:02)
[2018-02-23] MEDS: LEVOTHYROXINE 100 MCG TAB PO (05:30)
[2018-02-23] MEDS: METHOCARBAMOL 750 MG TAB PO ×3 (05:30→22:25)
[2018-02-23] MEDS: MIDODRINE 5 MG TAB GTB (05:30)
[2018-02-23] MEDS: ERYTHROMYCIN ETHYL SUCC (80 MG/ML PO SYG) NGT ×3 (05:31→22:24)
[2018-02-23] MEDS: LANSOPRAZOLE 30 MG CAP NGT ×2 (05:31→17:19)
[2018-02-23] MEDS: PREGABALIN 25 MG CAP PO ×3 (09:19→20:22)
[2018-02-23] MEDS: METOPROLOL 25 MG TAB NGT ×2 (09:20→20:24)
[2018-02-23] MEDS: LIOTHYRONINE 5 MCG TAB PO ×2 (09:21→20:23)
[2018-02-23] MEDS: POLYETHYLENE GLYCOL 17 GM PACKET PO ×2 (09:21→20:25)
[2018-02-23] MEDS: LACTOBACILLUS RHAMNOSUS CAP NGT ×2 (09:22→20:23)
[2018-02-23] MEDS: AMIODARONE 200 MG TAB NGT (09:22)
[2018-02-23] MEDS: COLLAGENASE 5 GM (UD JAR) TOP (09:23)
[2018-02-23] MEDS: DICLOFENAC SODIUM 1% GEL 100 GM TUBE TP ×3 (09:23→20:25)
[2018-02-23] MEDS: ENOXAPARIN 80 MG/0.8 ML SYG SC ×2 (09:25→20:35)
[2018-02-23] MEDS ORDERED: MIDODRINE 5 MG TAB GTB (14:30)
[2018-02-23] MEDS: HYDROCORTISONE 20 MG TAB PO (15:30)
[2018-02-23] MEDS: HYDROCORTISONE 5 MG TAB PO (20:23)
[2018-02-24] MEDS: HYDROmorphONE 1 MG/ML SYG IV (00:06)
[2018-02-24] MEDS: LORAZEPAM 2 MG INJ IV ×4 (01:11→17:36)
[2018-02-24] MEDS: ONDANSETRON 4 MG INJ IV (01:11)
[2018-02-24] MEDS: morphine 4 MG/ML VIAL IV ×3 (03:51→12:31)
[2018-02-24] MEDS: LANSOPRAZOLE 30 MG CAP NGT ×2 (06:00→18:27)
[2018-02-24] MEDS: METHOCARBAMOL 750 MG TAB PO ×3 (06:25→21:21)
[2018-02-24] MEDS: LEVOTHYROXINE 100 MCG TAB PO (06:26)
[2018-02-24] MEDS: ERYTHROMYCIN ETHYL SUCC (80 MG/ML PO SYG) NGT ×3 (06:26→21:08)
[2018-02-24] MEDS: INSULIN ASPART [NOVOLOG] 3 ML PEN SC ×4 (06:32→21:00)
[2018-02-24] MEDS: PREGABALIN 25 MG CAP PO ×3 (08:18→21:09)
[2018-02-24] MEDS: METOCLOPRAMIDE (1 MG/ML) 10 ML CUP PO ×4 (08:18→21:10)
[2018-02-24] MEDS: LIOTHYRONINE 5 MCG TAB PO ×2 (08:18→21:08)
[2018-02-24] MEDS: LACTOBACILLUS RHAMNOSUS CAP NGT ×2 (08:18→21:09)
[2018-02-24] MEDS: AMIODARONE 200 MG TAB NGT (08:19)
[2018-02-24] MEDS: METOPROLOL 25 MG TAB NGT ×2 (08:19→21:09)
[2018-02-24] MEDS: POLYETHYLENE GLYCOL 17 GM PACKET PO ×2 (08:19→21:00)
[2018-02-24] MEDS: COLLAGENASE 5 GM (UD JAR) TOP (08:20)
[2018-02-24] MEDS: DICLOFENAC SODIUM 1% GEL 100 GM TUBE TP ×2 (08:20→12:32)
[2018-02-24] MEDS: ENOXAPARIN 80 MG/0.8 ML SYG SC ×2 (08:23→21:14)
[2018-02-24] MEDS: ALBUTEROL/IPRATROPIUM (NEB) 3 ML AMP HHN (08:47)
[2018-02-24] MEDS: HYDROCORTISONE 20 MG TAB PO (12:31)
[2018-02-24] MEDS: SOD CHLORIDE 0.9% 1,000 ML IV (13:02)
[2018-02-24] MEDS: HYDROmorphONE 2 MG/ML SYG IV ×3 (14:48→23:28)
[2018-02-24] MEDS ORDERED: ACETAMINOPHEN 1000MG/100ML IV 100 ML IVPB (15:00)
[2018-02-24] MEDS: METHYLNALTREXONE 12 MG/0.6 ML VIAL SC (17:14)
[2018-02-24] MEDS: HYDROCORTISONE 5 MG TAB PO (21:08)
[2018-02-25] MEDS: INSULIN ASPART [NOVOLOG] 3 ML PEN SC ×6 (01:11→22:28)
[2018-02-25] MEDS: LORAZEPAM 2 MG INJ IV ×4 (04:30→20:43)
[2018-02-25] MEDS: METHOCARBAMOL 750 MG TAB PO ×3 (05:58→22:06)
[2018-02-25] MEDS: LANSOPRAZOLE 30 MG CAP NGT ×2 (05:58→17:56)
[2018-02-25] MEDS: LEVOTHYROXINE 100 MCG TAB PO (05:58)
[2018-02-25] MEDS: ERYTHROMYCIN ETHYL SUCC (80 MG/ML PO SYG) NGT ×3 (06:00→22:06)
[2018-02-25 06:20] LABS: BLOOD UREA NITROGEN 18 mg/dl (7-20)
[2018-02-25] MEDS: POLYETHYLENE GLYCOL 17 GM PACKET PO ×2 (08:49→20:44)
[2018-02-25] MEDS: ENOXAPARIN 80 MG/0.8 ML SYG SC ×2 (08:49→20:47)
[2018-02-25] MEDS: COLLAGENASE 5 GM (UD JAR) TOP (08:50)
[2018-02-25] MEDS: AMIODARONE 200 MG TAB NGT (08:53)
[2018-02-25] MEDS: HYDROmorphONE 2 MG/ML SYG IV ×4 (08:53→21:55)
[2018-02-25] MEDS: LACTOBACILLUS RHAMNOSUS CAP NGT ×2 (08:54→20:44)
[2018-02-25] MEDS: LIOTHYRONINE 5 MCG TAB PO ×2 (08:55→20:44)
[2018-02-25] MEDS: PREGABALIN 25 MG CAP PO ×3 (08:55→20:44)
[2018-02-25] MEDS: SOD CHLORIDE 0.9% 1,000 ML IV (08:57)
[2018-02-25] MEDS: METOPROLOL 25 MG TAB NGT ×2 (09:42→20:54)
[2018-02-25] MEDS: METOCLOPRAMIDE (1 MG/ML) 10 ML CUP PO ×4 (10:30→20:44)
[2018-02-25] MEDS: HYDROCORTISONE 20 MG TAB PO (13:00)
[2018-02-25] MEDS: HYDROCORTISONE 5 MG TAB PO ×2 (15:37→20:44)
[2018-02-25] MEDS: DEXTROSE 50% 50 ML SYRINGE IV ×2 (18:05→22:25)
[2018-02-26] MEDS: INSULIN ASPART [NOVOLOG] 3 ML PEN SC ×7 (01:00→21:00)
[2018-02-26] MEDS: DEXTROSE 50% 50 ML SYRINGE IV ×4 (01:46→10:34)
[2018-02-26] MEDS: DEXTROSE 5%-0.45% NACL 1,000 ML IV (02:32)
[2018-02-26] MEDS: ERYTHROMYCIN ETHYL SUCC (80 MG/ML PO SYG) NGT ×3 (05:04→21:20)
[2018-02-26] MEDS: METHOCARBAMOL 750 MG TAB PO ×3 (05:04→21:15)
[2018-02-26] MEDS: LANSOPRAZOLE 30 MG CAP NGT ×2 (05:04→17:01)
[2018-02-26] MEDS: HYDROmorphONE 2 MG/ML SYG IV ×5 (05:05→21:20)
[2018-02-26 05:50] LABS: ADD MAN DIFF? NO
[2018-02-26 06:08] LABS: BASOPHILS % 0.5 % (0.0-2.0); EOSINOPHILS # 0.1 10^3/ul (0.0-0.5); EOSINOPHILS % 1.8 % (0.0-7.0); HEMATOCRIT 26.1 % (37.0-47.0); HEMOGLOBIN 7.8 g/dl (12.0-16.0); LYMPHOCYTES # 1.3 10^3/ul (0.8-2.9); LYMPHOCYTES % 20.2 % (15.0-51.0); MEAN CORPUSCULAR HGB CONC 29.9 g/dl (32.0-37.0); MEAN CORPUSCULAR VOLUME 83.7 fl (82.0-101.0); MEAN PLATELET VOLUME 8.8 fl (7.4-10.4); MONOCYTE # 0.6 10^3/ul (0.3-0.9); MONOCYTES % 9.5 % (0.0-11.0); NEUTROPHIL # 4.4 10^3/ul (1.6-7.5); NEUTROPHILS % 67.5 % (39.0-77.0); PLATELET COUNT 480 10^3/UL (140-415); RED BLOOD COUNT 3.12 10^6/ul (4.20-5.40)
[2018-02-26 06:08] LABS: WHITE BLOOD COUNT 6.5 10^3/ul (4.8-10.8)
[2018-02-26] MEDS: LORAZEPAM 2 MG INJ IV ×4 (06:13→21:19)
[2018-02-26 06:23] LABS: MAGNESIUM 1.9 mg/dl (1.7-2.5)
[2018-02-26 06:23] LABS: PHOSPHORUS 2.9 mg/dl (2.5-4.9)
[2018-02-26 06:29] LABS: ALANINE AMINOTRANSFERASE 28 IU/L (13-69); ALBUMIN 2.5 g/dl (3.3-4.9); ALBUMIN/GLOBULIN RATIO 0.89; ALKALINE PHOSPHATASE 53 IU/L (42-121); ANION GAP 6 (5-13); ASPARTATE AMINO TRANSFERASE 20 IU/L (15-46); BILIRUBIN,INDIRECT 0.3 mg/dl (0-1.1); BILIRUBIN,TOTAL 0.3 mg/dl (0.2-1.3); BLOOD UREA NITROGEN 10 mg/dl (7-20); CALCIUM 8.5 mg/dl (8.4-10.2); CARBON DIOXIDE 31 mmol/L (21-31); CHLORIDE 100 mmol/L (97-110); CREATININE 0.29 mg/dl (0.44-1.00); Estimated GFR > 60 mL/min (>60); GLUCOSE 106 mg/dl (70-220); SODIUM 137 mmol/L (135-144); TOTAL PROTEIN 5.3 g/dl (6.1-8.1)
[2018-02-26 06:30] LABS: POTASSIUM 3.3 mmol/L (3.5-5.1)
[2018-02-26] MEDS: METOPROLOL 25 MG TAB NGT ×2 (09:00→21:17)
[2018-02-26] MEDS: COLLAGENASE 5 GM (UD JAR) TOP (09:16)
[2018-02-26] MEDS: PREGABALIN 25 MG CAP PO ×3 (09:18→21:18)
[2018-02-26] MEDS: METOCLOPRAMIDE (1 MG/ML) 10 ML CUP PO ×4 (09:18→21:14)
[2018-02-26] MEDS: LACTOBACILLUS RHAMNOSUS CAP NGT ×2 (09:19→21:18)
[2018-02-26] MEDS: AMIODARONE 200 MG TAB NGT (09:19)
[2018-02-26] MEDS: LIOTHYRONINE 5 MCG TAB PO ×2 (09:19→21:18)
[2018-02-26] MEDS: LEVOTHYROXINE 100 MCG TAB PO (09:19)
[2018-02-26] MEDS: POLYETHYLENE GLYCOL 17 GM PACKET PO ×2 (09:19→21:00)
[2018-02-26] MEDS: ENOXAPARIN 80 MG/0.8 ML SYG SC ×2 (09:24→21:31)
[2018-02-26] MEDS ORDERED: DEXTROSE 10% 1,000 ML IV ×2 (10:30)
[2018-02-26] MEDS: DEXTROSE 10% 500 ML IV ×2 (10:47→21:42)
[2018-02-26 12:38] LABS: GLUCOSE 190 mg/dl (70-220)
[2018-02-26] MEDS: HYDROCORTISONE 5 MG TAB PO ×2 (14:03→21:18)
[2018-02-26] MEDS: METHYLNALTREXONE 12 MG/0.6 ML VIAL SC (16:51)
[2018-02-27] MEDS: INSULIN ASPART [NOVOLOG] 3 ML PEN SC ×6 (01:00→20:50)
[2018-02-27] MEDS: LORAZEPAM 2 MG INJ IV ×5 (01:32→22:04)
[2018-02-27] MEDS: HYDROmorphONE 2 MG/ML SYG IV ×6 (01:32→23:28)
[2018-02-27] MEDS: LEVOTHYROXINE 100 MCG TAB PO (05:17)
[2018-02-27] MEDS: ERYTHROMYCIN ETHYL SUCC (80 MG/ML PO SYG) NGT ×3 (05:18→22:04)
[2018-02-27 05:37] LABS: ADD MAN DIFF? NO; BASOPHILS % 0.5 % (0.0-2.0); EOSINOPHILS # 0.1 10^3/ul (0.0-0.5); EOSINOPHILS % 1.9 % (0.0-7.0); HEMATOCRIT 26.8 % (37.0-47.0); HEMOGLOBIN 8.1 g/dl (12.0-16.0); LYMPHOCYTES # 1.5 10^3/ul (0.8-2.9); LYMPHOCYTES % 26.3 % (15.0-51.0); MEAN CORPUSCULAR HEMOGLOBIN 25.1 pg (29.0-33.0); MEAN CORPUSCULAR HGB CONC 30.2 g/dl (32.0-37.0); MEAN PLATELET VOLUME 8.7 fl (7.4-10.4); MONOCYTE # 0.6 10^3/ul (0.3-0.9); NEUTROPHIL # 3.5 10^3/ul (1.6-7.5); NEUTROPHILS % 60.8 % (39.0-77.0); PLATELET COUNT 464 10^3/UL (140-415); RED BLOOD COUNT 3.23 10^6/ul (4.20-5.40); RED CELL DISTRIBUTION WIDTH 16.8 % (11.5-14.5)
[2018-02-27 05:37] LABS: WHITE BLOOD COUNT 5.7 10^3/ul (4.8-10.8)
[2018-02-27] MEDS: METHOCARBAMOL 750 MG TAB PO ×3 (05:50→22:12)
[2018-02-27] MEDS: LANSOPRAZOLE 30 MG CAP NGT ×2 (05:50→18:19)
[2018-02-27 06:10] LABS: INR 0.96; PROTIME 12.9 Sec (11.9-14.9)
[2018-02-27] MEDS: COLLAGENASE 5 GM (UD JAR) TOP (06:17)
[2018-02-27 06:30] LABS: ALANINE AMINOTRANSFERASE 24 IU/L (13-69); ALBUMIN 2.4 g/dl (3.3-4.9); ALBUMIN/GLOBULIN RATIO 0.88; ALKALINE PHOSPHATASE 51 IU/L (42-121); ANION GAP 7 (5-13); ASPARTATE AMINO TRANSFERASE 17 IU/L (15-46); BILIRUBIN,INDIRECT 0.1 mg/dl (0-1.1); BILIRUBIN,TOTAL 0.1 mg/dl (0.2-1.3); BLOOD UREA NITROGEN 7 mg/dl (7-20); CALCIUM 8.1 mg/dl (8.4-10.2); CARBON DIOXIDE 30 mmol/L (21-31); CHLORIDE 98 mmol/L (97-110); CREATININE 0.22 mg/dl (0.44-1.00); Estimated GFR > 60 mL/min (>60); GLUCOSE 90 mg/dl (70-220); MAGNESIUM 1.8 mg/dl (1.7-2.5); PHOSPHORUS 3.4 mg/dl (2.5-4.9); POTASSIUM 3.5 mmol/L (3.5-5.1); SODIUM 135 mmol/L (135-144); TOTAL PROTEIN 5.1 g/dl (6.1-8.1)
[2018-02-27 06:45] LABS: THYROID STIMULATING HORMONE 0.387 MIU/L (0.465-4.680)
[2018-02-27] MEDS: DEXTROSE 10% 1,000 ML IV ×2 (08:14→16:46)
[2018-02-27] MEDS: METOPROLOL 25 MG TAB NGT ×2 (09:00→20:53)
[2018-02-27] MEDS: POLYETHYLENE GLYCOL 17 GM PACKET PO ×2 (09:00→20:49)
[2018-02-27] MEDS: AMIODARONE 200 MG TAB NGT (10:01)
[2018-02-27] MEDS: LIOTHYRONINE 5 MCG TAB PO ×2 (10:03→20:50)
[2018-02-27] MEDS: LACTOBACILLUS RHAMNOSUS CAP NGT ×2 (10:03→20:50)
[2018-02-27] MEDS: PREGABALIN 25 MG CAP PO ×3 (10:03→20:50)
[2018-02-27] MEDS: METOCLOPRAMIDE (1 MG/ML) 10 ML CUP PO ×4 (10:04→22:12)
[2018-02-27] MEDS: ENOXAPARIN 80 MG/0.8 ML SYG SC ×2 (10:28→20:54)
[2018-02-27] MEDS: DEXTROSE 50% 50 ML SYRINGE IV (13:00)
[2018-02-27] MEDS: HYDROCORTISONE 5 MG TAB PO ×2 (14:19→20:49)
[2018-02-27] MEDS: GUAIFENESIN/CODEINE 5ML CUP PO (18:20)
[2018-02-28] MEDS: INSULIN ASPART [NOVOLOG] 3 ML PEN SC ×6 (00:23→21:00)
[2018-02-28] MEDS: HYDROmorphONE 2 MG/ML SYG IV ×5 (03:35→21:53)
[2018-02-28] MEDS: DEXTROSE 10% 500 ML IV (04:24)
[2018-02-28] MEDS: LORAZEPAM 2 MG INJ IV ×4 (06:18→21:06)
[2018-02-28] MEDS: METHOCARBAMOL 750 MG TAB PO ×3 (06:20→21:54)
[2018-02-28] MEDS: ERYTHROMYCIN ETHYL SUCC (80 MG/ML PO SYG) NGT ×3 (06:20→21:54)
[2018-02-28] MEDS: LANSOPRAZOLE 30 MG CAP NGT ×2 (06:20→18:02)
[2018-02-28] MEDS: LEVOTHYROXINE 100 MCG TAB PO (06:21)
[2018-02-28 06:22] LABS: ADD MAN DIFF? NO
[2018-02-28 06:24] LABS: WHITE BLOOD COUNT 5.7 10^3/ul (4.8-10.8)
[2018-02-28 06:24] LABS: BASOPHILS % 0.3 % (0.0-2.0); EOSINOPHILS # 0.1 10^3/ul (0.0-0.5); EOSINOPHILS % 2.3 % (0.0-7.0); HEMOGLOBIN 8.5 g/dl (12.0-16.0); LYMPHOCYTES # 1.4 10^3/ul (0.8-2.9); LYMPHOCYTES % 24.7 % (15.0-51.0); MEAN CORPUSCULAR HEMOGLOBIN 24.9 pg (29.0-33.0); MEAN CORPUSCULAR HGB CONC 30.4 g/dl (32.0-37.0); MEAN CORPUSCULAR VOLUME 81.9 fl (82.0-101.0); MEAN PLATELET VOLUME 8.9 fl (7.4-10.4); MONOCYTE # 0.6 10^3/ul (0.3-0.9); NEUTROPHIL # 3.6 10^3/ul (1.6-7.5); NEUTROPHILS % 62.4 % (39.0-77.0); PLATELET COUNT 472 10^3/UL (140-415); RED BLOOD COUNT 3.42 10^6/ul (4.20-5.40); RED CELL DISTRIBUTION WIDTH 16.9 % (11.5-14.5)
[2018-02-28] MEDS: DEXTROSE 50% 50 ML SYRINGE IV ×4 (06:37→13:47)
[2018-02-28 06:50] LABS: ALANINE AMINOTRANSFERASE 23 IU/L (13-69); ALBUMIN 2.5 g/dl (3.3-4.9); ALBUMIN/GLOBULIN RATIO 0.92; ALKALINE PHOSPHATASE 56 IU/L (42-121); ANION GAP 7 (5-13); ASPARTATE AMINO TRANSFERASE 19 IU/L (15-46); BILIRUBIN,INDIRECT 0.1 mg/dl (0-1.1); BILIRUBIN,TOTAL 0.1 mg/dl (0.2-1.3); BLOOD UREA NITROGEN 7 mg/dl (7-20); CALCIUM 8.2 mg/dl (8.4-10.2); CARBON DIOXIDE 29 mmol/L (21-31); CHLORIDE 99 mmol/L (97-110); CHOL/HDL RATIO 3.8 RATIO; CHOLESTEROL 138 mg/dl (100-200); CREATININE 0.24 mg/dl (0.44-1.00); Estimated GFR > 60 mL/min (>60); GLUCOSE 93 mg/dl (70-220); HDL CHOLESTEROL 36 mg/dl (35-98); LDL CHOLESTEROL,CALCULATED 82 mg/dl; MAGNESIUM 1.9 mg/dl (1.7-2.5); POTASSIUM 3.5 mmol/L (3.5-5.1); SODIUM 135 mmol/L (135-144); TOTAL PROTEIN 5.2 g/dl (6.1-8.1); TRIGLYCERIDES 99 mg/dl (0-149)
[2018-02-28 09:10] LABS: GLUCOSE 202 mg/dl (70-220)
[2018-02-28] MEDS: COLLAGENASE 5 GM (UD JAR) TOP (09:34)
[2018-02-28] MEDS: LACTOBACILLUS RHAMNOSUS CAP NGT ×2 (09:34→21:11)
[2018-02-28] MEDS: PREGABALIN 25 MG CAP PO ×3 (09:34→21:10)
[2018-02-28] MEDS: METOCLOPRAMIDE (1 MG/ML) 10 ML CUP PO ×4 (09:34→21:09)
[2018-02-28] MEDS: METOPROLOL 25 MG TAB NGT ×2 (09:35→21:00)
[2018-02-28] MEDS: AMIODARONE 200 MG TAB NGT (09:36)
[2018-02-28] MEDS: POLYETHYLENE GLYCOL 17 GM PACKET PO ×2 (09:36→21:10)
[2018-02-28] MEDS: ENOXAPARIN 80 MG/0.8 ML SYG SC ×2 (09:46→21:09)
[2018-02-28] MEDS: LIOTHYRONINE 5 MCG TAB PO ×2 (10:35→21:10)
[2018-02-28] MEDS: HYDROCORTISONE 5 MG TAB PO ×2 (13:38→21:10)
[2018-02-28] MEDS: METHYLNALTREXONE 12 MG/0.6 ML VIAL SC (15:33)
[2018-02-28 15:35] LABS: GLUCOSE 130 mg/dl (70-220)
[2018-02-28] MEDS ORDERED: TPN 1,000 ML IV (15:49)
[2018-02-28] MEDS ORDERED: ACCU-CHEK XX (17:00)
[2018-02-28] MEDS: DEXTROSE 10% 1,000 ML IV (18:49)
[2018-03-01] MEDS: LORAZEPAM 2 MG INJ IV ×6 (00:58→22:07)
[2018-03-01] MEDS: INSULIN ASPART [NOVOLOG] 3 ML PEN SC ×6 (01:00→22:02)
[2018-03-01] MEDS: HYDROmorphONE 2 MG/ML SYG IV ×6 (02:12→22:03)
[2018-03-01 06:10] LABS: ANION GAP 7 (5-13); BLOOD UREA NITROGEN 7 mg/dl (7-20); CALCIUM 8.7 mg/dl (8.4-10.2); CARBON DIOXIDE 28 mmol/L (21-31); CHLORIDE 99 mmol/L (97-110); CREATININE 0.16 mg/dl (0.44-1.00); Estimated GFR > 60 mL/min (>60); GLUCOSE 112 mg/dl (70-220); MAGNESIUM 1.9 mg/dl (1.7-2.5); PHOSPHORUS 3.8 mg/dl (2.5-4.9); POTASSIUM 4.1 mmol/L (3.5-5.1); SODIUM 134 mmol/L (135-144)
[2018-03-01] MEDS: LANSOPRAZOLE 30 MG CAP NGT (06:11)
[2018-03-01] MEDS: LEVOTHYROXINE 100 MCG TAB PO (06:11)
[2018-03-01] MEDS: DEXTROSE 10% 1,000 ML IV ×2 (06:12→19:09)
[2018-03-01] MEDS: METHOCARBAMOL 750 MG TAB PO ×3 (06:12→22:07)
[2018-03-01] MEDS: ERYTHROMYCIN ETHYL SUCC (80 MG/ML PO SYG) NGT ×3 (06:16→22:07)
[2018-03-01] MEDS: AMIODARONE 200 MG TAB NGT (08:18)
[2018-03-01] MEDS: METOPROLOL 25 MG TAB NGT ×2 (08:19→22:07)
[2018-03-01] MEDS: POLYETHYLENE GLYCOL 17 GM PACKET PO ×2 (08:19→22:04)
[2018-03-01] MEDS: LIOTHYRONINE 5 MCG TAB PO ×2 (08:20→22:04)
[2018-03-01] MEDS: METOCLOPRAMIDE (1 MG/ML) 10 ML CUP PO ×4 (08:20→22:03)
[2018-03-01] MEDS: COLLAGENASE 5 GM (UD JAR) TOP (08:20)
[2018-03-01] MEDS: LACTOBACILLUS RHAMNOSUS CAP NGT ×2 (08:20→22:07)
[2018-03-01] MEDS: ENOXAPARIN 80 MG/0.8 ML SYG SC ×2 (08:21→22:16)
[2018-03-01] MEDS: PREGABALIN 25 MG CAP PO ×3 (09:00→22:03)
[2018-03-01] MEDS: DEXTROSE 50% 50 ML SYRINGE IV ×2 (09:23→13:49)
[2018-03-01] MEDS: HYDROCORTISONE 5 MG TAB PO ×2 (13:38→22:31)
[2018-03-01 15:40] LABS: GLUCOSE 188 mg/dl (70-220)
[2018-03-02] MEDS: INSULIN ASPART [NOVOLOG] 3 ML PEN SC ×6 (01:00→20:56)
[2018-03-02] MEDS: LORAZEPAM 2 MG INJ IV ×3 (02:07→10:35)
[2018-03-02] MEDS: HYDROmorphONE 1 MG/ML SYG IV (02:08)
[2018-03-02] MEDS: AL HYDROX/MG HYDROX/SIMETH 30 ML CUP PO (04:07)
[2018-03-02] MEDS: METHOCARBAMOL 750 MG TAB PO ×3 (06:20→22:19)
[2018-03-02] MEDS: ONDANSETRON 4 MG INJ IV (06:20)
[2018-03-02] MEDS: ERYTHROMYCIN ETHYL SUCC (80 MG/ML PO SYG) NGT ×3 (06:20→22:18)
[2018-03-02] MEDS: HYDROmorphONE 2 MG/ML SYG IV ×5 (06:20→22:56)
[2018-03-02] MEDS: LEVOTHYROXINE 100 MCG TAB PO (06:20)
[2018-03-02] MEDS: LANSOPRAZOLE 30 MG CAP NGT (06:27)
[2018-03-02 06:41] LABS: ANION GAP 8 (5-13); BLOOD UREA NITROGEN 8 mg/dl (7-20); CALCIUM 9.2 mg/dl (8.4-10.2); CARBON DIOXIDE 30 mmol/L (21-31); CHLORIDE 93 mmol/L (97-110); CREATININE 0.22 mg/dl (0.44-1.00); Estimated GFR > 60 mL/min (>60); GLUCOSE 165 mg/dl (70-220); MAGNESIUM 1.8 mg/dl (1.7-2.5); POTASSIUM 3.5 mmol/L (3.5-5.1); SODIUM 131 mmol/L (135-144)
[2018-03-02] MEDS: LIOTHYRONINE 5 MCG TAB PO ×2 (09:20→20:49)
[2018-03-02] MEDS: PREGABALIN 25 MG CAP PO ×3 (09:20→20:49)
[2018-03-02] MEDS: LACTOBACILLUS RHAMNOSUS CAP NGT ×2 (09:20→20:50)
[2018-03-02] MEDS: METOPROLOL 25 MG TAB NGT ×2 (09:20→20:50)
[2018-03-02] MEDS: METOCLOPRAMIDE (1 MG/ML) 10 ML CUP PO ×4 (09:20→20:50)
[2018-03-02] MEDS: POLYETHYLENE GLYCOL 17 GM PACKET PO ×2 (09:23→20:50)
[2018-03-02] MEDS: COLLAGENASE 5 GM (UD JAR) TOP (09:24)
[2018-03-02] MEDS: DEXTROSE 10% 1,000 ML IV ×2 (09:25→11:16)
[2018-03-02] MEDS: ENOXAPARIN 80 MG/0.8 ML SYG SC ×2 (09:34→20:52)
[2018-03-02] MEDS: AMIODARONE 200 MG TAB NGT (10:36)
[2018-03-02] MEDS: HYDROCORTISONE 5 MG TAB PO (14:04)
[2018-03-02] MEDS: ACCU-CHEK XX ×2 (17:00→20:56)
[2018-03-02] MEDS: METHYLNALTREXONE 12 MG/0.6 ML VIAL SC (18:32)
[2018-03-02] MEDS: TPN 1,000 ML IV (20:52)
[2018-03-02] MEDS ORDERED: HYDROCORTISONE 5 MG TAB PO (21:00)
[2018-03-02] MEDS: HYDROCORTISONE 100 MG INJ IV (22:18)
[2018-03-03] MEDS: DEXTROSE 50% 50 ML SYRINGE IV (00:59)
[2018-03-03] MEDS: INSULIN ASPART [NOVOLOG] 3 ML PEN SC ×6 (01:00→21:00)
[2018-03-03] MEDS: ACCU-CHEK XX ×6 (01:03→21:09)
[2018-03-03] MEDS: LORAZEPAM 2 MG INJ IV ×4 (01:53→19:47)
[2018-03-03 02:45] LABS: GLUCOSE 162 mg/dl (70-220)
[2018-03-03] MEDS: HYDROmorphONE 2 MG/ML SYG IV ×5 (03:13→20:58)
[2018-03-03] MEDS ORDERED: HYDROCORTISONE 5 MG TAB PO ×2 (06:00→13:00)
[2018-03-03] MEDS: LEVOTHYROXINE 100 MCG VIAL IV (06:05)
[2018-03-03] MEDS: HYDROCORTISONE 100 MG INJ IV ×3 (06:05→22:38)
[2018-03-03] MEDS: METHOCARBAMOL 750 MG TAB PO ×3 (06:06→22:38)
[2018-03-03] MEDS: LANSOPRAZOLE 30 MG CAP NGT ×2 (06:06→19:46)
[2018-03-03] MEDS: ERYTHROMYCIN ETHYL SUCC (80 MG/ML PO SYG) NGT ×3 (06:06→22:38)
[2018-03-03 06:07] LABS: ADD MAN DIFF? NO
[2018-03-03 06:09] LABS: BASOPHILS % 0.3 % (0.0-2.0); EOSINOPHILS % 0.6 % (0.0-7.0); HEMATOCRIT 26.3 % (37.0-47.0); HEMOGLOBIN 7.9 g/dl (12.0-16.0); LYMPHOCYTES # 1.5 10^3/ul (0.8-2.9); LYMPHOCYTES % 22.9 % (15.0-51.0); MEAN CORPUSCULAR HEMOGLOBIN 24.2 pg (29.0-33.0); MEAN CORPUSCULAR VOLUME 80.7 fl (82.0-101.0); MEAN PLATELET VOLUME 9.1 fl (7.4-10.4); MONOCYTE # 0.6 10^3/ul (0.3-0.9); MONOCYTES % 9.6 % (0.0-11.0); NEUTROPHIL # 4.3 10^3/ul (1.6-7.5); NEUTROPHILS % 66.3 % (39.0-77.0); PLATELET COUNT 399 10^3/UL (140-415); RED BLOOD COUNT 3.26 10^6/ul (4.20-5.40); RED CELL DISTRIBUTION WIDTH 16.9 % (11.5-14.5)
[2018-03-03 06:09] LABS: WHITE BLOOD COUNT 6.5 10^3/ul (4.8-10.8)
[2018-03-03 06:52] LABS: ANION GAP 5 (5-13); BLOOD UREA NITROGEN 10 mg/dl (7-20); CALCIUM 8.2 mg/dl (8.4-10.2); CARBON DIOXIDE 27 mmol/L (21-31); CHLORIDE 101 mmol/L (97-110); Estimated GFR > 60 mL/min (>60); GLUCOSE 125 mg/dl (70-220); MAGNESIUM 1.9 mg/dl (1.7-2.5); PHOSPHORUS 2.9 mg/dl (2.5-4.9); POTASSIUM 4.4 mmol/L (3.5-5.1); SODIUM 133 mmol/L (135-144)
[2018-03-03 06:53] LABS: ALANINE AMINOTRANSFERASE 19 IU/L (13-69); ALBUMIN 2.1 g/dl (3.3-4.9); ALBUMIN/GLOBULIN RATIO 0.77; ALKALINE PHOSPHATASE 55 IU/L (42-121); ANION GAP 5 (5-13); ASPARTATE AMINO TRANSFERASE 12 IU/L (15-46); BILIRUBIN,INDIRECT 0.3 mg/dl (0-1.1); BILIRUBIN,TOTAL 0.3 mg/dl (0.2-1.3); BLOOD UREA NITROGEN 9 mg/dl (7-20); CALCIUM 8.1 mg/dl (8.4-10.2); CARBON DIOXIDE 27 mmol/L (21-31); CHLORIDE 102 mmol/L (97-110); CREATININE 0.22 mg/dl (0.44-1.00); Estimated GFR > 60 mL/min (>60); GLUCOSE 128 mg/dl (70-220); LIPASE 41 U/L (23-300); SODIUM 134 mmol/L (135-144); TOTAL PROTEIN 4.8 g/dl (6.1-8.1)
[2018-03-03 06:59] LABS: TROPONIN-I < 0.012 ng/ml (0.000-0.120)
[2018-03-03] MEDS: METOPROLOL 25 MG TAB NGT ×2 (09:00→21:00)
[2018-03-03] MEDS: COLLAGENASE 5 GM (UD JAR) TOP (10:26)
[2018-03-03] MEDS: METOCLOPRAMIDE (1 MG/ML) 10 ML CUP PO ×3 (10:27→16:40)
[2018-03-03] MEDS: POLYETHYLENE GLYCOL 17 GM PACKET PO ×2 (10:27→21:07)
[2018-03-03] MEDS: PREGABALIN 25 MG CAP PO ×3 (10:27→21:00)
[2018-03-03] MEDS: LIOTHYRONINE 5 MCG TAB PO ×2 (10:28→20:59)
[2018-03-03] MEDS: AMIODARONE 200 MG TAB NGT (10:28)
[2018-03-03] MEDS: LACTOBACILLUS RHAMNOSUS CAP NGT ×2 (10:29→21:00)
[2018-03-03] MEDS: ENOXAPARIN 80 MG/0.8 ML SYG SC ×2 (10:34→21:06)
[2018-03-03] MEDS: TPN 1,000 ML IV (12:40)
[2018-03-04] MEDS: LORAZEPAM 2 MG INJ IV ×5 (00:01→20:12)
[2018-03-04] MEDS: METOCLOPRAMIDE 10 MG INJ IV ×4 (00:01→17:11)
[2018-03-04] MEDS: INSULIN ASPART [NOVOLOG] 3 ML PEN SC ×6 (01:00→21:00)
[2018-03-04] MEDS: ACCU-CHEK XX ×6 (01:00→21:00)
[2018-03-04] MEDS: HYDROmorphONE 2 MG/ML SYG IV ×6 (01:07→22:04)
[2018-03-04] MEDS: TPN 1,000 ML IV ×3 (03:14→17:10)
[2018-03-04] MEDS: HYDROCORTISONE 100 MG INJ IV ×3 (06:17→22:27)
[2018-03-04] MEDS: LEVOTHYROXINE 100 MCG VIAL IV (06:18)
[2018-03-04] MEDS: METHOCARBAMOL 750 MG TAB PO ×3 (06:20→22:25)
[2018-03-04] MEDS: LANSOPRAZOLE 30 MG CAP NGT ×2 (06:27→18:04)
[2018-03-04] MEDS: ERYTHROMYCIN ETHYL SUCC (80 MG/ML PO SYG) NGT ×3 (06:27→23:58)
[2018-03-04 06:57] LABS: ANION GAP 6 (5-13); BLOOD UREA NITROGEN 13 mg/dl (7-20); CALCIUM 8.6 mg/dl (8.4-10.2); CARBON DIOXIDE 24 mmol/L (21-31); CHLORIDE 104 mmol/L (97-110); CREATININE 0.22 mg/dl (0.44-1.00); Estimated GFR > 60 mL/min (>60); GLUCOSE 99 mg/dl (70-220); SODIUM 134 mmol/L (135-144)
[2018-03-04 07:09] LABS: PREALBUMIN 7.1 mg/dl (17.6-36.0)
[2018-03-04] MEDS: PREGABALIN 25 MG CAP PO ×3 (09:25→23:59)
[2018-03-04] MEDS: LIOTHYRONINE 5 MCG TAB PO ×2 (09:26→22:25)
[2018-03-04] MEDS: METOPROLOL 25 MG TAB NGT ×2 (09:26→22:26)
[2018-03-04] MEDS: AMIODARONE 200 MG TAB NGT (09:26)
[2018-03-04] MEDS: LACTOBACILLUS RHAMNOSUS CAP NGT ×2 (09:27→22:25)
[2018-03-04] MEDS: POLYETHYLENE GLYCOL 17 GM PACKET PO ×2 (09:27→22:25)
[2018-03-04] MEDS: COLLAGENASE 5 GM (UD JAR) TOP (09:27)
[2018-03-04] MEDS: ENOXAPARIN 80 MG/0.8 ML SYG SC ×2 (09:33→22:40)
[2018-03-04] MEDS: METHYLNALTREXONE 12 MG/0.6 ML VIAL SC (15:37)
[2018-03-05] MEDS: METOCLOPRAMIDE 10 MG INJ IV ×4 (00:05→17:26)
[2018-03-05] MEDS: ACCU-CHEK XX ×6 (01:00→21:21)
[2018-03-05] MEDS: HYDROmorphONE 2 MG/ML SYG IV ×6 (02:07→22:00)
[2018-03-05] MEDS: INSULIN ASPART [NOVOLOG] 3 ML PEN SC ×6 (02:38→21:00)
[2018-03-05] MEDS: TPN 1,000 ML IV ×3 (03:12→20:48)
[2018-03-05] MEDS: LORAZEPAM 2 MG INJ IV ×5 (04:34→20:40)
[2018-03-05] MEDS: METHOCARBAMOL 750 MG TAB PO ×3 (05:40→21:09)
[2018-03-05] MEDS: LEVOTHYROXINE 100 MCG VIAL IV (05:41)
[2018-03-05] MEDS: ERYTHROMYCIN ETHYL SUCC (80 MG/ML PO SYG) NGT ×3 (05:41→21:17)
[2018-03-05] MEDS: HYDROCORTISONE 100 MG INJ IV ×3 (05:41→21:09)
[2018-03-05] MEDS: LANSOPRAZOLE 30 MG CAP NGT ×2 (05:41→17:26)
[2018-03-05 07:43] LABS: ANION GAP 3 (5-13); BLOOD UREA NITROGEN 13 mg/dl (7-20); CALCIUM 8.5 mg/dl (8.4-10.2); CARBON DIOXIDE 26 mmol/L (21-31); CHLORIDE 108 mmol/L (97-110); Estimated GFR > 60 mL/min (>60); GLUCOSE 102 mg/dl (70-220); MAGNESIUM 1.8 mg/dl (1.7-2.5); PHOSPHORUS 3.1 mg/dl (2.5-4.9); POTASSIUM 3.8 mmol/L (3.5-5.1); SODIUM 137 mmol/L (135-144)
[2018-03-05] MEDS: LIOTHYRONINE 5 MCG TAB PO ×2 (08:38→21:09)
[2018-03-05] MEDS: AMIODARONE 200 MG TAB NGT (08:38)
[2018-03-05] MEDS: PREGABALIN 25 MG CAP PO ×3 (08:38→21:09)
[2018-03-05] MEDS: LACTOBACILLUS RHAMNOSUS CAP NGT ×2 (08:38→21:09)
[2018-03-05] MEDS: POLYETHYLENE GLYCOL 17 GM PACKET PO ×2 (08:39→21:09)
[2018-03-05] MEDS: METOPROLOL 25 MG TAB NGT ×2 (08:39→21:08)
[2018-03-05] MEDS: ENOXAPARIN 80 MG/0.8 ML SYG SC ×2 (08:46→21:16)
[2018-03-05] MEDS: COLLAGENASE 5 GM (UD JAR) TOP (08:47)
[2018-03-05] MEDS: MAGNESIUM SULFATE 1 GM/D5W 100 ML IVPB (11:39)
[2018-03-06] MEDS: INSULIN ASPART [NOVOLOG] 3 ML PEN SC ×6 (00:51→21:00)
[2018-03-06] MEDS: METOCLOPRAMIDE 10 MG INJ IV ×4 (00:51→17:09)
[2018-03-06] MEDS: LORAZEPAM 2 MG INJ IV ×6 (00:51→21:59)
[2018-03-06] MEDS: ACCU-CHEK XX ×6 (00:52→21:18)
[2018-03-06] MEDS: HYDROmorphONE 2 MG/ML SYG IV ×6 (02:05→22:50)
[2018-03-06 05:55] LABS: ADD MAN DIFF? NO; BASOPHILS % 0.2 % (0.0-2.0); EOSINOPHILS % 0.2 % (0.0-7.0); HEMATOCRIT 25.7 % (37.0-47.0); HEMOGLOBIN 7.7 g/dl (12.0-16.0); LYMPHOCYTES # 1.6 10^3/ul (0.8-2.9); LYMPHOCYTES % 28.9 % (15.0-51.0); MEAN CORPUSCULAR VOLUME 83.4 fl (82.0-101.0); MEAN PLATELET VOLUME 9.1 fl (7.4-10.4); MONOCYTE # 0.7 10^3/ul (0.3-0.9); MONOCYTES % 13.2 % (0.0-11.0); NEUTROPHIL # 3.1 10^3/ul (1.6-7.5); NEUTROPHILS % 57.1 % (39.0-77.0); PLATELET COUNT 346 10^3/UL (140-415); RED BLOOD COUNT 3.08 10^6/ul (4.20-5.40); RED CELL DISTRIBUTION WIDTH 16.4 % (11.5-14.5)
[2018-03-06 05:55] LABS: WHITE BLOOD COUNT 5.4 10^3/ul (4.8-10.8)
[2018-03-06] MEDS: ERYTHROMYCIN ETHYL SUCC (80 MG/ML PO SYG) NGT ×3 (06:20→21:58)
[2018-03-06] MEDS: HYDROCORTISONE 100 MG INJ IV ×3 (06:21→21:58)
[2018-03-06] MEDS: LANSOPRAZOLE 30 MG CAP NGT ×2 (06:21→17:09)
[2018-03-06] MEDS: METHOCARBAMOL 750 MG TAB PO ×3 (06:21→21:59)
[2018-03-06] MEDS: LEVOTHYROXINE 100 MCG VIAL IV (06:35)
[2018-03-06 06:39] LABS: ANION GAP 6 (5-13); BLOOD UREA NITROGEN 12 mg/dl (7-20); CALCIUM 7.8 mg/dl (8.4-10.2); CARBON DIOXIDE 23 mmol/L (21-31); CHLORIDE 106 mmol/L (97-110); CREATININE 0.34 mg/dl (0.44-1.00); Estimated GFR > 60 mL/min (>60); MAGNESIUM 2.4 mg/dl (1.7-2.5); PHOSPHORUS 4.2 mg/dl (2.5-4.9); SODIUM 135 mmol/L (135-144)
[2018-03-06 06:49] LABS: GLUCOSE 463 mg/dl (70-220)
[2018-03-06 08:32] LABS: ADD MAN DIFF? NO
[2018-03-06 08:45] LABS: BASOPHILS % 0.3 % (0.0-2.0); HEMATOCRIT 30.8 % (37.0-47.0); HEMOGLOBIN 9.2 g/dl (12.0-16.0); LYMPHOCYTES % 17.8 % (15.0-51.0); MEAN CORPUSCULAR HEMOGLOBIN 24.6 pg (29.0-33.0); MEAN CORPUSCULAR HGB CONC 29.9 g/dl (32.0-37.0); MEAN CORPUSCULAR VOLUME 82.4 fl (82.0-101.0); MONOCYTE # 0.6 10^3/ul (0.3-0.9); MONOCYTES % 10.3 % (0.0-11.0); NEUTROPHIL # 4.1 10^3/ul (1.6-7.5); NEUTROPHILS % 71.3 % (39.0-77.0); PLATELET COUNT 392 10^3/UL (140-415); RED BLOOD COUNT 3.74 10^6/ul (4.20-5.40); RED CELL DISTRIBUTION WIDTH 16.6 % (11.5-14.5)
[2018-03-06 08:45] LABS: WHITE BLOOD COUNT 5.8 10^3/ul (4.8-10.8)
[2018-03-06] MEDS: COLLAGENASE 5 GM (UD JAR) TOP (09:00)
[2018-03-06 09:10] LABS: ANION GAP 5 (5-13); BLOOD UREA NITROGEN 14 mg/dl (7-20); CALCIUM 8.9 mg/dl (8.4-10.2); CARBON DIOXIDE 27 mmol/L (21-31); CHLORIDE 104 mmol/L (97-110); CREATININE 0.22 mg/dl (0.44-1.00); Estimated GFR > 60 mL/min (>60); GLUCOSE 119 mg/dl (70-220); POTASSIUM 4.1 mmol/L (3.5-5.1); SODIUM 136 mmol/L (135-144)
[2018-03-06] MEDS: PREGABALIN 25 MG CAP PO ×3 (09:15→21:13)
[2018-03-06] MEDS: LIOTHYRONINE 5 MCG TAB PO ×2 (09:15→21:13)
[2018-03-06] MEDS: LACTOBACILLUS RHAMNOSUS CAP NGT ×2 (09:15→21:12)
[2018-03-06] MEDS: POLYETHYLENE GLYCOL 17 GM PACKET PO ×2 (09:15→21:12)
[2018-03-06] MEDS: AMIODARONE 200 MG TAB NGT (09:16)
[2018-03-06] MEDS: METOPROLOL 25 MG TAB NGT ×2 (09:18→21:12)
[2018-03-06] MEDS: ENOXAPARIN 80 MG/0.8 ML SYG SC ×2 (09:29→21:17)
[2018-03-06] MEDS: TPN 1,000 ML IV ×2 (11:50→22:06)
[2018-03-06] MEDS: METHYLNALTREXONE 12 MG/0.6 ML VIAL SC (17:07)
[2018-03-07] MEDS: METOCLOPRAMIDE 10 MG INJ IV ×5 (00:49→23:54)
[2018-03-07] MEDS: INSULIN ASPART [NOVOLOG] 3 ML PEN SC ×6 (00:51→21:00)
[2018-03-07] MEDS: ACCU-CHEK XX ×6 (00:51→21:00)
[2018-03-07] MEDS: LORAZEPAM 2 MG INJ IV ×6 (02:09→23:55)
[2018-03-07] MEDS: TPN 1,000 ML IV ×2 (02:40→17:55)
[2018-03-07] MEDS: HYDROmorphONE 2 MG/ML SYG IV (03:58)
[2018-03-07] MEDS: METHOCARBAMOL 750 MG TAB PO ×3 (06:09→22:41)
[2018-03-07] MEDS: LEVOTHYROXINE 100 MCG VIAL IV (06:10)
[2018-03-07] MEDS: ERYTHROMYCIN ETHYL SUCC (80 MG/ML PO SYG) NGT ×3 (06:10→22:52)
[2018-03-07] MEDS: HYDROCORTISONE 100 MG INJ IV ×3 (06:10→22:42)
[2018-03-07] MEDS: LANSOPRAZOLE 30 MG CAP NGT ×2 (06:17→18:10)
[2018-03-07 06:36] LABS: ANION GAP 4 (5-13); BLOOD UREA NITROGEN 14 mg/dl (7-20); CALCIUM 8.6 mg/dl (8.4-10.2); CARBON DIOXIDE 28 mmol/L (21-31); CHLORIDE 104 mmol/L (97-110); CREATININE 0.23 mg/dl (0.44-1.00); Estimated GFR > 60 mL/min (>60); GLUCOSE 108 mg/dl (70-220); PHOSPHORUS 3.7 mg/dl (2.5-4.9); POTASSIUM 3.7 mmol/L (3.5-5.1); SODIUM 136 mmol/L (135-144)
[2018-03-07] MEDS: HYDROmorphONE 0.5 MG/0.5 ML SYG IV ×2 (07:52→12:46)
[2018-03-07] MEDS: POLYETHYLENE GLYCOL 17 GM PACKET PO ×2 (09:23→22:40)
[2018-03-07] MEDS: AMIODARONE 200 MG TAB NGT (09:24)
[2018-03-07] MEDS: METOPROLOL 25 MG TAB NGT ×2 (09:24→22:41)
[2018-03-07] MEDS: LACTOBACILLUS RHAMNOSUS CAP NGT ×2 (09:25→22:47)
[2018-03-07] MEDS: PREGABALIN 25 MG CAP PO ×3 (09:25→22:44)
[2018-03-07] MEDS: COLLAGENASE 5 GM (UD JAR) TOP (09:25)
[2018-03-07] MEDS: LIOTHYRONINE 5 MCG TAB PO ×2 (09:25→22:44)
[2018-03-07] MEDS: ENOXAPARIN 80 MG/0.8 ML SYG SC ×2 (09:26→22:44)
[2018-03-07] MEDS: POTASSIUM CHLORIDE 50 ML IVPB (10:10)
[2018-03-07] MEDS: HYDROmorphONE 2 MG TAB PO ×2 (18:10→23:00)
[2018-03-07] MEDS: HYDROmorphONE 1 MG/ML SYG IV (21:47)
[2018-03-08] MEDS: INSULIN ASPART [NOVOLOG] 3 ML PEN SC ×5 (01:00→17:00)
[2018-03-08] MEDS: ACCU-CHEK XX ×5 (01:00→17:00)
[2018-03-08] MEDS: HYDROmorphONE 1 MG/ML SYG IV ×7 (01:35→20:15)
[2018-03-08] MEDS: TPN 1,000 ML IV ×2 (02:42→10:23)
[2018-03-08] MEDS: LORAZEPAM 2 MG INJ IV ×4 (04:13→20:15)
[2018-03-08] MEDS: HYDROmorphONE 2 MG TAB PO ×3 (05:41→17:26)
[2018-03-08] MEDS: METOCLOPRAMIDE 10 MG INJ IV ×3 (06:06→18:39)
[2018-03-08] MEDS: LEVOTHYROXINE 100 MCG VIAL IV (06:07)
[2018-03-08] MEDS: METHOCARBAMOL 750 MG TAB PO ×2 (07:59→13:58)
[2018-03-08] MEDS: HYDROCORTISONE 100 MG INJ IV ×2 (07:59→15:17)
[2018-03-08] MEDS: ERYTHROMYCIN ETHYL SUCC (80 MG/ML PO SYG) NGT ×2 (08:08→15:17)
[2018-03-08] MEDS: METOPROLOL 25 MG TAB NGT (09:00)
[2018-03-08] MEDS: AMIODARONE 200 MG TAB NGT (09:00)
[2018-03-08] MEDS: PREGABALIN 25 MG CAP PO ×2 (09:00→13:58)
[2018-03-08] MEDS: POLYETHYLENE GLYCOL 17 GM PACKET PO (09:14)
[2018-03-08] MEDS: LACTOBACILLUS RHAMNOSUS CAP NGT (09:14)
[2018-03-08] MEDS: ENOXAPARIN 80 MG/0.8 ML SYG SC (09:23)
[2018-03-08] MEDS: COLLAGENASE 5 GM (UD JAR) TOP (09:23)
[2018-03-08 10:10] LABS: ANION GAP 5 (5-13); BLOOD UREA NITROGEN 14 mg/dl (7-20); CALCIUM 9.1 mg/dl (8.4-10.2); CARBON DIOXIDE 27 mmol/L (21-31); CHLORIDE 106 mmol/L (97-110); CREATININE 0.25 mg/dl (0.44-1.00); Estimated GFR > 60 mL/min (>60); GLUCOSE 127 mg/dl (70-220); POTASSIUM 4.1 mmol/L (3.5-5.1); SODIUM 138 mmol/L (135-144)
[2018-03-08] MEDS: LIOTHYRONINE 5 MCG TAB PO (11:09)
[2018-03-08] MEDS ORDERED: ALTEPLASE (CATHFLO) 2 MG INJ CATHETER (15:00)
[2018-03-08] MEDS: METHYLNALTREXONE 12 MG/0.6 ML VIAL SC (15:24)
[2018-03-08] MEDS: ALTEPLASE (CATHFLO) 2 MG INJ CATHETER (18:40)
== END 2018-03-08 20:40 | DRG 3 ==
LOC: 6WM 12-16 09:25 → 2NE 02-22 10:45 → 6WM 02-07 12:52 → E/R 17:20 → ICU 12-22 23:41 → 2NE 22:24
PROC: 0B110F4 Bypass Trachea to Cutaneous with Tracheostomy Device, Open Approach (ICD-10-PCS; principal; 2017-12-11 14:00)
PROC: 0DJ04ZZ Inspection of Upper Intestinal Tract, Percutaneous Endoscopic Approach (ICD-10-PCS; 2017-12-11 14:00)
PROC: 5A1955Z Respiratory Ventilation, Greater than 96 Consecutive Hours (ICD-10-PCS; 2017-12-11 14:00)
PROC: 0DB98ZX Excision of Duodenum, Via Natural or Artificial Opening Endoscopic, Diagnostic (ICD-10-PCS; 2017-12-11 14:00)
PROC: 0DB68ZX Excision of Stomach, Via Natural or Artificial Opening Endoscopic, Diagnostic (ICD-10-PCS; 2017-12-11 14:00)
PROC: 02HV33Z Insertion of Infusion Device into Superior Vena Cava, Percutaneous Approach (ICD-10-PCS; 2017-12-11 14:00)
PROC: 05H533Z Insertion of Infusion Device into Right Subclavian Vein, Percutaneous Approach (ICD-10-PCS; 2017-12-11 14:00)
PROC: 0BH17EZ Insertion of Endotracheal Airway into Trachea, Via Natural or Artificial Opening (ICD-10-PCS; 2017-12-11 14:00)
PROC: 30233N1 Transfusion of Nonautologous Red Blood Cells into Peripheral Vein, Percutaneous Approach (ICD-10-PCS; 2017-12-11 14:00)
DX: K91.31 Postprocedural partial intestinal obstruction (principal); J96.01 Acute respiratory failure with hypoxia; R65.21 Severe sepsis with septic shock; J69.0 Pneumonitis due to inhalation of food and vomit; J96.90 Respiratory failure, unspecified, unspecified whether with hypoxia or hypercapnia; A41.51 Sepsis due to Escherichia coli [E. coli]; J96.92 Respiratory failure, unspecified with hypercapnia; I82.4Z2 Acute embolism and thrombosis of unspecified deep veins of left distal lower extremity; I47.1 Supraventricular tachycardia; E46 Unspecified protein-calorie malnutrition; D68.62 Lupus anticoagulant syndrome; J44.1 Chronic obstructive pulmonary disease with (acute) exacerbation; N39.0 Urinary tract infection, site not specified; D62 Acute posthemorrhagic anemia; E27.49 Other adrenocortical insufficiency; K30 Functional dyspepsia; R13.10 Dysphagia, unspecified; E03.9 Hypothyroidism, unspecified; I10 Essential (primary) hypertension; M34.9 Systemic sclerosis, unspecified; Y83.9 Surgical procedure, unspecified as the cause of abnormal reaction of the patient, or of later complication, without mention of misadventure at the time of the procedure; Y73.3 Surgical instruments, materials and gastroenterology and urology devices (including sutures) associated with adverse incidents; D64.9 Anemia, unspecified; Z47.1 Aftercare following joint replacement surgery; L94.0 Localized scleroderma [morphea]; Z68.23 Body mass index [BMI] 23.0-23.9, adult; J38.01 Paralysis of vocal cords and larynx, unilateral; F17.200 Nicotine dependence, unspecified, uncomplicated; I95.9 Hypotension, unspecified; Z79.4 Long term (current) use of insulin; Z51.5 Encounter for palliative care; M79.0 Rheumatism, unspecified; E11.40 Type 2 diabetes mellitus with diabetic neuropathy, unspecified; Z66 Do not resuscitate; E80.6 Other disorders of bilirubin metabolism; B96.1 Klebsiella pneumoniae [K. pneumoniae] as the cause of diseases classified elsewhere; Z79.52 Long term (current) use of systemic steroids; G89.29 Other chronic pain; R10.9 Unspecified abdominal pain; R62.7 Adult failure to thrive
CPT/HCPCS: 31500; 36415; 36430; 36569; 36600; 70360; 70491; 71045; 73562; 73590; 74018; 74176; 74230; 74250; 76937; 80048; 80053; 80061; 80076; 80202; 81001; 81003; 81240; 82150; 82533; 82550; 82553; 82565; 82607; 82728; 82746; 82784; 82803; 82947; 82962; 83036; 83090; 83540; 83605; 83690; 83735; 83890; 84100; 84132; 84134; 84155; 84165; 84439; 84443; 84478; 84480; 84484; 84520; 85025; 85300; 85302; 85305; 85610; 85613; 85651; 85730; 86038; 86140; 86146; 86147; 86320; 86430; 86850; 86900; 86901; 86920; 87040; 87070; 87081; 87086; 88305; 88312; 89220; 92507; 92526; 92610; 92611; 93005; 93306; 93970; 94002; 94003; 94640; 94664; 94770; 96374; 96375; 96376; 97110; 97162; 97164; 97530; 99285-25